=== PATIENT | male | born 1940 | race Caucasian/White ===

== ENCOUNTER 2020-06-20 11:15 | Inpatient (IN) | payer OTHER ==
--- OUTSIDE RECORDS SUMMARY | 2020-06-20 11:18 | XMS REPORT | Continuity of Care Document ---
:1940 Author Organization [facility] t Address [address] [place] [address] Care Team Providers Name Role Phone Unavailable Unavailable Unavailable Problems Condition Condition Condition Status Onset Resolution Last Treating Co mments Source Name Details Category Date Date Treatment Clinician Date Essential Essential Diagnosis Active [facility] hypertensi hypertensi [facility] kes - on on [facility] 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 [facility] - diabetes diabetes Memori a mellitus mellitus l with with [facility] hyperglyce hyperglyce en t [facility] Obesity Obesity Diagnosis [facility] ([facility] (BMI [facility] - 30-39.9) 30-39.9) [facility] Mixed Mixed Diagnosis Active [facility] hyperlipid hyperlipid [place] [facility] - emia emia Memoria [facility] Peripheral Peripheral Diagnosis Active [facility] edema edema [facility] - Memoria [facility] Diabetes Diabetes Problem Active [facility] History of History of Diagnosis Active [facility] asbestos asbestos [facility] Dietary Dietary Diagnosis [facility] surveillan surveillan [place] [facility] - ce and ce and Memoria counseling counseling [facility] Allergies, Adverse Reactions, Alerts This patient has no known allergies or adverse reactions. Medications Ordered Filled Start Stop Current Ordering Indication Dosage Frequency Signature Comments Components Source Medication Medication Date Date Medication? Clinician (SIG) Name Name Metformin Metformin 2019-0 Yes Gloria [address] [facility] HCl HCl 2-26 [facility] with a [facility] - 00:00: meal Memoria 00 l [facility] ent [facility] Blood Blood 2020-0 Yes Gloria as [facility] Glucose Glucose 2-26 Millender directed [facility] - Monitor Monitor 00:00: (DISPENSE Me moria 00 BLOOD l GLUCOSE Outpati MONITOR ent FORMULARY Clinics TO INSURANCE) Januvia Januvia 2020-0 Yes Gloria [address] 2-26 Millender [facility] - 00:[facility]: Memoria 00 l Outpati ent Clinics Lancets Lancets Yes Gloria as [facility] 2-26 [facility] directed [facility] - 00:00: (dispense Memoria 00 lancets l formulary Outpati to ent insurance) Clinics Glucose Glucose Yes Gloria as [facility] testing testing 2-26 [facility]ender directed [facility] - strips strips 00:00: (dispense Marquise reymundo 00 testing l strips Outpati formulary ent to Clinics insurance) Nilson Nilson Yes Gloria [address] [facility] Aspirin EC Aspirin EC Millender [facility] - Low Dose Low Dose Memoria l Outpati ent Clinics Sertraline Sertraline Yes Gloria [address] [facility] HCl HCl Millender [facility] Amlodipine Amlodipine Yes Gloria [address] [facility] Besylate Besylate Millender [place] - [facility] l Outpati ent Clinics Losartan Losartan Yes Gloria [address] Potassium-H Potassium-H Millender [facility] - CTZ CTZ [facility] l Outpati ent Clinics Vitamin Vitamin Yes Gloria [address] [facility] B-12 B-12 Millender [facility] Rosuvastati Rosuvastati Yes Gloria [address] [facility] n Calcium n Calcium Millender in evening [facility] Gemfibrozil Gemfibrozil Yes Gloria [address] [facility] Millender [facility] Vitamin D3 Vitamin D3 Yes Gloria [address] [facility] Millender [facility] Janumet XR Janumet XR Yes Gloria [address] [facility] Millender [facility] Glimepiride Glimepiride Yes Gloria [address] [facility] Millender [facility] Doxazosin Doxazosin Yes Gloria [address] [facility] Mesylate Mesylate Millender [place] [facility] - [facility] ent Clinics Omeprazole Omeprazole Yes Gloria [address] [facility] Millender [facility] Multi For Multi For Yes Gloria as [facility] Him 50+ Him 50+ Millender directed [facility] Hydrochloro Hydrochloro Yes Gloria [address] [facility] thiazide thiazide Millender in the [facility] - morning [facility] ent Clinics Vitamin C Vitamin C Yes Gloria [address] [facility] [place] [facility] [facility] Procedures This patient has no known procedures. Encounters Start End Encounter Admission Attending Care Care Encounter Source Date/Time Date/Time Type Type Clinicians Facility Department ID 2019-11-25 2019-11-25 [facility] [id number] [facility] 14:40:00 14:40:00 [facility] Out[facility] ent Clinics 2019-10-24 2019-10-24 [facility] [id number] [facility] 09:40:00 09:40:00 [facility] Out[facility] Clinics 2019-09-07 2019-09-07 [facility] [id number] [facility] 13:15:00 13:15:00 [facility] Clin[facility] 2019-09-07 2019-09-07 [facility] [id number] [facility] 09:19:00 09:19:00 [facility] Out[facility] Clin[facility] 2019-08-26 2019-08-26 [facility] [id number] [facility] 09:40:00 09:40:00 [facility] Out[facility] Clin[facility] 2019-07-04 2019-07-04 [facility] [id number] [facility] 11[facility]38:00 11:38:00 [facility] Out[facility] Clinics 2019-07-04 2019-07-04 [facility] [id number] [facility] 10:23:00 10:23:00 [facility] Clin[facility] 2019-05-24 2019-05-24 [facility] [id number] [facility] 10:30:00 10:30:00 [facility] Results This patient has no known results.
--- NOTE | 2020-06-20 13:14 | RAD REPORT ---
EXAM DESCRIPTION: US - Scrotum Testicles - 06/20/2020 12:44 pm CLINICAL HISTORY: SWELLING, scrotal pain COMPARISON: None FINDINGS: Testicular tissue is homogeneous with no mass lesions identified. Doppler evaluation shows normal intratesticular blood flow. No soft tissue enlargement or hyperemia of epididymal tissue. A 2 .4 centimeter thin-walled anechoic right epididymal cyst is present. There is a 1.2 centimeter anecho ic left epididymal cyst. Patient has prominent scrotal wall thickening and edema. No abscess or abnormal fluid collection in t he scrotal wall. IMPRESSION: Pronounced wall thickening and edema of the scrotal wall without abscess. No testicle blood flow or mass abnormality. Bilateral epididymal cysts.
[2020-06-20] MEDS ORDERED: VANCOMYCIN/NS 1 gm 1 GM/250 ML BAG IV ONE (15:00)
[2020-06-20] MEDS ORDERED: NA CHLORIDE 0.9% 100 ML ONE (15:26)
[2020-06-20] MEDS ORDERED: FUROSEMIDE 20 MG/ 2ML VIAL ONE (15:26)
[2020-06-20] MEDS ORDERED: CEFTRIAXONE/SWI 1gm 1 GM/10 ML SYR ONE (15:26)
[2020-06-20 15:57] LABS: Absolute Lymphocytes (CBC) 0.7 K/uL (0.7-4.9); Basophils % 1.1 % (0-1.3); Hematocrit 27.6 % (39.6-49.0); Lymphocytes % 12.2 % (15.3-44.8); MPV 8.7 fL (7.6-11.3); RBC Red Blood Cell Count 3.78 M/uL (4.33-5.43)
[2020-06-20 16:01] LABS: Protime INR 1.15
--- NOTE | 2020-06-20 16:08 | RAD REPORT ---
EXAM DESCRIPTION: RAD - Chest Single View - 06/20/2020 3:18 pm CLINICAL HISTORY: scrotal swelling, shortness of breath COMPARISON: August 2019 TECHNIQUE: AP portable chest image was obtained 06/20/2020 3:18 pm . FINDINGS: Lung volumes are low. Large body habitus accentuates chest findings. Interstitial markings are prominent without a focal mass or consolidation seen. Retrocardiac left base assessment is more limited. Heart size is upper normal. Central vasculature is mildly prominent. Left costophrenic angle blunting is present. Trachea is midline. No pneumothorax. IMPRESSION: Chest examination is limited. Findings are suspicious for mild failure or volume overloa d. Suspected small left pleural effusion.
[2020-06-20 16:19] LABS: Potassium 3.8 mmol/L (3.5-5.1)
[2020-06-20 16:43] LABS: Albumin 3.7 g/dL (3.4-5.0); Bilirubin Direct 0.5 mg/dL (0-0.2); Bilirubin Total 0.7 mg/dL (0.2-1.0); CKMB Creatine Kinase MB 3.4 ng/mL (0.3-3.6); Protein, Total 7.6 g/dL (6.4-8.2); Troponin (Emerg Dept Use Only) 0.03 ng/mL (0.0-0.045)
--- NOTE | 2020-06-20 17:50 | RAD REPORT ---
EXAM DESCRIPTION: CT - Abdomen Pelvis W Contrast - 06/20/2020 5:36 pm CLINICAL HISTORY: scrotal swelling COMPARISON: Scrotum Testicles dated 06/20/2020 TECHNIQUE: Biphasic, helical CT imaging of the abdomen and pelvis was performed following 100 ml non -ionic IV contrast. No oral contrast administered. All CT scans are performed using dose optimization technique as appropriate and may include automated exposure control or mA/KV adjustment according to patient size. FINDINGS: Moderate bilateral pleural effusions are present with partial atelectasis of each lower lo be. Mild cardiomegaly present without pericardial effusion. No focal liver parenchymal lesions present. The liver does have a nodular capsule contour. Portal vei n enhances normally. No acute splenic or pancreatic process. Pancreatic atrophy and fatty infiltratio n are noted. Gallbladder is contracted limiting assessment. Gallstones can be occult. No biliary tree dilatation. Symmetric renal function is seen with no hydronephrosis or suspicious renal mass. No pyelonephritis o r acute parenchymal process. No bladder abnormalities. No adrenal abnormalities. No dilated bowel loops or bowel wall thickening. No free air or pneumatosis. No hernia, mass or bul ky lymphadenopathy. Advanced disc and bone degenerative changes are present. Patient has spinal stenosis changes evident at L2-3 L4-5 and L5-S1. Patient has prominent fluid retention in the subcutaneous fatty tissues of the abdomen and pelvis. Th ere is trace amount of intraperitoneal ascites. Lower most images show diffuse scrotal wall edema. IMPRESSION: Moderately large bilateral pleural effusions with prominent fluid retention throughout t he subcutaneous fatty tissues of the abdomen and pelvis. Only trace amounts of intraperitoneal ascite s. Liver capsule nodularity likely reflecting cirrhosis or other diffuse hepatic parenchymal disease pro cess. No focal liver lesions seen. No acute GI or process. Advanced disc and bone degenerative change with multilevel spinal stenosis in the lumbar spine.
[2020-06-20] MEDS ORDERED: D5W 1,000 ML with NA BICARB 8.4% 50 MEQ IV SCH ×2 (18:00)
[2020-06-20 18:23] LABS: Urine Bacteria <20 /HPF (NONE SEEN); Urine RBC <5 /HPF (NONE SEEN)
--- NOTE | 2020-06-20 18:59 | EDPHYS ---
Physician Documentation [facility] Name: Chris Pinto Age: 79 yrs Sex: Male : 1940 Arrival Date: 06/20/2020 Time: 11:15 Bed 16 Private MD: ED Physician Jose D Davenport HPI: 06/20 14:46 This 79 yrs old Male presents to ER via Wheelchair with complaints of Scrotal kdr Swelling. 14:46 The patient presents with swelling, that is severe, of the head of penis, shaft of kdr penis and scrotum. Onset: The symptoms/episode began/occurred gradually, 2 week(s) ago. Modifying factors: The symptoms are alleviated by nothing, the symptoms are aggravated by nothing. Associated signs and symptoms: The patient has no apparent associated signs or symptoms. Severity of symptoms: At their worst the symptoms were moderate, in the emergency department the symptoms are unchanged. The patient has not experienced similar symptoms in the past. The patient has not recently seen a physician. Historical: - Allergies: 11:27 No Known Allergies; ca1 - PMHx: 11:27 Diabetes - NIDDM; High Cholesterol; Hypertension; ca1 - PSHx: 11:27 left knee replacement; bicep detached; left shoulder; ca1 - Immunization history:: Pneumococcal vaccine is not up to date, Flu vaccine is up to date. - Social history:: Smoking status: Patient denies any tobacco usage or history of. ROS: 14:46 Constitutional: Negative for fever, chills, and weight loss, Eyes: Negative for injury, kdr pain, redness, and discharge, ENT: Negative for injury, pain, and discharge, Neck: Negative for injury, pain, and swelling, Cardiovascular: Negative for chest pain, palpitations, and edema, Abdomen/GI: Negative for abdominal pain, nausea, vomiting, diarrhea, and constipation, Back: Negative for injury and pain, MS/Extremity: Negative for injury and deformity, Skin: Negative for injury, rash, and discoloration, Neuro: Negative for headache, weakness, numbness, tingling, and seizure activity. Psych: Negative for depression, anxiety, suicide ideation, homicidal ideation, and hallucinations, Allergy/Immunology: Negative for hives, rash, and allergies, Endocrine: Negative for neck swelling, polydipsia, polyuria, polyphagia, and marked weight changes, Hematologic/Lymphatic: Negative for swollen nodes, abnormal bleeding, and unusual bruising. 14:46 Respiratory: Positive for shortness of breath, at rest. has asbestosis. 14:46 : Positive for of the groin, swelling. Exam: 14:46 Constitutional: This is a well developed, well nourished patient who is awake, alert, kdr and in no acute distress. Head/Face: Normocephalic, atraumatic. Eyes: Pupils equal round and reactive to light, extra-ocular motions intact. Lids and lashes normal. Conjunctiva and sclera are non-icteric and not injected. Cornea within normal limits. Periorbital areas with no swelling, redness, or edema. Neck: Trachea midline, no thyromegaly or masses palpated, and no cervical lymphadenopathy. Supple, full range of motion without nuchal rigidity, or vertebral point tenderness. No Meningismus. Chest/axilla: Normal chest wall appearance and motion. Nontender with no deformity. No lesions are appreciated. Cardiovascular: Regular rate and rhythm with a normal S1 and S2. No gallops, murmurs, or rubs. Normal PMI, no JVD. No pulse deficits. Respiratory: Lungs have equal breath sounds bilaterally, clear to auscultation and percussion. No rales, rhonchi or wheezes noted. No increased work of breathing, no retractions or nasal flaring. Abdomen/GI: Soft, non-tender, with normal bowel sounds. No distension or tympany. No guarding or rebound. No evidence of tenderness throughout. Back: No spinal tenderness. No costovertebral tenderness. Full range of motion. Skin: Warm, dry with normal turgor. Normal color with no rashes, no lesions, and no evidence of cellulitis. MS/ Extremity: Pulses equal, no cyanosis. Neurovascular intact. Full, normal range of motion. Neuro: Awake and alert, GCS 15, oriented to person, place, time, and situation. Cranial nerves II-XII grossly intact. Motor strength 5/5 in all extremities. Sensory grossly intact. Cerebellar exam normal. Normal gait. Psych: Awake, alert, with orientation to person, place and time. Behavior, mood, and affect are within normal limits. 14:46 Cardiovascular: Edema: 2+ edema to level of left midcalf, left ankle, left foot, left toes, right midcalf, right ankle, right foot and right toes. Vital Signs: 11:22 BP 155 / 69; Pulse 67; Resp 18 S; Temp 97.8(TE); Pulse Ox 98% on R/A; Weight 113.4 kg ca1 (R); Height 6 ft. 3 in. (190.50 cm) (R); Pain 0/10; 15:30 BP 128 / 57; Pulse 53; Resp 16; Pulse Ox 98% ; bp 16:47 BP 151 / 60; Pulse 54; Resp 16; Pulse Ox 98% ; bp 18:00 BP 125 / 85; Pulse 53; Resp 17; Pulse Ox 99% ; bp 19:20 BP 144 / 85; Pulse 68; Resp 16; Temp 98; Pulse Ox 95% ; rr5 20:30 BP 156 / 89; Pulse 63; Resp 24; Pulse Ox 98% ; rr5 21:30 BP 141 / 80; Pulse 60; Resp 20; Pulse Ox 98% ; rr5 22:30 BP 153 / 95; Pulse 64; Resp 17; Pulse Ox 98% ; rr5 23:30 BP 162 / 78; Pulse 60; Resp 18; Pulse Ox 99% ; rr5 06/21 00:12 BP 152 / 71; Pulse 62; Resp 18; Temp 97.8; Pulse Ox 97% ; rr5 06/20 11:22 Body Mass Index 31.25 (113.40 kg, 190.50 cm) ca1 MDM: 06/20 18:21 [facility]. [facility] 18:59 Differential diagnosis: nonspecific abdominal pain, UTI. Data reviewed: vital signs, [facility] nurses notes, lab test result(s), EKG, radiologic studies, CT scan, plain films, ultrasound. Data interpreted: power lineman: rate is 53 beats/min, rhythm is regular, Pulse oximetry: on room air is 99 %. Test interpretation: by ED physician or midlevel provider: ECG, plain radiologic studies. Counseling: I had a detailed discussion with the patient and/or guardian regarding: the historical points, exam findings, and any diagnostic results supporting the discharge/admit diagnosis, lab results, radiology results, the need for further work-up and treatment in the hospital. 06/20 14: Order name: CBC with Diff; Complete Time: :55 kdr 06/20 14: Order name: Chem 7; Complete Time: 16:55 kdr 06/20 14:40 Order name: Amylase, Serum [facility] 06/20 14:40 Order name: Blood Culture Adult (2) [facility] 06/20 14:40 Order name: Ckmb [facility] 06/20 14:40 Order name: CPK; Complete Time: 16:55 [facility] 06/20 14:40 Order name: Lactate; Complete Time: 16:55 [facility] 06/20 14:40 Order name: LFT's; Complete Time: 16:55 [facility] 06/20 14:40 Order name: Lipase; Complete Time: 16:55 [facility] 06/20 14:40 Order name: Procalcitonin; Complete Time: 18:41 [facility] 06/20 14:40 Order name: Protime (+inr); Complete Time: 16:55 [facility] 06/20 14:40 Order name: Ptt, Activated; Complete Time: 16:55 [facility] 06/20 14:40 Order name: Troponin (emerg Dept Use Only); Complete Time: 16:55 [facility] 06/20 14:40 Order name: Urine Microscopic Only; Complete Time: 18:41 [facility] 06/20 11:31 Order name: US Scrotum Testicles; Complete Time: 14:26 06/20 14:40 Order name: Chest Single View XRAY; Complete Time: 16:55 [facility] 06/20 14:42 Order name: Amylase; Complete Time: 16:55 [facility] 06/20 14:42 Order name: Blood Culture [facility] 06/20 14:42 Order name: CKMB Creatine Kinase MB; Complete Time: 16:55 [facility] 06/20 15:29 Order name: COVID-19 : Document "Date of Symptom Onset" if Symptomatic. bp 06/20 17:02 Order name: CT Abd/Pelvis - IV Contrast Only; Complete Time: 18:41 [facility] 06/20 17:13 Order name: SARS-COV-2 RT PCR; Complete Time: 18:41 [facility] 06/20 18:36 Order name: Urine Dipstick--Ancillary (enter results) 06/20 18:36 Order name: Urine Dipstick-Ancillary [facility] 06/20 23:24 Order name: CONS Physician Consult [facility] 06/20 14:40 Order name: Accucheck; Complete Time: 15:29 [facility] 06/20 14:40 Order name: Cardiac monitoring; Complete Time: 15:29 [facility] 06/20 14:40 Order name: EKG - Nurse/Tech; Complete Time: 15:54 [facility] 06/20 14:40 Order name: IV Saline Lock - Large Bore; Complete Time: 15:29 [facility] 06/20 14:40 Order name: Labs collected and sent; Complete Time: 15:29 [facility] 06/20 14:40 Order name: O2 Per Protocol; Complete Time: 15:29 [facility] 06/20 14:40 Order name: O2 Sat Monitoring; Complete Time: 15: [facility] 06/20 14:40 Order name: Urine Dipstick-Ancillary (obtain specimen); Complete Time: 18:07 kdr Administered Medications: 15:20 Drug: Rocephin - (cefTRIAXone) 1 grams Route: IVPB; Infused Over: 30 mins; Site: left bp antecubital; 15:20 Drug: Lasix 20 mg Route: IVP; Site: left antecubital; bp 18:06 Follow up: Response: No adverse reaction bp 15:55 Drug: vancoMYCIN 1 grams Route: IVPB; Infused Over: 2 hrs; Site: left antecubital; bp 19:30 Follow up: Response: No adverse reaction; IV Status: Completed infusion; IV Intake: rr5 250ml 18:50 Drug: Lasix 40 mg Route: IVP; Site: left antecubital; bp 19:50 Follow up: Response: No adverse reaction rr5 Disposition: 06/20/20 18:58 Hospitalization ordered by Annmarie Christopher for Inpatient Admission. Preliminary diagnosis are Edema, unspecified - scrotal, dependent, Unspecified combined systolic (congestive) and diastolic (congestive) heart failure, Type 2 diabetes mellitus, Obesity, unspecified, Unspecified kidney failure - renal insufficency, Anemia, unspecified. - Bed requested for Telemetry/MedSurg (Inpatient). - Status is Inpatient Admission. rr5 - Condition is Fair. - Problem is new. - Symptoms are unchanged. Signatures: Dispatcher [employer] EDMS Jose D Davenport MD MD cha Rittger, Kevin, MD MD kdr Peltier, Brian, RN RN bp Fredi Acuna RN RN rr5 Tiffany Lobato RN RN ca1 Pili Blakely RN RN rd1 Corrections: (The following items were deleted from the chart) 16:26 15:29 CORONAVIRUS ordered. [facility] EDMS 19:06 18:58 Hospitalization Ordered by Annmarie Christopher MD for Inpatient Admission. Preliminary aurea diagnosis is Edema, unspecified - scrotal, dependent; Unspecified combined systolic (congestive) and diastolic (congestive) heart failure; Type 2 diabetes mellitus; Obesity, unspecified; Unspecified kidney failure - renal insufficency. Bed requested for Telemetry/MedSurg (Inpatient). Status is Inpatient Admission. Condition is Fair. Problem is new. Symptoms are unchanged. aurea 23:52 19:06 06/20/2020 18:58 Hospitalization Ordered by Annmarie Christopher MD for Inpatient rd1 Admission. Preliminary diagnosis is Edema, unspecified - scrotal, dependent; Unspecified combined systolic (congestive) and diastolic (congestive) heart failure; Type 2 diabetes mellitus; Obesity, unspecified; Unspecified kidney failure - renal insufficency; Anemia, unspecified. Bed requested for Telemetry/MedSurg (Inpatient). Status is Inpatient Admission. Condition is Fair. Problem is new. Symptoms are unchanged. aurea 06/21 00:29 06/20 23:52 06/20/2020 18:58 Hospitalization Ordered by Annmarie Christopher MD for Inpatient rr5 Admission. Preliminary diagnosis is Edema, unspecified - scrotal, dependent; Unspecified combined systolic (congestive) and diastolic (congestive) heart failure; Type 2 diabetes mellitus; Obesity, unspecified; Unspecified kidney failure - renal insufficency; Anemia, unspecified. Bed requested for Telemetry/MedSurg (Inpatient). Status is Inpatient Admission. Condition is Fair. Problem is new. Symptoms are unchanged. rd1
--- NOTE | 2020-06-20 18:59 | ER ---
Nurse's Notes [facility] Name: Chris Pinto Age: 79 yrs Sex: Male : 1940 Arrival Date: 06/20/2020 Time: 11:15 Bed 16 Private MD: Diagnosis: Edema, unspecified-scrotal, dependent;Unspecified combined systolic (congestive) and diastolic (congestive) heart failure;Type 2 diabetes mellitus;Obesity, unspecified;Unspecified kidney failure-renal insufficency;Anemia, unspecified Presentation: 06/20 11:22 Chief complaint: Patient states: scrotal swelling x 2 weeks. this is the first time ca1 this has happened. Denies pain. Denies urinary symptoms. Coronavirus screen: Client denies travel out of the [place] in the last 14 days. At this time, the client does not indicate any symptoms associated with coronavirus-19. Ebola Screen: Patient negative for fever greater than or equal to 101.5 degrees Fahrenheit, and additional compatible Ebola Virus Disease symptoms Patient denies exposure to infectious person. Patient denies travel to an Ebola-affected area in the 21 days before illness onset. No symptoms or risks identified at this time. Initial Sepsis Screen: Does the patient meet any 2 criteria? No. Patient's initial sepsis screen is negative. Does the patient have a suspected source of infection? No. Patient's initial sepsis screen is negative. Risk Assessment: Do you want to hurt yourself or someone else? Patient reports no desire to harm self or others. Onset of symptoms was June 20, 2020. 11:22 Method Of Arrival: Wheelchair ca1 11:22 Method Of Arrival: Wheelchair ca1 11:22 Acuity: LITA 3 ca1 Triage Assessment: 14:15 General: Appears in no apparent distress. uncomfortable, obese, Behavior is calm, bp cooperative, appropriate for age. Pain: Complains of pain in scrotum. EENT: No deficits noted. Neuro: No deficits noted. Cardiovascular: No deficits noted. Respiratory: No deficits noted. GI: No signs and/or symptoms were reported involving the gastrointestinal system. : SCROTAL EDEMA. Derm: No deficits noted. Musculoskeletal: Swelling present in right toes and right foot and right ankle and right midcalf and left toes and left foot and left ankle and left midcalf and scrotum. Historical: - Allergies: 11:27 No Known Allergies; ca1 - PMHx: 11: Diabetes - NIDDM; High Cholesterol; Hypertension; ca1 - PSHx: 11:27 left knee replacement; bicep detached; left shoulder; ca1 - Immunization history:: Pneumococcal vaccine is not up to date, Flu vaccine is up to date. - Social history:: Smoking status: Patient denies any tobacco usage or history of. Screenin:30 Abuse screen: Denies threats or abuse. Denies injuries from another. bp 14:30 Nutritional screening: No deficits noted. Tuberculosis screening: No symptoms or risk bp factors identified. Fall Risk None identified. Assessment: 14:15 General: SEE TRIAGE NOTE. PT MOVED FROM WAITING. bp 15:30 Reassessment: No changes from previously documented assessment. Patient and/or family bp updated on plan of care and expected duration. Pain level reassessed. Patient is alert, oriented x 3, equal unlabored respirations, skin warm/dry/pink. 17:30 Reassessment: No changes from previously documented assessment. Patient and/or family bp updated on plan of care and expected duration. Pain level reassessed. Patient is alert, oriented x 3, equal unlabored respirations, skin warm/dry/pink. PT RETURNED FROM CT. RESULTS PENDING FOR DISPO. 19:50 General: Appears in no apparent distress. comfortable, Behavior is calm, cooperative, rr5 appropriate for age. Pain: Complains of pain in pelvis, right leg and left leg. Neuro: Level of Consciousness is awake, alert, Oriented to person, place, time. Cardiovascular: Capillary refill < 3 seconds Patient's skin is warm and dry. Edema. Respiratory: Airway is patent Respiratory effort is even, unlabored, Respiratory pattern is regular, symmetrical. GI: Abdomen is round. : scrotal swelling. EENT: No signs and/or symptoms were reported regarding the EENT system. Derm: Skin is pink, warm \\T\\ dry. Skin temperature is warm. Musculoskeletal: Capillary refill < 3 seconds, Swelling present in right leg and left leg. 21:00 Reassessment: Patient appears in no apparent distress at this time. Patient and/or rr5 family updated on plan of care and expected duration. Pain level reassessed. Patient is alert, oriented x 3, equal unlabored respirations, skin warm/dry/pink. awaiting for room assignment. 22:00 Reassessment: Patient appears in no apparent distress at this time. Patient is alert, rr5 oriented x 3, equal unlabored respirations, skin warm/dry/pink. pass urine 700 ml. 23:20 Reassessment: Patient appears in no apparent distress at this time. Patient is alert, rr5 oriented x 3, equal unlabored respirations, skin warm/dry/pink. no complaints made. 06/21 00:25 Reassessment: Patient appears in no apparent distress at this time. Patient is alert, rr5 oriented x 3, equal unlabored respirations, skin warm/dry/pink. Vital Signs: 06/20 11:22 BP 155 / 69; Pulse 67; Resp 18 S; Temp 97.8(TE); Pulse Ox 98% on R/A; Weight 113.4 kg ca1 (R); Height 6 ft. 3 in. (190.50 cm) (R); Pain 0/10; 15:30 BP 128 / 57; Pulse 53; Resp 16; Pulse Ox 98% ; bp 16:47 BP 151 / 60; Pulse 54; Resp 16; Pulse Ox 98% ; bp 18:00 BP 125 / 85; Pulse 53; Resp 17; Pulse Ox 99% ; bp 19:20 BP 144 / 85; Pulse 68; Resp 16; Temp 98; Pulse Ox 95% ; rr5 20:30 BP 156 / 89; Pulse 63; Resp 24; Pulse Ox 98% ; rr5 21:30 BP 141 / 80; Pulse 60; Resp 20; Pulse Ox 98% ; rr5 22:30 BP 153 / 95; Pulse 64; Resp 17; Pulse Ox 98% ; rr5 23:30 BP 162 / 78; Pulse 60; Resp 18; Pulse Ox 99% ; rr5 06/21 00:12 BP 152 / 71; Pulse 62; Resp 18; Temp 97.8; Pulse Ox 97% ; rr5 06/20 11:22 Body Mass Index 31.25 (113.40 kg, 190.50 cm) ca1 ED Course: 06/20 11:15 Patient arrived in ED. as 11:25 Triage completed. ca1 11:27 Arm band placed on right wrist. ca1 12:00 Bill Brown MD is Attending Physician. kdr 12:19 US Scrotum Testicles In Process Unspecified. EDMS 14:19 Octavio, Joshua, RN is Primary Nurse. bp 14:30 Patient has correct armband on for positive identification. Placed in gown. Bed in low bp position. Call light in reach. Side rails up X2. 14:30 Inserted saline lock: 20 gauge in left antecubital area, using aseptic technique. Blood bp collected. 15:18 Chest Single View XRAY In Process Unspecified. EDMS 17:36 CT Abd/Pelvis - IV Contrast Only In Process Unspecified. EDMS 18:06 COVID-19 : Document "Date of Symptom Onset" if Symptomatic. Sent. bp 18:21 Attending Physician role handed off by Bill Brown MD aurea 18:21 Jose D Davenport MD is Attending Physician. aurea 18:52 Annmarie Christopher MD is Hospitalizing Provider. aurea 19:03 Urine Dipstick--Ancillary (enter results) Sent. bp 19:04 Amylase, Serum Sent. bp 19:04 Blood Culture Adult (2) Sent. bp 19:04 Ckmb Sent. bp 06/21 00:13 No provider procedures requiring assistance completed. Patient admitted, IV remains in rr5 place. intact, No redness/swelling at site. Administered Medications: 06/20 15:20 Drug: Rocephin - (cefTRIAXone) 1 grams Route: IVPB; Infused Over: 30 mins; Site: left bp antecubital; 15:20 Drug: Lasix 20 mg Route: IVP; Site: left antecubital; bp 18:06 Follow up: Response: No adverse reaction bp 15:55 Drug: vancoMYCIN 1 grams Route: IVPB; Infused Over: 2 hrs; Site: left antecubital; bp 19:30 Follow up: Response: No adverse reaction; IV Status: Completed infusion; IV Intake: rr5 250ml 18:50 Drug: Lasix 40 mg Route: IVP; Site: left antecubital; bp 19:50 Follow up: Response: No adverse reaction rr5 Intake: 19:30 IV: 250ml; Total: 250ml. rr5 Output: 20:35 Urine: 800ml (Voided); Total: 800ml. rr5 06/21 00:12 Urine: 700ml (Voided); Total: 1500ml. rr5 Outcome: 06/20 18:58 Decision to Hospitalize by Provider. aurea 06/21 00:13 Admitted to Med/surg accompanied by tech, via wheelchair, room 218, with chart, Report rr5 called to scot Condition: stable Instructed on the need for admit. 00:29 Patient left the ED. rr5 Signatures: Dispatcher [employer] EDJose D Desir MD MD cha Rittger, Kevin, MD MD kdr Martinez, Amelia as Peltier, Brian, RN RN Fredi Ackerman RN RN rr5 Tiffany Lobato RN RN ca1
[2020-06-20] MEDS ORDERED: FUROSEMIDE 40 MG/4 ML VIAL ONE (19:08)
[2020-06-20 20:15] LABS: Urine Blood NEGATIVE (NEG); Urine Glucose NEGATIVE (NEG); Urine Protein 1+ (NEG); Urine pH 5.5 (5.0-7.0)
[2020-06-21] MEDS ORDERED: ONDANSETRON 4 MG/2 ML VIAL IV PRN (00:43)
[2020-06-21] MEDS ORDERED: ACETAMINOPHEN 500 MG TAB PO PRN (00:43)
[2020-06-21 01:17] VITALS: BMI 35.9
--- NOTE | 2020-06-21 01:56 | P.HP ---
Certification for Inpatient Patient admitted to: Inpatient With expected LOS: >2 Midnights Patient will require the following post-hospital care: None Practitioner: I am a practitioner with admitting privileges, knowledge of patient current condition, hospital course, and medical plan of care. Services: Services provided to patient in accordance with Admission requirements found in Title 42 Section 412.3 of the Code of Federal Regulations <See Sharpe - Last Filed: 06/21/20 02:03> Patient History Date of Service: 06/21/20 Primary Care Provider: Unknown Reason for admission: volume overload History of Present Illness: Mr. Pinto is a 79 yo male with DM ,HTN, HLD, BPH here today with 2 weeks of scrotal edema and lower extremity edema that has progressively worsened. He reports SOB and CAIN. Denies fever, nausea, vomiting, chest pain, palpitations, dysuria, polyuria, orthopnea, PND. CXR shows findings suspicious for mild failure or volume overload, and suspected small left pleural effusion. CT shows moderately large bilateral pleural effusions with prominent fluid retention through subcutaneous fatty tissues of abdomen and pelvis. Only trace amounts of intraperitoneal ascites. Mild cardiomegaly. Liver capsule nodularity likely reflecting cirrhosis or other diffuse hepatic parenchymal disease process. No focal liver lesions. Pancreatic atrophy and fatty infiltration noted. Gallbladder is contracted, gallstones can be occult. No biliary tree dilation. Scrotal ultrasound shows pronounced wall thickening and edema of the scrotal wall without abscess, no testicular blood flow or mass abnormality, bilateral epididymal cysts. BNP pending. Hgb 8.5, Hct 27.6, MCV 73. BUN 30, Cr 1.46, GFR 47. Dbili 0.5, alk phos 140. - Past Medical/Surgical History Diabetic: Yes -: DM -: HTN -: HLD -: GERD -: Depression -: BPH -: knee replacement -: shoulder surgery - Social History Smoking Status: Never smoker Alcohol use: No CD- Drugs: No Caffeine use: Yes Place of Residence: Home <See Sharpe - Last Filed: 06/21/20 02:03> Date of Service: 06/21/20 <migue douglas - Last Filed: 06/21/20 13:42> Allergies No Known Allergies Allergy (Verified 06/21/20 01:56) Review of Systems General: Unremarkable Eyes: Unremarkable ENT: Unremarkable Respiratory: Shortness of Breath, SOB with Excertion, As per HPI Cardiovascular: Edema, As per HPI Gastrointestinal: Unremarkable Genitourinary: Unremarkable Musculoskeletal: Unremarkable Integumentary: Unremarkable Neurological: Unremarkable Lymphatics: Unremarkable <See Sharpe - Last Filed: 06/21/20 02:03> Physical Examination - Vital Signs Temperature: 96.8 F Blood Pressure: 152/73 Pulse: 64 Respirations: 17 Pulse Ox (%): 99 - Physical Exam General: Alert, In no apparent distress, Oriented x3, Cooperative HEENT: Atraumatic, Normocephalic, PERRLA, Mucous membr. moist/pink, EOMI, Sclerae nonicteric Neck: Supple, 2+ carotid pulse no bruit, JVD not distended, No Thyromegaly, No LAD Respiratory: Crackles/rales, Other (diminished at bases) Cardiovascular: Normal pulses, Regular rate/rhythm, Normal S1 S2, No gallops, No rubs, No murmurs, Other (3+ pitting edema), Edema Capillary refill: <2 Seconds Gastrointestinal: Normal bowel sounds, Soft and benign, Non-distended, No tenderness, No masses, No rebound, No guarding Musculoskeletal: No clubbing, No swelling, No contractures, No erythema, No tenderness, No warmth Integumentary: No rashes, No breakdown, No significant lesion, No tenderness/swelling, No erythema, No warmth, No cyanosis Neurological: Normal speech, Normal strength at 5/5 x4 extr, Normal tone, Sensation intact, Cranial nerves 3-12 intact, Normal affect Lymphatics: No axilla or inguinal lymphadenopathy - Studies Laboratory Data (last 24 hrs) 06/20/20 15:20: PT 13.3 H, INR 1.15, APTT 28.9 06/20/20 15:20: Total Bilirubin 0.7, AST 17, ALT 18, Alkaline Phosphatase 140 H, Amylase 39, Lipase 100 06/20/20 15:20: Sodium 144, Potassium 3.8, BUN 30 H, Creatinine 1.46 H, Glucose 115 H 06/20/20 15:20: WBC 6.10, Hgb 8.5 L, Hct 27.6 L, Plt Count 231 <See Sharpe - Last Filed: 06/21/20 02:03> - Studies Laboratory Data (last 24 hrs) 06/20/20 15:20: PT 13.3 H, INR 1.15, APTT 28.9 06/20/20 15:20: Total Bilirubin 0.7, AST 17, ALT 18, Alkaline Phosphatase 140 H, Amylase 39, Lipase 100 06/20/20 15:20: Sodium 144, Potassium 3.8, BUN 30 H, Creatinine 1.46 H, Glucose 115 H 06/20/20 15:20: WBC 6.10, Hgb 8.5 L, Hct 27.6 L, Plt Count 231 <migue douglas - Last Filed: 06/21/20 13:42> Assessment and Plan - Problems (Diagnosis) (1) Volume overload Current Visit: Yes Status: Acute Plan: patient with 3+ pitting edema, bilateral pleural effusions, fluid retention, scrotal swelling Lasix 60 IV given in the ER, will continue Lasix. cardiology consulted. pt has no previous diagnosis of CHF, not on diuretic at home. Qualifiers: Hypervolemia type: unspecified Qualified Code(s): E87.70 - Fluid overload, unspecified (2) Diabetes Current Visit: Yes Status: Chronic Plan: patient on accuchecks and mild sliding scale insulin. stable, continue to monitor. Qualifiers: Diabetes mellitus type: type 2 Diabetes mellitus termite treater helper insulin use: without mcfp use Diabetes mellitus complication status: without complication Qualified Code(s): E11.9 - Type 2 diabetes mellitus without complications (3) Hypertension Current Visit: Yes Status: Chronic Plan: stable, will reconcile and restart home medications Qualifiers: Hypertension type: essential hypertension Qualified Code(s): I10 - Essential (primary) hypertension (4) Hyperlipidemia Current Visit: Yes Status: Acute Plan: stable, continue with home medications Qualifiers: Hyperlipidemia type: unspecified Qualified Code(s): E78.5 - Hyperlipidemia, unspecified (5) BPH (benign prostatic hyperplasia) Current Visit: Yes Status: Acute Plan: continue with home medications Qualifiers: Lower urinary tract symptom presence: symptoms absent Qualified Code(s): N40.0 - Benign prostatic hyperplasia without lower urinary tract symptoms (6) Depression Current Visit: Yes Status: Acute Plan: stable, continue with home medications Qualifiers: Depression Type: unspecified Qualified Code(s): F32.9 - Major depressive disorder, single episode, unspecified (7) GERD (gastroesophageal reflux disease) Current Visit: Yes Status: Acute Plan: stable, continue with home medications Qualifiers: Esophagitis presence: esophagitis presence not specified Qualified Code(s): K21.9 - Gastro-esophageal reflux disease without esophagitis (8) Anemia Current Visit: Yes Status: Acute Plan: Hgb 8.5, Hct 27.6, MCV 73. Not present on last admission. Iron, ferritin, transferrin pending. SCDs for prophylaxis. Will continue to monitor. Qualifiers: Anemia type: unspecified type Qualified Code(s): D64.9 - Anemia, unspecified Discharge Plan: Home Plan to discharge in: 48 Hours - Advance Directives Does patient have a Living Will: No Does patient have a Durable POA for Healthcare: No - Code Status/Comfort Care Code Status Assessed: Yes (full code) Critical Care: No Time Spent Managing Pts Care (In Minutes): 70 <See Sharpe - Last Filed: 06/21/20 02:03> Physician Review: Patient Assessed, Agree with Above Assessment and Plan Physician Review Additional Text: [place] Scrotal edema. Plan: IV Lasix Monitor input and output. Fluid restriction. <migue douglas - Last Filed: 06/21/20 13:42>
[2020-06-21] MEDS ORDERED: D5W 1,000 ML with NA BICARB 8.4% 50 MEQ IV SCH ×2 (02:00)
[2020-06-21 02:22] LABS: Troponin I 0.03 ng/mL (0.0-0.045)
[2020-06-21 02:23] LABS: Thyroid Stimulating Hormone 3.76 uIU/mL (0.360-3.740)
[2020-06-21 03:11] LABS: Urine Color YELLOW
[2020-06-21 03:12] LABS: Urine Appearance CLEAR; Urine Bilirubin NEGATIVE (NEG); Urine Blood 1+ (NEG); Urine Glucose NEGATIVE (NEG); Urine Protein NEGATIVE (NEG); Urine Urobilinogen 0.2 mg/dL (0.2-1.0)
[2020-06-21 03:24] LABS: Urine Microscopic Reflex ORDER UMIC
[2020-06-21 04:24] LABS: Absolute Lymphocytes (CBC) 0.8 K/uL (0.7-4.9); Basophils % 0.7 % (0-1.3); Hematocrit 26.4 % (39.6-49.0); MPV 8.4 fL (7.6-11.3); RBC Red Blood Cell Count 3.68 M/uL (4.33-5.43)
[2020-06-21 05:25] LABS: Albumin 3.6 g/dL (3.4-5.0); Bilirubin Total 0.9 mg/dL (0.2-1.0); Ferritin 35.7 ng/mL (26-388); Magnesium 1.9 mg/dL (1.8-2.4); Phosphorus 3.1 mg/dL (2.5-4.9); Potassium 3.5 mmol/L (3.5-5.1); Protein, Total 7.2 g/dL (6.4-8.2)
[2020-06-21 05:40] LABS: Urine Bacteria <20 /HPF (NONE SEEN); Urine RBC <5 /HPF (NONE SEEN)
[2020-06-21] MEDS ORDERED: POTASSIUM CL SA 10 MEQ TAB PO ONE (06:45)
[2020-06-21] MEDS: INSULIN -REGULAR HUMAN 50 UNIT/0.5 ML ML SQ SCH ×4 (07:30→21:00)
[2020-06-21] MEDS: FUROSEMIDE 40 MG/4 ML VIAL IV SCH ×2 (09:11→17:06)
--- NOTE | 2020-06-21 13:48 | P.PN ---
Subjective Date of Service: 06/21/20 Primary Care Provider: Unknown Chief Complaint: volume overload Patient states his lower extremity edema is improving but the scrotal edema has not changed. Physical Examination - Vital Signs Temperature: 98.2 F Blood Pressure: 151/67 Pulse: 65 Respirations: 20 Pulse Ox (%): 96 - Physical Exam General: Alert, In no apparent distress, Oriented x3 HEENT: PERRLA, Mucous membr. moist/pink Neck: JVD not distended Respiratory: Clear to auscultation bilaterally, Normal air movement Cardiovascular: Regular rate/rhythm, Normal S1 S2, Edema (2+ bilateral lower extremity pitting edema) Gastrointestinal: Soft and benign, Non-distended, No ascites Musculoskeletal: No erythema, No tenderness Integumentary: No rashes Neurological: Normal strength at 5/5 x4 extr, Cranial nerves 3-12 intact External genitalia: Other (Scrotal edema.) - Studies Laboratory Data (last 24 hrs) 06/20/20 15:20: PT 13.3 H, INR 1.15, APTT 28.9 06/20/20 15:20: Total Bilirubin 0.7, AST 17, ALT 18, Alkaline Phosphatase 140 H, Amylase 39, Lipase 100 06/20/20 15:20: Sodium 144, Potassium 3.8, BUN 30 H, Creatinine 1.46 H, Glucose 115 H 06/20/20 15:20: WBC 6.10, Hgb 8.5 L, Hct 27.6 L, Plt Count 231 Assessment And Plan - Current Problems (Diagnosis) (1) Volume overload Current Visit: Yes Status: Acute Qualifiers: Hypervolemia type: unspecified Qualified Code(s): E87.70 - Fluid overload, unspecified (2) Diabetes Current Visit: Yes Status: Chronic Qualifiers: Diabetes mellitus type: type 2 Diabetes mellitus 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 Continue IV Lasix. Monitor intake and output Fluid restriction to 1200 mL per day. Echocardiogram. Optimize electrolytes. Monitor renal function.
[2020-06-22 06:20] LABS: Potassium 3.4 mmol/L (3.5-5.1)
--- NOTE | 2020-06-22 06:47 | EKG ---
Test Date: 2020-06-20 Test Time: 15:10:33 Living Supervisor: MAURA MEASUREMENT RESULTS: Intervals: Rate: 57 NH: QRSD: 82 QT: 462 QTc: 449 [place]: P: NH: QRS: -25 T: 90 INTERPRETIVE STATEMENTS: Sinus rhythm with 2nd degree AV block (Mobitz I) Low voltage QRS Cannot rule out Anteroseptal infarct, age undetermined Abnormal ECG Compared to ECG 03/13/2004 10:02:00 Low QRS voltage now present Sinus bradycardia no longer present Left-axis deviation no longer present Myocardial infarct finding still present Electronically Signed On 06-22-20 06:44:34 CDT by Josh Persaud
[2020-06-22] MEDS: INSULIN -REGULAR HUMAN 50 UNIT/0.5 ML ML SQ SCH ×4 (07:30→21:00)
[2020-06-22] MEDS: FUROSEMIDE 40 MG/4 ML VIAL IV SCH ×2 (09:27→16:50)
[2020-06-22] MEDS ORDERED: POTASSIUM CL SA 10 MEQ TAB PO ONE ×2 (12:00→21:00)
--- NOTE | 2020-06-22 12:24 | P.PN ---
Subjective Date of Service: 06/22/20 Primary Care Provider: Unknown Chief Complaint: volume overload Patient states he feels better. His lower extremity edema and scrotal edema are improving. Denies shortness of breath. He is diuresing well with the current IV Lasix dose. Physical Examination - Vital Signs Temperature: 97.9 F Blood Pressure: 182/80 Pulse: 56 Respirations: 18 Pulse Ox (%): 96 - Physical Exam General: Alert, In no apparent distress, Oriented x3 HEENT: Mucous membr. moist/pink Neck: Supple, JVD not distended Respiratory: Diminished (Bilateral) Cardiovascular: Regular rate/rhythm, Normal S1 S2, Edema (1+ bilateral lower extremity pitting edema) Gastrointestinal: Soft and benign, Non-distended, No ascites Musculoskeletal: No tenderness, Swelling (Bilateral lower extremities) Integumentary: No rashes Neurological: Normal strength at 5/5 x4 extr, Cranial nerves 3-12 intact External genitalia: Other (Scrotal edema) Assessment And Plan - Current Problems (Diagnosis) (1) Volume overload Current Visit: Yes Status: Acute Qualifiers: Hypervolemia type: unspecified Qualified Code(s): E87.70 - Fluid overload, unspecified (2) Diabetes Current Visit: Yes Status: Chronic Qualifiers: Diabetes mellitus type: type 2 Diabetes mellitus prison insulin use: without prison use Diabetes mellitus complication status: without co mplication Qualified Code(s): E11.9 - Type 2 diabetes mellitus without complications (3) Hypertension Current Visit: Yes Status: Chronic Qualifiers: Hypertension type: essential hypertension Qualified Code(s): I10 - Essential (primary) hypertension (4) Pleural effusion Current Visit: Yes Status: Acute (5) Liver disorder Current Visit: Yes Status: Acute - Plan Continue current dose IV Lasix. Monitor intake and output Fluid restriction to 1200 mL per day. Echocardiogram result is pending Obtain liver ultrasound Optimize electrolytes. Monitor renal function. Keep lower extremities and scrotum elevated. Monitor volume status. Physician Review: Patient Assessed, Agree with Above Assessment and Plan
--- NOTE | 2020-06-22 15:20 | RAD REPORT ---
EXAM DESCRIPTION: US - Liver Only - 06/22/2020 2:50 pm CLINICAL HISTORY: Abdominal pain/cirrhosis COMPARISON: None FINDINGS: Mildly nodular hepatic contour. The liver is normal size The liver has a normal echotextu re. Hepatopetal flow. A lesion is not visualized. The spleen measures 12.5 centimeters Small amount of ascites IMPRESSION: Mildly nodular hepatic contour can be seen with chronic disease. Borderline splenomegaly
[2020-06-22] MEDS ORDERED: METFORMIN HCL PO SCH (17:00)
[2020-06-22] MEDS ORDERED: SITAGLIPTIN PHOS PO SCH (17:00)
--- NOTE | 2020-06-22 20:07 | PN ---
Date of Progress Note: 06/22/2020 The patient was seen today on 06/22/2020 for followup on congestive heart failure. His last creatini ne was 1.61. O2 saturation 97% on room air. Potassium is 3.4. He has improved very well with Lasix IV. He is also on insulin. Has a history of diabetes, hypertension, dyslipidemia, and scrotal swel ling. Echocardiogram showed a normal ejection fraction with diastolic dysfunction. Mainstay of ther apy should be beta blockers, Lasix, fluid restriction, salt restriction, probably avoid an BRIJESH inhibi tor right now with his creatinine the way it is. He can go home whenever it is okay with Dr. Atkinson. We will see him in the office as an outpatient. CURT/MELY Voice ID: [id number] Report ID: [id number]
[2020-06-22] MEDS ORDERED: DOXAZOSIN 2 MG TAB PO SCH (21:00)
[2020-06-22] MEDS: ASPIRIN EC 81 MG TAB PO SCH (21:54)
[2020-06-22] MEDS: AMLODIPINE 5 MG TAB PO SCH (21:55)
[2020-06-23 05:46] LABS: Potassium 3.4 mmol/L (3.5-5.1)
[2020-06-23 05:58] LABS: Absolute Lymphocytes (CBC) 0.9 K/uL (0.7-4.9); Hematocrit 25.7 % (39.6-49.0); Lymphocytes % 16.2 % (15.3-44.8); MPV 8.4 fL (7.6-11.3)
[2020-06-23] MEDS: INSULIN -REGULAR HUMAN 50 UNIT/0.5 ML ML SQ SCH ×2 (07:30→11:30)
[2020-06-23] MEDS: FUROSEMIDE 40 MG/4 ML VIAL IV SCH (08:23)
[2020-06-23] MEDS: ASPIRIN EC 81 MG TAB PO SCH (08:24)
[2020-06-23] MEDS: AMLODIPINE 5 MG TAB PO SCH (08:25)
[2020-06-23] MEDS ORDERED: HOME MED 1 EA UNK (Losartan/Hydrochlorothiazide [Losartan-Hctz 100-25 Mg Tab] 1 EACH Table PO SCH (09:00)
[2020-06-23] MEDS ORDERED: VITAMIN D 1000 UNIT TAB PO SCH (09:00)
[2020-06-23] MEDS ORDERED: LOSARTAN/HCTZ 50-12.5 PO SCH (09:00)
[2020-06-23] MEDS ORDERED: CYANOCOBALAMIN 1,000 MCG TAB PO SCH (09:00)
[2020-06-23] MEDS ORDERED: ASCORBIC ACID 500 MG TABLET PO SCH (09:00)
[2020-06-23] MEDS ORDERED: PANTOPRAZOLE 40MG TABLET PO SCH (09:00)
[2020-06-23] MEDS ORDERED: POTASSIUM CL SA 10 MEQ TAB PO ONE (09:00)
[2020-06-23] MEDS ORDERED: SERTRALINE HCL 100 MG TAB PO SCH (09:00)
[2020-06-23] MEDS ORDERED: HOME MED 1 EA UNK (Omeprazole [Prilosec] 40 MG Capsule.Dr) PO SCH (09:00)
[2020-06-23] MEDS ORDERED: gemfibroziL 600 MG TAB PO SCH (09:00)
[2020-06-23] MEDS ORDERED: ROSUVASTATIN 10 MG TAB PO SCH (09:00)
[2020-06-23] MEDS ORDERED: MULTIVIT W/ MINERAL TAB PO SCH (09:00)
[2020-06-23 09:24] LABS: White Blood Cell Scan OK (OK)
[2020-06-23 09:25] LABS: Anisocytosis 2+; Blood Morphology Comment NOTED (NOT SEEN); Hypochromasia 2+; Platelet Estimate ADEQ; Target Cells 1+
[2020-06-23 10:37] VITALS: O2SAT 94
[2020-06-23] MEDS ORDERED: METOPROLOL TAR 50 MG TAB PO SCH (11:15)
[2020-06-23 12:00] VITALS: BP 160/67
--- NOTE | 2020-06-23 12:53 | PN ---
Date of Progress Note: 06/23/2020 Subjective: Mr. Pinto is a patient who was admitted with scrotal swelling, anasarca, congestive hear t failure. Echocardiogram showed diastolic dysfunction with normal ejection fraction. He has a hist ory of hypertension, diabetes, dyslipidemia. He has renal insufficiency. His last creatinine is 1.4 2, hemoglobin is 7.9, potassium is 3.4. He is feeling better. He still has some scrotal swelling an d pedal edema but is much improved. His last regimen include aspirin, Norvasc, doxazosin, Lasix, los mirella with hydrochlorothiazide, potassium, Crestor, and Lopid. I think he needs to have his potassiu m supplemented. I think he needs to have his losartan with HCT discontinued and change the losartan without the hydrochlorothiazide. I think he needs to go home on Lasix 40 mg b.i.d. His home medicat ion plus a beta-vincent dose, metoprolol ER succinate 50 mg daily. I will see him in the office in t he near future and have him do an outpatient Lexiscan and see me. CURT/MELY Voice ID: [id number] Report ID: [id number]
--- NOTE | 2020-06-23 14:03 | P.DS ---
Admission Date: 06/20/20 Discharge Date: 06/23/20 Primary Care Provider: Unknown Disposition: [place] HOME/HOME HEALTH CARE Discharge Condition: FAIR Reason for Admission: volume overload - Problems (1) Volume overload Current Visit: Yes Status: Acute Qualifiers: Hypervolemia type: unspecified Qualified Code(s): E87.70 - Fluid overload, unspecified (2) Diabetes Current Visit: Yes Status: Chronic Qualifiers: Diabetes mellitus type: type 2 Diabetes mellitus fpc insulin use: without buttermaker use Diabetes mellitus complication status: without complication Qualified Code(s): E11.9 - Type 2 diabetes mellitus without complications (3) Hypertension Current Visit: Yes Status: Chronic Qualifiers: Hypertension type: essential hypertension Qualified Code(s): I10 - Essential (primary) hypertension (4) Pleural effusion Current Visit: Yes Status: Acute (5) Liver disorder Current Visit: Yes Status: Acute (6) Scrotal edema Current Visit: Yes Status: Acute (7) Acute diastolic heart failure Current Visit: Yes Status: Acute (8) Chronic kidney disease, stage 3 Current Visit: Yes Status: Acute Brief History of Present Illness: 79-year-old gentleman with a history of hypertension and diabetes presented to the emergency department with a complaint of scrotal swelling, increasing lower extremity edema some progressive shortness of breath especially with exertion. Patient denied any orthopnea. Imaging done in the emergency department bilateral pleural effusion, diffuse subcutaneous edema and scrotal edema. Initial troponin negative. EKG showed sinus rhythm with Mobitz 1. Patient was hospitalized for further management. Hospital Course: Patient admitted to the medical floor and diuresed with IV Lasix. The anasarca significantly improved. Scrotal edema significantly improved with IV Lasix. Renal function was stable. Patient was able to ambulate now without shortness of breath. Patient was seen in consultation by cardiology-Dr. Persaud who recommended maintenance Lasix therapy with losartan and metoprolol and to discontinue hydrochlorothiazide. Echocardiogram done showed normal EF and impaired diastolic function. Noted he has iron deficiency anemia. Patient's denies any colonoscopy in the past. He denied any melena. Patient from the evaluation for colonoscopy as an outpatient. I called and updated his daughter- Laurie regarding the discharge plan including the need for colonoscopy. He is referred to see Dr. Dhaliwal. Overall patient has clinically improved and deemed stable for discharge. Vital Signs/Physical Exam: Temp Pulse Resp BP Pulse Ox 98.6 F 69 16 160/67 H 94 06/23/20 08:00 06/23/20 11:57 06/23/20 08:00 06/23/20 11:57 06/23/20 08:00 General: Alert, In no apparent distress HEENT: Mucous membr. moist/pink Neck: Supple, JVD not distended Respiratory: Clear to auscultation bilaterally, Normal air movement Cardiovascular: Regular rate/rhythm, Normal S1 S2, Edema (Bilateral lower extremity edema has significantly improved and almost resolved) Gastrointestinal: Soft and benign, Non-distended, No ascites Musculoskeletal: No swelling, No tenderness Integumentary: No rashes Neurological: Normal strength at 5/5 x4 extr External genitalia: Other (Scrotal edema significantly improved.) Laboratory Data at Discharge: WBC 5.40 K/uL (4.3-10.9) D 06/23/20 04:58 Hgb 7.9 g/dL (13.6-17.9) L* 06/23/20 04:58 Hct 25.7 % (39.6-49.0) L 06/23/20 04:58 Plt Count 230 K/uL (152-406) 06/23/20 04:58 PT 13.3 SECONDS (9.5-12.5) H 06/20/20 15:20 INR 1.15 06/20/20 15:20 APTT 28.9 SECONDS (24.3-36.9) 06/20/20 15:20 Sodium 143 mmol/L (136-145) 06/23/20 04:58 Potassium 3.4 mmol/L (3.5-5.1) L 06/23/20 04:58 BUN 28 mg/dL (7-18) H 06/23/20 04:58 Creatinine 1.42 mg/dL (0.55-1.3) H 06/23/20 04:58 Glucose 114 mg/dL (74-106) H 06/23/20 04:58 Phosphorus 3.1 mg/dL (2.5-4.9) 06/21/20 03:40 Magnesium 1.9 mg/dL (1.8-2.4) 06/21/20 03:40 Total Bilirubin 0.9 mg/dL (0.2-1.0) 06/21/20 03:40 AST 20 U/L (15-37) 06/21/20 03:40 ALT 17 U/L (12-78) 06/21/20 03:40 Alkaline Phosphatase 136 U/L (45-117) H 06/21/20 03:40 Troponin I Cancelled 06/21/20 16:43 Amylase 39 U/L (25-115) 06/20/20 15:20 Lipase 100 U/L (73-393) 06/20/20 15:20 Home Medications: Ascorbic Acid [Vitamin C*] 500 mg PO DAILY 06/21/20 Aspirin [Low Dose Aspirin EC] 1 tab PO BID 06/21/20 Cholecalciferol (Vitamin D3) [Vitamin D3] 1,000 unit PO DAILY 06/21/20 Cyanocobalamin [Vitamin B-12*] 1,000 mcg PO DAILY 06/21/20 Doxazosin [Cardura*] 1 mg PO BEDTIME 06/21/20 Glimepiride 4 mg PO BID 06/21/20 Multivitamin [Daily Multivitamin] 1 tab PO DAILY 06/21/20 Omeprazole [Prilosec] 40 mg PO DAILY 06/21/20 Rosuvastatin Calcium 10 mg PO DAILY 06/21/20 Sertraline HCl 100 mg PO DAILY 06/21/20 Sitagliptin Phos/Metformin HCl [Janumet Xr 100-1,000 mg Tablet] 1 tab PO DAILY AT SUPPER 06/21/20 gemfibroziL [Gemfibrozil] 600 mg PO DAILY 06/21/20 Amlodipine [Norvasc*] 10 mg PO DAILY #30 tab 06/23/20 Furosemide [Lasix] 40 mg PO BIDL #60 tab 06/23/20 Losartan Potassium [Cozaar*] 50 mg PO DAILY #30 tablet 06/23/20 Metoprolol Succinate [Toprol Xl] 50 mg PO DAILY #30 tab 06/23/20 Potassium Oral Tab [Klor-Con 10 mEq Tab*] 20 meq PO DAILY #60 tab 06/23/20 New Medications: Losartan Potassium [Cozaar*] 50 mg PO DAILY #30 tablet Potassium Oral Tab [Klor-Con 10 mEq Tab*] 20 meq PO DAILY #60 tab Furosemide [Lasix] 40 mg PO BIDL #60 tab Amlodipine [Norvasc*] 10 mg PO DAILY #30 tab Metoprolol Succinate [Toprol Xl] 50 mg PO DAILY #30 tab Physician Discharge Instructions: Keep lower extremities elevated above hip level in the sitting or lying position. Diet: AHA Activity: Ad rosa Followup: Josh Persaud MD [ACTIVE - CAN ADMIT] - (2 WEEKS) NONE,NONE [Primary Care Provider] - 1 Week Volodymyr Dhaliwal MD [ASSOCIATE-ACTIVE - CAN ADMIT] - 1-2 Weeks (Patient need evaluation for colonoscopy) Time spent managing pt's care (in minutes): 40
[2020-06-23 14:09] VITALS: TEMP 99
[2020-06-24] MEDS ORDERED: LOSARTAN POTASSIUM 50 MG TABLET PO SCH (09:00)
--- NOTE | 2020-06-25 08:34 | ECHO ---
HEIGHT: 6 ft 3 in WEIGHT: 287 lb 12.8 oz DATE OF STUDY: 06/22/[address]: migue douglas 2-DIMENSIONAL: YES M.MODE: YES DOPPLER: YES COLOR FLOW: YES TDS: NO PORTABLE: NO DEFINITY: NO BUBBLE STUDY: NO DIAGNOSIS: ANASARCA CARDIAC HISTORY: CATHERIZATION: NO SURGERY: NO PROSTHETIC VALVE: NO PACEMAKER: NO MEASUREMENTS (cm) DIASTOLIC (NORMALS) SYSTOLIC (NORMALS) IVSd 1.0 (0.6-1.2) LA Diam 3.2 (1.9-4.0) LVEF 51% LVIDd 4.6 (3.5-5.7) LVIDs 3.4 (2.0-3.5) %FS 26% LVPWd 1.1 (0.6-1.2) Ao Diam 2.9 (2.0-3.7) 2 DIMENSIONAL ASSESSMENT: RIGHT ATRIUM: NORMAL LEFT ATRIUM: NORMAL RIGHT VENTRICLE: NORMAL LEFT VENTRICLE: NORMAL TRICUSPID VALVE: NORMAL MITRAL VALVE: NORMAL PULMONIC VALVE: NORMAL AORTIC VALVE: SCLEROSIS PERICARDIAL EFFUSION: NONE AORTIC ROOT: NORMAL LEFT VENTRICULAR WALL MOTION: DECREASED LEFT VENTRICULAR COMPLIANCE. DOPPLER/COLOR FLOW: MODERATE TRICUSPID REGURGITATION. RIGHT VENTRICULAR SYSTOLIC PRESSURE 60 mmHg. COMMENTS: MODERATE TRICUSPID REGURGITATION. RIGHT VENTRICULAR SYSTOLIC PRESSURE 60 mmHg. NORMAL LEFT VENTRICULAR EJECTION FRACTION. DECREASED LEFT VENTRICULAR COMPLIANCE. AORTIC SCLEROSIS. TECHNOLOGIST: Iman CHOI
[2020-06-25 12:56] LABS: HBsAG Nonreactive (Nonreactive)
== END 2020-06-23 14:45 | disposition home or self-care (01) | DRG 291 ==
LOC: ER 11:15 → ERHOLD 23:31 → 2ND 06-21 00:13
PROVIDERS: ADMIT Internal Medicine; ATTEND Internal Medicine
DX: I13.0 Hypertensive heart and chronic kidney disease with heart failure and stage 1 through stage 4 chronic kidney disease, or unspecified chronic kidney disease (principal); I50.31 Acute diastolic (congestive) heart failure; N18.30 Chronic kidney disease, stage 3 unspecified; E11.22 Type 2 diabetes mellitus with diabetic chronic kidney disease; E78.5 Hyperlipidemia, unspecified; F32.9 Major depressive disorder, single episode, unspecified; K76.9 Liver disease, unspecified; N40.0 Benign prostatic hyperplasia without lower urinary tract symptoms; N50.89 Other specified disorders of the male genital organs; D50.9 Iron deficiency anemia, unspecified; K21.9 Gastro-esophageal reflux disease without esophagitis; Z96.652 Presence of left artificial knee joint; Z79.82 Long term (current) use of aspirin; Z79.899 Other long term (current) drug therapy; Z20.822 Contact with and (suspected) exposure to COVID-19
CPT/HCPCS: 36415; 71045; 74177; 76705; 76870; 80048; 80053; 80076; 81003; 81015; 82150; 82550; 82553; 82728; 82947; 83540; 83605; 83690; 83735; 83880; 84100; 84132; 84145; 84439; 84443; 84466; 84484; 85025; 85610; 85730; 86704; 86706; 86803; 87040; 87340; 93005; 93306; 94760; 96365; 96366; 96375; 99285; J0696; J1940; J3370; Q9967; U0003

== ENCOUNTER 2021-01-04 11:36 | Emergency (ER) | payer OTHER ==
--- NOTE | 2021-01-04 15:53 | ER ---
Nurse's Notes [facility] Name: Chris Pinto Age: 80 yrs Sex: Male : 1940 Arrival Date: 01/04/2021 Time: 11:41 Bed 5 Private MD: Diagnosis: Torticollis;Unspecified disorder of tympanic membrane, right ear Presentation: 01/04 12:00 Chief complaint: Patient states: Neck pain for 2-3 days. Awoke with blood coming out of ll1 R ear last week. Legs still swollen from his last visit here. Cardiac stent in October. Coronavirus screen: Vaccine status: Patient reports being unvaccinated. Client denies travel out of the [place] in the last 14 days. At this time, the client does not indicate any symptoms associated with coronavirus-19. Ebola Screen: Patient denies travel to an Ebola-affected area in the 21 days before illness onset. Acute neurological deficit: none identified. Initial Sepsis Screen: Does the patient meet any 2 criteria? No. Patient's initial sepsis screen is negative. Does the patient have a suspected source of infection? Yes: Bone or joint infection. Risk Assessment: Do you want to hurt yourself or someone else? Patient reports no desire to harm self or others. Onset of symptoms was December 28, 2020. 12:00 Method Of Arrival: Ambulatory ll1 12:00 Acuity: LITA 3 ll1 Historical: - Allergies: 12:03 No Known Allergies; ll1 - PMHx: 12:03 Diabetes - NIDDM; High Cholesterol; Hypertension; ll1 - PSHx: 12:03 Stented artery; ll1 - Immunization history:: Client reports receiving the 2nd dose of the Covid vaccine. - Social history:: Smoking status: Patient denies any tobacco usage or history of. - Family history:: not pertinent. - Hospitalizations: : No recent hospitalization is reported. Screenin:03 Abuse screen: Denies threats or abuse. Denies injuries from another. Nutritional sv screening: No deficits noted. Tuberculosis screening: No symptoms or risk factors identified. Fall Risk None identified. Assessment: 15:50 General: Appears in no apparent distress. comfortable, Behavior is calm, cooperative, sv appropriate for age. Pain: Complains of pain in back of neck and right ear. Neuro: Level of Consciousness is awake, alert, obeys commands, Oriented to person, place, time, situation, Gait is steady. Respiratory: Respiratory effort is even, unlabored, Respiratory pattern is regular, symmetrical. Vital Signs: 12:00 BP 135 / 72; Pulse 60; Resp 18; Temp 98.0; Pulse Ox 100% ; Weight 111.13 kg; Height 6 ll1 ft. 3 in. (190.50 cm); Pain 9/10; 12:00 Body Mass Index 30.62 (111.13 kg, 190.50 cm) ll1 ED Course: 11:41 Patient arrived in ED. ja2 12:03 Triage completed. ll1 12:04 Arm band placed on. ll1 14:48 Claire Tobias RN is Primary Nurse. nadeem 15:27 Baltazar Arrieta MD is Attending Physician. rn 16:03 Patient has correct armband on for positive identification. sv 16:03 No provider procedures requiring assistance completed. Patient did not have IV access sv during this emergency room visit. Administered Medications: No medications were administered Outcome: 15:53 Discharge ordered by MD. rn 16:03 Discharged to home ambulatory, with family, with his walker sv 16:03 Condition: stable 16:03 Discharge instructions given to patient, Instructed on discharge instructions, follow up and referral plans. medication usage, Demonstrated understanding of instructions, follow-up care, medications, Prescriptions given X 2. 16:05 Patient left the ED. sv Signatures: Breanne Benjamin, RN Baltazar Rene MD MD rn Leal, Jahala, BATSHEVA RN jl7 Jimy Wilson RN RN ll1 Stephy Pace
--- NOTE | 2021-01-04 15:53 | EDPHYS ---
Physician Documentation [facility] Name: Chris Pinto Age: 80 yrs Sex: Male : 1940 Arrival Date: 01/04/2021 Time: 11:41 Bed 5 Private MD: ED Physician Baltazar Arrieta HPI: 01/04 15:44 This 80 yrs old Male presents to ER via Ambulatory with complaints of Neck rn pain, trouble hearing out of right ear. 15:44 The patient or guardian complains of pain, that is acute. The symptoms are located on rn the Neck and pericervical region. Onset: The symptoms/episode began/occurred 2 day(s) ago. Context: The problem was sustained at home, The neck injury/problem resulted from from unknown cause. Associated signs and symptoms: Pertinent negatives: fever, headache, bladder incontinence, bowel incontinence, numbness, tingling, vomiting, weakness. The pain does not radiate. Modifying factors: The symptoms are alleviated by nothing. the symptoms are aggravated by movement. Severity of symptoms: At their worst the symptoms were mild, in the emergency department the symptoms are unchanged. The patient has not experienced similar symptoms in the past. The patient has not recently seen a physician. Patient reports 2 days of neck pain and trouble hearing out of the right ear. Denies any trauma to either. Woke up and had neck pain. Feels like he slept wrong with pain when he moves the neck. Has been using BenGay that is helping. No weakness of extremities. Reports noticed blood that came out of his right ear without any trauma, used a Q-tip to clean it up and it stopped. But now has trouble hearing out of the right ear.. Historical: - Allergies: 12:03 No Known Allergies; ll1 - PMHx: 12:03 Diabetes - NIDDM; High Cholesterol; Hypertension; ll1 - PSHx: 12:03 Stented artery; ll1 - Immunization history:: Client reports receiving the 2nd dose of the Covid vaccine. - Social history:: Smoking status: Patient denies any tobacco usage or history of. - Family history:: not pertinent. - Hospitalizations: : No recent hospitalization is reported. ROS: 15:44 Constitutional: Negative for fever, chills, and weight loss, Eyes: Negative for injury, rn pain, redness, and discharge, ENT: Positive difficulty hearing right ear Neck: Positive for pain, negative for injury or swelling Cardiovascular: Negative for chest pain, palpitations, and edema, Respiratory: Negative for shortness of breath, cough, wheezing, and pleuritic chest pain, Abdomen/GI: Negative for abdominal pain, nausea, vomiting, diarrhea, and constipation, Back: Negative for injury and pain, MS/Extremity: Negative for injury and deformity, Skin: Negative for injury, rash, and discoloration, Neuro: Negative for headache, weakness, numbness, tingling, and seizure. Exam: 15:44 Constitutional: This is a well developed, well nourished patient who is awake, alert, rn and in no acute distress. Head/Face: Normocephalic, atraumatic. Eyes: Pupils equal round and reactive to light, extra-ocular motions intact. Periorbital areas with no swelling, redness, or edema. ENT: Dried blood right auditory meatus with no active bleeding. Right tympanic membrane appears sclerotic but no obvious perforation or fluid. Neck: Trachea midline, no crepitus, no swelling, no midline cervical tenderness Vital Signs: 12:00 BP 135 / 72; Pulse 60; Resp 18; Temp 98.0; Pulse Ox 100% ; Weight 111.13 kg; Height 6 ll1 ft. 3 in. (190.50 cm); Pain 9/10; 12:00 Body Mass Index 30.62 (111.13 kg, 190.50 cm) ll1 MDM: 15:27 Patient medically screened. rn 15:44 Differential diagnosis: arthritis, Cervical Discogenic Pain Cervical Facet Syndrome rn Cervical Raiculopathy Cervical Spondylosis cervical strain, Osteoarthritis torticollis. Data reviewed: vital signs, nurses notes, and as a result, I will discharge patient. Counseling: I had a detailed discussion with the patient and/or guardian regarding: the historical points, exam findings, and any diagnostic results supporting the discharge/admit diagnosis, the need for outpatient follow up, to return to the emergency department if symptoms worsen or persist or if there are any questions or concerns that arise at home. Special discussion: I discussed with the patient/guardian in detail that at this point there is no indication for admission to the hospital. It is understood, however, that if the symptoms persist or worsen the patient needs to return immediately for re-evaluation. Administered Medications: No medications were administered Disposition Summary: 01/04/21 15:53 Discharge Ordered Location: Home rn Problem: new rn Symptoms: have improved rn Condition: Stable rn Diagnosis - Torticollis rn - Unspecified disorder of tympanic membrane, right ear rn Followup: rn - With: Private Physician - When: As needed - Reason: Recheck today's complaints, Re-evaluation by your physician Discharge Instructions: - Discharge Summary Sheet rn - Acute Torticollis, Adult rn - Neck Exercises rn Forms: - Medication Reconciliation Form rn - Thank You Letter rn - Antibiotic churn driller - Prescription Opioid Use rn Prescriptions: - Augmentin 875-125 mg Oral Tablet - take 1 tablet by ORAL route every 12 hours for 10 days; 20 tablet; Refills: 0, rn Product Selection Permitted - Cyclobenzaprine 10 mg Oral Tablet - take 1 tablet by ORAL route every 8-12 hours As needed; 20 tablet; Refills: 0, rn Product Selection Permitted Signatures: Baltazar Arrieta MD MD rn Lewis, Lynsay RN RN ll1
[2021-01-04 16:09] VITALS: BP 135/72; TEMP 98; O2SAT 100
== END 2021-01-04 16:05 | disposition home or self-care (01) ==
LOC: ER 11:36
DX: M43.6 Torticollis (principal); H73.91 Unspecified disorder of tympanic membrane, right ear
CPT/HCPCS: 99282

== ENCOUNTER 2021-01-30 13:52 | Emergency (ER) | payer OTHER ==
[2021-01-30 14:46] LABS: Absolute Lymphocytes (CBC) 0.8 K/uL (0.7-4.9); Hematocrit 22.8 % (39.6-49.0); Lymphocytes % 17.5 % (15.3-44.8); MPV 8.1 fL (7.6-11.3); RBC Red Blood Cell Count 3.15 M/uL (4.33-5.43)
[2021-01-30 14:58] LABS: Potassium 3.8 mmol/L (3.5-5.1)
[2021-01-30] MEDS ORDERED: NA CHLORIDE 0.9% 250 ML ONE (17:34)
--- NOTE | 2021-01-30 20:03 | ER ---
Nurse's Notes [facility] Name: Chris Pinto Age: 80 yrs Sex: Male : 1940 Arrival Date: 01/30/2021 Time: 13:57 Bed 20 Private MD: Diagnosis: Anemia, unspecified Presentation: 01/30 14:05 Chief complaint: Patient states: Had pre-op blood work done yesterday. Called today, ll1 and was told to come to ED for abnormal lab results. Possible low blood cell count. No complaints. No N/V/D. No cough or fever. Coronavirus screen: Vaccine status: Patient reports being unvaccinated. Client denies travel out of the [place] in the last 14 days. At this time, the client does not indicate any symptoms associated with coronavirus-19. Ebola Screen: Patient denies travel to an Ebola-affected area in the 21 days before illness onset. Initial Sepsis Screen: Does the patient meet any 2 criteria? No. Patient's initial sepsis screen is negative. Does the patient have a suspected source of infection? No. Patient's initial sepsis screen is negative. Risk Assessment: Do you want to hurt yourself or someone else? Patient reports no desire to harm self or others. Onset of symptoms is unknown. 14:05 Method Of Arrival: Ambulatory ll1 14:05 Acuity: LITA 3 ll1 Historical: - Allergies: 14:05 No Known Allergies; ll1 - PMHx: 14:05 Diabetes - NIDDM; High Cholesterol; Hypertension; A fib; ll1 - PSHx: 14:05 Stented artery; ll1 - Immunization history:: Client reports having NOT received the Covid vaccine. - Social history:: Smoking status: Patient denies any tobacco usage or history of. Screenin:00 Fall Risk No fall in past 12 months (0 pts). No secondary diagnosis (0 pts). IV access sl2 (20 points). Ambulatory Aid- Crutches/Cane/Walker (15 pts). Gait- Impaired (20 pts.). Mental Status- Oriented to own ability (0 pts). Total Justin Fall Scale indicates Low Risk Score (25-44 pts). Fall prevention measures have been instituted. Side Rails Up X 2 Frequent Obs/Assesments occuring Family Present and informed to notify staff if they need to leave bedside. 14:07 Abuse screen: Denies threats or abuse. Nutritional screening: No deficits noted. ll1 Tuberculosis screening: No symptoms or risk factors identified. Assessment: 14:30 Reassessment: Patient sent to ED by PCP for abnormal labs - low Hemoglobin and sl2 hematocrit. Patient denies any untoward symptoms, Denies rectal bleeding. 14:30 General: Appears in no apparent distress. well groomed, well developed, Behavior is sl2 calm, cooperative, agitated. Pain: Denies pain. Neuro: No deficits noted. Level of Consciousness is awake, alert, obeys commands, Oriented to person, place, time, Sales Support Engineer are equal bilaterally Moves all extremities. Gait is steady, Speech is normal, Facial symmetry appears normal. Cardiovascular: No deficits noted. Reports. Cardiovascular: Capillary refill < 3 seconds Rhythm is atrial fibrillation. Respiratory: No deficits noted. Reports. GI: No deficits noted. No signs and/or symptoms were reported involving the gastrointestinal system. : No deficits noted. EENT: No deficits noted. Derm: No deficits noted. No signs and/or symptoms reported regarding the dermatologic system. Musculoskeletal: No deficits noted. No signs and/or symptoms reported regarding the musculoskeletal system. 18:39 Reassessment: Blood transfusion in progress, patient tolerating well, denies any sl2 untoward symptoms at this time. No signs of allergic response noted. Will continue to monitor and re-assess. 19:35 Reassessment: No changes from previously documented assessment. Resting quietly on sl2 stretcher; VSS; IV PRBC's patent \\T\\ transfusing left AC \\T\\ 150 ml/hr/pump with no difficulty; granddaughter in \\T\\ out of room; voices no complaints. 20:00 Reassessment: PRBC completed, pt denies any pain , sob or discomfort. Reports " I feel dc2 good". WIll notify provider. VSS. Call light within reach at this time. Will wait for dispo, pt updated. 20:00 Reassessment: unit # [id number] PRBC's transfusion complete with no adverse sl2 reaction, monty. well; VSS; IV NS flush of blood line; voices no complaints. 20:15 Reassessment: Patient appears in no apparent distress at this time. IV NS complete left sl2 AC blood line with IV D/C'd with no s/sx's of infecton/infiltration noted of site; discharge instructions given with v/u; discharged to exit via ambulation with walker, monty. well; NADN. Vital Signs: 14:00 BP 142 / 78; Pulse 62; Resp 18; Temp 97.9(O); Pulse Ox 99% on R/A; sl2 14:05 BP 123 / 69; Pulse 82; Resp 18; Temp 97.6; Pulse Ox 100% on R/A; Weight 108.86 kg; ll1 Height 6 ft. 3 in. (190.50 cm); Pain 0/10; 16:00 BP 149 / 65; Pulse 52; Resp 18; Temp 97.6; Pulse Ox 99% on R/A; sl2 17:10 BP 135 / 55; Pulse 50; Resp 18; Temp 97.8; Pulse Ox 100% ; sl2 18:05 BP 138 / 83; Pulse 62; Resp 16; Temp 97.8; Pulse Ox 100% ; sl2 18:35 BP 165 / 74; Pulse 60; Resp 18; Temp 98.0; Pulse Ox 100% on R/A; sl2 19:35 BP 166 / 74; Pulse 57; Resp 18; Temp 98.0(O); Pulse Ox 100% on R/A; sl2 20:00 BP 148 / 75; Pulse 65; Resp 17; Temp 97.8(O); Pulse Ox 100% ; Pain 0/10; dc2 14:05 Body Mass Index 30.00 (108.86 kg, 190.50 cm) 1 ED Course: 13:57 Patient arrived in ED. am2 14:00 Patient has correct armband on for positive identification. Bed in low position. Call sl2 light in reach. Side rails up X2. Adult w/ patient. 14:00 No provider procedures requiring assistance completed. sl2 14:05 Arm band placed on Patient placed in an exam room, on a stretcher. 1 14:07 Triage completed. 1 14:10 Kiel Clifton PA is PHCP. [facility] 14:10 Baltazar Arrieta MD is Attending Physician. [facility] 14:32 Inserted saline lock: 20 gauge in left antecubital area, using aseptic technique. Blood dh4 collected. 15:27 Elda Moseley, RN is Primary Nurse. sl2 19:14 PHCP role handed off by Kiel Clifton PA kb 19:14 Christen Perez FNP-C is PHCP. kb 19:49 Bb Add On Sent. sl2 19:49 PRBC Sent. sl2 20:15 IV discontinued, intact, bleeding controlled, No redness/swelling at site. Pressure sl2 dressing applied. Administered Medications: No medications were administered Outcome: 20:02 Discharge ordered by MD. kb 20:15 Discharged to home ambulatory, with rolling walker. sl2 20:15 Condition: good 20:15 Discharge instructions given to patient, Instructed on discharge instructions, follow up and referral plans. Demonstrated understanding of instructions, follow-up care. Signatures: Christen Perez FNP-C INFORMATION TECH-Ckb Kiel Clifton PA PA jmm Moreno, Amanda 2 Storm Stockton dh4 Jimy Wilson RN RN 1 Leesa Early RN RN tx2 Elda Moseley, RN RN sl2 Corrections: (The following items were deleted from the chart) 21:20 20:41 Patient left the ED. sl2 sl2
--- NOTE | 2021-01-30 20:03 | EDPHYS ---
Physician Documentation [facility] Name: Chris Pinto Age: 80 yrs Sex: Male : 1940 Arrival Date: 01/30/2021 Time: 13:57 Bed 20 Private MD: ED Physician Baltazar Arrieta HPI: 01/30 14:11 This 80 yrs old Male presents to ER via Ambulatory with complaints of jmm Abnormal Lab Results. 14:11 This is a 80-year-old male with history of diabetes mellitus, hyperlipidemia, jmm hypertension, atrial fibrillation the presents to the emergency department with no complaints. Patient had a presurgery CBC drawn which revealed a low hemoglobin at 6.9. Patient denies any known history of anemia, denies shortness of breath, dyspnea on exertion, chest pain, vomiting blood, denies bloody stools or black tarry stools.. Historical: - Allergies: 14:05 No Known Allergies; ll1 - PMHx: 14:05 Diabetes - NIDDM; High Cholesterol; Hypertension; A fib; ll1 - PSHx: 14:05 Stented artery; ll1 - Immunization history:: Client reports having NOT received the Covid vaccine. - Social history:: Smoking status: Patient denies any tobacco usage or history of. ROS: 14:11 Constitutional: Negative for fever, chills, and weight loss, Cardiovascular: Negative jmm for chest pain, palpitations, and edema, Respiratory: Negative for shortness of breath, cough, wheezing, and pleuritic chest pain, Abdomen/GI: Negative for abdominal pain, nausea, vomiting, diarrhea, and constipation, MS/Extremity: Negative for injury and deformity, Skin: Negative for injury, rash, and discoloration, Neuro: Negative for headache, weakness, numbness, tingling, and seizure. 14:11 All other systems are negative. Exam: 14:11 Constitutional: This is a well developed, well nourished patient who is awake, alert, jmm and in no acute distress. Head/Face: atraumatic. Eyes: EOMI, no conjunctival erythema appreciated ENT: Moist Mucus Membranes Neck: Trachea midline, Supple Chest/axilla: Normal chest wall appearance and motion. Cardiovascular: Regular rate and rhythm. No edema appreciated Respiratory: Normal respirations, no respiratory distress appreciated Abdomen/GI: Non distended, soft 14:11 Skin: General appearance color normal MS/ Extremity: Moves all extremities, no obvious deformities appreciated, no edema noted to the lower extremities Neuro: Awake and alert, normal gait Psych: Behavior is normal, Mood is normal, Patient is cooperative and pleasant 14:11 Abdomen/GI: Inspection: abdomen appears normal, Rectal exam: is unremarkable, Stool: normal, guaiac negative. Vital Signs: 14:00 BP 142 / 78; Pulse 62; Resp 18; Temp 97.9(O); Pulse Ox 99% on R/A; sl2 14:05 BP 123 / 69; Pulse 82; Resp 18; Temp 97.6; Pulse Ox 100% on R/A; Weight 108.86 kg; ll1 Height 6 ft. 3 in. (190.50 cm); Pain 0/10; 16:00 BP 149 / 65; Pulse 52; Resp 18; Temp 97.6; Pulse Ox 99% on R/A; sl2 17:10 BP 135 / 55; Pulse 50; Resp 18; Temp 97.8; Pulse Ox 100% ; sl2 18:05 BP 138 / 83; Pulse 62; Resp 16; Temp 97.8; Pulse Ox 100% ; sl2 18:35 BP 165 / 74; Pulse 60; Resp 18; Temp 98.0; Pulse Ox 100% on R/A; sl2 19:35 BP 166 / 74; Pulse 57; Resp 18; Temp 98.0(O); Pulse Ox 100% on R/A; sl2 20:00 BP 148 / 75; Pulse 65; Resp 17; Temp 97.8(O); Pulse Ox 100% ; Pain 0/10; dc2 14:05 Body Mass Index 30.00 (108.86 kg, 190.50 cm) ll1 MDM: 14:50 Patient medically screened. tony 17:23 Transition of care: After a detail discussion of the patient's case, care is tony transferred to Christen FABIAN. 20:03 Data reviewed: vital signs, nurses notes. Data interpreted: Pulse oximetry: on room air kb is 100 %. Interpretation: normal. Counseling: I had a detailed discussion with the patient and/or guardian regarding: the historical points, exam findings, and any diagnostic results supporting the discharge/admit diagnosis, the need for outpatient follow up, a family practitioner, to return to the emergency department if symptoms worsen or persist or if there are any questions or concerns that arise at home. 01/30 14:11 Order name: CBC with Diff; Complete Time: 15:04 [facility] 01/30 14:11 Order name: Type And Screen [facility] 01/30 14:11 Order name: BMP; Complete Time: 15:04 [facility] 01/30 15:05 Order name: PRBC [facility] 01/30 14:11 Order name: Saline Lock; Complete Time: 14:32 [facility] 01/30 15:10 Order name: Bb Add On bd 01/30 15:11 Order name: Packed RBC Leukored EDLA Administered Medications: No medications were administered Disposition: 01/31 07:02 Co-signature as Attending Physician, Baltazar Arrieta MD. rn 07:03 I agree with the assessment and plan of care. Attestation: The patient's history, exam rn findings, diagnostics, and a summary of any interventions or procedures was reviewed in detail with Christen FABIAN. Disposition Summary: 01/30/21 20:02 Discharge Ordered Location: Home kb Condition: Stable kb Diagnosis - Anemia, unspecified kb Followup: kb - With: Emergency Department - When: As needed - Reason: Worsening of condition Followup: kb - With: Private Physician - When: 2 - 3 days - Reason: Recheck today's complaints, Continuance of care, Re-evaluation by your physician Discharge Instructions: - Discharge Summary Sheet kb - Anemia kb - Blood Transfusion, Adult, [id number] kb Forms: - Medication Reconciliation Form kb - Thank You Letter kb - Antibiotic Education kb - Prescription Opioid Use kb Signatures: Dispatcher [employer] Christen Landin FNP-C FNP-CkKiel Howard PA PA jmm Nieto, Roman, MD MD rn Lewis, Lynsay, RN RN ll1 Corrections: (The following items were deleted from the chart) 01/30 15:12 15:06 [facility] ABO/RH typing ordered. [facility] EDLA 15:12 15:06 Antibody Screen ordered. EDLA EDLA
[2021-01-30 21:03] VITALS: O2SAT 100
[2021-01-30 21:25] VITALS: BP 148/75; TEMP 97.8
--- OUTSIDE RECORDS SUMMARY | 2021-02-09 09:45 | XMS REPORT | Continuity of Care Document ---
:1940 Author Organization [facility] t Address [address] [place] [address] Care Team Providers Name Role Phone Greyson Attending Clinician Unavailable PACO Attending Clinician Unavailable Kimberly Ramos Attending Clinician [phone] Physician, Primary or Family Admitting Clinician Unavailabl e PACO Admitting Clinician Unavailable Greyson Admitting Clinician Unavailable Payers Payer Name Policy Type Policy Number Effective Date Expiration Date Mary garcia [facility] [place] - [id number] 2020 [employer] 00:00:00 (MEDICARE REPLACEMENT/ADVANT AGE - HMO) Problems Condition Condition Condition Status Onset Resolution Last Treating Co mments Source Name Details Category Date Date Treatment Clinician Date Obesity Ob[facility] Diagnosis [facility] ([facility] - 30-39.9) 30-39.9) [facility] Mixed Mixed Diagnosis Active [facility] hyperlipid hyperlipid [place] - emia emia [facility] Peripheral Peripheral Diagnosis Active [facility] edema edema [facility] Diabetes Diabetes Problem [facility] History of History of Diagnosis Active [facility] asbestos asbestos [facility] - exposure exposure [facility] Dietary Dietary Diagnosis Active [facility] surveillan surveillan [place] [facility] - ce and ce and Memoria counseling counseling l [facility] Essential Essential Diagnosis Active [facility] hypertensi hypertensi [place] [facility] - on on [facility] 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 Luke s - diabetes diabetes Memori a mellitus mellitus l with with [facility] hyperglyce hyperglyce en t [facility] Allergies, Adverse Reactions, Alerts Allergy Allergy Status Severity Reaction(s) Onset Inactive Treating Comm ents Source Name Type Date Date Clinician No Known DA Active [facility]ie 11-05 Clear s 00:00: Leger 00 [facility] No Known DA Active [facility] Allergie 11-05 Clear s 00:00: Leger 00 [facility] Medications Ordered Filled Start Stop Current Ordering Indication Dosage Frequency Signature Comments Components Source Medication Medication Date Date Medication? Clinician (SIG) Name Name Metformin Metformin Yes Gloria [address] [facility] HCl HCl 2-26 Millender with a [facility] - 00:00: meal [facility] Blood Blood 2019- Yes Gloria as [facility] Glucose Glucose 2-26 Millender directed [facility] - Monitor Monitor 00:00: (DISPENSE Me moria 00 BLOOD l GLUCOSE Outpati MONITOR ent FORMULARY Clinics TO INSURANCE) Januvia Januvia 2019-0 Yes Gloria [address] 2-26 Millender [facility] - 00:[facility]: [facility]oria 00 [facility] Lancets Lancets 2019-0 Yes Gloria as [facility] 2-26 Millender directed [facility] - 00:00: (dispense Memoria 00 lancets l formulary Outpati to ent insurance) Clinics Glucose Glucose Yes Gloria as [facility] testing testing 2-26 Millender directed [facility] - strips strips 00:00: (dispense Marquise reymundo 00 testing l strips [facility] Clinics insurance) Nilson Nilson Yes Gloria [address] [facility] Aspirin EC Aspirin EC Millender [facility] - Low Dose Low Dose [facility] Sertraline Sertraline Yes Gloria [address] [facility] [address] HCl HCl Millender [facility] - [facility] Amlodipine Amlodipine Yes Gloria [address] [facility] Besylate Besylate Millender [facility] - [facility] Losartan Losartan Yes Gloria 1 tablet [facility] [...] Yes Gloria [address] [facility] Millender [facility] - Memoria l Outpati ent Clinics Vitamin D3 Vitamin D3 Yes Gloria [address] [facility] Millender [facility]pat[facility] ent Clinics Janumet XR Janumet XR Yes Gloria [address] [facility] Millender [facility] Glimepiride Glimepiride Yes Gloria [address] [facility] Millender kes - Memoria l Outpati ent Clinics Doxazosin Doxazosin Yes Gloria [address] [facility] Mesylate Mesylate Millender [place] [facility] - [facility]oria l Outpati ent Clinics Omeprazole Omeprazole Yes Gloria [address] [facility] Millender [facility] - Memoria l Outpati ent Clinics Multi For Multi For Yes Gloria as [facility] Him 50+ Him 50+ Millender directed [facility] - [facility] ent Clinics Hydrochloro Hydrochloro Yes Gloria [address] [facility] thiazide thiazide Millender in the [facility] - morning Memoria l Outpati ent Clinics Vitamin C Vitamin C Yes Gloria [address] [facility] [address] Millender kes - [facility] Procedures Procedure Date / Time Performed Performing Clinician [facility] jere [id number] 2020-11-07 00:00:00 [facility] Encounters Start End Encounter Admission Attending Care Care Encounter Source Date/Time Date/Time Type Type Clinicians Facility Department ID 2021-02-19 Inpatient Greyson, [facility]AC[facility] OUTD [id number] [facility] 08:30:00 Elmo [address] [facility] 2021-02-18 Inpatient EL Greyson, [facility]AC[facility] OUTD [id number] [facility] 11:00:00 Elmo 43 [facility] 2021-02-18 Inpatient Greyson, [facility]AC[facility] OUTD [id number] [facility] 11:00:00 Elmo 42962 [facility] 2021-02-08 Outpatient [facility] 2020 [facility] 23:19:54 [facility]L [facility] 2021-02-08 Outpatient [facility] [id number] [facility] 23:07:36 _L [facility] 2020-11-05 Inpatient LAURA Rubi, [facility]ACL CARD [id number] [facility] 15:00:00 Elmo 40644 [facility] 2021-01-08 2021-01-08 Outpatient [facility] [id number] 00:00:00 00:00:00 , Deann [id number] Kimberly [id number] 2021-01-08 2021-01-08 Outpatient [facility] [id number] 00:00:00 00:00:00 , Deann [id number] Kimberly [id number] 2020-11-07 2020-11-07 Inpatient LAURA Rubi, [facility]AC[facility] CARD [id number] [facility] 05:28:00 19:13:00 Elmo 939[address] [facility] 2020-11-07 2020-11-07 Inpatient LAURA Rubi, [facility] CARD [id number] [facility] 05:28:00 19:13:00 Elmo 98 [facility] 2020-10-17 2020-10-17 Outpatient [facility] [id number] 00:00:00 00:00:00 , Deann [id number] Kimberly [id number] 2020-10-04 2020-10-04 Outpatient [facility] [id number] 00:00:00 00:00:00 , Deann [id number] Kimberly [id number] 2020-07-23 Outpatient [facility] [id number] 00:00:00 00:00:00 , Deann [id number] Kimberly [id number] 2020-06-13 2020-06-13 Outpatient [facility] [id number] 00:00:00 00:00:00 , Deann [id number] Kimberly [id number] 2019-11-25 2019-11-25 [facility] [id number] [facility] 14:40:00 14:40:00 [facility] Outpati ent Clinics 2019-10-24 2019-10-24 [facility] [id number] 09[facility]40:00 09:40:00 [facility] Outpati ent Clinics 2019-09-07 2019-09-07 [facility] [id number] [facility] 13:15:00 13:15:00 [facility] Outpati ent Clinics 2019-09-07 2019-09-07 [facility] [id number] [address] 09:19:00 09:19:00 [facility] Outpati ent Clinics 2019-08-26 2019-08-26 [facility] [id number] [facility] 09:40:00 09:40:00 [facility] Outpati ent Clinics 2019-07-04 2019-07-04 [facility] [id number] 11:38:00 11:38:00 [facility] Medicine Outpati ent Clinics 2019-07-04 2019-07-04 [facility] [id number] 10:23:00 10:23:00 [facility] Outpati ent Clinics 2019-05-24 2019-05-24 [facility] [id number] [facility] 10:30:00 10:30:00 [facility] Outpati ent Clinics Results Test Description Test Time Test Comments Results Result Comments Source GLUBED 2020-11-07 15:08:00 Test Item Value Reference Range Interpretation Comme nts GLUBED (test code = GLUBED) 107 MG/DL 70-110 N Performed by certified humid system operator at [facility] [id number] 14:30:00 Test Item Value Reference Range Interpretation Comments ACT-ISTAT (test code 213 SEC 74-137 H Perform ed by certified = ACTI) humid system operator at [facility] [id number] 11:52:00 Test Item Value Reference Range Interpretation Comments GLUBED (test code = 82 MG/DL 70-110 N Performe d by certified GLUBED) humid system operator at [facility] - XR CHEST 1 [id number] 00:00:00 [facility] : 1940 Sex: M FAX: Elmo Pereira MD [phone] [place]: St: ADM FAX: Jordan Baca [facility] [phone] Name: MALA NIXON [facility] : 1940 Age/S: 79/M [address] [place] [address] Unit #: [id number] Loc: MAXIMILIAN Dumont [address] Phys: Jordan Araujo Acct: [id number] Dis Date: Status: ADM IN PHONE #: [phone] Exam Date: 11/07/20201642 FAX #: [phone] Reason: WATCHMAN EXAMS: CPT CODE: [id number] XR CHEST 1 V 26788 PROCEDURE INFORMATION: Exam: XR Chest Exam date and time: 11/07/2020 3:48 PM Age: 79 years old Clinical indication: Other: Watchman TECHNIQUE: Imaging protocol: XR of the chest. Views: 1 view. Other technique: AP portable chest obtained withthe patient semi upright. COMPARISON: DX XR CHEST 2 V 11/05/2020 5:40 PM FINDINGS: Tubes, catheters and devices: Faintly radiopaque EKG leads overlie the chest. Atrial appendage occlusion device faintly visualized by this technique. Lungs: There are ill-defined pulmonary opacities bilateral lungs new from prior exam more extensive on the right. Retrocardiac opacification with obscuration of the hemidiaphragm. Pleural spaces: There is no pneumothorax. The costophrenic angles are indistinct. Heart/Mediastinum: Mild prominence of the cardiac silhouette likely magnified by projection. Bones/joints: Unremarkable. IMPRESSION: 1. Bilateral ill-defined pulmonary opacities compatible with edema. Inflammation in the differential. 2. Bilateral pleural effusions are suspected. at 1649 Reported and signed by: Jose R Galindo M.D. CC: Elmo Rubi MD; Jordan RamachandranSt. Louis Children'S Hospitaljackson Technologist: Trang Mitchell, RT(R)(M) Trnscrd Date/Time/By: 11/07/2020 (9098) : By: Natalia Orig Print D/T: S: 11/07/2020 (9410) PAGE 1 Signed ReportNovel Coronavirus 2019 [id number] 11:50:00 Test Item Value Reference Range Interpretation Comments Novel Coronavirus Negative Negative Positive r esults are 2019 Inhouse (test indicativ e of the presence code = COVNONPUI) ofSARS-CoV -2 RNA, clinical correlation wit h patient historyand othe r diagnostic info rmation is necessary to determinepatien t infection status. Positiv e results do not rule out bacterial infection or co -infection with other viru ses. Negative result s do not preclude SARS-C oV-2 infection andsh ould not be used as the marita e basis for patient managementdecis ions. Negative result s must be combined with otherclinical observations, p atient history, and epidemiological information . Detection of SARS-CoV-2 RNA may be affe cted bysample collec tion methods, storag e conditions, and /or stageof infection. Laurel l RNA mutations, vacc inations, antiviraltherap eutics, antibiotics, chemotherapeuti c orimmunosuppres fady drugs have not been e valuated for effectson d etection. Results are for the identification of SARS-CoV-2 RNA usingthe Hey, Neighbor! M2000 Sy stem under the FDA Emergen cy UseAuthorizatio n. The testing is perf ormed by johanna hicks in the procedures for the Notifo000 molecular diagnostic SARS-CoV-2 assa y in vitro. - XR CHEST 2 [id number] 00:00:00 [facility]HERNANDEZ : 1940 Sex: M FAX: Elmo Pereira MD [phone] [place]: St: PRE Name: MALA NIXON [facility] : 1940 Age/S: 79/M [address] [place] [address] Unit #: [id number] Loc: [place] [address] Phys: Elmo Rubi MD Acct: [id number] Dis Date: Status: PRE IN PHONE #: [phone] Exam Date: 11/05/2020 180 FAX #: [phone] Reason: WATCHMAN EXAMS: CPT CODE: [id number] XR CHEST 2 V 85258 PROCEDURE INFORMATION: Exam: XR ChestExam date and time: 11/05/2020 5:40 PM Age: 79 years old Clinical indication: Other: Watchman TECHNIQUE: Imaging protocol: XR of the chest. Views: 2 views. PA and Lateral COMPARISON: No relevant prior studies available. FINDINGS: Tubes, catheters and devices: None. Lungs: Bilateral mild interstitial pulmonary opacities identified within lower lungs. The pulmonary opacities are most prominent within the lower left lung. The bilateral upper lungs appear clear. Pleural spaces: Smallvolume bilateral pleural effusions. No pneumothorax identified. Heart/Mediastinum: Cardiac silhouette appears jmcu-wj-cbkjnpqhgg enlarged. Bones/joints: Diffusely decreased b one density. Generalized bony degenerative changes. IMPRESSION: 1. Small bilateral pleural effusions. 2. Eznx-hz-xslhzmbbdw enlarged cardiac silhouette. 3. Mild atelectasis versus interstitial infiltrates or edema in the lower chest bilaterally, Left greater than right. at 0801 Reported and signed by: Gurpreet Gill M.D. CC: Elmo Rubi MD Technologist: Trang Mitchell, RT(R)(M) Trnscrd Date/Time/By: 11/06/2020 (800) : By: [email or web address] [facility] Print D/T: S: 11/06/2020 (800) PAGE 1 Signed ReportBASIC METABOLIC [id number] 18:45:00 Test Item Value Reference Range Interpretation Comments SODIUM (test code = NA) 145 mEq/L 134-147 N POTASSIUM (test code = 3.5 mEq/L 3.4-5.0 N K) CHLORIDE (test code = 112 mEq/L 100-108 H CL) CARBON DIOXIDE (test 26 mEq/l 21-33 N code = CO2) ANION GAP (test code = 10 0-20 N GAP) GLUCOSE (test code = 94 mg/dL 70-110 N GLU) BLOOD UREA NITROGEN 23 mg/dL 7-18 H (test code = BUN) GLOMERULAR FILTRATION 39.3 70-80 L Units of measure = RATE (test code = GFR) ml/mi n/1.73 m2 CREATININE (test code = 1.7 mg/dL 0.6-1.3 H CREAT) CALCIUM (test code = 9.0 mg/dL 8.0-10.5 N CA) [id number] 18:45:00 Test Item Value Reference Range Interpretation Comments PREALBUMIN (test code = PREALB) 12.6 mg/dL 16.0-40.0 L BASIC METABOLIC [id number] 18:43:00 Test Item Value Reference Range Interpretation Comments SODIUM (test code = NA) 145 mEq/L 134-147 N POTASSIUM (test code = 3.5 mEq/L 3.4-5.0 N K) CHLORIDE (test code = 112 mEq/L 100-108 H CL) CARBON DIOXIDE (test 26 mEq/l 21-33 N code = CO2) ANION GAP (test code = 10 0-20 N GAP) GLUCOSE (test code = 94 mg/dL 70-110 N GLU) BLOOD UREA NITROGEN 23 mg/dL 7-18 H (test code = BUN) GLOMERULAR FILTRATION 39.3 70-80 L Units of measure = RATE (test code = GFR) ml/mi n/1.73 m2 CREATININE (test code = 1.7 mg/dL 0.6-1.3 H CREAT) CALCIUM (test code = 9.0 mg/dL 8.0-10.5 N CA) [id number] 18:43:00 Test Item Value Reference Range Interpretation Comments PREALBUMIN (test code = PREALB) mg/dL 16.0-40.0 PROTHROMBIN [id number] 18:34:00 Test Item Value Reference Range Interpretation Comments PROTHROMBIN TIME 14.2 SECONDS 9.3-12.9 H PATIENT (test code = PTP) INTERNATIONAL NORMAL 1.3 0.8-1.2 H TARGET RATIO (test code = INR BY IN DICATION INR) Indication INR1. Prophyl axis of venous thrombos is 2.0 - 3. 0 (orthopedic keisha zohreh), Prophylaxis of venous thrombos is (other than hig h-risk surgery), Radha tment of Deep Vein Thrombosis/Pulm onary Embolism, Preve ntion of systemic emb olism - Tissue heart va lves, Acute Myocardia l Infarction (to prevent systemic embo lism), Valvular heart disease, Atri al Fibrillation, Bileaflet mecha nical valve in aortic position.2. Mec hanical prosthetic valv es (high risk), 2.5 - 3.5 Presence of Lupus Anticoagu lant or Antiphospholi pid Antibodies, Pre vention of systemic e mbolism - Acute Myocard ial Infarction (t o prevent recurre nt infarct). CBC W/AUTO [id number] 18:20:00 Test Item Value Reference Range Interpretation Comments WHITE BLOOD CELL (test code = 4.2 x10 3/uL 4.5-11.0 L WBC) RED BLOOD CELL (test code = 3.38 x10 6/uL 4.00-5.60 L RBC) HEMOGLOBIN (test code = HGB) 7.7 g/dL 12.5-16.9 L HEMATOCRIT (test code = HCT) 26.9 % 37.5-50.7 L MEAN CELL VOLUME (test code = 79.6 fL 81.0-99.0 L MCV) MEAN CELL HGB (test code = MCH) 22.8 pg 27.0-33.0 L MEAN CELL HGB CONCETRATION 28.6 g/dL 33.0-37.0 L (test code = MCHC) RED CELL DISTRIBUTION WIDTH CV 18.9 % 11.5-14.5 H (test code = RDW) RED CELL DISTRIBUTION WIDTH SD 54.7 fL 37.0-54.0 H (test code = RDW-SD) PLATELET COUNT (test code = 219 x10 3/uL 150-400 N PLT) MEAN PLATELET VOLUME (test code 10.3 fL 7.0-9.0 H = MPV) NEUTROPHIL % (test code = NT%) 58.0 % 56.0-77.0 N IMMATURE GRANULOCYTE % (test 0.5 % 0.0-2.0 N code = IG%) LYMPHOCYTE % (test code = LY%) 17.7 % 14.0-32.0 N MONOCYTE % (test code = MO%) 16.3 % 4.8-9.0 H EOSINOPHIL % (test code = EO%) 6.5 % 0.3-3.7 H BASOPHIL % (test code = BA%) 1.0 % 0.0-2.0 N NUCLEATED RBC % (test code = 0.0 % 0-0 N NRBC%) NEUTROPHIL # (test code = NT#) 2.42 x10 3/uL 2.0-7.6 N IMMATURE GRANULOCYTE # (test 0.02 x10 3/uL 0.00-0.03 N code = IG#) LYMPHOCYTE # (test code = LY#) 0.74 x10 3/uL 1.0-3.8 L MONOCYTE # (test code = MO#) 0.68 x10 3/uL 0.1-0.8 N EOSINOPHIL # (test code = EO#) 0.27 x10 3/uL 0.0-0.2 H BASOPHIL # (test code = BA#) 0.04 x10 3/uL 0.0-0.2 N NUCLEATED RBC # (test code = 0.00 x10 3/uL 0.0-0.1 N NRBC#) MANUAL DIFF REQUIRED (test code NO = MDIFF) CBC W/AUTO [id number] 18:18:00 Test Item Value Reference Range Interpretation Comments WHITE BLOOD CELL (test code = x10 3/uL 4.5-11.0 WBC) RED BLOOD CELL (test code = RBC) x10 6/uL 4.00-5.60 HEMOGLOBIN (test code = HGB) g/dL 12.5-16.9 HEMATOCRIT (test code = HCT) % 37.5-50.7 MEAN CELL VOLUME (test code = fL 81.0-99.0 MCV) MEAN CELL HGB (test code = MCH) pg 27.0-33.0 MEAN CELL HGB CONCETRATION (test g/dL 33.0-37.0 code = MCHC) RED CELL DISTRIBUTION WIDTH CV % 11.5-14.5 (test code = RDW) PLATELET COUNT (test code = PLT) 219 x10 3/uL 150-400 N NEUTROPHIL % (test code = NT%) % 56.0-77.0 LYMPHOCYTE % (test code = LY%) % 14.0-32.0 NEUTROPHIL # (test code = NT#) x10 3/uL 2.0-7.6 LYMPHOCYTE # (test code = LY#) x10 3/uL 1.0-3.8 MANUAL DIFF REQUIRED (test code = MDIFF)
== END 2021-01-30 20:41 | disposition home or self-care (01) ==
LOC: ER 13:52
PROC: 30233N1 Transfusion of Nonautologous Red Blood Cells into Peripheral Vein, Percutaneous Approach (ICD-10-PCS; principal; 2021-01-30)
DX: D64.9 Anemia, unspecified (principal); E11.9 Type 2 diabetes mellitus without complications; I10 Essential (primary) hypertension; I48.91 Unspecified atrial fibrillation; Z95.1 Presence of aortocoronary bypass graft
CPT/HCPCS: 85025; 80048; 36415; 86900; 86850; 86901; 99284; 36430; P9016; J7050

== ENCOUNTER 2021-01-31 11:47 | Day surgery (SDC) | payer OTHER ==
--- NOTE | 2021-01-30 11:03 | RAD REPORT ---
EXAM DESCRIPTION: oDrinda Pa And Lat (2 Views)01/30/2021 10:42 am CLINICAL HISTORY: Preop for heart catheterization COMPARISON: August 2020 FINDINGS: Small bilateral pleural effusions. Mild bilateral pulmonary opacities. The heart is mildly enlarged IMPRESSION: These findings probably indicate mild CHF
[2021-01-30 11:10] LABS: Protime INR 1.14
[2021-01-30 11:11] LABS: Basophils % 1.9 % (0-1.3); Hematocrit 23.3 % (39.6-49.0); Lymphocytes % 20.3 % (15.3-44.8); MPV 8.1 fL (7.6-11.3)
[2021-01-30 11:18] LABS: Potassium 3.8 mmol/L (3.5-5.1)
[2021-01-30 12:33] LABS: Anisocytosis 1+; Blood Morphology Comment NOTED (NOT SEEN); Hypochromasia 1+; Platelet Estimate ADEQ; Target Cells 1+; White Blood Cell Scan OK (OK)
--- NOTE | 2021-01-30 13:11 | EKG ---
Test Date: 2021-01-30 Test Time: 09:15:12 Scada Technician: OFELIA MEASUREMENT RESULTS: Intervals: Rate: 59 ND: QRSD: 86 QT: 446 QTc: 441 [place]: P: ND: QRS: -71 T: 103 INTERPRETIVE STATEMENTS: Atrial fibrillation with slow ventricular response with premature ventricular or aberrantly conducted complexes Left axis deviation Low voltage QRS Cannot rule out Anteroseptal infarct, age undetermined Abnormal ECG Compared to ECG 06/20/2020 15:10:33 Ventricular premature complex(es) now present Left-axis deviation now present Sinus rhythm no longer present Myocardial infarct finding still present Electronically Signed On 01-30-21 13:10:14 CDT by Josh Persaud
[2021-01-31] MEDS ORDERED: LIDOCAINE 1% 20 ML MDV ONE (11:49)
[2021-01-31] MEDS ORDERED: HEPA 1000U/500MLS 2,000 UNIT/1,000 ML BAG IV ONE (11:49)
[2021-01-31] MEDS ORDERED: NA CHLORIDE 0.9% 500 ML ONE (12:05)
[2021-01-31 13:01] VITALS: TEMP 97.3
[2021-01-31] MEDS ORDERED: MIDAZOLAM HCL 2 MG/2 ML INJ ONE (14:12)
[2021-01-31] MEDS ORDERED: ATROPINE SULF 1 MG/10 ML SYR IV ONE (14:12)
[2021-01-31] MEDS ORDERED: VERAPAMIL HCL 10 MG/4 ML VIAL IV ONE (14:12)
[2021-01-31] MEDS ORDERED: HEPARIN 5000 UNIT/ML 1 ML VIAL ONE (14:12)
[2021-01-31] MEDS ORDERED: FENTANYL CITR 100 MCG/2 ML ONE (14:12)
[2021-01-31 17:14] VITALS: BP 128/88; O2SAT 98
--- NOTE | 2021-01-31 20:30 | OP ---
Date of Procedure: 01/31/2021 Surgeon: JOSE MANUEL ANAND Procedures Performed: 1.Selective coronary angiogram. 2.Left heart catheterization. Access: Right radial artery 6-Welsh, closed with TR band. Complications: None. Indications: Abnormal stress test. Description Of Procedure: After risks, benefits, and alternatives were explained, the patient agreed to proceed and sought informed consent. The patient was brought to the cardiac catheterization labo [facility], prepped and draped in usual sterile fashion. An access right radial artery using pediatric m icropuncture kit. We placed a 6-Welsh slender sheath and took a 5-Welsh [place] 4.0 catheter into th e aortic root, engaged left main, right coronary artery, and then took standard views. We then advan sid the catheter over the wire into the LV, took the LVEDP and pullback did not record any gradient. We removed the catheter and the sheath, and placed TR band with good hemostasis. Findings: 1.Left main, large and normal. 2.LAD, [id number] size with luminal irregularities in the mid and distal section. No signifi cant disease. 3.Left circumflex, large and dominant with distal 40% focal stenosis. OM1 branch has proximal 30% t o 40%. 4.RCA, codominant vessel. No severe disease. 5.LVEDP of 8 mmHg. Conclusions: 1.Mild nonobstructive coronary artery disease as outlined above. 2.Normal LVEDP. Plan: Medical management. /MELY Voice ID: [id number] Report ID: [id number]
== END 2021-01-31 17:24 | disposition home or self-care (01) ==
LOC: CCL 11:47
PROVIDERS: ATTEND Internal Medicine
PROC: 4A023N7 Measurement of Cardiac Sampling and Pressure, Left Heart, Percutaneous Approach (ICD-10-PCS; principal; 2021-01-31)
PROC: B201YZZ Plain Radiography of Multiple Coronary Arteries using Other Contrast (ICD-10-PCS; 2021-01-31)
DX: I25.10 Atherosclerotic heart disease of native coronary artery without angina pectoris (principal); I48.91 Unspecified atrial fibrillation; I10 Essential (primary) hypertension; E11.9 Type 2 diabetes mellitus without complications; E78.5 Hyperlipidemia, unspecified; Z20.822 Contact with and (suspected) exposure to COVID-19; Z82.49 Family history of ischemic heart disease and other diseases of the circulatory system
CPT/HCPCS: 93005; 85025; 80048; 36415 ×2; 85610; 82947; 85730; 85018; 85014; 71046; 93458; U0003; J1644 ×2; J2250; J3010; J7040

== ENCOUNTER 2023-04-15 00:25 | Inpatient (IN) | payer OTHER ==
--- OUTSIDE RECORDS SUMMARY | 2023-04-15 00:31 | XMS REPORT | Continuity of Care Document ---
Author Name Unknown Address [address] [facility] [place] [address] [facility] thconnect Address [address] [facility] [place] [address] Care Team Providers Care Sales Operations Consultant Name Role Phone Travis Musefrancisco Cheyanne Fara Primary Care Physician [phone] Erica Miller Attending Clinician Unavailable Gloria Lacy Attending Clinician Unavailable Elmo Rubi Attending Clinician Unavailable Leger, Cardiology - Clear Attending Clinician Rafaela tyler Bella RN, Dennise Attending Clinician Unavailable THELMA DONAHUE Attending Clinician Unavailable Hany Meredith DO Attending Clinician [phone] Thelma Donahue DO Attending Clinician [phone] Tan Castanon MD Attending Clinician [phone] Celestine MACKENZIE, Willam Attending Clinician [phone] Doctor Unassigned, [place] Attending Clinician U navailable Neftali_W Attending Clinician Unavailable Radiology Attending Clinician Unavailable RADIOLOGY Attending Clinician Unavailable ERROL_Fara Attending Clinician Unavailable Deann Ramos Attending Clinician [phone] Physician, No Primary or Family Admitting Clinic jevon Unavailable TAN CASTANON Admitting Clinician Unavailable Tan Castanon MD Admitting Clinician Yan_W Admitting Clinician Unavailable CHEYANNE BULL Admitting Clinician Unavail able PACO Admitting Clinician Unavailable Elmo Rubi Admitting Clinician Unavailable Payers Payer Name Policy Type Policy Number Effective Date Expirati on Date Source [employer] [place]IC[place]AC[place]/ADVAN TAGE - HMO) [id number] 2020 00:00:00 2021 00:00:00 [employer] [place]AC[place]/ADVAN TAGE - HMO) [id number] 2020 00:00:00 Problems Condition Name Condition Details Condition Category Status Onset Date Resolution Date Last Treatment Date Treating Clinician Comments Source 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 Disease Active 2022-03 00:00: 00 [facility] Pleural effusion Pleural effusion Disease Active 2022-03 00:00: 00 [facility] Anemia, unspecifie d type Anemia, unspecifie d type Disease Active 2022-03 00:00: 00 [facility] CKD (chronic kidney disease) stage 4, GFR 15-29 ml/min CKD (chronic kidney disease) stage 4, GFR 15-29 ml/min Disease Active 2022-03 00:00: 00 [facility] Troponin I above reference range Troponin I above reference range Disease Active 2022-03 00:00: 00 [facility] Chronic atrial fibrillati on Chronic atrial fibrillati on Disease Active 2022-03 00:00: 00 [facility] Presence of Watchman left atrial appendage closure device Presence of Watchman left atrial appendage closure device Disease Active 2022-03 00:00: 00 [facility] Chronic heart failure with preserved ejection fraction Chronic heart failure with preserved ejection fraction Disease Active 2022-03 00:00: 00 [facility] Primary hypertensi on Primary hypertensi on Disease Active 2022-03 00:00: 00 [facility] Chronic atrial fibrillati on Chronic Atrial Fibrillati on Problem Active 2020-03 00:00: 00 [facility] Bilateral stenosis of carotid arteries Bilateral Stenosis of Carotid Arteries Problem Active 2020-03 00:00: 00 [facility] Chronic kidney disease stage 3 Chronic Kidney Disease Stage 3 Problem Active 08-08 00:00: 00 [facility] Moderate tricuspid valve regurgitat ion Moderate Tricuspid Valve Regurgitat ion Problem Active 08-08 00:00: 00 [facility] Type 2 diabetes mellitus Type 2 Diabetes Mellitus Problem Active 06-13 00:00: 00 [facility] Mixed anxiety and depressive disorder Mixed Anxiety and Depressive Disorder Problem Active 06-13 00:00: 00 [facility] Hypertensi ve disorder Hypertensi ve Disorder Problem Active 06-13 00:00: 00 [facility] Gastroesop hageal reflux disease Gastroesop hageal Reflux Disease Problem Active 06-13 00:00: 00 [facility] Dyspnea on exertion Dyspnea on Exertion Problem Active 06-13 00:00: 00 [facility] History of asbestos exposure History of Asbestos Exposure Problem Active 06-13 00:00: 00 [facility] Mixed hyperlipid emia due to type 2 diabetes mellitus Mixed Hyperlipid emia Due to Type 2 Diabetes Mellitus Problem Active 06-13 00:00: 00 [facility] Essential hypertensi on Essential hypertensi on Diagnosis Active [facility] Uncontroll ed type 2 diabetes mellitus with hyperglyce reginald Uncontroll ed type 2 diabetes mellitus with hyperglyce reginald Diagnosis Active [facility] Obesity (BMI 30-39.9) Obesity (BMI 30-39.9) Diagnosis Active [facility] Mixed hyperlipid emia Mixed hyperlipid emia Diagnosis Active [facility] Peripheral edema Peripheral edema Diagnosis Active [facility] Diabetes Diabetes Problem Active [facility] History of asbestos exposure History of asbestos exposure Diagnosis Active [facility] Dietary surveillan ce and counseling Dietary surveillan ce and counseling Diagnosis Active [facility] Allergies, Adverse Reactions, Alerts Allergy Name Allergy Type Status Severity Reaction(s) Onset Date Inactive Date Treating Clinician Comments Source No Known Allergie s DA Active U 11-05 00:00: 00 [facility] No Known Allergie s DA Active U 11-05 00:00: 00 [facility] NO KNOWN ALLERGIE S Drug Class Active [facility] Social History Social Habit Start Date Stop Date Quantity Comments Source History of tobacco use Passive smoker [facility] Exposure to SARS-CoV-2 (event) Not sure [facility] History of Social function 2023-03-12 00:00:00 2023-03-12 00:00:00 [facility] Tobacco use and exposure 2023-03-11 00:00:00 2023-03-11 00:00:00 Smokeless tobacco non-user [facility] Education - What is the highest level of school you have completed or the highest degree you have received? 2023-03-11 00:00:00 2023-03-11 00:00:00 High school graduate [facility] Sex Assigned At 1940 00:00:00 1940 00:00:00 [facility] Smoking Status Start Date Stop Date Source Tobacco smoking consumption unknown [facility] Never smoked tobacco [facility] Medications Ordered Medication Name Filled Medication Name Start Date Stop Date Current Medication? Ordering Clinician Indication Dosage Frequency Signature (SIG) Comments Components Source spironolact one 25 mg tablet 2022-03 00:00: 00 Yes [id number] 25mg Take 1 tablet by mouth in the morning. [facility] spironolact one 25 mg tablet 2022-03 00:00: 00 Yes [id number] 25mg Take 1 tablet by mouth in the morning. [facility] spironolact one 25 mg tablet 2022-03 00:00: 00 Yes [id number] 25mg Take 1 tablet by mouth in the morning. [facility] spironolact one 25 mg tablet 2022-03 00:00: 00 Yes [id number] 25mg Take 1 tablet by mouth in the morning. [facility] spironolact one 25 mg tablet 2022-03 00:00: 00 03-17 00:00 :00 No [id number] 25mg Take 1 tablet by mouth in the morning for 30 days. [facility] 20[facility] 12:35: 28 Yes 5mg Take 5 mg by mouth in the morning. [facility] empaglifloz in (JARDIANCE) 25 mg Tab 2022-03 12:35: 28 Yes 25mg Take 1 tablet by mouth in the morning. [facility] DOXAZOSIN MESYLATE, BULK, [facility] 2022-03 12:35: 28 Yes 1mg Take 1 mg by mouth in the morning and 1 mg in the evening. [facility] Levothyroxi ne 50 mcg capsule 2022-03 12:35: 28 Yes 50ug Take 1 capsule by mouth in the morning. [facility] SERTraline 100 mg tablet 2022-03 12:35: 28 Yes 100mg Take 1 tablet by mouth in the morning. [facility] pantoprazol e 40 mg EC tablet 2022-03 12:35: 28 Yes 40mg Take 1 tablet by mouth in the morning. [facility] rosuvastati n 10 mg tablet 2022-03 12:35: 28 Yes 10mg Take 1 tablet by mouth at bedtime. [facility] multivitami n, tx-minerals (COMPLETE MULTIVITAMI N) tablet 2022-03 12:35: 28 Yes 1{tbl} Take 1 tablet by mouth in the morning. [facility] cholecalcif tereso, vitamin D3, (VITAMIN D3 ORAL) 2022-03 12:35: 28 Yes 1{tbl} Take 1 tablet by mouth in the morning. [facility] cyanocobala min, vitamin B-12, (VITAMIN B-12 ORAL) 2022-03 12:35: 28 Yes 1{tbl} Take 1 tablet by mouth in the morning. [facility] ascorbic acid (VITAMIN C ORAL) 2022-03 12:35: 28 Yes 1{tbl} Take 1 tablet by mouth in the morning. [facility] aspirin 81 mg chewable tablet 2022-03 12:35: 28 Yes 81mg Take 1 tablet by mouth in the morning. [facility] AMLODIPINE BESYLATE, BULK, [facility] 2022-03 12:35: 28 Yes 5mg Take 5 mg by mouth in the morning. [facility] empaglifloz in (JARDIANCE) 25 mg Tab 2022-03 12:35: 28 Yes 25mg Take 1 tablet by mouth in the morning. [facility] DOXAZOSIN MESYLATE, BULK, [facility] 2022-03 12:35: 28 Yes 1mg Take 1 mg by mouth in the morning and 1 mg in the evening. [facility] Levothyroxi ne 50 mcg capsule 2022-03 12:35: 28 Yes 50ug Take 1 capsule by mouth in the morning. [facility] SERTraline 100 mg tablet 2022-03 12:35: 28 Yes 100mg Take 1 tablet by mouth in the morning. [facility] pantoprazol e 40 mg EC tablet 2022-03 12:35: 28 Yes 40mg Take 1 tablet by mouth in the morning. [facility] rosuvastati n 10 mg tablet 2022-03 12:35: 28 Yes 10mg Take 1 tablet by mouth at bedtime. [facility] multivitami n, tx-minerals (COMPLETE MULTIVITAMI N) tablet 2022-03 12:35: 28 Yes 1{tbl} Take 1 tablet by mouth in the morning. [facility] cholecalcif tereso, vitamin D3, (VITAMIN D3 ORAL) 2022-03 12:35: 28 Yes 1{tbl} Take 1 tablet by mouth in the morning. [facility] cyanocobala min, vitamin B-12, (VITAMIN B-12 ORAL) 2022-03 12:35: 28 Yes 1{tbl} Take 1 tablet by mouth in the morning. [facility] ascorbic acid (VITAMIN C ORAL) 2022-03 12:35: 28 Yes 1{tbl} Take 1 tablet by mouth in the morning. [facility] aspirin 81 mg chewable tablet 2022-03 12:35: 28 Yes 81mg Take 1 tablet by mouth in the morning. [facility] AMLODIPINE BESYLATE, BULK, [facility] 2022-03 12:35: 28 Yes 5mg Take 5 mg by mouth in the morning. [facility] empaglifloz in (JARDIANCE) 25 mg Tab 2022-03 12:35: 28 Yes 25mg Take 1 tablet by mouth in the morning. [facility] DOXAZOSIN MESYLATE, BULK, [facility] 2022-03 12:35: 28 Yes 1mg Take 1 mg by mouth in the morning and 1 mg in the evening. [facility] Levothyroxi ne 50 mcg capsule 2022-03 12:35: 28 Yes 50ug Take 1 capsule by mouth in the morning. [facility] SERTraline 100 mg tablet 2022-03 12:35: 28 Yes 100mg Take 1 tablet by mouth in the morning. [facility] pantoprazol e 40 mg EC tablet 2022-03 12:35: 28 Yes 40mg Take 1 tablet by mouth in the morning. [facility] rosuvastati n 10 mg tablet 2022-03 12:35: 28 Yes 10mg Take 1 tablet by mouth at bedtime. [facility] multivitami n, tx-minerals (COMPLETE MULTIVITAMI N) tablet 2022-03 12:35: 28 Yes 1{tbl} Take 1 tablet by mouth in the morning. [facility] cholecalcif tereso, vitamin D3, (VITAMIN D3 ORAL) 2022-03 12:35: 28 Yes 1{tbl} Take 1 tablet by mouth in the morning. [facility] cyanocobala min, vitamin B-12, (VITAMIN B-12 ORAL) 2022-03 12:35: 28 Yes 1{tbl} Take 1 tablet by mouth in the morning. [facility] ascorbic acid (VITAMIN C ORAL) 2022-03 12:35: 28 Yes 1{tbl} Take 1 tablet by mouth in the morning. [facility] aspirin 81 mg chewable tablet 2022-03 12:35: 28 Yes 81mg Take 1 tablet by mouth in the morning. [facility] AMLODIPINE BESYLATE, BULK, [facility] 2022-03 12:35: 28 Yes 5mg Take 5 mg by mouth in the morning. [facility] empaglifloz in (JARDIANCE) 25 mg Tab 2022-03 12:35: 28 Yes 25mg Take 1 tablet by mouth in the morning. [facility] DOXAZOSIN MESYLATE, BULK, [facility] 2022-03 12:35: 28 Yes 1mg Take 1 mg by mouth in the morning and 1 mg in the evening. [facility] Levothyroxi ne 50 mcg capsule 2022-03 12:35: 28 Yes 50ug Take 1 capsule by mouth in the morning. [facility] SERTraline 100 mg tablet 2022-03 12:35: 28 Yes 100mg Take 1 tablet by mouth in the morning. [facility] pantoprazol e 40 mg EC tablet 2022-03 12:35: 28 Yes 40mg Take 1 tablet by mouth in the morning. [facility] rosuvastati n 10 mg tablet 2022-03 12:35: 28 Yes 10mg Take 1 tablet by mouth at bedtime. [facility] multivitami n, tx-minerals (COMPLETE MULTIVITAMI N) tablet 2022-03 12:35: 28 Yes 1{tbl} Take 1 tablet by mouth in the morning. [facility] cholecalcif tereso, vitamin D3, (VITAMIN D3 ORAL) 2022-03 12:35: 28 Yes 1{tbl} Take 1 tablet by mouth in the morning. [facility] cyanocobala min, vitamin B-12, (VITAMIN B-12 ORAL) 2022-03 12:35: 28 Yes 1{tbl} Take 1 tablet by mouth in the morning. [facility] ascorbic acid (VITAMIN C ORAL) 2022-03 12:35: 28 Yes 1{tbl} Take 1 tablet by mouth in the morning. [facility] aspirin 81 mg chewable tablet 2022-03 12:35: 28 Yes 81mg Take 1 tablet by mouth in the morning. [facility] bumetanide 1 mg tablet 2022-03 11:22: 31 03-17 00:00 :00 No 1mg Take 1 tablet by mouth in the morning. [facility] bumetanide 1 mg tablet 2022-03 00:00: 00 Yes [id number] 1mg Take 1 tablet by mouth in the morning. [facility] bumetanide 1 mg tablet 2022-03 00:00: 00 Yes [id number] 1mg Take 1 tablet by mouth in the morning. [facility] bumetanide 1 mg tablet 2022-03 00:00: 00 Yes [id number] 1mg Take 1 tablet by mouth in the morning. [facility] bumetanide 1 mg tablet 2022-03 00:00: 00 Yes [id number] 1mg Take 1 tablet by mouth in the morning. [facility] bumetanide 1 mg tablet 2022-03 00:00: 00 03-17 00:00 :00 No [id number] 1mg Take 1 tablet by mouth in the morning for 30 days. [facility] spironolact one (ALDACTONE) tablet 25 mg 2022-03 16:30: 00 Yes 25mg 25 mg, Oral, DAILY, First dose on Thu03/15/23 at 1030, Until Discontinu ed, Routine [facility] rosuvastati n (CRESTOR) tablet 10 mg 2022-03 03:00: 00 Yes 10mg 10 mg, Oral, QHS, First dose on Federica 03/12/23 at 2100, Until Discontinu ed, Routine [facility] SERTraline (ZOLOFT) tablet 100 mg 2022-03 15:00: 00 Yes 100mg 100 mg, Oral, DAILY, First dose on Federica 03/12/23 at 0900, Until Discontinu ed, [facility] Tab 25 mg 2022-03 15:00: 00 Yes 25mg 25 mg, Oral, DAILY, First dose on Federica 03/12/23 at 0900, Until Discontinu ed
Is this a home medication ? Yes
Has this patient brought their own medication ? No
Phar eva will dispense the medication from inpatient. Pharmacy will dispense the medication from inpatient.
Inpati ent ordering of this medication is not allowed unless the patient is maintained on this medication at home, and home supply is unavailabl e. Does this order meet the criteria for inpatient ordering? Yes [facility] cholecalcif tereso (vitamin D3) tablet 1,000 Units 2022-03 15:00: 00 Yes 1000U 1,000 Units, Oral, DAILY, First dose on Federica 03/12/23 at 0900, Until Discontinu ed [facility] 81 mg 2022-03 15:00: 00 Yes 81mg 81 mg, Oral, DAILY, First dose on Federica 03/12/23 at 0900, Until Discontinu ed, Routine [facility] ascorbic acid (vitamin C) (VITAMIN C) tablet 500 mg 2022-03 15:00: 00 Yes 500mg 500 mg, Oral, DAILY, First dose on Federica 03/12/23 at 0900, Until Discontinu ed [facility] amLOD[facility]ine (NORVASC) tablet 5 mg 2022-03 15:00: 00 Yes 5mg 5 mg, Oral, DAILY, First dose on Thu03/12/23 at 0900, Until Discontinu ed [facility] furosemide (LASIX) injection 40 mg 2022-03 14:00: 00 Yes 40mg 40 mg, Slow IV Push, Q12H, First dose on Thu03/12/23 at 0800, Until Discontinu ed, Routine [facility] doxazosin (CARDURA) tablet 1 mg 2022-03 14:00: 00 Yes 1mg 1 mg, Oral, BID, First dose on Thu03/12/23 at 0800, Until Discontinu ed, [facility] pantoprazol [facility] (PROTONIX) EC tablet 40 mg 2022-03 12:00: 00 Yes 40mg 40 mg, Oral, QAM-0600, First dose on Thu03/12/23 at 0600, Until Discontinu ed, Routine [facility] levothyroxi ne (SYNTHROID) tablet 50 mcg 2022-03 12:00: 00 Yes 50ug 50 mcg, Oral, QAM-0600, First dose on Thu03/12/23 at 0600, Until Discontinu ed [facility] KCL (KLOR-CON M20) tablet 20 mEq 2022-03 11:30: 00 03-12 14:25 :00 No 20meq 20 mEq, Oral, ONCE, 1 dose, On Thu03/12/23 at 0530, Routine [facility] magnesium sulfate in water 2 gram/50 mL (4 %) infusion 2 g 2022-03 11:15: 00 03-12 15:27 :00 No 2g 2 g, IV Piggyback, Administer over 60 Minutes, ONCE, 1 dose, On Thu03/12/23 at 0515, Routine [facility] Sliding Scale Insulin - Lispro (HumaLOG) 2022-03 23:00: 00 Yes Subcutaneo us, TID MEALS+HS, First dose on Thu03/11/23 at 1700, Until Discontinu ed, [facility] 21:23: 10 Yes 5mg Take 5 mg by mouth in the morning. [facility] empaglifloz in (JARDIANCE) 25 mg Tab 2022-03 21:23: 10 Yes 25mg Take 1 tablet by mouth in the morning. [facility] DOXAZOSIN [facility]ATE[facility]UL[facility] 20[facility] 21:23: 10 Yes 1mg Take 1 mg by mouth in the morning and 1 mg in the evening. [facility] Levothyroxi ne 50 mcg capsule 2022-03 21:23: 10 Yes 50ug Take 1 capsule by mouth in the morning. [facility] bumetanide 1 mg tablet 2022-03 21:23: 10 Yes 1mg Take 1 tablet by mouth in the morning. [facility] SERTraline 100 mg tablet 2022-03 21:23: 10 Yes 100mg Take 1 tablet by mouth in the morning. [facility] pantoprazol e 40 mg EC tablet 2022-03 21:23: 10 Yes 40mg Take 1 tablet by mouth in the morning. [facility] rosuvastati n 10 mg tablet 2022-03 21:23: 10 Yes 10mg Take 1 tablet by mouth at bedtime. [facility] multivitami n, tx-minerals (COMPLETE MULTIVITAMI N) tablet 2022-03 21:23: 10 Yes 1{tbl} Take 1 tablet by mouth in the morning. [facility] cholecalcif tereso, vitamin D3, (VITAMIN D3 ORAL) 2022-03 21:23: 10 Yes 1{tbl} Take 1 tablet by mouth in the morning. [facility] cyanocobala min, vitamin B-12, (VITAMIN B-12 ORAL) 2022-03 21:23: 10 Yes 1{tbl} Take 1 tablet by mouth in the morning. [facility] ascorbic acid (VITAMIN C ORAL) 2022-03 21:23: 10 Yes 1{tbl} Take 1 tablet by mouth in the morning. [facility] aspirin 81 mg chewable tablet 2022-03 21:23: 10 Yes 81mg Take 1 tablet by mouth in the morning. [facility] glucagon (GLUCAGEN DIAGNOSTIC KIT) injection 1 mg 2022-03 20:50: 38 Yes 1mg 1 mg, Intramuscu lar, PRN, Starting on Thu03/11/23 at 1450, Until Discontinu ed, BELIA, Blood Glucose < or = 70 mg/dL and patient is NPO, unable to swallow or has mental changes. [facility] dextrose 50 % in water (D50W) injection 25 mL 2022-03 20:50: 38 Yes 25mL 25 mL, Slow IV Push, PRN, Starting on Thu03/11/23 at 1450, Until Discontinu ed, BELIA, Blood Glucose < or = 70 mg/dL and patient is NPO, unable to swallow or has mental status changes. [facility] acetaminoph en (TYLENOL) tablet 650 mg 2022-03 20:50: 25 Yes 650mg 650 mg, Oral, Q6HPRN, Starting on Thu03/11/23 at 1450, Until Discontinu ed, Routine, Pain (scale 1-3) [facility] Metformin HCl Metformin HCl 05-25 00:00: 00 Yes Gloria Lacy 1 tablet with a meal [facility] Blood Glucose Monitor Blood Glucose Monitor 05-25 00:00: 00 Yes Gloria Lacy as directed (DISPENSE BLOOD GLUCOSE MONITOR FORMULARY TO INSURANCE) [facility] Januvia Januvia 05-25 00:00: 00 Yes Gloria Millender 1 tablet [facility] Lancets Lancets 05-25 00:00: 00 Yes Gloria Lacy as directed (dispense lancets formulary to insurance) [facility] Glucose testing strips Glucose testing strips 05-25 00:00: 00 Yes Gloria Lacy as directed (dispense testing strips formulary to insurance) [facility] Nilson Aspirin EC Low Dose Nilson Aspirin EC Low Dose Yes Gloria Millender 1 tablet [facility] Sertraline HCl Sertraline HCl Yes Gloria Millender 1 tablet [facility] Amlodipine Besylate Amlodipine Besylate Yes Gloria Millender 1 tablet [facility] Losartan Potassium-H CTZ Losartan Potassium-H CTZ Yes Gloria Millender 1 tablet [facility] Vitamin B-12 Vitamin B-12 Yes Gloria Millender 1 tablet [facility] Rosuvastati n Calcium Rosuvastati n Calcium Yes Gloria Millender 1 tablet in evening [facility] Gemfibrozil Gemfibrozil Yes Gloria Millender 1 tablet [facility] Vitamin D3 Vitamin D3 Yes Gloria Millender 1 tablet [facility] Janumet XR Janumet XR Yes Gloria Millender 1 Tablet [facility] Glimepiride Glimepiride Yes Gloria Millender 1 tablet [facility] Doxazosin Mesylate Doxazosin Mesylate Yes Gloria Millender 1 tablet [facility] Omeprazole Omeprazole Yes Gloria Millender 1 capsule [facility] Multi For Him 50+ Multi For Him 50+ Yes Gloria Millender as directed [facility] Hydrochloro thiazide Hydrochloro thiazide Yes Gloria Millender 1 tablet in the morning [facility] Vitamin C Vitamin C Yes Gloria Millender 1 tablet [facility] Accu-Chek Softclix Lancets TEST BLOOD SUGAR ONCE DAILY DIRECTED Accu-Chek Softclix Lancets TEST BLOOD SUGAR ONCE DAILY DIRECTED No Accu-Chek Softclix Lancets TEST BLOOD SUGAR ONCE DAILY DIRECTED [facility] amlodipine 10 mg tablet amlodipine 10 mg tablet No amlodipine 10 mg tablet [facility] amlodipine 5 mg tablet TAKE 1 TABLET BY MOUTH TWICE A DAY DIRECTED amlodipine 5 mg tablet TAKE 1 TABLET BY MOUTH TWICE A DAY DIRECTED No amlodipine 5 mg tablet TAKE 1 TABLET BY MOUTH TWICE A DAY DIRECTED [facility] doxazosin 1 mg tablet TAKE 1 TABLET BY MOUTH TWICE A DAY DIRECTED doxazosin 1 mg tablet TAKE 1 TABLET BY MOUTH TWICE A DAY DIRECTED No doxazosin 1 mg tablet TAKE 1 TABLET BY MOUTH TWICE A DAY DIRECTED [facility] furosemide 40 mg tablet furosemide 40 mg tablet No furosemide 40 mg tablet [facility] gemfibrozil 600 mg tablet TAKE 1 TABLET BY MOUTH TWICE A DAY BEFORE MEALS gemfibrozil 600 mg tablet TAKE 1 TABLET BY MOUTH TWICE A DAY BEFORE MEALS No gemfibrozi l 600 mg tablet TAKE 1 TABLET BY MOUTH TWICE A DAY BEFORE MEALS [facility] [facility] Klor-Con 10 mEq tablet,exte nded release Klor-Con 10 mEq tablet,exte nded release No Klor-Con 10 mEq tablet,ext ended release [facility] losartan 100 mg-hydrochl orothiazide 25 mg tablet TAKE 1 TABLET BY MOUTH EVERY DAY DIRECTED losartan 100 mg-hydrochl orothiazide 25 mg tablet TAKE 1 TABLET BY MOUTH EVERY DAY DIRECTED No losartan 100 mg-hydroch lorothiazi de 25 mg tablet TAKE 1 TABLET BY MOUTH EVERY DAY DIRECTED [facility] losartan 50 mg tablet losartan 50 mg tablet No losartan 50 mg tablet [facility] metformin 1,000 mg tablet TAKE 1 TABLET BY MOUTH TWICE A DAY BEFORE MEALS metformin 1,000 mg tablet TAKE 1 TABLET BY MOUTH TWICE A DAY BEFORE MEALS No metformin 1,000 mg tablet TAKE 1 TABLET BY MOUTH TWICE A DAY BEFORE MEALS [facility] metoprolol succinate ER 50 mg tablet,exte nded release 24 hr metoprolol succinate ER 50 mg tablet,exte nded release 24 hr No metoprolol succinate ER 50 mg tablet,ext ended release 24 hr [facility] omeprazole 40 mg capsule,del ayed release TAKE 1 CAPSULE BY MOUTH EVERY DAY omeprazole 40 mg capsule,del ayed release TAKE 1 CAPSULE BY MOUTH EVERY DAY No omeprazole 40 mg capsule,de layed release TAKE 1 CAPSULE BY MOUTH EVERY DAY [facility] pantoprazol e 40 mg tablet,clarisse yed release TAKE 1 TABLET BY MOUTH EVERY DAY IN THE MORNING pantoprazol e 40 mg tablet,clarisse yed release TAKE 1 TABLET BY MOUTH EVERY DAY IN THE MORNING No pantoprazo le 40 mg tablet,del ayed release TAKE 1 TABLET BY MOUTH EVERY DAY IN THE MORNING [facility] rosuvastati n 10 mg tablet TAKE 1 TABLET BY MOUTH EVERY DAY IN THE EVENING rosuvastati n 10 mg tablet TAKE 1 TABLET BY MOUTH EVERY DAY IN THE EVENING No rosuvastat in 10 mg tablet TAKE 1 TABLET BY MOUTH EVERY DAY IN THE EVENING [facility] sertraline 100 mg tablet TAKE 1 TABLET BY MOUTH EVERY DAY sertraline 100 mg tablet TAKE 1 TABLET BY MOUTH EVERY DAY No sertraline 100 mg tablet TAKE 1 TABLET BY MOUTH EVERY DAY [facility] sitagliptin 100 mg tablet Take 1 tablet every day by oral route in the morning for 30 days. sitagliptin 100 mg tablet Take 1 tablet every day by oral route in the morning for 30 days. No 1 Q1D sitaglipti n 100 mg tablet Take 1 tablet every day by oral route in the morning for 30 days. [facility] Accu-Chek Softclix Lancets TEST BLOOD SUGAR ONCE DAILY DIRECTED Accu-Chek Softclix Lancets TEST BLOOD SUGAR ONCE DAILY DIRECTED No Accu-Chek Softclix Lancets TEST BLOOD SUGAR ONCE DAILY DIRECTED [facility] amlodipine 5 mg tablet Take 1 tablet twice a day by oral route as directed for 90 days. amlodipine 5 mg tablet Take 1 tablet twice a day by oral route as directed for 90 days. No 1 BID amlodipine 5 mg tablet Take 1 tablet twice a day by oral route as directed for 90 days. [facility] aspirin 81 mg tablet - take one by mouth every morning and once every evening aspirin 81 mg tablet - take one by mouth every morning and once every evening No aspirin 81 mg tablet - take one by mouth every morning and once every evening [facility] doxazosin 1 mg tablet TAKE 1 TABLET BY MOUTH TWICE A DAY DIRECTED doxazosin 1 mg tablet TAKE 1 TABLET BY MOUTH TWICE A DAY DIRECTED No doxazosin 1 mg tablet TAKE 1 TABLET BY MOUTH TWICE A DAY DIRECTED [facility] gemfibrozil 600 mg tablet Take 1 tablet twice a day by oral route before meals for 90 days. gemfibrozil 600 mg tablet Take 1 tablet twice a day by oral route before meals for 90 days. No 1 BID gemfibrozi l 600 mg tablet Take 1 tablet twice a day by oral route before meals for 90 days. [facility] Januvia 100 mg tablet TAKE 1 TABLET BY MOUTH EVERY DAY IN THE MORNING Januvia 100 mg tablet TAKE 1 TABLET BY MOUTH EVERY DAY IN THE MORNING No Januvia 100 mg tablet TAKE 1 TABLET BY MOUTH EVERY DAY IN THE MORNING [facility] Klor-Con 10 mEq tablet,exte nded release Take 1 tablet every day by oral route in the morning for 90 days. Klor-Con 10 mEq tablet,exte nded release Take 1 tablet every day by oral route in the morning for 90 days. No 1 Q1D Klor-Con 10 mEq tablet,ext ended release Take 1 tablet every day by oral route in the morning for 90 days. [facility] losartan 100 mg-hydrochl orothiazide 25 mg tablet Take 1 tablet every day by oral route in the morning for 90 days. losartan 100 mg-hydrochl orothiazide 25 mg tablet Take 1 tablet every day by oral route in the morning for 90 days. No 1 Q1D losartan 100 mg-hydroch lorothiazi de 25 mg tablet Take 1 tablet every day by oral route in the morning for 90 days. [facility] metformin 1,000 mg tablet TAKE 1 TABLET BY MOUTH EVERY MORNING 30 MINUTES BEFORE BREAKFAST AND 1 TABLET EVERY EVENING 30 MINUTES BEFORE SUPPER. metformin 1,000 mg tablet TAKE 1 TABLET BY MOUTH EVERY MORNING 30 MINUTES BEFORE BREAKFAST AND 1 TABLET EVERY EVENING 30 MINUTES BEFORE SUPPER. No metformin 1,000 mg tablet TAKE 1 TABLET BY MOUTH EVERY MORNING 30 MINUTES BEFORE BREAKFAST AND 1 TABLET EVERY EVENING 30 MINUTES BEFORE SUPPER. [facility] amlodipine 5 mg tablet amlodipine 5 mg tablet No amlodipine 5 mg tablet [facility] pantoprazol e 40 mg tablet,clarisse yed release TAKE 1 TABLET BY MOUTH EVERY DAY IN THE MORNING pantoprazol e 40 mg tablet,clarisse yed release TAKE 1 TABLET BY MOUTH EVERY DAY IN THE MORNING No pantoprazo le 40 mg tablet,del ayed release TAKE 1 TABLET BY MOUTH EVERY DAY IN THE MORNING [facility] rosuvastati n 10 mg tablet TAKE 1 TABLET BY MOUTH EVERY DAY IN THE EVENING rosuvastati n 10 mg tablet TAKE 1 TABLET BY MOUTH EVERY DAY IN THE EVENING No rosuvastat in 10 mg tablet TAKE 1 TABLET BY MOUTH EVERY DAY IN THE EVENING [facility] sertraline 100 mg tablet Take 1 tablet every day by oral route as directed for 90 days. sertraline 100 mg tablet Take 1 tablet every day by oral route as directed for 90 days. No 1 Q1D sertraline 100 mg tablet Take 1 tablet every day by oral route as directed for 90 days. [facility] Accu-Chek Softclix Lancets TEST BLOOD SUGAR ONCE DAILY DIRECTED Accu-Chek Softclix Lancets TEST BLOOD SUGAR ONCE DAILY DIRECTED No Accu-Chek Softclix Lancets TEST BLOOD SUGAR ONCE DAILY DIRECTED [facility] amlodipine 5 mg tablet TAKE 1 TABLET BY MOUTH TWICE A DAY DIRECTED amlodipine 5 mg tablet TAKE 1 TABLET BY MOUTH TWICE A DAY DIRECTED No amlodipine 5 mg tablet TAKE 1 TABLET BY MOUTH TWICE A DAY DIRECTED [facility] aspirin 81 mg tablet - take one by mouth every morning and once every evening aspirin 81 mg tablet - take one by mouth every morning and once every evening No aspirin 81 mg tablet - take one by mouth every morning and once every evening [facility] doxazosin 1 mg tablet TAKE 1 TABLET BY MOUTH TWICE A DAY DIRECTED doxazosin 1 mg tablet TAKE 1 TABLET BY MOUTH TWICE A DAY DIRECTED No doxazosin 1 mg tablet TAKE 1 TABLET BY MOUTH TWICE A DAY DIRECTED [facility] ferrous sulfate 325 mg (65 mg iron) tablet Take 1 tablet every day by oral route as directed for 30 days. ferrous sulfate 325 mg (65 mg iron) tablet Take 1 tablet every day by oral route as directed for 30 days. No 1 Q1D ferrous sulfate 325 mg (65 mg iron) tablet Take 1 tablet every day by oral route as directed for 30 days. [facility] furosemide 20 mg tablet Take 1 tablet every day by oral route in the morning for 14 days. furosemide 20 mg tablet Take 1 tablet every day by oral route in the morning for 14 days. No 1 Q1D furosemide 20 mg tablet Take 1 tablet every day by oral route in the morning for 14 days. [facility] gemfibrozil 600 mg tablet TAKE 1 TABLET BY MOUTH TWICE A DAY gemfibrozil 600 mg tablet TAKE 1 TABLET BY MOUTH TWICE A DAY No gemfibrozi l 600 mg tablet TAKE 1 TABLET BY MOUTH TWICE A DAY [facility] ciprofloxac in 0.3 %-dexametha sone 0.1 % ear drops,suspe nsion INSTILL 4 DROPS INTO AFFECTED EAR(S) BY OTIC ROUTE 2 TIMES PER DAY FOR 7 DAYS ciprofloxac in 0.3 %-dexametha sone 0.1 % ear drops,suspe nsion INSTILL 4 DROPS INTO AFFECTED EAR(S) BY OTIC ROUTE 2 TIMES PER DAY FOR 7 DAYS No ciprofloxa nima 0.3 %-dexameth asone 0.1 % ear drops,susp ension INSTILL 4 DROPS INTO AFFECTED EAR(S) BY OTIC ROUTE 2 TIMES PER DAY FOR 7 DAYS [facility] Januvia 100 mg tablet TAKE 1 TABLET BY MOUTH EVERY DAY IN THE MORNING Januvia 100 mg tablet TAKE 1 TABLET BY MOUTH EVERY DAY IN THE MORNING No Januvia 100 mg tablet TAKE 1 TABLET BY MOUTH EVERY DAY IN THE MORNING [facility] Klor-Con 10 mEq tablet,exte nded release Take 1 tablet every day by oral route in the morning for 90 days. Klor-Con 10 mEq tablet,exte nded release Take 1 tablet every day by oral route in the morning for 90 days. No 1 Q1D Klor-Con 10 mEq tablet,ext ended release Take 1 tablet every day by oral route in the morning for 90 days. [facility] losartan 100 mg-hydrochl orothiazide 25 mg tablet TAKE 1 TABLET BY MOUTH EVERY DAY DIRECTED losartan 100 mg-hydrochl orothiazide 25 mg tablet TAKE 1 TABLET BY MOUTH EVERY DAY DIRECTED No losartan 100 mg-hydroch lorothiazi de 25 mg tablet TAKE 1 TABLET BY MOUTH EVERY DAY DIRECTED [facility] metformin 1,000 mg tablet TAKE 1 TABLET BY MOUTH 30 MIUNTES BEFORE BREAKFAST AND DINNER metformin 1,000 mg tablet TAKE 1 TABLET BY MOUTH 30 MIUNTES BEFORE BREAKFAST AND DINNER No metformin 1,000 mg tablet TAKE 1 TABLET BY MOUTH 30 MIUNTES BEFORE BREAKFAST AND DINNER [facility] pantoprazol e 40 mg tablet,clarisse yed release TAKE 1 TABLET BY MOUTH EVERY DAY IN THE MORNING pantoprazol e 40 mg tablet,clarisse yed release TAKE 1 TABLET BY MOUTH EVERY DAY IN THE MORNING No pantoprazo le 40 mg tablet,del ayed release TAKE 1 TABLET BY MOUTH EVERY DAY IN THE MORNING [facility] rosuvastati n 10 mg tablet TAKE 1 TABLET BY MOUTH EVERY DAY IN THE EVENING rosuvastati n 10 mg tablet TAKE 1 TABLET BY MOUTH EVERY DAY IN THE EVENING No rosuvastat in 10 mg tablet TAKE 1 TABLET BY MOUTH EVERY DAY IN THE EVENING [facility] sertraline 100 mg tablet TAKE 1 TABLET BY MOUTH EVERY DAY sertraline 100 mg tablet TAKE 1 TABLET BY MOUTH EVERY DAY No sertraline 100 mg tablet TAKE 1 TABLET BY MOUTH EVERY DAY [facility] amlodipine 5 mg tablet TAKE 1 TABLET BY MOUTH TWICE A DAY DIRECTED amlodipine 5 mg tablet TAKE 1 TABLET BY MOUTH TWICE A DAY DIRECTED No amlodipine 5 mg tablet TAKE 1 TABLET BY MOUTH TWICE A DAY DIRECTED [facility] amoxicillin 875 mg-potassiu m clavulanate 125 mg tablet amoxicillin 875 mg-potassiu m clavulanate 125 mg tablet No amoxicilli n 875 mg-potassi um clavulanat e 125 mg tablet [facility] aspirin 81 mg tablet - take one by mouth every morning and once every evening aspirin 81 mg tablet - take one by mouth every morning and once every evening No aspirin 81 mg tablet - take one by mouth every morning and once every evening [facility] cyclobenzap rine 10 mg tablet cyclobenzap rine 10 mg tablet No cyclobenza selvin 10 mg tablet [facility] B12 1000 MCG B12 1000 MCG No B12 1000 MCG [facility] cyclobenzap rine 10 mg tablet cyclobenzap rine 10 mg tablet No cyclobenza selvin 10 mg tablet [facility] doxazosin 1 mg tablet TAKE 1 TABLET BY MOUTH TWICE A DAY DIRECTED doxazosin 1 mg tablet TAKE 1 TABLET BY MOUTH TWICE A DAY DIRECTED No doxazosin 1 mg tablet TAKE 1 TABLET BY MOUTH TWICE A DAY DIRECTED [facility] furosemide 20 mg tablet Take 1 tablet every day by oral route in the morning for 30 days. furosemide 20 mg tablet Take 1 tablet every day by oral route in the morning for 30 days. No 1 Q1D furosemide 20 mg tablet Take 1 tablet every day by oral route in the morning for 30 days. [facility] furosemide 40 mg tablet furosemide 40 mg tablet No furosemide 40 mg tablet [facility] gemfibrozil 600 mg tablet TAKE 1 TABLET BY MOUTH TWICE A DAY gemfibrozil 600 mg tablet TAKE 1 TABLET BY MOUTH TWICE A DAY No gemfibrozi l 600 mg tablet TAKE 1 TABLET BY MOUTH TWICE A DAY [facility] Januvia 100 mg tablet TAKE 1 TABLET BY MOUTH EVERY DAY IN THE MORNING Januvia 100 mg tablet TAKE 1 TABLET BY MOUTH EVERY DAY IN THE MORNING No Januvia 100 mg tablet TAKE 1 TABLET BY MOUTH EVERY DAY IN THE MORNING [facility] losartan 100 mg-hydrochl orothiazide 25 mg tablet TAKE 1 TABLET BY MOUTH EVERY DAY DIRECTED losartan 100 mg-hydrochl orothiazide 25 mg tablet TAKE 1 TABLET BY MOUTH EVERY DAY DIRECTED No losartan 100 mg-hydroch lorothiazi de 25 mg tablet TAKE 1 TABLET BY MOUTH EVERY DAY DIRECTED [facility] doxazosin 1 mg tablet doxazosin 1 mg tablet No doxazosin [address] [facility] metformin 1,000 mg tablet TAKE 1 TABLET BY MOUTH 30 MIUNTES BEFORE BREAKFAST AND DINNER metformin 1,000 mg tablet TAKE 1 TABLET BY MOUTH 30 MIUNTES BEFORE BREAKFAST AND DINNER No metformin 1,000 mg tablet TAKE 1 TABLET BY MOUTH 30 MIUNTES BEFORE BREAKFAST AND DINNER [facility] pantoprazol e 40 mg tablet,clarisse yed release TAKE 1 TABLET BY MOUTH EVERY DAY IN THE MORNING pantoprazol e 40 mg tablet,clarisse yed release TAKE 1 TABLET BY MOUTH EVERY DAY IN THE MORNING No pantoprazo le 40 mg tablet,del ayed release TAKE 1 TABLET BY MOUTH EVERY DAY IN THE MORNING [facility] rosuvastati n 10 mg tablet TAKE 1 TABLET BY MOUTH EVERY DAY IN THE EVENING rosuvastati n 10 mg tablet TAKE 1 TABLET BY MOUTH EVERY DAY IN THE EVENING No rosuvastat in 10 mg tablet TAKE 1 TABLET BY MOUTH EVERY DAY IN THE EVENING [facility] sertraline 100 mg tablet TAKE 1 TABLET BY MOUTH EVERY DAY sertraline 100 mg tablet TAKE 1 TABLET BY MOUTH EVERY DAY No sertraline 100 mg tablet TAKE 1 TABLET BY MOUTH EVERY DAY [facility] Vitamin C 1,000 mg tablet Take by oral route. Vitamin C 1,000 mg tablet Take by oral route. No Vitamin C 1,000 mg tablet Take by oral route. [facility] Vitamin D3 2000 IU Vitamin D3 2000 IU No Vitamin D3 2000 IU [facility] amlodipine 5 mg tablet TAKE 1 TABLET BY MOUTH TWICE A DAY DIRECTED amlodipine 5 mg tablet TAKE 1 TABLET BY MOUTH TWICE A DAY DIRECTED No amlodipine 5 mg tablet TAKE 1 TABLET BY MOUTH TWICE A DAY DIRECTED [facility] ferrous sulfate 325 mg (65 mg iron) tablet ferrous sulfate 325 mg (65 mg iron) tablet No ferrous sulfate 325 mg (65 mg iron) tablet [facility] amoxicillin 875 mg-potassiu m clavulanate 125 mg tablet amoxicillin 875 mg-potassiu m clavulanate 125 mg tablet No amoxicilli n 875 mg-potassi um clavulanat e 125 mg tablet [facility] aspirin 81 mg tablet - take one by mouth every morning and once every evening aspirin 81 mg tablet - take one by mouth every morning and once every evening No aspirin 81 mg tablet - take one by mouth every morning and once every evening [facility] B12 1000 MCG B12 1000 MCG No B12 1000 MCG [facility] cyclobenzap rine 10 mg tablet cyclobenzap rine 10 mg tablet No cyclobenza selvin 10 mg tablet [facility] doxazosin 1 mg tablet TAKE 1 TABLET BY MOUTH TWICE A DAY DIRECTED doxazosin 1 mg tablet TAKE 1 TABLET BY MOUTH TWICE A DAY DIRECTED No doxazosin 1 mg tablet TAKE 1 TABLET BY MOUTH TWICE A DAY DIRECTED [facility] furosemide 20 mg tablet Take 1 tablet every day by oral route in the morning for 30 days. furosemide 20 mg tablet Take 1 tablet every day by oral route in the morning for 30 days. No 1 Q1D furosemide 20 mg tablet Take 1 tablet every day by oral route in the morning for 30 days. [facility] furosemide 20 mg tablet furosemide 20 mg tablet No furosemide 20 mg tablet [facility] furosemide 40 mg tablet furosemide 40 mg tablet No furosemide 40 mg tablet [facility] gemfibrozil 600 mg tablet TAKE 1 TABLET BY MOUTH TWICE A DAY gemfibrozil 600 mg tablet TAKE 1 TABLET BY MOUTH TWICE A DAY No gemfibrozi l 600 mg tablet TAKE 1 TABLET BY MOUTH TWICE A DAY [facility] Januvia 100 mg tablet TAKE 1 TABLET BY MOUTH EVERY DAY IN THE MORNING Januvia 100 mg tablet TAKE 1 TABLET BY MOUTH EVERY DAY IN THE MORNING No Januvia 100 mg tablet TAKE 1 TABLET BY MOUTH EVERY DAY IN THE MORNING [facility] losartan 100 mg-hydrochl orothiazide 25 mg tablet TAKE 1 TABLET BY MOUTH EVERY DAY DIRECTED losartan 100 mg-hydrochl orothiazide 25 mg tablet TAKE 1 TABLET BY MOUTH EVERY DAY DIRECTED No losartan 100 mg-hydroch lorothiazi de 25 mg tablet TAKE 1 TABLET BY MOUTH EVERY DAY DIRECTED [facility] metformin 1,000 mg tablet TAKE 1 TABLET BY MOUTH 30 MIUNTES BEFORE BREAKFAST AND DINNER metformin 1,000 mg tablet TAKE 1 TABLET BY MOUTH 30 MIUNTES BEFORE BREAKFAST AND DINNER No metformin 1,000 mg tablet TAKE 1 TABLET BY MOUTH 30 MIUNTES BEFORE BREAKFAST AND DINNER [facility] pantoprazol e 40 mg tablet,clarisse yed release TAKE 1 TABLET BY MOUTH EVERY DAY IN THE MORNING pantoprazol e 40 mg tablet,clarisse yed release TAKE 1 TABLET BY MOUTH EVERY DAY IN THE MORNING No pantoprazo le 40 mg tablet,del ayed release TAKE 1 TABLET BY MOUTH EVERY DAY IN THE MORNING [facility] rosuvastati n 10 mg tablet TAKE 1 TABLET BY MOUTH EVERY DAY IN THE EVENING rosuvastati n 10 mg tablet TAKE 1 TABLET BY MOUTH EVERY DAY IN THE EVENING No rosuvastat in 10 mg tablet TAKE 1 TABLET BY MOUTH EVERY DAY IN THE EVENING [facility] gemfibrozil 600 mg tablet gemfibrozil 600 mg tablet No gemfibrozi l 600 mg tablet [facility] sertraline 100 mg tablet TAKE 1 TABLET BY MOUTH EVERY DAY sertraline 100 mg tablet TAKE 1 TABLET BY MOUTH EVERY DAY No sertraline 100 mg tablet TAKE 1 TABLET BY MOUTH EVERY DAY [facility] Vitamin C 1,000 mg tablet Take by oral route. Vitamin C 1,000 mg tablet Take by oral route. No Vitamin C 1,000 mg tablet Take by oral route. [facility] Vitamin D3 2000 IU Vitamin D3 2000 IU No Vitamin D3 2000 IU [facility] amlodipine 5 mg tablet TAKE 1 TABLET BY MOUTH TWICE A DAY DIRECTED amlodipine 5 mg tablet TAKE 1 TABLET BY MOUTH TWICE A DAY DIRECTED No amlodipine 5 mg tablet TAKE 1 TABLET BY MOUTH TWICE A DAY DIRECTED [facility] aspirin 81 mg tablet - take one by mouth every morning and once every evening aspirin 81 mg tablet - take one by mouth every morning and once every evening No aspirin 81 mg tablet - take one by mouth every morning and once every evening [facility] Januvia 100 mg tablet Januvia 100 mg tablet No Januvia 100 mg tablet [facility] B12 1000 MCG B12 1000 MCG No B12 1000 MCG [facility] cyclobenzap rine 10 mg tablet cyclobenzap rine 10 mg tablet No cyclobenza selvin 10 mg tablet [facility] doxazosin 1 mg tablet TAKE 1 TABLET BY MOUTH TWICE A DAY DIRECTED doxazosin 1 mg tablet TAKE 1 TABLET BY MOUTH TWICE A DAY DIRECTED No doxazosin 1 mg tablet TAKE 1 TABLET BY MOUTH TWICE A DAY DIRECTED [facility] Klor-Con 10 mEq tablet,exte nded release Klor-Con 10 mEq tablet,exte nded release No Klor-Con 10 mEq tablet,ext ended release [facility] furosemide 20 mg tablet Take 1 tablet every day by oral route in the morning for 30 days. furosemide 20 mg tablet Take 1 tablet every day by oral route in the morning for 30 days. No furosemide 20 mg tablet Take 1 tablet every day by oral route in the morning for 30 days. [facility] gemfibrozil 600 mg tablet TAKE 1 TABLET BY MOUTH TWICE A DAY gemfibrozil 600 mg tablet TAKE 1 TABLET BY MOUTH TWICE A DAY No gemfibrozi l 600 mg tablet TAKE 1 TABLET BY MOUTH TWICE A DAY [facility] glimepiride 4 mg tablet Take 1 tablet every day by oral route. glimepiride 4 mg tablet Take 1 tablet every day by oral route. No 1 Q1D glimepirid e 4 mg tablet Take 1 tablet every day by oral route. [facility] Januvia 100 mg tablet TAKE 1 TABLET BY MOUTH EVERY DAY IN THE MORNING Januvia 100 mg tablet TAKE 1 TABLET BY MOUTH EVERY DAY IN THE MORNING No Januvia 100 mg tablet TAKE 1 TABLET BY MOUTH EVERY DAY IN THE MORNING [facility] losartan 100 mg-hydrochl orothiazide 25 mg tablet losartan 100 mg-hydrochl orothiazide 25 mg tablet No losartan 100 mg-hydroch lorothiazi de 25 mg tablet [facility] losartan 100 mg-hydrochl orothiazide 25 mg tablet TAKE 1 TABLET BY MOUTH EVERY DAY DIRECTED losartan 100 mg-hydrochl orothiazide 25 mg tablet TAKE 1 TABLET BY MOUTH EVERY DAY DIRECTED No losartan 100 mg-hydroch lorothiazi de 25 mg tablet TAKE 1 TABLET BY MOUTH EVERY DAY DIRECTED [facility] metformin 1,000 mg tablet TAKE 1 TABLET BY MOUTH 30 MIUNTES BEFORE BREAKFAST AND DINNER metformin 1,000 mg tablet TAKE 1 TABLET BY MOUTH 30 MIUNTES BEFORE BREAKFAST AND DINNER No metformin 1,000 mg tablet TAKE 1 TABLET BY MOUTH 30 MIUNTES BEFORE BREAKFAST AND DINNER [facility] OneTouch Delica Lancets 33 gauge OneTouch Delica Lancets 33 gauge No OneTouch Delica Lancets 33 gauge [facility] OneTouch Ultra Test strips OneTouch Ultra Test strips No OneTouch Ultra Test strips [facility] losartan 50 mg tablet losartan 50 mg tablet No losartan 50 mg tablet [facility] OneTouch Ultra2 Meter OneTouch Ultra2 Meter No OneTouch Ultra2 Meter [facility] pantoprazol e 40 mg tablet,clarisse yed release TAKE 1 TABLET BY MOUTH EVERY DAY IN THE MORNING pantoprazol e 40 mg tablet,clarisse yed release TAKE 1 TABLET BY MOUTH EVERY DAY IN THE MORNING No pantoprazo le 40 mg tablet,del ayed release TAKE 1 TABLET BY MOUTH EVERY DAY IN THE MORNING [facility] rosuvastati n 10 mg tablet TAKE 1 TABLET BY MOUTH EVERY DAY IN THE EVENING rosuvastati n 10 mg tablet TAKE 1 TABLET BY MOUTH EVERY DAY IN THE EVENING No rosuvastat in 10 mg tablet TAKE 1 TABLET BY MOUTH EVERY DAY IN THE EVENING [facility] sertraline 100 mg tablet TAKE 1 TABLET BY MOUTH EVERY DAY sertraline 100 mg tablet TAKE 1 TABLET BY MOUTH EVERY DAY No sertraline 100 mg tablet TAKE 1 TABLET BY MOUTH EVERY DAY [facility] metformin 1,000 mg tablet metformin 1,000 mg tablet No metformin 1,000 mg tablet [facility] triamcinolo ne acetonide 0.1 % topical cream APPLY A THIN LAYER TO THE AFFECTED AREA(S) BY TOPICAL ROUTE 2 TIMES PER DAY triamcinolo ne acetonide 0.1 % topical cream APPLY A THIN LAYER TO THE AFFECTED AREA(S) BY TOPICAL ROUTE 2 TIMES PER DAY No triamcinol one acetonide 0.1 % topical cream APPLY A THIN LAYER TO THE AFFECTED AREA(S) BY TOPICAL ROUTE 2 TIMES PER DAY [facility] Vitamin C 1,000 mg tablet Take by oral route. Vitamin C 1,000 mg tablet Take by oral route. No Vitamin C 1,000 mg tablet Take by oral route. [facility] Vitamin D3 2000 IU Vitamin D3 2000 IU No Vitamin D3 2000 IU [facility] Accu-Chek Softclix Lancets TEST BLOOD SUGAR ONCE DAILY DIRECTED Accu-Chek Softclix Lancets TEST BLOOD SUGAR ONCE DAILY DIRECTED No Accu-Chek Softclix Lancets TEST BLOOD SUGAR ONCE DAILY DIRECTED [facility] metoprolol succinate ER 50 mg tablet,exte nded release 24 hr metoprolol succinate ER 50 mg tablet,exte nded release 24 hr No metoprolol succinate ER 50 mg tablet,ext ended release 24 hr [facility] amlodipine 10 mg tablet amlodipine 10 mg tablet No amlodipine 10 mg tablet [facility] amlodipine 5 mg tablet TAKE 1 TABLET BY MOUTH TWICE A DAY DIRECTED amlodipine 5 mg tablet TAKE 1 TABLET BY MOUTH TWICE A DAY DIRECTED No amlodipine 5 mg tablet TAKE 1 TABLET BY MOUTH TWICE A DAY DIRECTED [facility] doxazosin 1 mg tablet TAKE 1 TABLET BY MOUTH TWICE A DAY DIRECTED doxazosin 1 mg tablet TAKE 1 TABLET BY MOUTH TWICE A DAY DIRECTED No doxazosin 1 mg tablet TAKE 1 TABLET BY MOUTH TWICE A DAY DIRECTED [facility] furosemide 40 mg tablet furosemide 40 mg tablet No furosemide 40 mg tablet [facility] omeprazole 40 mg capsule,del ayed release omeprazole 40 mg capsule,del ayed release No omeprazole 40 mg capsule,de layed release [facility] gemfibrozil 600 mg tablet TAKE 1 TABLET BY MOUTH TWICE A DAY BEFORE MEALS gemfibrozil 600 mg tablet TAKE 1 TABLET BY MOUTH TWICE A DAY BEFORE MEALS No gemfibrozi l 600 mg tablet TAKE 1 TABLET BY MOUTH TWICE A DAY BEFORE MEALS [facility] Klor-Con 10 mEq tablet,exte nded release Klor-Con 10 mEq tablet,exte nded release No Klor-Con 10 mEq tablet,ext ended release [facility] losartan 100 mg-hydrochl orothiazide 25 mg tablet TAKE 1 TABLET BY MOUTH EVERY DAY DIRECTED losartan 100 mg-hydrochl orothiazide 25 mg tablet TAKE 1 TABLET BY MOUTH EVERY DAY DIRECTED No losartan 100 mg-hydroch lorothiazi de 25 mg tablet TAKE 1 TABLET BY MOUTH EVERY DAY DIRECTED [facility] losartan 50 mg tablet losartan 50 mg tablet No losartan 50 mg tablet [facility] metformin 1,000 mg tablet TAKE 1 TABLET BY MOUTH TWICE A DAY BEFORE MEALS metformin 1,000 mg tablet TAKE 1 TABLET BY MOUTH TWICE A DAY BEFORE MEALS No metformin 1,000 mg tablet TAKE 1 TABLET BY MOUTH TWICE A DAY BEFORE MEALS [facility] metoprolol succinate ER 50 mg tablet,exte nded release 24 hr metoprolol succinate ER 50 mg tablet,exte nded release 24 hr No metoprolol succinate ER 50 mg tablet,ext ended release 24 hr [facility] omeprazole 40 mg capsule,del ayed release TAKE 1 CAPSULE BY MOUTH EVERY DAY omeprazole 40 mg capsule,del ayed release TAKE 1 CAPSULE BY MOUTH EVERY DAY No omeprazole 40 mg capsule,de layed release TAKE 1 CAPSULE BY MOUTH EVERY DAY [facility] OneTouch Delica Lancets 33 gauge OneTouch Delica Lancets 33 gauge No OneTouch Delica Lancets 33 gauge [facility] pantoprazol e 40 mg tablet,clarisse yed release TAKE 1 TABLET BY MOUTH EVERY DAY IN THE MORNING pantoprazol e 40 mg tablet,clarisse yed release TAKE 1 TABLET BY MOUTH EVERY DAY IN THE MORNING No pantoprazo le 40 mg tablet,del ayed release TAKE 1 TABLET BY MOUTH EVERY DAY IN THE MORNING [facility] rosuvastati n 10 mg tablet TAKE 1 TABLET BY MOUTH EVERY DAY IN THE EVENING rosuvastati n 10 mg tablet TAKE 1 TABLET BY MOUTH EVERY DAY IN THE EVENING No rosuvastat in 10 mg tablet TAKE 1 TABLET BY MOUTH EVERY DAY IN THE EVENING [facility] sertraline 100 mg tablet TAKE 1 TABLET BY MOUTH EVERY DAY sertraline 100 mg tablet TAKE 1 TABLET BY MOUTH EVERY DAY No sertraline 100 mg tablet TAKE 1 TABLET BY MOUTH EVERY DAY [facility] sitagliptin 100 mg tablet Take 1 tablet every day by oral route in the morning for 30 days. sitagliptin 100 mg tablet Take 1 tablet every day by oral route in the morning for 30 days. No 1 Q1D sitaglipti n 100 mg tablet Take 1 tablet every day by oral route in the morning for 30 days. [facility] OneTouch Ultra Test strips OneTouch Ultra Test strips No OneTouch Ultra Test strips [facility] OneTouch Ultra2 Meter OneTouch Ultra2 Meter No OneTouch Ultra2 Meter [facility] pantoprazol e 40 mg tablet,clarisse yed release pantoprazol e 40 mg tablet,clarisse yed release No pantoprazo le 40 mg tablet,del ayed release [facility] rosuvastati n 10 mg tablet rosuvastati n 10 mg tablet No rosuvastat in 10 mg tablet [facility] sertraline 100 mg tablet sertraline 100 mg tablet No sertraline 100 mg tablet [facility] triamcinolo ne acetonide 0.1 % topical cream triamcinolo ne acetonide 0.1 % topical cream No triamcinol one acetonide 0.1 % topical cream [facility] Vital Signs Vital Name Observation Time Observation Value Comments S ource Systolic blood pressure 2023-03-17 17:23:00 117 mm[Hg] [facility] Diastolic blood pressure 2023-03-17 17:23:00 64 mm[Hg] [facility] Heart rate 2023-03-17 17:23:00 60 /min [facility] Body temperature 2023-03-17 17:23:00 36.28 Michelle [facility] Respiratory rate 2023-03-17 17:23:00 17 /min [facility] Oxygen saturation in Arterial blood by Pulse oximetry 2023-03-17 17:23:00 100 /min [facility] Body weight 2023-03-17 09:40:00 97.478 kg [facility] BMI 2023-03-17 09:40:00 26.86 kg/m2 [facility] Body height 2023-03-11 23:41:00 190.5 cm [facility] BP Diastolic 2021-02-27 00:00:00 73 mm[Hg] [facility] Height 2021-02-27 00:00:00 75 [facility]in_i[facility] BMI (Body Mass Index) 2021-02-27 00:00:00 28.9 kg/m2 [facility] BP Systolic 2021-02-27 00:00:00 151 mm[Hg] [facility] Body Weight 2021-02-27 00:00:00 231 [lb_av] [facility] BP Diastolic 2021-02-18 00:00:00 68 mm[Hg] [facility] Height 2021-02-18 00:00:00 75 [in_i] [facility] BMI (Body Mass Index) 2021-02-18 00:00:00 28.9 kg/m2 [facility] BP Systolic 2021-02-18 00:00:00 128 mm[Hg] [facility] Body Weight 2021-02-18 00:00:00 3697.6 [oz_av] [facility] BP Diastolic 2021-02-13 00:00:00 67 mm[Hg] [facility] Height 2021-02-13 00:00:00 75 [in_i] [facility] BMI (Body Mass Index) 2021-02-13 00:00:00 28.8 kg/m2 [facility] BP Systolic 2021-02-13 00:00:00 130 mm[Hg] [facility] Body Weight 2021-02-13 00:00:00 230.2 [lb_av] [facility] BP Diastolic 2020-10-17 00:00:00 58 mm[Hg] [facility] Height 2020-10-17 00:00:00 75 [in_i] [facility] BP Systolic 2020-10-17 00:00:00 146 mm[Hg] [facility] BP Diastolic 2020-10-04 00:00:00 67 mm[Hg] [facility] Height 2020-10-04 00:00:00 75 [in_i] [facility] BMI (Body Mass Index) 2020-10-04 00:00:00 33.7 kg/m2 [facility] BP Systolic 2020-10-04 00:00:00 150 mm[Hg] [facility] Body Weight 2020-10-04 00:00:00 4310.4 [oz_av] [facility] BP Diastolic 2020-07-23 00:00:00 75 mm[Hg] [facility] Height 2020-07-23 00:00:00 75 [in_i] [facility] BMI (Body Mass Index) 2020-07-23 00:00:00 32.2 kg/m2 [facility] BP Systolic 2020-07-23 00:00:00 163 mm[Hg] [facility] Body Weight 2020-07-23 00:00:00 4121.6 [oz_av] [facility] BP Diastolic 2020-06-13 00:00:00 74 mm[Hg] [facility] Height 2020-06-13 00:00:00 75 [in_i] [facility] BMI (Body Mass Index) 2020-06-13 00:00:00 36.8 kg/m2 [facility] BP Systolic 2020-06-13 00:00:00 188 mm[Hg] [facility] Body Weight 2020-06-13 00:00:00 4708.8 [oz_av] [facility] Procedures Procedure Date / Time Performed Performing Clinician Source POCT GLUCOSE (AUTOMATED) 2023-03-17 14:01:00 Matt Donahue [facility] PROTEIN TOTAL 2023-03-17 10:25:00 Thelma Donahue [facility] LACTATE DEHYDROGENASE 2023-03-17 10:25:00 Maximiliano Donahue [facility] BASIC METABOLIC PANEL (NA, K, CL, CO2, GLUCOSE, BUN, CREATININE, CA) 2023-03-17 10:25:00 Malini Muse [facility] CBC WITH DIFF 2023-03-17 10:25:00 Malini Muse [facility] POCT GLUCOSE (AUTOMATED) 2023-03-17 04:10:00 Matt Donahue [facility] BODY FLUID DIRECT COUNT 2023-03-17 01:31:00 Marcus Donahue [facility] BODY FLUID CULTURE(AEROBIC/ANAEROBIC ) 2023-03-17 01:31:00 Thelma Donahue [facility] GLUCOSE BODY FLUID 2023-03-17 01:30:00 [facility] 2023-03-17 01:30:00 Thelma Donahue [facility] PH, BODY FLUID 2023-03-17 01:29:[address] [facility] LDH TOTAL BODY FLUID 2023-03-17 01:29:00 Thelma Donahue [facility] POCT GLUCOSE (AUTOMATED) 2023-03-16 22:58:00 Matt Donahue [facility] XR CHEST 1 VW 2023-03-16 21:06:05 Thelma Donahue [facility] POCT GLUCOSE (AUTOMATED) 2023-03-16 18:31[facility] 2023-03-16 15:50:00 Thelma Donahue [facility] POCT GLUCOSE (AUTOMATED) 2023-03-16 13:41:00 Matt Donahue [facility] MAGNESIUM 2023-03-16 09:57:00 Thelma Donahue [facility] BASIC METABOLIC PANEL (NA, K, CL, CO2, GLUCOSE, BUN, CREATININE, CA) 2023-03-16 09:57:00 Thelma Donahue [facility] CBC WITH DIFF 2023-03-16 09:57:00 Thelma Donahue [facility] N-TERMINAL PRO-BNP 2023-03-16 09:57:00 Malini Muse [facility] OCCULT (GUAIAC) BLOOD 2023-03-16 05:15:00 Isaias Newell [facility] POCT GLUCOSE (AUTOMATED) 2023-03-16 02:12:00 Matt Donahue [facility] POCT GLUCOSE (AUTOMATED) 2023-03-15 22:42:00 Matt Donahue [facility] POCT GLUCOSE (AUTOMATED) 2023-03-15 19:28:00 Matt Donahue [facility] POCT GLUCOSE (AUTOMATED) 2023-03-15 17:45:00 Matt Donahue [facility] POCT GLUCOSE (AUTOMATED) 2023-03-15 13:27:00 John, D avid [facility] POCT GLUCOSE (AUTOMATED) 2023-03-15 02:34:00 [facility] CBC WITHOUT DIFF 2023-03-15 00:30:00 Breanne Newell [facility] POCT GLUCOSE (AUTOMATED) 2023-03-14 22:44:00 [facility] POCT GLUCOSE (AUTOMATED) 2023-03-14 18:37:00 Matt Donahue [facility] XR CHEST 1 VW 2023-03-14 16:28:00 [facility] 2023-03-14 13:29:00 Matt Donahue [facility] MAGNESIUM 2023-03-14 10:46:00 Breanne Newell [facility] TROPONIN I 2023-03-14 10:46:00 Breanne Newell [facility] BASIC METABOLIC PANEL (NA, K, CL, CO2, GLUCOSE, BUN, CREATININE, CA) 2023-03-14 10:46:00 Breanne Newell [facility] CBC WITHOUT DIFF 2023-03-14 10:46:00 Breanne Newell [facility] N-TERMINAL PRO-BNP 2023-03-14 10:46:00 Willam Sprague [facility] POCT GLUCOSE (AUTOMATED) 2023-03-14 03:06:00 Matt Donahue [facility] POCT GLUCOSE (AUTOMATED) 2023-03-13 22:52:00 [facility] POCT GLUCOSE (AUTOMATED) 2023-03-13 17:58:00 [facility] POCT GLUCOSE (AUTOMATED) 2023-03-13 13:32:00 [facility] BASIC METABOLIC PANEL (NA, K, CL, CO2, GLUCOSE, BUN, CREATININE, CA) 2023-03-13 11:00:00 Barbara Hummel [facility] IRON PANEL 2023-03-13 11:00:00 Barbara Hummel Un [facility] CBC WITH DIFF 2023-03-13 11:00:00 Barbara Hummel [facility] N-TERMINAL PRO-BNP 2023-03-13 11:00:00 Willam Sprague [facility] POCT GLUCOSE (AUTOMATED) 2023-03-13 02:21:00 Matt Donahue [facility] POCT GLUCOSE (AUTOMATED) 2023-03-12 22:49:00 Matt Donahue [facility] POCT GLUCOSE (AUTOMATED) 2023-03-12 17:52:00 Matt Donahue [facility] TROPONIN I 2023-03-12 16:32:00 [facility] 2023-03-12 16:31:[address] [facility] POCT GLUCOSE (AUTOMATED) 2023-03-12 13:53:00 Matt Donahue [facility] TRANSFUSE PACKED RBC 2023-03-12 11:19:00 Becky [facility] PREPARE PACKED RBC 2023-03-12 11:10:33 Becky [facility] PROCALCITONIN 2023-03-12 11:00:00 [facility]-12 07:46[facility] [facility]23-03-12 07:46:[address] [facility] BASIC METABOLIC PANEL (NA, K, CL, CO2, GLUCOSE, BUN, CREATININE, CA) 2023-03-12 07:46:00 Becky [facility] CBC WITH DIFF 2023-03-12 06:20:00 [facility] 2023-03-12 02:55:00 Thelma Donahue [facility] POCT GLUCOSE (AUTOMATED) 2023-03-12 02:49:00 [facility] VW 2023-03-12 02:35:53 Celestine, Qiangjun [facility] PREPARE PACKED RBC 2023-03-12 00:09:12 Hany Meredith [facility] POCT GLUCOSE (AUTOMATED) 2023-03-11 23:25:00 Matt Donhaue [facility] TRANSTHORACIC ECHO (TTE) COMPLETE 2023-03-11 21:09:00 Thelma Donahue [facility] ABORH CONFIRMATION (LAB ONLY) 2023-03-11 20:34:00 [facility] RHYTHM STRIP 2023-03-11 19:14:09 Singer [facility] TROPONIN I 2023-03-11 18:38:[address] [facility] COMP. METABOLIC PANEL ([id number]) 2023-03-11 18:38:00 Singer [facility] CBC WITH DIFF 2023-03-11 18:38:00 Singer [facility] GLYCOSYLATED HEMOGLOBIN (A1C) 2023-03-11 18:38:00 Thelma Donahue [facility] HB ABO GROUPING 2023-03-11 18:38:00 [facility]/REFUSAL FOR DIAGNOSIS AND TREATMENT 2023-03-11 18:16:38 Doctor Unassigned, [place] [facility] EXTERNAL PROVIDER RECORDS 2021-09-18 05:01:00 Do ctor Unassigned, [place] [facility] EXTERNAL PROVIDER RECORDS 2021-08-21 05:01:00 Do ctor Unassigned, [place] [facility] REFERRAL- REQUEST/RESPONSE 2021-07-24 05:01:00 Doctor Unassigned, [place] [facility] INSURANCE CORRESPONDENCE 2021-07-05 05:01:00 Doc tor Unassigned, [place] [facility] US SCROTUM AND CONTENTS 2021-05-29 21:41:00 Ann millan, Trisha [facility] ASSIGNMENT OF BENEFITS 2021-05-29 20:55:08 Docto r Unassigned, [place] [facility] [id number] 2020-11-07 00:00:00 RASSA [facility] XR, elbow 2020-10-17 00:00:00 [facility] XR, chest, 2 view 2020-10-17 00:00:00 [facility] XR, knee, 4 or more view 2020-10-17 00:00:00 [facility] XR, ribs, unilateral, 2 view 2020-10-17 00:00:00 [facility] electrocardiogram, routine ECG, 12 leads min 2020-10-04 00:00:00 [facility] XR, chest, 2 view 2020-07-23 00:00:00 [facility] electrocardiogram, routine ECG, 12 leads min 2020-07-23 00:00:00 [facility] XR, chest, 2 view 2020-06-13 00:00:00 [facility] electrocardiogram, routine ECG, 12 leads min 2020-06-13 00:00:00 [facility] Knee Surgery [facility] Plan of Care Planned Activity Planned Date Details Comments Source Diagnostic Test Pending 2020-10-04 00:00:00 CMP, serum or plasma [code = CMP, serum or plasma] [facility] Diagnostic Test Pending 2020-10-04 00:00:00 vitamin B12 + folate, serum or blood [code = vitamin B12 + folate, serum or blood] [facility] Diagnostic Test Pending 2020-10-04 00:00:00 vitamin D, 25-hydroxy, total, serum [code = vitamin D, 25-hydroxy, total, serum] [facility] Diagnostic Test Pending 2020-10-04 00:00:00 magnesium, serum or plasma [code = magnesium, serum or plasma] [facility] Diagnostic Test Pending 2020-10-04 00:00:00 phosphorus, serum or plasma [code = phosphorus, serum or plasma] [facility] Diagnostic Test Pending 2020-10-04 00:00:00 HbA1c (hemoglobin A1c), blood [code = HbA1c (hemoglobin A1c), blood] [facility] Diagnostic Test Pending 2020-10-04 00:00:00 lipid panel w/ direct LDL, serum [code = lipid panel w/ direct LDL, serum] [facility] Diagnostic Test Pending 2020-10-04 00:00:00 TSH + free T4, serum [code = TSH + free T4, serum] [facility] Diagnostic Test Pending 2020-10-04 00:00:00 CBC w/ manual diff [code = CBC w/ manual diff] [facility] Diagnostic Test Pending 2020-10-04 00:00:00 PSA, total, serum or plasma [code = PSA, total, serum or plasma] [facility] Instructions [facility] Encounters Start Date/Time End Date/Time Encounter Type Admission Type Attending Clinicians Care Facility Care Department Encounter ID Source 2021-04-24 12:38:25 Outpatient Erica Miller [facility] [id number] [facility] 2021-04-24 12:22:16 Outpatient Erica Miller [facility] [id number] [facility] 2021-04-24 12:17:53 Outpatient [facility] [id number] [facility] 2021-04-24 12:11:08 Outpatient [facility] [id number] [facility] 2021-04-24 12:07:04 Outpatient [facility] [id number] [facility] 2021-04-24 11:41:35 Outpatient Gloria Lacy [facility] [id number] [facility] 2021-04-24 11:41:09 Outpatient Gloria Lacy [facility] [id number] [facility] 2021-04-24 11:23:54 Outpatient Gloria Lacy [facility] [id number] [facility] 2021-04-24 11:09:58 Outpatient Gloria Lacy [facility] [id number] [facility] 2021-02-18 11:00:00 Inpatient Elmo Bailey [facility] OUTD [id number] [facility] 2023-03-27 00:00:00 2023-03-27 00:00:00 Letter (Out) [facility] [id number] [id number] [facility] 2023-03-20 00:00:00 2023-03-20 00:00:00 Letter (Out) [facility] MED[facility] OFF[facility] 1..114 [id number] [id number] [id number] [facility] 2023-03-18 00:00:00 2023-03-18 00:00:00 Transition of Care Dennise Bella 1..114 [id number] [id number] [facility] 2023-03-11 12:28:00 2023-03-17 12:29:00 Inpatient THELMA GR [facility] [id number] [facility] 2023-03-11 12:28:00 2023-03-17 12:29:00 Hospital Encounter Hany Meredith David Edionwe, [facility] 1..114 [id number] [id number] [facility] 2023-03-13 00:00:00 2023-03-13 00:00:00 Telephone Willam Sprague [facility] 1..114 [id number] [id number] [facility] 2021-09-18 00:00:00 2021-09-18 00:00:00 Orders Only Doctor Unassigned, [place] [facility] [id number] [id number] [id number] [facility] 2021-08-21 00:00:00 2021-08-21 00:00:00 Orders Only Doctor Unassigned, [place] [facility] [id number] [id number] [id number] [id number] [facility] 2021-07-24 00:00:00 2021-07-24 00:00:00 Orders Only Doctor Unassigned, [place] [facility] [id number] [id number] 4.2.7.2.686 [id number] [facility] 2021-07-06 01:46:00 2021-07-06 01:46:00 Outpatient Yan_W [facility] [id number] [facility] 2021-07-05 00:00:00 2021-07-05 00:00:00 Orders Only Doctor Unassigned, [place] [facility] [id number] [id number] 4.2.7.2.686 [id number] [facility] 2021-06-16 05:52:00 2021-06-16 05:52:00 Outpatient Yan_W [facility] [id number] [facility] 2021-06-01 02:29:00 2021-06-01 02:29:00 Outpatient Yan_W [facility] [id number] [facility] 2021-05-29 14:57:48 2021-05-29 23:59:00 Hospital Encounter Radiology [facility] [id number] [id number] [id number] [facility] 2021-05-29 14:57:48 2021-05-29 23:59:00 Outpatient R RADIOLOGY [facility] [id number] [facility] 2021-05-29 00:00:00 2021-05-29 00:00:00 Orders Only Doctor Unassigned, [place] [facility] [id number] [facility] 2021-04-27 04:49:00 2021-04-27 04:49:00 Outpatient Yan_W G [facility] [id number] [facility] 2021-04-06 04:34:00 2021-04-06 04:34:00 Outpatient SCHAUBROECK _L [facility] [id number] 2021-03-23 03:03:00 2021-03-23 03:03:00 [facility] [id number] [facility] 2021-03-02 05:22:00 2021-03-02 05:22:00 Outpatient [facility] _[facility] [id number] [facility] 2021-02-27 00:00:00 2021-02-27 00:00:00 José Lindsay MD: [address] [place] [address], [address], [place] [address] , Ph. Yan_W MMG [place] [facility] - Otolaryngol [facility] [id number] 1201 [facility] 2021-02-18 10:25:00 2021-02-18 10:25:00 Outpatient [facility] _L [facility] [id number] [facility] 2021-02-18 00:00:00 2021-02-18 00:00:00 SUBHASH HickeyP-C: [address] [place] [address], [address], [place] [address] , Ph. SCHC [place] [facility] [id number] [facility] 2021-02-18 00:00:00 2021-02-18 00:00:00 Outpatient Deann Ramos [facility] [id number] 2021-02-15 03:24:00 2021-02-15 03:24:00 Outpatient Yan_W MMG [facility] [id number] [facility] 2021-02-13 00:00:00 2021-02-13 00:00:00 José Lindsay MD: [address] [place] [address], [address], [place] [address] , Ph. [facility]W [facility] [id number] 1117 [facility] 2021-01-26 03:33:00 2021-01-26 03:33:00 Outpatient [facility]K _L [facility]8 [facility] 2021-01-26 03:33:00 2021-01-26 03:33:00 Outpatient [facility]K _L [facility] 1030 [facility] 2021-01-11 04:27:00 2021-01-11 04:27:00 Outpatient Yan_W MMG [facility] [id number] [facility] 2021-01-09 04:22:00 2021-01-09 04:22:00 Outpatient Yan_W MMG [facility] [id number] 101 [facility] 2021-01-08 03:47:00 2021-01-08 03:47:00 Outpatient [facility]K _L [facility] 1012 [facility] 2021-01-08 00:00:00 2021-01-08 00:00:00 Outpatient Deann Ramos [facility] [id number]-11ec-a [id number] 2021-01-08 00:00:00 2021-01-08 00:00:00 Outpatient Deann Ramos [facility] [id number] 2021-01-08 00:00:00 2021-01-08 00:00:00 CHRIS Hickey-C: [address] [place] [address], [address] [address] , Ph. [facility] [id number] [facility] 2020-11-07 05:28:00 2020-11-07 19:13:00 Inpatient Elmo Bailey HCACL CARD [id number] [facility] 2020-10-17 03:58:00 2020-10-17 03:58:00 Outpatient [facility]K _L [facility] 0721 [facility] 2020-10-17 03:58:00 2020-10-17 03:58:00 Outpatient [facility]O[place]K _L [facility] 1008 [facility] 2020-10-17 03:58:00 2020-10-17 03:58:00 Outpatient [facility]O[place]K _L [facility] 1011 [facility] 2020-10-17 00:00:00 2020-10-17 00:00:00 CHRIS Hickey-C: [address] [place] [address], [address] [place] [address] , Ph. [facility] [id number] [facility] 2020-10-17 00:00:00 2020-10-17 00:00:00 Outpatient Deann Ramos [facility] [id number] 2020-10-04 12:56:00 2020-10-04 12:56:00 Outpatient [facility]O[place]K _L [facility] 0708 [facility] 2020-10-04 00:00:00 2020-10-04 00:00:00 CHRIS Hickey-C: [address] [place] [address], [address] [place] [address] , Ph. [facility] [id number] [facility] 2020-10-04 00:00:00 2020-10-04 00:00:00 Outpatient AdityaDeann cramer [facility] [id number] 04:08:00 2020-07-23 04:08:00 Outpatient [facility]K _L [facility] 0426 [facility] 2020-07-23 04:08:00 2020-07-23 04:08:00 Outpatient [facility]O[place]K _L [facility] 0616 [facility] 2020-07-23 00:00:00 2020-07-23 00:00:00 Outpatient AdityaDeann cramer [facility] [id number] 2020-07-23 00:00:00 2020-07-23 00:00:00 GEOFFREY HickeyC: 1 [facility], [address] [address] , Ph. [facility] [id number] [facility] 2020-06-13 12:20:00 2020-06-13 12:20:00 Outpatient SCHAU[facility]OECK _L [facility] 0317 [facility] 2020-06-13 00:00:00 2020-06-13 00:00:00 Outpatient TravmylesDeann jones [facility] [id number] 2020-06-13 00:00:00 2020-06-13 00:00:00 Deann Harris Edmar k, AGNP-: [address] [place] [address], [address] [address] , Ph. [facility] [id number] [facility] 2020-06-12 05:08:00 2020-06-12 05:08:00 Outpatient SCHAUBROECK _L [facility] 6 [facility] 2019-11-25 14:40:00 2019-11-25 14:40:00 [facility] [id number] [facility] 2019-10-24 09:40:00 2019-10-24 09:40:00 [facility] [id number] [facility] 2019-09-07 13:15:00 2019-09-07 13:15:[address] [facility] [id number] [facility] 2019-09-07 09:19:00 2019-09-07 09:19:[address] [facility] [id number] [facility] 2019-08-26 09:40:00 2019-08-26 09:40:00 [facility] [id number] [facility] 2019-07-04 11:38:00 2019-07-04 11:38:00 [facility]patient [facility] [id number] [facility] 2019-07-04 10:23:00 2019-07-04 10:23:00 Outpatient [facility] [id number] [facility] 2019-05-24 10:30:00 2019-05-24 10:30:00 Outpatient [facility] [id number] [facility] Results Test Description Test Time Test Comments Results Result Co mments Source [facility], Body [id number] 07:09:33* Test Item Value Reference Range Interpretation Comme nts PH BF (test code = 3200035775) 7.7 QUES UNSPUN BODY FLUID COLOR (test code = 8771987012) Yellow UNSPUN BODY FLUID CLARITY (test code = 5275189265) Slightly Cloudy SPUN BODY FLUID COLOR (test code = 5042039415) Yellow SPUN BODY FLUID CLARITY (test code = 2948885763) Clear Sediment (test code = 0331961140) The sediment volume is <0.1 mLs of the total fluid volume of 1.5 mLs and its color is WHITE. [facility] GLUCOSE (AUTOMATED)2023-03-17 04:11:06* Test Item Value Reference Range Interpretation Comme nts POCT GLU (test code = 5138414786) 141 mg/dL 70-110 H Lab Interpretation (test cod e = 21601-6) Abnormal [facility] GLUCOSE (AUTOMATED)2023-03-16 22:59:34* Test Item Value Reference Range Interpretation Comme nts POCT GLU (test code = 5903852041) 139 mg/dL 70-110 H Lab Interpretation (test cod e = 81923-8) Abnormal [facility] GLUCOSE (AUTOMATED)2023-03-16 18:32:18* Test Item Value Reference Range Interpretation Comme nts POCT GLU (test code = 4195883323) 155 mg/dL 70-110 H Lab Interpretation (test cod e = 56751-3) Abnormal [facility] GLUCOSE (AUTOMATED)2023-03-16 13:42:20* Test Item Value Reference Range Interpretation Comme nts POCT GLU (test code = 1760024891) 104 mg/dL 70-110 Lab Interpretation (test cod e = 49714-9) Normal [facility] GLUCOSE (AUTOMATED)2023-03-16 02:23:12* Test Item Value Reference Range Interpretation Comme nts POCT GLU (test code = 3271241394) 116 mg/dL 70-110 H Lab Interpretation (test cod e = 57831-2) [facility]normal [facility]2023-03-15 22:43:15* Test Item Value Reference Range Interpretation Comme nts POCT GLU (test code = 8377111992) 88 mg/dL 70-110 Lab Interpretation (test cod e = 88853-8) Normal [facility] GLUCOSE (AUTOMATED)2023-03-15 19:29:11* Test Item Value Reference Range Interpretation Comme nts POCT GLU (test code = 7394175661) 184 mg/dL 70-110 H Lab Interpretation (test cod e = 01563-0) Abnormal [facility] GLUCOSE (AUTOMATED)2023-03-15 17:47:52* Test Item Value Reference Range Interpretation Comme nts POCT GLU (test code = 5886478596) 177 mg/dL 70-110 H Lab Interpretation (test cod e = 62751-9) Abnormal [facility]2023-03-15 13:28:47* Test Item Value Reference Range Interpretation Comme nts POCT GLU (test code = 7800411315) 106 mg/dL 70-110 Lab Interpretation (test cod e = 53123-6) Normal [facility] GLUCOSE (AUTOMATED)2023-03-15 02:35:47* Test Item Value Reference Range Interpretation Comme nts POCT GLU (test code = 6759281532) 139 mg/dL 70-110 H Lab Interpretation (test cod e = 80034-2) Abnormal [facility] GLUCOSE (AUTOMATED)2023-03-14 22:45:16* Test Item Value Reference Range Interpretation Comme nts POCT GLU (test code = 4198981566) 212 mg/dL 70-110 H Lab Interpretation (test cod e = 30403-3) Abnormal [facility] GLUCOSE (AUTOMATED)2023-03-14 18:38:13* Test Item Value Reference Range Interpretation Comme nts POCT GLU (test code = 9418402694) 147 mg/dL 70-110 H Lab Interpretation (test cod e = 73761-7) Abnormal [facility] GLUCOSE (AUTOMATED)2023-03-14 13:31:15* Test Item Value Reference Range Interpretation Comme nts POCT GLU (test code = 8397829200) 119 mg/dL 70-110 H Lab Interpretation (test cod e = 45644-1) Abnormal [facility] GLUCOSE (AUTOMATED)2023-03-14 03:07:18* Test Item Value Reference Range Interpretation Comme nts POCT GLU (test code = 8082476868) 147 mg/dL 70-110 H Lab Interpretation (test cod e = 30673-3) Abnormal [facility] GLUCOSE (AUTOMATED)2023-03-13 22:54:05* Test Item Value Reference Range Interpretation Comme nts POCT GLU (test code = 4557873489) 152 mg/dL 70-110 H Lab Interpretation (test cod e = 35367-5) Abnormal [facility] GLUCOSE (AUTOMATED)2023-03-13 18:00:12* Test Item Value Reference Range Interpretation Comme nts POCT GLU (test code = 0527800598) 164 mg/dL 70-110 H Lab Interpretation (test cod e = 38436-7) Abnormal [facility] GLUCOSE (AUTOMATED)2023-03-13 13:34:10* Test Item Value Reference Range Interpretation Comme nts POCT GLU (test code = 0928630795) 111 mg/dL 70-110 H Lab Interpretation (test cod e = 45203-7) Abnormal [facility] GLUCOSE (AUTOMATED)2023-03-13 02:25:44* Test Item Value Reference Range Interpretation Comme nts POCT GLU (test code = 2511047216) 132 mg/dL 70-110 H Lab Interpretation (test cod e = 45767-6) Abnormal [facility] GLUCOSE (AUTOMATED)2023-03-12 22:50:19* Test Item Value Reference Range Interpretation Comme nts POCT GLU (test code = 6591914055) 167 mg/dL 70-110 H Lab Interpretation (test cod e = 75866-6) Abnormal [facility]2023-12-14 19:35:22* Test Item Value Reference Range Interpretation Comme shannon Procalcitonin (test code = 8656141134) 0.05 ng/mL <=0.07 DL (test code = DL) INTERPRETATION OF PROCALCITONIN RESULTS IN ADULTS >= 18 YEARS OF AGE Initiation and discontinuation of antibiotics on patients with suspected or confirmed Lower Respiratory Tract Infection in Adults >= 18 years of age. + +-------- --------+ + -----+|Procalcitonin |Interpretation ?|Antibiotic ? ? |Considerations ? |ng/mL ? | ?|recommendation | ? + +-------- --------+ + -----+| <0.1 ? | Bacterial ? ? ?| Strongly ? ? ?| ? | ?| infection very | discouraged ? | Overruling: ? | ?| unlikely ? ? ? | ? | ? Clinically unstable ? ? ? + +-------- --------+ + ? High risk for adverse ? ? | <0.25 ?| Bacterial ? ? ?| Discouraged ? | ? outcome ? | ?| infection ? ? ?| ? | ? SEE IMPORTANT NOTE ?| ?| unlikely ? ? ? | ? | ? + +-------- --------+ + -----+| >=0.25 ? ? ? | Bacterial ? ? ?| Encouraged ? ?| ? | ?| infection ? ? ?| ? | ? | ?| likely ? | ? | Consider treatment failure ?+ +------- ---------+ -+ if levels does not decrease | >0.5 ? | Bacterial ? ? ?| Strongly ? ? ?| appropriately ? | ?| infection very | encouraged ? ?| ? | ?| likely ? | ? | ? + +-------- --------+ + -----+ Discontinuation of antibiotics in high-acuity patients with suspected or confirmed sepsis in Adults >= 18 years of age. + +-------- --------+ + -----+|Procalcitonin |Interpretation ?|Antibiotic ? ? |Considerations ? |ng/mL ? | ?|recommendation | ? + +-------- --------+ + -----+| <0.25 ?| Bacterial ? ? ?| Strongly ? ? ?| ? | ?| infection very | discouraged ? | Overruling: ? | ?| unlikely ? ? ? | ? | ? Clinically unstable ? ? ? + +-------- --------+ + ? High risk for adverse ? ? | <0.5 or drop | Bacterial ? ? ?| Discouraged ? | ? outcome ? | >80% from ? ?| infection ? ? ?| ? | ? SEE IMPORTANT NOTE ?| highest PCT ?| unlikely ? ? ? | ? | ? | level ?| ?| ? | ? + +-------- --------+ + -----+| >=0.5 ?| Bacterial ? ? ?| Encouraged ? ?| ? | ?| infection ? ? ?| ? | ? | ?| likely ? | ? | Consider treatment failure ?+ +------- ---------+ -+ if levels does not decrease | >1.0 ? | Bacterial ? ? ?| Strongly ? ? ?| appropriately ? | ?| infection very | encouraged ? ?| ? | ?| likely ? | ? | ? + +-------- --------+ + -----+ Percentage of drop of Procalcitonin calculation for Discontinuation of antibiotics in high-acuity patients with suspected or confirmed sepsis in Adults >= 18 years of age. ? Procalcitonin highest{}-Procalcitonin current{}Delta Procalcitonin = x100% ? Procalcitonin current {} IMPORTANT NOTE: Procalcitonin may be elevated without bacterial infection by physiologic stress related to trauma, mccoy, chronic dialysis, metastatic cancer, surgery in the past seven days, malaria, some fungal infections, and some forms of vasculitis. The interpretation algorithm may not apply to patients with immunosuppression (equivalent of >10 mg of prednisone daily), HIV with CD4 cell count < 350 cells/mm3, active malignancy on systemic chemotherapy, solid organ transplant or hematopoietic stem cell transplantation, or hospital acquired pneumonia. Additionally, some clinical trials of procalcitonin have excluded patients with shock requiring vasopressor use, acute respiratory failure requiring mechanical ventilation, or those with known lung abscess/empyema. For further information please refer to:[email or web address] Lab Interpretation (test code = 70400-3) Normal [facility])2023-03-12 17:52:55* Test Item Value Reference Range Interpretation Comme nts POCT GLU (test code = 5779894774) 192 mg/dL 70-110 H Lab Interpretation (test cod e = 47582-5) Abnormal [facility] Campus[facility]roponin [id number] 17:26:18* Test Item Value Reference Range Interpretation Comme nts TROPONIN I (test code = 3658651956) 0.074 ng/mL <=0.034 H DL (test code = DL) Reference (Normal) Range (defined by the 99th percentile reference limit): <= 0.034 ng/mL Note: Cardiac troponin begins to rise 3-4 hours after the onset of ischemia. Repeat in 4-6 hours if the sample was drawn within 3-4 hours of the onset of the symptom and found normal. Diagnosis of myocardial injury is made with acute changes in cTn concentrations with at least one serial sample above the 99th percentile upper reference limit (URL), taken together with the patient's clinical presentation. Biotin has been reported to cause a negative bias, interpret results relative to patient's use of biotin. Lab Interpretation (test code = 90966-2) Abnormal [facility] CampusCb without [id number] 16:58:52* Test Item Value Reference Range Interpretation Comme nts WBC (test code = 6690-2) 7.84 See_Comment [Automated message] The system which generated this result transmitted reference range: 4.20 - 10.70 10*3/?L. The reference range was not used to interpret this result as normal/abnormal. RBC (test code = 789-8) 4.30 See_Comment [Automated message] The system which generated this result transmitted reference range: 4.26 - 5.52 10*6/?L. The reference range was not used to interpret this result as normal/abnormal. HGB (test code = 718-7) 9.0 g/dL 12.2-16.4 L HCT (test code = 4544-3) 31.0 % 38.4-49.3 L MCH (test code = 785-6) 20.9 pg 26.1-32.7 L MCV (test code = 787-2) 72.1 fL 81.7-95.6 L MCHC (test code = 786-4) 29.0 g/dL 31.2-35.0 L PLT (test code = 777-3) 371 See_Comment H [Automated message] The system which generated this result transmitted reference range: 150 - 328 10*3/?L. The reference range was not used to interpret this result as normal/abnormal. MPV (test code = 89180-3) 9.9 fL 9.8-13.0 RDW-CV (test code = 788-0) 20.0 % 12.1-15.4 H RDW-SD (test code = 56372-1) 50.8 fL 38.5-51.6 NRBC x10^3 (test code = 8950767780) See_Comment [Automated messa ge] The system which generated this result transmitted reference range: 10*3/?L. The reference range was not used to interpret this result as normal/abnormal. NRBC/100 WBC (test code = 9554438443) 0.0 See_Comment [Automated messa ge] The system which generated this result transmitted reference range: 0.0 - 10.0 /100 WBCs. The reference range was not used to interpret this result as normal/abnormal. IPF % (test code = 4820762371) Lab Interpretation (test code = 52999-5) Abnormal [facility] GLUCOSE (AUTOMATED)2023-03-12 13:53:58* Test Item Value Reference Range Interpretation Comme nts POCT GLU (test code = 2435230923) 102 mg/dL 70-110 Lab Interpretation (test cod e = 48505-1) Normal [facility] CampusPrepare Packed RBC (in units)2023-03-12 11:10:33* Test Item Value Reference Range Interpretation Comme nts Cross Match Result (test code = 4409) Compatible ISBT Blood Type Code (test code = 261393) 6200 Unit Blood Type (test code = 4410) A Pos Unit Number (test code = 4411) [id number] Blood Expiration Date & Time (test code = 425885) [id number] Status Information (test code = 4412) Issued Product Identification (test code = 4413) Red Blood Cells Product Code (test code = 4414) [id number] Performed at [facility] Laboratory Services - [facility] Blood [address] [place], [place] [address]Toll Free: [phone] No. [id number] [facility] [id number] 08:34:04* Test Item Value Reference Range Interpretation Comme nts TROPONIN I (test code = 5660248461) 0.064 ng/mL <=0.034 H DL (test code = DL) Reference (Normal) Range (defined by the 99th percentile reference limit): <= 0.034 ng/mL Note: Cardiac troponin begins to rise 3-4 hours after the onset of ischemia. Repeat in 4-6 hours if the sample was drawn within 3-4 hours of the onset of the symptom and found normal. Diagnosis of myocardial injury is made with acute changes in cTn concentrations with at least one serial sample above the 99th percentile upper reference limit (URL), taken together with the patient's clinical presentation. Biotin has been reported to cause a negative bias, interpret results relative to patient's use of biotin. Lab Interpretation (test code = 12115-6) Abnormal [facility] Metabolic Panel (NA, K, CL, CO2, GLUCOSE, BUN, CREATININE, CA)2023-03-12 08:23:03* Test Item Value Reference Range Interpretation Comme nts NA (test code = 7330451546) 140 mmol/L 135-145 K (test code = 7058626274) 3.4 mmol/L 3.5-5.0 L CL (test code = 6637166382) 107 mmol/L 98-108 CO2 TOTAL (test code = 6937997742) 25 mmol/L 23-31 AGAP (test code = 9746170980) 8 2-16 BUN (test code = 3226148338) 38 mg/dL 7-23 H GLUCOSE (test code = 8835661863) 108 mg/dL 70-110 CREATININE (test code = 0145924663) 2.26 mg/dL 0.60-1.25 H CALCIUM (test code = 2973710319) 8.7 mg/dL 8.6-10.6 eGFR (test code = 13486-4) 28.6 mL/min/1.73m2 CKD-EPI eGFR (2020). Assuming creatinine has been stable day-to-day for at least three months, the eGFR indicates Category G4 (15 - 29 mL/min/1.73 m2) Lab Interpretation (test code = 49709-3) Abnormal [facility] CampusMagnesium2023-12-14 08:23:03* Test Item Value Reference Range Interpretation Comme nts MAGNESIUM (test code = 6529657474) 1.7 mg/dL 1.7-2.4 Lab Interpretation (test cod e = 24024-8) Normal [facility] with [id number] 07:33:03* Test Item Value Reference Range Interpretation Comme nts WBC (test code = 6690-2) 5.52 See_Comment [Automated messa ge] The system which generated this result transmitted reference range: 4.20 - 10.70 10*3/?L. The reference range was not used to interpret this result as normal/abnormal. RBC (test code = 789-8) 3.58 See_Comment L [Automated messa ge] The system which generated this result transmitted reference range: 4.26 - 5.52 10*6/?L. The reference range was not used to interpret this result as normal/abnormal. HGB (test code = 718-7) 7.2 g/dL 12.2-16.4 L HCT (test code = 4544-3) 25.1 % 38.4-49.3 L MCV (test code = 787-2) 70.1 fL 81.7-95.6 L MCH (test code = 785-6) 20.1 pg 26.1-32.7 L MCHC (test code = 786-4) 28.7 g/dL 31.2-35.0 L RDW-SD (test code = 40392-1) 46.5 fL 38.5-51.6 RDW-CV (test code = 788-0) 18.6 % 12.1-15.4 H PLT (test code = 777-3) 303 See_Comment [Automated messa ge] The system which generated this result transmitted reference range: 150 - 328 10*3/?L. The reference range was not used to interpret this result as normal/abnormal. MPV (test code = 26433-4) 9.8 fL 9.8-13.0 NRBC/100 WBC (test code = 3953467852) 0.0 See_Comment [Automated [employer] ssage] The system which generated this result transmitted reference range: 0.0 - 10.0 /100 WBCs. The reference range was not used to interpret this result as normal/abnormal. NRBC x10^3 (test code = 5239329024) See_Comment [Automated messa ge] The system which generated this result transmitted reference range: 10*3/?L. The reference range was not used to interpret this result as normal/abnormal. GRAN MAT (NEUT) % (test code = 770-8) 63.2 % IMM GRAN % (test code = 3242919230) 0.40 % LYMPH % (test code = 736-9) 11.8 % MONO % (test code = 5905-5) 18.1 % EOS % (test code = 713-8) 5.1 % BASO % (test code = 706-2) 1.4 % GRAN MAT x10^3(ANC) (test code = 3449845678) 3.49 10*3/uL 1.99-6.95 IMM GRAN x10^3 (test code = 5641820813) 0.00-0.06 LYMPH x10^3 (test code = 731-0) 0.65 10*3/uL 1.09-3.23 L MONO x10^3 (test code = 742-7) 1.00 10*3/uL 0.36-1.02 EOS x10^3 (test code = 711-2) 0.28 10*3/uL 0.06-0.53 BASO x10^3 (test code = 704-7) 0.08 10*3/uL 0.01-0.09 Lab Interpretation (test code = 73473-9) Abnormal [facility] CampusTroponin [id number] 04:30:22* Test Item Value Reference Range Interpretation Comme nts TROPONIN I (test code = 4004868455) 0.076 ng/mL <=0.034 H DL (test code = DL) Reference (Normal) Range (defined by the 99th percentile reference limit): <= 0.034 ng/mL Note: Cardiac troponin begins to rise 3-4 hours after the onset of ischemia. Repeat in 4-6 hours if the sample was drawn within 3-4 hours of the onset of the symptom and found normal. Diagnosis of myocardial injury is made with acute changes in cTn concentrations with at least one serial sample above the 99th percentile upper reference limit (URL), taken together with the patient's clinical presentation. Biotin has been reported to cause a negative bias, interpret results relative to patient's use of biotin. Lab Interpretation (test code = 94723-5) Abnormal [facility] (AUTOMATED)2023-03-12 02:55:33* Test Item Value Reference Range Interpretation Comme [facility] POCT GLU (test code = 3974599461) 179 mg/dL 70-110 H Lab Interpretation (test cod e = 99989-3) Abnormal [facility]Transthoracic echo (TTE)2023-03-12 02:41:41* Test Item Value Reference Range Interpretation Comme nts Height (test code = 7346445824) 75 in Weight (test code = 9067236603) 226 lbs Systolic BP (test code = 3732341559) 147 mmHg Diastolic BP (test code = 1776431129) 65 mmHg Heart Rate (test code = 1016047306) 67 bpm BSA (test code = 0772334652) 2.31 m2 Ao root diam (test code = 7758400838) 3.30 cm Aortic root (test code = 9391469870) 3.3 cm Ao root annulus (test code = 4544800821) 3.3 cm LVOT diameter (test code = 3651664942) 1.92 cm LVOT area (test code = 3606666950) 2.90 cm2 LVIDD (test code = 4597004059) 5.20 cm Left Ventricular End Diastolic Volume by Teichholz Method (test code = 8484729) 130.7 mL IVS (test code = 1288521878) 1.22 cm Interventricular Septum Diastolic Thickness by 2D (test code = 7620717) 1.22 cm LVPWD (test code = 6866270122) 1.21 cm PW (test code = 1757279451) 1.21 cm 0.6-1.1 EF(Teich) (test code = 5320866246) 37.00 % LVIDS (test code = 3056534182) 4.30 cm Left Ventricular End Systolic Volume by Teichholz Method (test code = 1862333) 82.4 mL FS (test code = 5063868186) 18 % EF - 2D (test code = 31510869) 37.00 % LA size (test code = 7154366712) 4.5 cm TR Peak Dena (test code = 1715313592) 411.5 cm/s Triscuspid Valve Regurgitation Peak Gradient (test code = 3101511379) 67.8 mmHg Pulmonic Regurgitant End Max Velocity (test code = 3400102110) 107.5 cm/s E wave decelartion time (test code = 5986368355) 0.21 s MV Peak E Dena (test code = 0640144702) 112.7 cm/s MV stenosis pressure 1/2 time (test code = 6175940674) 63.2 ms MV Prop V (test code = 6954430249) 56.00 cm/s MV E/e' septal (test code = 9701204500) 12.8 cm/s Tapse (test code = 3821205475) 1.97 cm LVOT stroke volume (test code = 1825382864) 59.00 cm3 LVOT peak dena (test code = 3449198410) 93.3 cm/s LVOT mn grad (test code = 1590491309) 1.7 mmHg AV LVOT peak gradient (test code = 3414371970) 3.5 mmHg LVOT peak VTI (test code = 5913994856) 20.5 cm LV V1 mean (test code = 3363484612) 60.60 cm/s Aortic valve mean velocity (test code = 2096749168) 124.4 cm/s Ao peak dena (test code = 0677237629) 177.7 cm/s Ao VTI (test code = 5694963387) 36.8 cm AV area by cont VTI (test code = 9163755350) 1.6 cm2 AV area peak dena (test code = 1971370556) 1.5 cm2 Ao max PG (test code = 4918859547) 12.60 mm[Hg] AV peak gradient (test code = 5311691063) 12.6 mmHg AV valve area (test code = 4236835914) 1.60 cm2 AV mean gradient (test code = 9538850245) 6.8 mmHg LAV(MOD-sp4) (test code = 9476858579) 100.80 mL MR max PG (test code = 4380974798) 121.30 mm[Hg] MR max dena (test code = 7372608847) 550.50 cm/s Mr max dena (test code = 5235485070) 550.5 m/s AV regurgitation pressure 1/2 time (test code = 0837239370) 712.3 ms AI dec slope (test code = 2132720723) 137.20 cm/s2 AI max dena (test code = 2623266649) 333.70 cm/s AI max PG (test code = 7617378631) 44.50 mm[Hg] Radiology Study observation (narrative) (test code = 62379-2) DL (test code = DL) ?Left?Ventricle: Left ventricle size is normal. Mildly increased wall thickness. Normal wall motion. Moderately reduced systolic function with a visually estimated EF of 35 - 40%. Unable to assess diastolic function due to arrhythmia. ?Right?Atrium: Right atrium is severely dilated. ?Left?Atrium: Left atrium is moderately dilated. ?Mitral?Valve: Moderate transvalvular regurgitation. ?Right?Ventricle: Right ventricle is moderately dilated. Moderately reduced systolic function. 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 ?Tricuspid?Valve: Moderate to severe transvalvular regurgitation. Right ventricular systolic pressure is greater than 60 mmHg. ?RA pressure is 5-10 mmHg. Left VentricleLeft ventricle size is normal. Mildly increased wall thickness. Normal wall motion. Moderately reduced systolic function with a visually estimated EF of 35 - 40%. Unable to assess diastolic function due to arrhythmia.Right VentricleRight ventricle is moderately dilated. Moderately reduced systolic function. There is a pacemaker lead in the right ventricle.Left AtriumLeft atrium is moderately dilated.Right AtriumRight atrium is severely dilated.Mitral ValveMildly calcified leaflets. Mild mitral annular calcification. Moderate transvalvular regurgitation.Tricusp id ValveTricuspid valve structure is grossly normal. Moderate to severe transvalvular regurgitation. Right ventricular systolic pressure is greater than 60 mmHg. RA pressure is 5-10 mmHg.Aortic ValveMildly calcified cusps. Trace transvalvular regurgitation.Pulmoni c ValveNot well visualized.Ascending AortaNormal sized aortic root.PericardiumNo pericardial effusion.Study DetailsStudy quality was adequate. A complete echocardiogram was performed using 2D, color flow Doppler and spectral Doppler. [facility] CampusPrepare Packed RBC (in units), 1 Units 2023-03-12 00:09:12* Test Item Value Reference Range Interpretation Comme [facility] Cross Match Result (test code = 4409) Compatible ISBT Blood Type Code (test code = 714978) 6200 Unit Blood Type (test code = 4410) A Pos Unit Number (test code = 4411) [id number] Blood Expiration Date & Time (test code = 424840) [id number] Status Information (test code = 4412) Issued Product Identification (test code = 4413) Red Blood Cells Product Code (test code = 4414) [id number] Performed at [facility] Laboratory Services - [facility] Blood [address] [place] [id number] Free: [phone] No. [id number] [facility]POCT GLUCOSE (AUTOMATED)2023-03-11 23:36:05* Test Item Value Reference Range Interpretation Comme [facility] POCT GLU (test code = 2444621236) 134 mg/dL 70-110 H Lab Interpretation (test cod e = 28837-4) Abnormal [facility] CampusGlycosylated Hemoglobin (A1C)2023-03-11 22:11:09* Test Item Value Reference Range Interpretation Comme [facility] HGB A1C (test code = 4548-4) 6.8 % 4.0-5.7 H DL (test code = DL) Reference RangesNormal: <5.7%Prediabetes: 5.7 - 6.4%Diabetes: > 6.5% Lab Interpretation (test code = 23367-8) Abnormal [facility] CampusABORH Confirmation (Lab Only)2023-03-11 20:52:00* Test Item Value Reference Range Interpretation Comme nts ABO & RH (test code = 20) A Positive [facility] CampusComp. Metabolic Panel (10586)2023-03-11 20:03:45* Test Item Value Reference Range Interpretation Comme nts NA (test code = 3194305137) 141 mmol/L 135-145 K (test code = 2258032362) 3.8 mmol/L 3.5-5.0 CL (test code = 4772124919) 105 mmol/L 98-108 CO2 TOTAL (test code = 2661991817) 21 mmol/L 23-31 L AGAP (test code = 2791736894) 15 2-16 BUN (test code = 1186907555) 39 mg/dL 7-23 H GLUCOSE (test code = 0218984063) 143 mg/dL 70-110 H CREATININE (test code = 0393903205) 2.40 mg/dL 0.60-1.25 H TOTAL BILI (test code = 1769508989) 1.9 mg/dL 0.1-1.1 H CALCIUM (test code = 9102540223) 9.1 mg/dL 8.6-10.6 T PROTEIN (test code = 6643848503) 8.0 g/dL 6.3-8.2 ALBUMIN (test code = 2656480101) 4.1 g/dL 3.5-5.0 ALK PHOS (test code = 9530085334) 157 U/L 34-122 H ALTv (test code = 1742-6) 20 U/L 5-50 AST(SGOT) (test code = 7164566976) 32 U/L 13-40 eGFR (test code = 46901-5) 26.6 mL/min/1.73m2 CKD-EPI eGFR (2020). Assuming creatinine has been stable day-to-day for at least three months, the eGFR indicates Category G4 (15 - 29 mL/min/1.73 m2) Lab Interpretation (test code = 72437-5) Abnormal [facility] with [id number] 19:51:26* Test Item Value Reference Range Interpretation Comme nts WBC (test code = 6690-2) 6.17 See_Comment [Automated messa ge] The system which generated this result transmitted reference range: 4.20 - 10.70 10*3/?L. The reference range was not used to interpret this result as normal/abnormal. RBC (test code = 789-8) 3.61 See_Comment L [Automated messa ge] The system which generated this result transmitted reference range: 4.26 - 5.52 10*6/?L. The reference range was not used to interpret this result as normal/abnormal. HGB (test code = 718-7) 6.9 g/dL 12.2-16.4 L HCT (test code = 4544-3) 24.9 % 38.4-49.3 L MCV (test code = 787-2) 69.0 fL 81.7-95.6 L MCH (test code = 785-6) 19.1 pg 26.1-32.7 L MCHC (test code = 786-4) 27.7 g/dL 31.2-35.0 L RDW-SD (test code = 70385-1) 43.1 fL 38.5-51.6 RDW-CV (test code = 788-0) 17.8 % 12.1-15.4 H PLT (test code = 777-3) 338 See_Comment H [Automated messa ge] The system which generated this result transmitted reference range: 150 - 328 10*3/?L. The reference range was not used to interpret this result as normal/abnormal. MPV (test code = 11627-8) 10.1 fL 9.8-13.0 NRBC/100 WBC (test code = 0127758098) 0.0 See_Comment [Automated me ssage] The system which generated this result transmitted reference range: 0.0 - 10.0 /100 WBCs. The reference range was not used to interpret this result as normal/abnormal. NRBC x10^3 (test code = 8830651651) See_Comment [Automated messa ge] The system which generated this result transmitted reference range: 10*3/?L. The reference range was not used to interpret this result as normal/abnormal. GRAN MAT (NEUT) % (test code = 770-8) 67.9 % IMM GRAN % (test code = 3949429011) 0.30 % LYMPH % (test code = 736-9) 12.5 % MONO % (test code = 5905-5) 15.4 % EOS % (test code = 713-8) 2.4 % BASO % (test code = 706-2) 1.5 % GRAN MAT x10^3(ANC) (test code = 2410070456) 4.19 10*3/uL 1.99-6.95 IMM GRAN x10^3 (test code = 4166399117) 0.00-0.06 LYMPH x10^3 (test code = 731-0) 0.77 10*3/uL 1.09-3.23 L MONO x10^3 (test code = 742-7) 0.95 10*3/uL 0.36-1.02 EOS x10^3 (test code = 711-2) 0.15 10*3/uL 0.06-0.53 BASO x10^3 (test code = 704-7) 0.09 10*3/uL 0.01-0.09 ELLIPTO/OVAL (test code = 08669-5) 2+ See_Comment A [Automated messa ge] The system which generated this result transmitted reference range: (none). The reference range was not used to interpret this result as normal/abnormal. SCHISTOCYTES (test code = 800-3) 1+ A TEARDROP CELLS (test code = 7791-7) 2+ See_Comment A [Automated messa ge] The system which generated this result transmitted reference range: (none). The reference range was not used to interpret this result as normal/abnormal. GIANT PLATELETS (test code = 5908-9) Present See_Comment A [Automated messa ge] The system which generated this result transmitted reference range: (none). The reference range was not used to interpret this result as normal/abnormal. Lab Interpretation (test code = 50058-1) [facility] [id number] 19:36:26* Test Item Value Reference Range Interpretation Comme nts TROPONIN I (test code = 0027320713) 0.084 ng/mL <=0.034 H DL (test code = DL) Reference (Normal) Range (defined by the 99th percentile reference limit): <= 0.034 ng/mL Note: Cardiac troponin begins to rise 3-4 hours after the onset of ischemia. Repeat in 4-6 hours if the sample was drawn within 3-4 hours of the onset of the symptom and found normal. Diagnosis of myocardial injury is made with acute changes in cTn concentrations with at least one serial sample above the 99th percentile upper reference limit (URL), taken together with the patient's clinical presentation. Biotin has been reported to cause a negative bias, interpret results relative to patient's use of biotin. Lab Interpretation (test code = 48633-2) Abnormal [facility] CampusType and Screen - ONCE [id number] 19:09:00 * Test Item Value Reference Range Interpretation Comme nts ABO & RH (test code = 20) A Positive IAT (test code = 1185) Negative [facility] CampusGLUBED2021-08-11 15:08:00* Test Item Value Reference Range Interpretation Comme nts GLUBED (test code = GLUBED) 107 MG/DL 70-110 N Performed by cer tified bread oven operator at [facility] BDD-[id number] 14:30:00* Test Item Value Reference Range Interpretation Comme nts ACT-ISTAT (test code = ACTI) 213 SEC 74-137 H Performed by [facility] tified bread oven operator at [facility] [id number] 11:52:00* Test Item Value Reference Range Interpretation Comme nts GLUBED (test code = GLUBED) 82 MG/DL 70-110 N Performed by [facility] tified bread oven operator at [facility] - XR CHEST 1 [id number] 00:00:00 [facility] 1940 Sex: MFAX: Elmo Pereira MD [phone] [place]: St: ADM FAX: Jordan Araujo [facility] [phone] ------- Name: MALA NIXON [facility] : 1940 Age/S: 79/M [address] [place] [address] Unit #: [id number] Loc: [place] [address] Phys: Jordan Araujo [facility] Acct: [id number] Dis Date: Status: ADM IN PHONE #: [phone] Exam Date: 11/07/2020 1643 FAX #: [phone] Reason: WATCHMAN EXAMS: CPT CODE: [id number] XR CHEST 1 V 11483 PROCEDURE INFORMATION: Exam: XR Chest Exam date and time: 11/07/2020 3:48 PM Age: 79 years old Clinical indication: Other: Watchman TECHNIQUE: Imaging protocol: XR of the chest. Views: 1 view. Other technique: AP portable chest obtained with the patient semi upright. COMPARISON: DX XRCHEST 2 V 11/05/2020 5:40 PM FINDINGS: Tubes, catheters and devices: Faintly radiopaque EKG leads overlie the chest. Atrial appendage occlusion device faintly visualized by this technique. Lungs: Thereare ill-defined pulmonary opacities bilateral lungs new from [...] differential. 2. Bilateral pleural effusions are suspected. Electronically Signed by Pablo Galindo on 1at 1648 Reported and signed by: Jose R Galindo M.D. CC: Elmo Rubi MD; Jordan DEL CID [facility] HospitaltenTechnologist: Trang Mitchell RT(R)(M) Trnscrd Date/Time/By: 11/07/2020 (1648) : By: [email or web address] Orig Print D/T: S: 11/07/2020 (1649) PAGE 1 Signed ReportNovel Coronavirus 2019 Inhouse 2020-11-06 11:50:00* Test Item Value Reference Range Interpretation Comme nts Novel Coronavirus 2019 Inhouse (test code = COVNONPUI) Negative Negative Positive resul ts are indicative of the presence raEZUB-UfD-9 RNA, clinical correlation with patient historyand other diagnostic information is necessary to determinepatient infection status. Positive results do not rule outbacterial infection or co-infection with other viruses. Negative results do not preclude SARS-CoV-2 infection andshould not be used as the sole basis for patient managementdecisions. Negative results must be combined with otherclinical observations, patient history, and epidemiologicalinformation . Detection of SARS-CoV-2 RNA may be affected bysample collection methods, storage conditions, and/or stageof infection. Viral RNA mutations, vaccinations, antiviraltherapeutics, antibiotics, chemotherapeutic orimmunosuppressant drugs have not been evaluated for effectson detection. Results are for the identification of SARS-CoV-2 RNA usingthe [employer] M2000 System under the FDA Emergency UseAuthorization. The testing is performed by personneltrained in the procedures for the Richardson M2000 moleculardiagnostic SARS-CoV-2 assay in vitro. - XR CHEST 2 [id number] 00:00:00 [facility] : 1940 Sex: MFAX: Emlo Pereira MD [phone] [place]: St: PRE Name: MALA NIXON [facility] Carlos Leger : 1940 Age/S: 79/M [address] [place] [address] Unit #: [id number] Loc: [place] [address] Phys: Elmo Rubi MD Acct: [id number] Dis Date: Status: PRE IN PHONE #: [phone] Exam Date: 11/05/2020 180 FAX #: [phone] Reason: WATCHMAN EXAMS: CPT CODE: [id number] XR CHEST 2 V 01972 PROCEDURE INFORMATION: Exam: XR Chest Exam date and time: 11/05/2020 5:40 PM Age: 79 years old Clinical indication: Other: Watchman TECHNIQUE: Imaging protocol: XR of the chest. Views: 2 views. PA and Lateral COMPARISON: No relevant prior studies available. FINDINGS: Tubes, catheters and devices: None. Lungs: Bilateral mild i nterstitial pulmonary opacities identified within lower lungs. The pulmonary opacities are most prominent within the lower left lung. The bilateral upper lungs appear clear. Pleural spaces: Small volume bilateral pleural effusions. No pneumothorax identified. Heart/Mediastinum: Cardiac silhouette appears vgln-ik-yblmyfqepo enlarged. Bones/joints: Diffusely decreased bone density. Generalized bonydegenerative changes. IMPRESSION: 1. Small bilateral pleural effusions. 2. Whmd-ye-iecabifglh enlarged cardiac silhouette. 3. Mild atelectasis versus interstitial infiltrates or edema in the lower chest bilaterally, Left greater than right. at 0801 Reported and signed by: Gurpreet Gill M.D. CC: Elmo Rubi MDTechnologist: Trang Mitchell RT(R)(M) Trnscrd Date/Time/By: 11/06/2020 (800) : By: [email or web address] Orig Print D/T: S: 11/06/2020 (800) PAGE 1 Signed ReportBASIC METABOLIC [id number] 18:45:00* Test Item Value Reference Range Interpretation Comme nts SODIUM (test code = NA) 145 mEq/L 134-147 N POTASSIUM (test code = K) 3.5 mEq/L 3.4-5.0 N CHLORIDE (test code = CL) 112 mEq/L 100-108 H CARBON DIOXIDE (test code = CO2) 26 mEq/l 21-33 N ANION GAP (test code = GAP) 10 0-20 N GLUCOSE (test code = GLU) 94 mg/dL 70-110 N BLOOD UREA NITROGEN (test code = BUN) 23 mg/dL 7-18 H GLOMERULAR FILTRATION RATE (test code = GFR) 39.3 70-80 L Units of measure = ml/min/1.73 m2 CREATININE (test code = CREAT) 1.7 mg/dL 0.6-1.3 H CALCIUM (test code = CA) 9.0 mg/dL 8.0-10.5 N [id number] 18:45:00* Test Item Value Reference Range Interpretation Comme nts PREALBUMIN (test code = PREALB) 12.6 mg/dL 16.0-40.0 L BASIC METABOLIC [id number] 18:43:00* Test Item Value Reference Range Interpretation Comme nts SODIUM (test code = NA) 145 mEq/L 134-147 N POTASSIUM (test code = K) 3.5 mEq/L 3.4-5.0 N CHLORIDE (test code = CL) 112 mEq/L 100-108 H CARBON DIOXIDE (test code = CO2) 26 mEq/l 21-33 N ANION GAP (test code = GAP) 10 0-20 N GLUCOSE (test code = GLU) 94 mg/dL 70-110 N BLOOD UREA NITROGEN (test code = BUN) 23 mg/dL 7-18 H GLOMERULAR FILTRATION RATE (test code = GFR) 39.3 70-80 L Units of measure = ml/min/1.73 m2 CREATININE (test code = CREAT) 1.7 mg/dL 0.6-1.3 H CALCIUM (test code = CA) 9.0 mg/dL 8.0-10.5 N [id number] 18:43:00* Test Item Value Reference Range Interpretation Comme nts PREALBUMIN (test code = PREALB) mg/dL 16.0-40.0 PROTHROMBIN [id number] 18:34:00* Test Item Value Reference Range Interpretation Comme nts PROTHROMBIN TIME PATIENT (test code = PTP) 14.2 SECONDS 9.3-12.9 H INTERNATIONAL NORMAL RATIO (test code = INR) 1.3 0.8-1.2 H TARGET INR BY INDICATION Indication INR1. Prophylaxis of venous thrombosis 2.0 - 3.0 (orthopedic surgery), Prophylaxis of venous thrombosis (other than high-risk surgery), Treatment of Deep Vein Thrombosis/Pulmonary Embolism, Prevention of systemic embolism - Tissue heart valves, Acute Myocardial Infarction (to prevent systemic embolism), Valvular heart disease, Atrial Fibrillation, Bileaflet mechanical valve in aortic position.2. Mechanical prosthetic valves (high risk), 2.5 - 3.5 Presence of Lupus Anticoagulant or Antiphospholipid Antibodies, Prevention of systemic embolism - Acute Myocardial Infarction (to prevent recurrent infarct). CBC W/AUTO [id number] 18:20:00* Test Item Value Reference Range Interpretation Comme nts WHITE BLOOD CELL (test code = WBC) 4.2 x10 3/uL 4.5-11.0 L RED BLOOD CELL (test code = RBC) 3.38 x10 6/uL 4.00-5.60 L HEMOGLOBIN (test code = HGB) 7.7 g/dL 12.5-16.9 L HEMATOCRIT (test code = HCT) 26.9 % 37.5-50.7 L MEAN CELL VOLUME (test code = MCV) 79.6 fL 81.0-99.0 L MEAN CELL HGB (test code = MCH) 22.8 pg 27.0-33.0 L MEAN CELL HGB CONCETRATION (test code = MCHC) 28.6 g/dL 33.0-37.0 L RED CELL DISTRIBUTION WIDTH CV (test code = RDW) 18.9 % 11.5-14.5 H RED CELL DISTRIBUTION WIDTH SD (test code = RDW-SD) 54.7 fL 37.0-54.0 H PLATELET COUNT (test code = PLT) 219 x10 3/uL 150-400 N MEAN PLATELET VOLUME (test c ode = MPV) 10.3 fL 7.0-9.0 H NEUTROPHIL % (test code = NT%) 58.0 % 56.0-77.0 N IMMATURE GRANULOCYTE % (test code = IG%) 0.5 % 0.0-2.0 N LYMPHOCYTE % (test code = LY%) 17.7 % 14.0-32.0 N MONOCYTE % (test code = MO%) 16.3 % 4.8-9.0 H EOSINOPHIL % (test code = EO%) 6.5 % 0.3-3.7 H BASOPHIL % (test code = BA%) 1.0 % 0.0-2.0 N NUCLEATED RBC % (test code = NRBC%) 0.0 % 0-0 N NEUTROPHIL # (test code = NT#) 2.42 x10 3/uL 2.0-7.6 N IMMATURE GRANULOCYTE # (test code = IG#) 0.02 x10 3/uL 0.00-0.03 N LYMPHOCYTE # (test code = LY#) 0.74 x10 3/uL 1.0-3.8 L MONOCYTE # (test code = MO#) 0.68 x10 3/uL 0.1-0.8 N EOSINOPHIL # (test code = EO#) 0.27 x10 3/uL 0.0-0.2 H BASOPHIL # (test code = BA#) 0.04 x10 3/uL 0.0-0.2 N NUCLEATED RBC # (test code = NRBC#) 0.00 x10 3/uL 0.0-0.1 N MANUAL DIFF REQUIRED (test c ode = MDIFF) NO CBC W/AUTO [id number] 18:18:00* Test Item Value Reference Range Interpretation Comme nts WHITE BLOOD CELL (test code = WBC) x10 3/uL 4.5-11.0 RED BLOOD CELL (test code = RBC) x10 6/uL 4.00-5.60 HEMOGLOBIN (test code = HGB) g/dL 12.5-16.9 HEMATOCRIT (test code = HCT) % 37.5-50.7 MEAN CELL VOLUME (test code = MCV) fL 81.0-99.0 MEAN CELL HGB (test code = MCH) pg 27.0-33.0 MEAN CELL HGB CONCETRATION ( test code = MCHC) g/dL 33.0-37.0 RED CELL DISTRIBUTION WIDTH CV (test code = RDW) % 11.5-14.5 PLATELET COUNT (test code = PLT) 219 x10 3/uL 150-400 N NEUTROPHIL % (test code = NT%) % 56.0-77.0 LYMPHOCYTE % (test code = LY%) % 14.0-32.0 NEUTROPHIL # (test code = NT#) x10 3/uL 2.0-7.6 LYMPHOCYTE # (test code = LY#) x10 3/uL 1.0-3.8 MANUAL DIFF REQUIRED (test c ode = MDIFF) Iron binding capacity [Mass/volume] in Serum or [id number] 00:00:00* Test Item Value Reference Range Interpretation Comme nts Iron binding capacity [Mass/ volume] in Serum or Plasma (test code = 2500-7) 403 ug/dL 250-450 Iron binding capacity.unsatu rated [Mass/volume] in Serum or Plasma (test code = 2501-5) 384 ug/dL 111-343 H Iron [Mass/volume] in Serum or Plasma (test code = 2498-4) 19 ug/dL 38-169 L Iron saturation [Mass Fracti on] in Serum or Plasma (test code = 2502-3) 5 % 15-55 L [facility] [Mass/volume] in Serum or Plasma 2020-10-12 00:00:00* Test Item Value Reference Range Interpretation Comme nts Ferritin [Mass/volume] in Se rum or Plasma (test code = 2276-4) 29 NG/mL 30-400 L [facility] Clinicswritten cjgmhpdqqagqr2167-04-01 00:00:00* Test Item Value Reference Range Interpretation Comme nts written authorization (test code = written authorization) comment [facility] Rjqozoo56-Ncqsyzujfohbsv D3+25-Hydroxyvitamin D2 [Mass/volume] in Serum or Gfdclu1735-51-67 00:00:00* Test Item Value Reference Range Interpretation Comme nts 25-hydroxyvitamin D3 [Mass/v olume] in Serum or Plasma (test code = 1989-3) 46 NG/mL [facility] LDL - Serum or Plasma 2020-10-06 00:00:00* Test Item Value Reference Range Interpretation Comme nts Cholesterol [Mass/volume] in Serum or Plasma (test code = 2093-3) 95 mg/dL 100-199 L Triglyceride [Mass/volume] i n Serum or Plasma (test code = 2571-8) 47 mg/dL 0-149 Cholesterol in HDL [Mass/vol ume] in Serum or Plasma (test code = 2085-9) 38 mg/dL >39 L Cholesterol in VLDL [Mass/vo lume] in Serum or Plasma by calculation (test code = 64464-3) 12 mg/dL 5-40 Cholesterol in LDL [Mass/vol ume] in Serum or Plasma by calculation (test code = 21730-4) 45 mg/dL 0-99 Laboratory comment [Text] in Report Narrative (test code = 30961-1) marketing research intern Cholesterol in LDL [Mass/vol ume] in Serum or Plasma by Direct assay (test code = 62421-2) 48 mg/dL 0-99 Cholesterol in LDL/Cholester ol in HDL [Mass Ratio] in Serum or Plasma (test code = 04668-5) 1.3 ratio 0.0-3.6 [facility] T4 and TSH panel - Serum or Plasma 2020-10-06 00:00:00* Test Item Value Reference Range Interpretation Comme nts Thyrotropin [Units/volume] i n Serum or Plasma by Detection limit <= 0.005 mIU/L (test code = 04905-6) 4.550 uIU/mL 0.450-4.500 H Thyroxine (T4) free [Mass/volume] in Serum or Plasma (test code = 3024-7) 1.08 NG/dL 0.82-1.77 [facility] W Auto Differential panel - Satqx6510-03-12 00:00:00* Test Item Value Reference Range Interpretation Comme nts Leukocytes [#/volume] in Blo od by Automated count (test code = 6690-2) 6.4 x10e3/uL 3.4-10.8 Erythrocytes [#/volume] in Blood by Automated count (test code = 789-8) 3.70 x10e6/uL 4.14-5.80 L Hemoglobin [Mass/volume] in Blood (test code = 718-7) 8.3 g/dL 13.0-17.7 L Hematocrit [Volume Fraction] of Blood by Automated count (test code = 4544-3) 28.0 % 37.5-51.0 L Erythrocyte mean corpuscular volume [Entitic volume] by Automated count (test code = 787-2) 76 fL 79-97 L Erythrocyte mean corpuscular hemoglobin [Entitic mass] by Automated count (test code = 785-6) 22.4 pg 26.6-33.0 L Erythrocyte mean corpuscular hemoglobin concentration [Mass/volume] by Automated count (test code = 786-4) 29.6 g/dL 31.5-35.7 L Erythrocyte distribution wid th [Ratio] by Automated count (test code = 788-0) 18.4 % 11.6-15.4 H Platelets [#/volume] in Bloo d by Automated count (test code = 777-3) 253 x10e3/uL 150-450 Neutrophils/100 leukocytes i n Blood by Automated count (test code = 770-8) 61 % not estab. Lymphocytes/100 leukocytes i n Blood by Automated count (test code = 736-9) 16 % not estab. Monocytes/100 leukocytes in Blood by Automated count (test code = 5905-5) 15 % not estab. Eosinophils/100 leukocytes i n Blood by Automated count (test code = 713-8) 7 % not estab. Basophils/100 leukocytes in Blood by Automated count (test code = 706-2) 1 % not estab. immature cells (test code = immature cells) marketing research intern Neutrophils [#/volume] in Bl ood by Automated count (test code = 751-8) 3.9 x10e3/uL 1.4-7.0 Lymphocytes [#/volume] in Bl ood by Automated count (test code = 731-0) 1.0 x10e3/uL 0.7-3.1 Monocytes [#/volume] in Bloo d by Automated count (test code = 742-7) 1.0 x10e3/uL 0.1-0.9 H Eosinophils [#/volume] in Bl ood by Automated count (test code = 711-2) 0.4 x10e3/uL 0.0-0.4 Basophils [#/volume] in Bloo d by Automated count (test code = 704-7) 0.1 x10e3/uL 0.0-0.2 Immature granulocytes/100 leukocytes in Blood by Automated count (test code = 13989-5) 0 % not estab. Immature granulocytes [#/volume] in Blood by Automated count (test code = 78727-5) 0.0 x10e3/uL 0.0-0.1 Nucleated erythrocytes/100 leukocytes [Ratio] in Blood by Automated count (test code = 61859-5) marketing research intern Morphology [Interpretation] in Blood Narrative (test code = 08928-7) marketing research intern [facility]Com[facility] 2000 [facility] - Serum or Fwynxr7174-31-44 00:00:00* Test Item Value Reference Range Interpretation Comme nts Glucose [Mass/volume] in Ser um or Plasma (test code = 2345-7) 121 mg/dL 65-99 H Urea nitrogen [Mass/volume] in Serum or Plasma (test code = 3094-0) 38 mg/dL 8-27 H Creatinine [Mass/volume] in Serum or Plasma (test code = 2160-0) 1.33 mg/dL 0.76-1.27 H Glomerular filtration rate/1.73 sq M.predicted among non-blacks [Volume Rate/Area] in Serum, Plasma or Blood by Creatinine-based formula (CKD-EPI) (test code = 43507-3) 51 mL/min/1.73 >59 L Glomerular filtration rate/1.73 sq M.predicted among blacks [Volume Rate/Area] in Serum, Plasma or Blood by Creatinine-based formula (CKD-EPI) (test code = 32593-2) 59 mL/min/1.73 >59 L Urea nitrogen/Creatinine [Ma ss Ratio] in Serum or Plasma (test code = 3097-3) 29 10-24 H Sodium [Moles/volume] in Ser um or Plasma (test code = 2951-2) 145 mmol/L 134-144 H Potassium [Moles/volume] in Serum or Plasma (test code = 2823-3) 4.4 mmol/L 3.5-5.2 Chloride [Moles/volume] in Serum or Plasma (test code = 5-0) 112 mmol/L 96-106 H Carbon dioxide, total [Moles/volume] in Serum or Plasma (test code = 2027-9) 18 mmol/L 20-29 L Calcium [Mass/volume] in Ser um or Plasma (test code = 52152-1) 9.2 mg/dL 8.6-10.2 Protein [Mass/volume] in Ser um or Plasma (test code = 2885-2) 7.3 g/dL 6.0-8.5 Albumin [Mass/volume] in Ser um or Plasma (test code = 1751-7) 4.3 g/dL 3.7-4.7 Globulin [Mass/volume] in Serum by calculation (test code = 99008-6) 3.0 g/dL 1.5-4.5 Albumin/Globulin [Mass Ratio ] in Serum or Plasma (test code = 1759-0) 1.4 1.2-2.2 Bilirubin.total [Mass/volume ] in Serum or Plasma (test code = 1974-2) 0.6 mg/dL 0.0-1.2 Alkaline phosphatase [Enzymatic activity/volume] in Serum or Plasma (test code = 6768-6) 139 IU/L 48-121 H Aspartate aminotransferase [Enzymatic activity/volume] in Serum or Plasma (test code = 1920-8) 13 IU/L 0-40 Alanine aminotransferase [Enzymatic activity/volume] in Serum or Plasma (test code = 1742-6) 9 IU/L 0-44 [facility] HospitalFolate+Cyanocobalamin [Interpretation] in Serum or Nuvuv1923-29-21 00:00:00* Test Item Value Reference Range Interpretation Comme nts Cobalamin (Vitamin B12) [Mass/volume] in Serum or Plasma (test code = 2132-9) 706 pg/mL 232-1245 Folate [Mass/volume] in Seru m or Plasma (test code = 2284-8) 15.1 NG/mL >3.0 [facility] HospitalHemoglobin A1c/Hemoglobin.total in Blood 2020-10-06 00:00:00* Test Item Value Reference Range Interpretation Comme nts Hemoglobin A1c/Hemoglobin.to mariza in Blood (test code = 4548-4) 6.4 % 4.8-5.6 H Glucose mean value [Mass/vol ume] in Blood Estimated from glycated hemoglobin (test code = 70611-7) 137 mg/dL [facility] HospitalProstate specific Ag [Mass/volume] in Serum or Alpfpb1679-66-17 00:00:00* Test Item Value Reference Range Interpretation Comme nts Prostate specific Ag [Mass/v olume] in Serum or Plasma (test code = 2857-1) 2.3 NG/mL 0.0-4.0 [facility] HospitalPhosphate [Mass/volume] in Serum or Plasma 2020-10-06 00:00:00* Test Item Value Reference Range Interpretation Comme nts Phosphate [Mass/volume] in S elisha or Plasma (test code = 2777-1) 3.2 mg/dL 2.8-4.1 [facility] HospitalMagnesium [Mass/volume] in Serum or Plasma 2020-10-06 00:00:00* Test Item Value Reference Range Interpretation Comme nts Magnesium [Mass/volume] in S elisha or Plasma (test code = 18721-9) 1.7 mg/dL 1.6-2.3 [facility] Notes Date/Time Note Provider Source 2020-11-08 09:04:00 [id number] eOCozh8YpgtX9IZJJxv85uCWAxXLC ClAai6yraJF3vDk6yvYPCnkYKy+eI8eszS1049-37-87G76:0 4:00 [facility] ([facility])Discharge SummaryREPORT#:[id number] REPORT STATUS: SignedDATE:11/08/20 TIME: 903 PATIENT: MALA NIXON UNIT #: [id number]#: [id number] ROOM[facility]BED: [facility]-1DOB: [birth year] AGE: 79 SEX: M ATTEND: Elmo Rubi AUTHOR: Jordan Araujo * ALL edits or amendments must be made on the electronic/computer document * PCP PCPDischarge to: home General InformationDischarge date: 11/07/20Hospital course:Patient with Atrial fibrillation, chads vasc score of 4 and intolerance to long-term anticoagulation due to history of stroke. Patient is s/p successful implantation of a 27mm watchman device in the left atrial appendage Patient tolerated the procedure without any postop complications No thrombus was identified in the pre-and Intra-Op GONZÁLEZ Postoperatively, chest x-ray is negative for any acute process. Postop echo didnot show a pericardial effusion Patient ambulated without any difficulty and heart rate and blood pressure stable Right groin suture removed by this NEWCOMER HOSTESS. no infection, bleeding, or hematoma. Dermabond applied and intact Patient was provided with post watchman discharge instructions. Patient is to follow-up with PCP and spray painting machine operator in 1 to 2 weeks post discharge Also follow-up with spray painting machine operator for the 45-day GONZÁLEZ and for anticoagulation recommendation Patient to continue anticogulant until the 45-day GONZÁLEZ If the 45 day GONZÁLEZ shows a well-seated watchman device with no thrombus/leaks then anticogulant will be discontinued and patient will be initiated on aspirin and Plavix at that time Duration of aspirin is lifelong Duration of Plavix is 6 months post 45 day GONZÁLEZ Post Watchman discharge instructions /handout given to the patient who verbalized understanding of the instructions given and patient is notified to report any complaints of chest pain, shortness of breath lightheadedness or dizziness to his spray painting machine operator. Med Rec PCPPCP:PCP: No Primary or Family Physician Med RecDischarge meds:Continue taking these medications:amLODIPine (NORVASC) 5 MG TAB 5 MILLIGRAM ORAL DAILY. ASPIRIN (ASPIRIN) 81 MG TAB.CHEW 81 MILLIGRAM ORAL DAILY. ROSUVASTATIN (CRESTOR) 10 MG TAB 10 MILLIGRAM ORAL DAILY. DOXAZOSIN (CARDURA) 1 MG TAB 1 MILLIGRAM ORAL DAILY. GEMFIBROZIL (LOPID) 600 MG TAB 600 MILLIGRAM ORAL TWICE DAILY. GLIMEPIRIDE (AMARYL) 4 MG TAB 4 MILLIGRAM ORAL TWICE DAILY. FUROSEMIDE (LASIX) 40 MG TAB 40 MILLIGRAM ORAL DAILY. LOSARTAN/HCTZ (HYZAAR 100/25 MG) 100 MG-25 MG TAB 1 TABLET ORAL DAILY. metFORMIN (GLUCOPHAGE) 500 MG TAB 500 MILLIGRAM ORAL TWICE DAILY. Instructions: TAKE WITH MEALS OMEPRAZOLE ER (PriLOSEC) 40 MG CAP.DR 40 MILLIGRAM ORAL DAILY. SERTRALINE (ZOLOFT) 100 MG TAB 100 MILLIGRAM ORAL DAILY. ObjectiveVS/I OLast Documented: Result Date Time O2 Delivery Simple mask 11/07 1632 O2 Flow Rate 8 11/07 1632 Pulse Ox 97 11/07 1132 B/P 138/65 11/07 1132 Temp 36.3 11/07 1132 Pulse 58 11/07 1132 Resp 18 11/07 1132 24 hour I O ending at 0700: 11/08 0700 11/07 1900 Intake Total 240 Output Total Balance 240 Intake, Oral 240 PATIENT WEIGHT: Weight (lb): 249Weight (oz): 1.96Weight (kg): 113.000 General appearance: alert, awake, oriented, no acute distressCardiovascular: irregular rhythmRespiratory: clear to auscultation, no distressGI: soft, non-tenderExtremities: moves allNeuro/CRUDE TESTER: alert, oriented X 3Skin: dryWound/incision: Location:R groin soft; no hematoma; suture removed ResultsFindings/Data:Laboratory Tests: 11/07 11/07 11/07 1457 1420 1140 Chemistry POC Glucose (70 - 110 MG/DL) 107 82 Coagulation Activated Coag Time (74 - 137 SEC) 213 H Radiology data:Recent Impressions:RADIOLOGY - XR CHEST 1 V 11/07 1642 Report Impression - Status: SIGNED Entered: 11/07/20200 IMPRESSION: 1. Bilateral ill-defined pulmonary opacities compatible with edema. Inflammation in the differential. 2. Bilateral pleural effusions are suspected. Impression By: Natalia Galindo M.D. Treatments ProceduresTreatments Procedures:Left atrial appendage closure using a 27-mm Watchman FLX closure device.Imaging:Recent Impressions:RADIOLOGY - XR CHEST 1 V 11/07 1642 Report Impression - Status: SIGNED Entered: 11/07/20200 IMPRESSION: 1. Bilateral ill-defined pulmonary opacities compatible with edema. Inflammation in the differential. 2. Bilateral pleural effusions are suspected. Impression By: Natalia Galindo M.D. Discharge Instructions PCPPCP:PCP: No Primary or Family Physician )( Discharge to: Home/Self Care Discharge InstructionsAdditional Discharge Routines: Attending Follow-Up)( Diet: Cardiac)( Activity: As Tolerated Follow-up AppointmentsPCP follow up: PCP: Elmo Rubi MD PCP follow up timeframe: In 2-3 weeks Special instructions:CALL OFFICE TO SCHEDULE APPOINTMENTAttending Physician: Attending Physician: Elmo Rubi MD Attending physician follow up timeframe: In 2-3 weeks at 0909 RPT #:[id number] OF REPORTDSDischarge imagapy1271-91-33O17:04:00G.OHJI40299541-8766XBUz ailable for patient adfsILKJSQUEZLBZLR8271-87-23M17:09:50 [facility] 2020-11-08 09:04:00 [id number] uRME8Xgn03Sw/8zOF4uLEHaQmlOxB QHYYondhVpNLlV+Vs/U6Km9wuSW7034-08-99U89:04:00 [facility] HospitalDischarge SummaryREPORT#:[id number] REPORT STATUS: SignedDATE:11/08/20 TIME: 0904 PATIENT: MALA NIXON UNIT #: [id number]#: [id number] [address] AGE: 80 SEX: M ATTEND: Elmo Rubi AUTHOR: Jordan Rodriguez * ALL edits or amendments must be made on the electronic/computer document * See AddendumPCP PCPDischarge to: home General InformationDischarge date: 11/07/20Hospital course:Patient with Atrial fibrillation, chads vasc score of 4 and intolerance to long-term anticoagulation due to history of stroke. Patient is s/p successful implantation of a 27mm watchman device in the left atrial appendage Patient tolerated the procedure without any postop complications No thrombus was identified in the pre-and Intra-Op GONZÁLEZ Postoperatively, chest x-ray is negative for any acute process. Postop echo didnot show a pericardial effusion Patient ambulated without any difficulty and heart rate and blood pressure stable Right groin suture removed by this NEWCOMER HOSTESS. no infection, bleeding, or hematoma. Dermabond applied and intact Patient was provided with post watchman discharge instructions. Patient is to follow-up with PCP and spray painting machine operator in 1 to 2 weeks post discharge Also follow-up with spray painting machine operator for the 45-day GONZÁLEZ and for anticoagulation recommendation Patient to continue anticogulant until the 45-day GONZÁLEZ If the 45 day GONZÁLEZ shows a well-seated watchman device with no thrombus/leaks then anticogulant will be discontinued and patient will be initiated on aspirin and Plavix at that time Duration of aspirin is lifelong Duration of Plavix is 6 months post 45 day GONZÁLEZ Post Watchman discharge instructions /handout given to the patient who verbalized understanding of the instructions given and patient is notified to report any complaints of chest pain, shortness of breath lightheadedness or dizziness to his spray painting machine operator. Med Rec PCPPCP:PCP: No Primary or Family Physician Med RecDischarge meds:Continue taking these medications:amLODIPine (NORVASC) 5 MG TAB 5 MILLIGRAM ORAL DAILY. ASPIRIN (ASPIRIN) 81 MG TAB.CHEW 81 MILLIGRAM ORAL DAILY. ROSUVASTATIN (CRESTOR) 10 MG TAB 10 MILLIGRAM ORAL DAILY. DOXAZOSIN (CARDURA) 1 MG TAB 1 MILLIGRAM ORAL DAILY. GEMFIBROZIL (LOPID) 600 MG TAB 600 MILLIGRAM ORAL TWICE DAILY. GLIMEPIRIDE (AMARYL) 4 MG TAB 4 MILLIGRAM ORAL TWICE DAILY. FUROSEMIDE (LASIX) 40 MG TAB 40 MILLIGRAM ORAL DAILY. LOSARTAN/HCTZ (HYZAAR 100/25 MG) 100 MG-25 MG TAB 1 TABLET ORAL DAILY. metFORMIN (GLUCOPHAGE) 500 MG TAB 500 MILLIGRAM ORAL TWICE DAILY. Instructions: TAKE WITH MEALS OMEPRAZOLE ER (PriLOSEC) 40 MG CAP.DR 40 MILLIGRAM ORAL DAILY. SERTRALINE (ZOLOFT) 100 MG TAB 100 MILLIGRAM ORAL DAILY. ObjectiveVS/I OLast Documented: Result Date Time O2 Delivery Simple mask 08/11 1632 O2 Flow Rate 8 11/07 1632 Pulse Ox 97 11/07 1132 B/P 138/65 11/07 1132 Temp 36.3 11/07 1132 Pulse 58 11/07 1132 Resp 18 11/07 1132 24 hour I O ending at 0700: 11/08 0700 11/07 1900 Intake Total 240 Output Total Balance 240 Intake, Oral 240 PATIENT WEIGHT: Weight (lb): 249Weight (oz): 1.96Weight (kg): 113.000 General appearance: alert, awake, oriented, no acute distressCardiovascular: irregular rhythmRespiratory: clear to auscultation, no distressGI: soft, non-tenderExtremities: moves allNeuro/CRUDE TESTER: alert, oriented X 3Skin: dryWound/incision: Location:R groin soft; no hematoma; suture removed ResultsFindings/Data:Laboratory Tests: 11/07 11/07 11/07 1457 1420 1140 Chemistry POC Glucose (70 - 110 MG/DL) 107 82 Coagulation Activated Coag Time (74 - 137 SEC) 213 H Radiology data:Recent Impressions:RADIOLOGY - XR CHEST 1 V 11/07 1642 Report Impression - Status: SIGNED Entered: 11/07/20200 IMPRESSION: 1. Bilateral ill-defined pulmonary opacities compatible with edema. Inflammation in the differential. 2. Bilateral pleural effusions are suspected. Impression By: Natalia Galindo M.D. Treatments ProceduresTreatments Procedures:Left atrial appendage closure using a 27-mm Watchman FLX closure device.Imaging:Recent Impressions:RADIOLOGY - XR CHEST 1 V 11/07 1642 Report Impression - Status: SIGNED Entered: 11/07/20201649 IMPRESSION: 1. Bilateral ill-defined pulmonary opacities compatible with edema. Inflammation in the differential. 2. Bilateral pleural effusions are suspected. Impression By: Natalia Galindo M.D. Discharge Instructions PCPPCP:PCP: No Primary or Family Physician )( Discharge to: Home/Self Care Discharge InstructionsAdditional Discharge Routines: Attending Follow-Up)( Diet: Cardiac)( Activity: As Tolerated Follow-up AppointmentsPCP follow up: PCP: Elmo Rubi MD PCP follow up timeframe: In 2-3 weeks Special instructions:CALL OFFICE TO SCHEDULE APPOINTMENTAttending Physician: Attending Physician: Elmo Rubi MD Attending physician follow up timeframe: In 2-3 weeks at 0909 at 1607 Addendum 1: 12/13/20 1257 by Jordan Rodriguez -long-standing persistant Afib at 1300 at 1607 RPT #:[id number] OF REPORTDSDischarge phhegfg2771-88-48P97:04:00G.YGIF81389902-1854ESTs ailable for patient utziIRNPMSNPPQXEOK4837-24-87W45:00:22 [facility] 2020-11-07 15:57:00 KAybwtefjpv68899179A B7Foj48atLzFR1tDSTN8FuPg4ymUX zTm2479L1jPNH13ZC6r+oECo3UoynkYqO31105-98-62M16:5 [id number] [place] [address] PATIENT NAME: MALA NIXON ADMIT DATE: 11/07/20ACCOUNT NO: [id number] ROOM NO: [facility] AGE: 79 REPORT TYPE: eELECTROCARDIOGRAM REPORT SEX: M ADMITTING PHYSICIAN:Elmo Rubi MD ATTENDING PHYSICIAN:Elmo Rubi MD Order:[id number] Reason : WATCHMANN Test Date/Time Stamp:ThuNov 07 2020 15:57:49Blood Pressure : / mmHGVent. Rate : 055 BPM Atrial Rate : 059 BPM P-R Int : 000 ms QRS Dur : 092 ms QT Int : 436 ms P-R-T Axes : 000 045 -43 degrees QTc Int : 417 ms Atrial fibrillation with slow ventricular response with premature ventricular oraberrantly conducted complexesLow voltage QRSPossible Anterolateral infarct (cited on or before 05-NOV-2020)Abnormal ECGWhen compared with ECG of 05-NOV-2020 16:44,Significant changes have occurredConfirmed by MD PERES GERARD ([id number]) on 11/09/2020 6:08:25 PM Referred By: Elmo Rubi Confirmed by:AYUSH PERES MD at 1808 PATIENT NAME: MALA NIXON .[id number] AVAvailable for patient nxhdEJJDQLOMNHTYUL4759-30-35S93:08:46 [facility] 2020-11-07 14:59:00 LDouinwthhn18679399P i/jL92zzCD6vMZcfK+VKshfiMceE8 5Aj6lvWWtR6+dNetismZ5kAzEOUoZz/WQx6328-74-66J23:5 [id number] [place] [address] PATIENT NAME: MALA NIXON ADMIT DATE: 11/07/20ACCOUNT NO: [id number] ROOM NO: [facility] AGE: 79 REPORT TYPE: CARDIAC CATHETERIZATION REPORT SEX: M ADMITTING PHYSICIAN:Elmo Rubi MD ATTENDING PHYSICIAN:Elmo Rubi MD PROCEDURE DATE: 11/07/2020 OPERATION PERFORMED: Left atrial appendage closure using a 27-mm Watchman FLXclosure device. INDICATIONS: Atrial fibrillation with history of stroke and intolerant ofanticoagulants. ACCESS: Right femoral vein, 16-Kazakh closed with qkutks-hc-ysplf suture. COMPLICATIONS: None. BLEEDING: Less than 10 mL. DESCRIPTION OF PROCEDURE: After risks, benefits, and alternatives wereexplained, the patient agreed to proceed and signed informed consent, thepatient was brought into cardiac catheterization laboratory, prepped and drapedin usual sterile fashion. Then, we accessed the right femoral vein usingultrasound guidance, a micropuncture kit and placed an 8-Kazakh sheath, thenupgraded to a 16-Kazakh Cook sheath. Partial dose of heparin was given. Then,I took SL1 sheath into the SVC over the wire and then with the Hull needleinside, we descended into the interatrial septum in the low mid position. Transseptal puncture was done and LA pressure was measured at 24 mmHg. Then, Isent a ProTrack wire into the left atrium, exchanged the SL1 sheath for theWatchman double curve sheath and then I took a pigtail into the left atriumthrough the Watchman sheath into the left atrial appendage and navigated theWatchman sheath over it into the appendage. Appendage angiogram was done anddetermined 27 mm Watchman closure device will be suitable for closure. Screening GONZÁLEZ prior to the procedure did not show any thrombus in the leftatrial appendage. Then, we took a 27-mm device, was prepped in usual sterilefashion and then removed the pigtail after a good bleed back and positive flushthrough the Watchman delivery system. Watchman delivery system was advancedinto the Watchman double curve sheath and then the device was deployed in theleft atrial appendage successfully without complications. All PASS criteriawere evaluated and were met, and device was released, sheath was removed andCook sheath was removed. Eegava-zi-tsqdb suture was used to close the entrysite with good hemostasis. CONCLUSION: Successful left atrial appendage closure using 27 mm Watchman FLXclosure device. Dictated By: Elmo Rubi MD PATIENT NAME: MALA NIXON WT: CATH:EARL/CHATO/SHANNONDD: 11/07/2020 14:59:34DT: 11/07/2020 15:21:56Conf#: [id number]/DID#: [id number] Authenticated by Elmo Rubi MD On 11/08/2020 09:10:32 AM at 0910 PATIENT NAME: MALA NIXON Bgyu6289-11-55G23:21:00G.[id number] ble for patient abfnYKEUSVYOWBBMYB9951-33-13D02:11:00 [facility] 2020-11-05 16:44:00 UXmiwljwqwh46880763C AbjjSkRxT8M+VIRl4OQB5BnwyYtZL YP4jHkImygD63oYVujpPRqXPXUfUsVGEyU3399-36-91X72:4 [id number] [place] [address] PATIENT NAME: MALA NIXON ADMIT DATE: ACCOUNT NO: [id number] ROOM NO: AGE: 79 REPORT TYPE: eELECTROCARDIOGRAM REPORT SEX: M ADMITTING PHYSICIAN:Elmo Rubi MD ATTENDING PHYSICIAN:Elmo Rubi MD Order:[id number] Reason : PREOP Test Date/Time Stamp:ThuNov 05 2020 16:44:57Blood Pressure : / mmHGVent. Rate : 065 BPM Atrial Rate : 083 BPM P-R Int : 000 ms QRS Dur : 094 ms QT Int : 430 ms P-R-T Axes : 000 -59 088 degrees QTc Int : 447 ms Atrial fibrillationLeft axis deviationLow voltage QRSInferior infarct , age undeterminedCannot rule out Anterior infarct , age undeterminedAbnormal ECGPRE_OPConfirmed by MARY IBRAHIM MD ([id number]) on 11/05/2020 6:07:02 PM Referred By: Elmo Rubi Confirmed by:MARY IBRAHIM MD at 1807 PATIENT NAME: MALA NIXON .[id number] AVAvailable for patient gtasBKSNOBYCDPVYWU2048-87-42S24:07:21 [facility]"
[2023-04-15] MEDS ORDERED: NA CHLORIDE 0.9% 2,000 ML ONE (00:55)
[2023-04-15 01:20] LABS: Specific Gravity 1.013 (1.005-1.030); Urine Bacteria None Seen /HPF (<20); Urine Bilirubin NEGATIVE (Negative); Urine Blood Trace (Negative); Urine Clarity Turbid (Clear); Urine Color Yellow (Yellow); Urine Glucose TRACE (Negative); Urine Mucus Slight /HPF (None Seen); Urine Protein TRACE (Negative); Urine Urobilinogen Normal (Normal)
[2023-04-15] MEDS ORDERED: NA CHLORIDE 0.9% 500 ML ONE (01:20)
[2023-04-15] MEDS ORDERED: CEFTRIAXONE 1000 MG/VIAL ONE (01:20)
[2023-04-15] MEDS ORDERED: NA CHLORIDE 0.9% 100 ML ONE (01:20)
[2023-04-15 01:32] LABS: Albumin 2.8 g/dL (3.4-5.0); Bilirubin Total 0.9 mg/dL (0.2-1.0); Potassium 4.2 mEq/L (3.5-5.1)
[2023-04-15] MEDS ORDERED: NA CHLORIDE 0.9% 250 ML ONE (01:49)
[2023-04-15] MEDS ORDERED: AZITHROMYCIN 500 MG INJ IVPB ONE (01:49)
[2023-04-15 01:52] LABS: SARS-CoV-2 Antigen Rapid Res Negative (Negative)
[2023-04-15 01:53] LABS: Absolute Lymphocytes (CBC) 0.2 K/uL (0.7-4.9); Hematocrit 24.6 % (39.6-49.0); Lymphocytes % 1.9 % (15.3-44.8); MPV 7.9 fL (7.6-11.3); Platelets 235 thou/uL (152-406); RBC Red Blood Cell Count 3.51 M/uL (4.33-5.43)
--- NOTE | 2023-04-15 02:09 | ER ---
Nurse's Notes [facility] Name: Chris Pinto Age: 82 yrs Sex: Male : 1940 Arrival Date: 04/15/2023 Time: 00:25 Bed [id number] Private MD: Diagnosis: Severe sepsis with septic shock;Unspecified bacterial pneumonia Presentation: 04/15 00:28 Chief complaint: EMS states: tone out for falls, weakness, and confusion starting km8 yesterday; pt A\T\O to person and place. Coronavirus screen: Client denies travel out of the [place] in the last 14 days. Ebola Screen: No symptoms or risks identified at this time. 00:28 Method Of Arrival: EMS km8 00:28 Initial Sepsis Screen: Does the patient meet any 2 criteria? Systolic BP < 90 mmHg. km8 Altered Mental Status. Yes Does the patient have a suspected source of infection? No. Patient's initial sepsis screen is negative. Risk Assessment: Do you want to hurt yourself or someone else? Patient reports no desire to harm self or others. Onset of symptoms was April 14, 2023. 00:28 Acuity: LITA 2 km8 00:28 Care prior to arrival: Medication(s) given: Tylenol, 720mg Glucose check: 158. km8 Triage Assessment: 00:28 General: Appears in no apparent distress. Behavior is calm, cooperative, quiet. Pain: km8 Unable to use pain scale. Patient appears quiet, FLACC scale score is 0 out of 10. EENT: No signs and/or symptoms were reported regarding the EENT system. Neuro: Level of Consciousness is awake, obeys commands, confused, Oriented to person, place. Cardiovascular: Capillary refill < 3 seconds Patient's skin is warm and dry. Rhythm is atrial fibrillation. Respiratory: Airway is patent Respiratory effort is even, unlabored, Respiratory pattern is regular, symmetrical. GI: No signs and/or symptoms were reported involving the gastrointestinal system. : No signs and/or symptoms were reported regarding the genitourinary system. Derm: Skin is intact, is fragile, Skin is dry, Skin is normal, Skin temperature is warm redness to sacrum, non-blanchable. Musculoskeletal: Range of motion: intact in all extremities. Historical: - Allergies: : No Known Allergies; km8 - PMHx: 01:38 a fib; Diabetes - NIDDM; High Cholesterol; Hypertension; - PSHx: 01:38 Stented artery; 8 - Immunization history:: Adult Immunizations unknown. - Social history:: Smoking status: unknown. Screenin:28 [facility] ED Fall Risk Assessment (Adult) History of falling in the last 3 months, 8 including since admission Yes- single mechanical fall (1 pt) Confusion or Disorientation Yes (5 pts) Intoxicated or Sedated No (0 pts) Impaired Gait Yes (1 pt) Mobility Assist Device Used No (0 pt) Altered Elimination Yes (1 pt) Score/Fall Risk Level 3 or more points = High Risk Oriented to surroundings, Maintained a safe environment, Educated pt \T\ family on fall prevention, incl call for assistance when getting out of bed, Assessed \T\ reinforced patient's understanding of fall precautions, Provided non-skid footwear, Implemented a Fall Risk Plan of Care, Remained w/in arm's length of patient and in sight while toileting, Remained with patient while ambulating. Abuse screen: Denies threats or abuse. Denies injuries from another. Nutritional screening: No deficits noted. Tuberculosis screening: No symptoms or risk factors identified. Assessment: 00:28 General: see triage notes/assessment. Vital Signs: 00:30 BP 87 / 43; Pulse 65; Resp 17; Pulse Ox 92% ; 00:45 BP 62 / 42; Pulse 60; Resp 19; Pulse Ox 92% ; 01:00 BP 72 / 47; Pulse 54; Resp 16; Pulse Ox 93% ; 01:15 BP 82 / 44; Pulse 59; Resp 18; Pulse Ox 96% on NC; 01:18 Weight 89 kg; km8 01:30 BP 80 / 43; Pulse 59; Resp 17; Pulse Ox 100% on NC; 02:00 BP 64 / 39; Pulse 49; Resp 17; Pulse Ox 100% on NC; 02:30 BP 160 / 69; Pulse 74; Resp 18; Pulse Ox 98% on NC; 02:54 BP 91 / 42; ec2 03:00 BP 169 / 63; Pulse 66; Resp 19; Pulse Ox 99% ; 03:30 BP 167 / 70; Pulse 81; Resp 17; Pulse Ox 99% on NC; jj7 04:00 BP 69 / 31; Pulse 85; Resp 23; Pulse Ox 99% ; jj7 04:30 BP 89 / 48; Pulse 67; Resp 17; Pulse Ox 98% ; jj7 05:15 BP 121 / 52; Pulse 67; Resp 17; Pulse Ox 100% on NC; jj7 ED Course: 00:27 Patient arrived in ED. jr12 00:28 Alec Wolfe MD is Attending Physician. ec2 00:28 Arm band placed on right wrist. km8 00:28 Patient has correct armband on for positive identification. Placed in gown. Bed in low km8 position. Call light in reach. Side rails up X2. Client placed on continuous cardiac and pulse oximetry monitoring. NIBP monitoring applied. Door closed. Visitors limited. Lights dimmed. Warm blanket given. Cleaned of incontinence. Linen changed. 00:28 Patient maintains SpO2 saturation greater than 95% on room air. km8 00:42 Yen Horta, BATSHEVA is Primary Nurse. km8 00:53 CXR XRAY In Process Unspecified. EDMS 00:53 Pelvis XRAY In Process Unspecified. EDMS 01:00 Inserted saline lock: 20 gauge in right forearm, using aseptic technique. Blood km8 collected. 01:15 Inserted saline lock: 20 gauge in left antecubital area, using aseptic technique. Blood km8 collected. 01:38 Triage completed. km8 02:08 Diony Wong MD is Hospitalizing Provider. ec2 03:54 Assisted provider with central line placement. Set up central line tray. Triple lumen jj7 line placed in right femoral. Line placed by Alec Wolfe MD Placement verified by blood return, Dressed with Tegaderm, PICC DRESSING Patient tolerated well. 05:37 Patient admitted, IV remains in place. jj7 Administered Medications: 01:22 Drug: NS 0.9% IV 2000 ml IV at 1 bolus Per protocol; 1000 mL bolus Route: IV; Rate: 1 km8 bolus; Site: left antecubital; 01:47 Follow up: IV Status: Completed infusion; IV Intake: 2000ml km8 02:00 Follow up: IV Status: Completed infusion jj7 01:30 Drug: Rocephin IV 1 grams IV at calculated rate once; Given slow IV push per pharmacy km8 instructions Route: IV; Rate: calculated rate; Site: left antecubital; 01:47 Follow up: IV Status: Completed infusion 8 01:47 Drug: NS 0.9% IV (30 ml/kg) 30 ml/kg IV at bolus once; Sepsis Protocol, minus the 2L km8 already ordered Route: IV; Rate: bolus; Site: right forearm; 01:56 Follow up: IV Status: Completed infusion; IV Intake: 670ml 8 02:00 Follow up: IV Status: Completed infusion jj7 01:56 Drug: AZITHromycin IVPB 500 mg IVPB once over 1 hrs; (mix in 250 mL NS) Route: IVPB; km8 Infused Over: 1 hrs; Site: right forearm; 03:00 Follow up: IV Status: Completed infusion j7 02:19 Drug: Norepinephrine IV 0.1 mcg/kg/min IV at calculated rate Per protocol; (Standard jj7 concentration 4 mg / 250 mL D5W); Recommended max rate 3 mcg/kg/min; Titrate 0.05 mcg/kg/min as often as every 5 minutes to achieve goal (see titration policy); Goal parameter MAP greater than 65 mmHg. Route: IV; Rate: calculated rate; Site: left antecubital; 04:35 Follow up: Rate change 0.1 calculated rate j7 05:11 Follow up: Rate change 0.15 calculated rate j7 05:39 Follow up: IV Status: Infusion continued upon admission j7 Medication: 00:28 VIS not applicable for this client. Intake: 01:47 IV: 2000ml; Total: 2000ml. 01:56 IV: 670ml; Total: 2670ml. km8 Outcome: 02:08 Decision to Hospitalize by Provider. ec2 05:19 Admitted to ICU accompanied by nurse, via stretcher, room 5, Report called to LUIS rizvi RN 05:19 Condition: improved 05:38 Patient left the ED. jj7 Signatures: Dispatcher MarkelHoMiriam Ackerman RN RN jj7 Alec Wolfe MD MD ec2 Margo Ambrose [facility] Yen Horta RN RN km8 Corrections: (The following items were deleted from the chart) 03:57 00:28 No provider procedures requiring assistance completed. km8 jj7
--- NOTE | 2023-04-15 02:09 | EDPHYS ---
Physician Documentation [facility] Name: Chris Pinto Age: 82 yrs Sex: Male : 1940 Arrival Date: 04/15/2023 Time: 00:25 Bed IW10 Private MD: ED Physician Alec Wolfe HPI: 04/15 00:31 This 82 yrs old Male presents to ER via Unassigned with complaints of ec2 weakness, fever. 00:31 Patient arrives today for evaluation of general weakness. Patient has been having ec2 increased fatigue, decreased p.o. intake as well as confusion. EMS reports that they had picked him up and noted to be febrile, subsequently given Tylenol with improvement of temperature on arrival.Family expressed concern regarding possible dehydration given lack of p.o. intake. . Historical: - Allergies: 01:38 No Known Allergies; - PMHx: 01:38 a fib; Diabetes - NIDDM; High Cholesterol; Hypertension; - PSHx: 01:38 Stented artery; - Immunization history:: Adult Immunizations unknown. - Social history:: Smoking status: unknown. ROS: 00:31 Constitutional: as per hpi ec2 Exam: 00:31 Constitutional: GEN: NAD Head: atraumatic Eyes: EOMI Ears: External ears are ec2 normal. CV: regular rate LUNGS: no respiratory distress ABD: non-distended, soft, nontender, not guarding, not rigid SKIN: no evidence of rashes MSK: no evidence of trauma NEURO: moves all extremities equally Vital Signs: 00:30 BP 87 / 43; Pulse 65; Resp 17; Pulse Ox 92% ; j7 00:45 BP 62 / 42; Pulse 60; Resp 19; Pulse Ox 92% ; 7 01:00 BP 72 / 47; Pulse 54; Resp 16; Pulse Ox 93% ; 01:15 BP 82 / 44; Pulse 59; Resp 18; Pulse Ox 96% on NC; 01:18 Weight 89 kg; km8 01:30 BP 80 / 43; Pulse 59; Resp 17; Pulse Ox 100% on NC; 02:00 BP 64 / 39; Pulse 49; Resp 17; Pulse Ox 100% on NC; 02:30 BP 160 / 69; Pulse 74; Resp 18; Pulse Ox 98% on NC; j7 02:54 BP 91 / 42; ec2 03:00 BP 169 / 63; Pulse 66; Resp 19; Pulse Ox 99% ; j7 03:30 BP 167 / 70; Pulse 81; Resp 17; Pulse Ox 99% on NC; j7 04:00 BP 69 / 31; Pulse 85; Resp 23; Pulse Ox 99% ; j7 04:30 BP 89 / 48; Pulse 67; Resp 17; Pulse Ox 98% ; j7 05:15 BP 121 / 52; Pulse 67; Resp 17; Pulse Ox 100% on NC; j7 Procedures: 02:53 Peripheral line: by aseptic technique a peripheral line was placed in the right bracial.ec2 03:53 Central Line: the site was prepped with in sterile fashion, a triple lumen catheter was ec2 inserted, in the right femoral vein, in 1 attempts. placement was verified, by blood return, the site was dressed with Tegaderm, the patient tolerated the procedure, well. MDM: 00:28 Patient medically screened. ec2 00:31 Data reviewed: vital signs. ED course: Patient arrives today for evaluation of general ec2 weakness as well as fever. Examination remarkable for nontoxic individual who is well-appearing with reassuring vital signs. Will obtain lab work, urine studies, chest x-ray as well as viral swabs. Currently considering COVID versus viral infection, pneumonia, UTI. Will give the patient crystalloid as well due to the reported dehydration.. 01:25 ED course: EKG independently reviewed and interpreted by me, shows atrial fibrillation ec2 with a rate of 57, no acute ST segment elevations, nonconcerning intervals.. 01:37 ED course: Metabolic profile shows marked renal dysfunction with a creatinine of 3.58 ec2 and a GFR of 16. UA is pertinent for hyaline casts consistent with dehydration. When compared to external records, patient with similar creatinine and GFR on last visit/admission. . 01:38 ED course: Chest x-ray shows right lung opacity. Will add on azithromycin for pneumonia ec2 coverage.. 02:07 ED course: CBC shows anemia with a hemoglobin of 7.6, lactic acid of 4.3, influenza is ec2 negative. Patient was persistently hypotensive blood pressures despite fluid administration with minimal improvement, will start him on norepinephrine. Patient with septic shock secondary to pneumonia. . 02:54 ED course: I personally placed a right brachial midline to infuse the norepinephrine.. ec2 07:19 ED course: Sepsis reassessment complete . ec2 04/15 00:31 Order name: CBC with Diff; Complete Time: 02:07 ec2 04/15 00:31 Order name: CMP; Complete Time: 01:36 ec2 04/15 00:31 Order name: SARS RAPID; Complete Time: 02:07 ec2 04/15 00:31 Order name: Influenza Screen (a \T\ B); Complete Time: 02:07 ec2 04/15 00:31 Order name: UAM; Complete Time: 01:36 ec2 04/15 01:01 Order name: Blood Culture Adult (2) ec2 04/15 01:01 Order name: Lactate w/ 2H reflex if indic.; Complete Time: 02:07 ec2 04/15 01:34 Order name: Glucose, Ancillary Testing; Complete Time: 01:36 EDMS 04/15 02:35 Order name: Lactate w/ 2H reflex if indic. EDMS 04/15 02:35 Order name: Basic Metabolic Panel EDMS 04/15 02:35 Order name: Basic Metabolic Panel EDMS 04/15 02:35 Order name: CBC with Automated Diff EDMS 04/15 02:35 Order name: CBC with Automated Diff EDMS 04/15 00:31 Order name: CXR XRAY ec2 04/15 00:42 Order name: Pelvis XRAY ec2 04/15 01:37 Order name: CT Head Brain wo Cont ec2 04/15 01:01 Order name: EKG; Complete Time: 01:01 ec2 04/15 00:31 Order name: Cath; Complete Time: 00:42 ec2 04/15 01:01 Order name: Accucheck; Complete Time: 01:35 ec2 04/15 01:01 Order name: Cardiac monitoring; Complete Time: 01:35 ec2 04/15 01:01 Order name: EKG - Nurse/Tech; Complete Time: 01:35 ec2 04/15 01:01 Order name: IV Saline Lock - Large Bore; Complete Time: 01:35 ec2 04/15 01:01 Order name: Labs collected and sent; Complete Time: 01:35 2 04/15 01:01 Order name: O2 Per Protocol; Complete Time: 01:35 ec2 04/15 01:01 Order name: O2 Sat Monitoring; Complete Time: ec2 04/15 01:01 Order name: Vital Signs; Complete Time: ec2 Administered Medications: 01:22 Drug: NS 0.9% IV 2000 ml IV at 1 bolus Per protocol; 1000 mL bolus Route: IV; Rate: 1 km8 bolus; Site: left antecubital; 01:47 Follow up: IV Status: Completed infusion; IV Intake: 2000ml km8 02:00 Follow up: IV Status: Completed infusion jj7 01:30 Drug: Rocephin IV 1 grams IV at calculated rate once; Given slow IV push per pharmacy km8 instructions Route: IV; Rate: calculated rate; Site: left antecubital; :47 Follow up: IV Status: Completed infusion 8 01:47 Drug: NS 0.9% IV (30 ml/kg) 30 ml/kg IV at bolus once; Sepsis Protocol, minus the 2L km8 already ordered Route: IV; Rate: bolus; Site: right forearm; 01:56 Follow up: IV Status: Completed infusion; IV Intake: 670ml km8 02:00 Follow up: IV Status: Completed infusion j7 01:56 Drug: AZITHromycin IVPB 500 mg IVPB once over 1 hrs; (mix in 250 mL NS) Route: IVPB; km8 Infused Over: 1 hrs; Site: right forearm; 03:00 Follow up: IV Status: Completed infusion jj7 02:19 Drug: Norepinephrine IV 0.1 mcg/kg/min IV at calculated rate Per protocol; (Standard jj7 concentration 4 mg / 250 mL D5W); Recommended max rate 3 mcg/kg/min; Titrate 0.05 mcg/kg/min as often as every 5 minutes to achieve goal (see titration policy); Goal parameter MAP greater than 65 mmHg. Route: IV; Rate: calculated rate; Site: left antecubital; 04:35 Follow up: Rate change 0.1 calculated rate jj7 05:11 Follow up: Rate change 0.15 calculated rate jj7 05:39 Follow up: IV Status: Infusion continued upon admission jj7 Disposition Summary: 04/15/23 02:08 Hospitalization Ordered Notes: Hospitalization Status: Inpatient Admission ec2 Provider: Diony Wong ec2 Location: Intensive Care Unit ec2 Condition: Stable ec2 Problem: new ec2 Symptoms: are unchanged ec2 Bed/Room Type: Standard ec2 Room Assignment: 5-(04/15/23 02:48) jr12 Diagnosis - Severe sepsis with septic shock ec2 - Unspecified bacterial pneumonia ec2 Forms: - Medication Reconciliation Form ec2 - SBAR form ec2 - Leadership Thank You Letter ec2 Critical care time excluding procedures: 02:09 Critical care time: Bedside Care: 30 minutes, Consultation: 5 minutes. Total time: 35 ec2 minutes Signatures: Dispatcher [employer] Miriam Ponce, RN RN jj7 Alec Wolfe MD MD 2 Margo Ambrose 12 Yen Horta RN RN km8 Corrections: (The following items were deleted from the chart) 00:32 00:31 Patient arrives today for evaluation of general weakness. Patient has been having ec2 increased fatigue, decreased p.o. intake as well as confusion. EMS reports that they had picked him up and noted to be febrile, subsequently given Tylenol with improvement of temperature on arrival.. ec2 02:48 02:08 ec2 jr12 02:54 02:53 Central Line: the site was prepped with Betadine, a single lumen catheter was ec2 inserted, in the left ec2
[2023-04-15] MEDS ORDERED: NOREPINEPHRINE BITARTRATE/D5W 4 MG/250 ML BAG IV ONE ×3 (02:10→11:34)
[2023-04-15] MEDS ORDERED: ACETAMINOPHEN 325 MG TABLET PO PRN (02:30)
[2023-04-15] MEDS ORDERED: ONDANSETRON 4 MG/2 ML VIAL IV PRN (02:30)
--- NOTE | 2023-04-15 02:30 | P.HP ---
Certification for Inpatient Patient admitted to: Inpatient With expected LOS: >2 Midnights Practitioner: I am a practitioner with admitting privileges, knowledge of patient current condition, hospital course, and medical plan of care. Services: Services provided to patient in accordance with Admission requirements found in Title 42 Section 412.3 of the Code of Federal Regulations Patient History Date of Service: 04/15/23 Reason for admission: Sepsis, UTI, deconditioning. History of Present Illness: 82-year-old male patient with medical history significant for hypertension, h yperlipidemia, hypothyroidism and depression was evaluated for episode of weakness, low blood pressure and suspicion for underlying septic condition. UA was concerning for urinary tract infection and he had significantly low blood pressure warranting multiple boluses of isotonic fluid and vasopressor support. He was admitted for inpatient care and put in ICU. He denied overt episode of fever, chills, rigor, nausea, vomiting, diarrhea. He did appear clinically very dry and he was on diuretic therapy for blood pressure control prior to admission. Allergies No Known Allergies Allergy (Verified 06/25/22 20:56) Home Medications: Ascorbic Acid [Vitamin C*] 500 mg PO DAILY 06/21/20 Cholecalciferol (Vitamin D3) [Vitamin D3] 1,000 unit PO DAILY 06/21/20 Multivitamin [Daily Multivitamin] 1 tab PO DAILY 06/21/20 Rosuvastatin Calcium 10 mg PO DAILY 06/21/20 Sertraline HCl 100 mg PO DAILY 06/21/20 Amlodipine [Norvasc*] 5 mg PO DAILY 06/25/22 Ferrous Gluconate 1 tab PO DAILY 06/25/22 Fiber [Fiber Diet] 1 tab PO DAILY 06/25/22 Levothyroxine Sodium 1 tab PO DAILY 06/25/22 Losartan/Hydrochlorothiazide [Losartan-Hctz 100-25 mg Tab] 1 tab PO DAILY 06/25/22 Mecobalamin [B12 Active] 1 tab PO DAILY 06/25/22 Pantoprazole [Protonix Tab*] 1 tab PO DAILY 06/25/22 Nepro Shake [Nepro*] 237 ml PO TID #90 can 06/30/22 - Past Medical/Surgical History Diabetic: Yes -: [id number] diabetes -: HTN -: HLD -: GERD -: Depression -: BPH -: Chronic diastolic congestive heart failure -: Atrial fibrillation status post Watchman procedure -: knee replacement -: shoulder surgery Psychosocial/ Personal History: Patient lives at home with his family - Social History Alcohol use: No CD- Drugs: No Caffeine use: Yes Review of Systems General: Weakness, Malaise Eyes: Unremarkable ENT: Unremarkable Respiratory: Unremarkable Cardiovascular: Unremarkable Gastrointestinal: Unremarkable Genitourinary: Unremarkable Musculoskeletal: Unremarkable Integumentary: Unremarkable Neurological: Unremarkable Lymphatics: Unremarkable Physical Examination - Physical Exam General: Alert, Oriented x3 HEENT: Atraumatic Neck: Supple Respiratory: Normal air movement Cardiovascular: Regular rate/rhythm, Normal S1 S2 Gastrointestinal: Soft and benign Musculoskeletal: No swelling, Other (Dry skin with skin wrinkles noted.) Neurological: Normal speech - Studies Laboratory Data (last 24 hrs) 04/15/23 04/15/23 01:03 01:03 WBC 11.30 H Hgb 7.6 L Hct 24.6 L Plt Count 235 Sodium 137 Potassium 4.2 BUN 51 H Creatinine 3.58 H Glucose 115 H Total Bilirubin 0.9 AST 38 H ALT 18 Alkaline Phosphatase 97 Microbiology Data (last 24 hrs): 04/15/23 01:03 Nasopharnyx Influenza Type A Antigen Screen - Final 04/15/23 01:03 Nasopharnyx Influenza Type B Antigen Screen - Final Assessment and Plan - Plan Sepsis: Present on admission. Evidenced by elevated lactic acid and low blood pressure. Patient presently requiring vasopressor support despite multiple boluses of isotonic fluid. Will continue to monitor lactic acid reflexively. Continue isotonic fluid administration. Follow cultures for adjustment of antibiotic therapy. Empiric antibiotic therapy with Rocephin to be continued for suspected UTI Urinary tract infection: Clinically concerning and UA significantly concerning. Continue Rocephin therapy pending urine culture finalization. Shock: Patient is requiring vasopressor support. Will continue to maintain the mean arterial pressure of 65 mmHg or more for vitals organ perfusion. Prophylaxis: Lovenox for DVT prophylaxis CODE STATUS: Full code Disposition: We will treat his urinary tract infection and he will be discharged once he is deemed clinically stable. - Advance Directives Does patient have a Living Will: No Does patient have a Durable POA for Healthcare: No
[2023-04-15] MEDS ORDERED: LIDOCAINE 1% 20 ML MDV ONE (03:12)
[2023-04-15] MEDS ORDERED: NOREPINEPHRINE 4 MG in D5W 250 ML IV SCH (06:08)
[2023-04-15] MEDS ORDERED: NA CHLORIDE 0.9% 1,000 ML ONE (06:19)
[2023-04-15] MEDS: NA CHLORIDE 0.9% 1,000 ML IV SCH ×2 (06:20→18:49)
[2023-04-15] MEDS: HEPARIN 5000 UNIT/ML 1 ML VIAL SQ SCH ×2 (08:14→18:49)
--- NOTE | 2023-04-15 08:19 | P.CNS ---
Date of Consult: 04/15/23 Reason for Consult: JILL/ CKD Requesting Physician: Fredi Arrieta Chief Complaint: Sepsis, UTI, deconditioning. History of Present Illness: 82-year-old male patient with medical history significant for hypertension, hyperlipidemia, hypothyroidism and depression was evaluated for episode of weakness, low blood pressure and suspicion for underlying septic condition. UA was concerning for urinary tract infection and he had significantly low blood pressure warranting multiple boluses of isotonic fluid and vasopressor support. He was admitted for inpatient care and put in ICU. He denied overt episode of fever, chills, rigor, nausea, vomiting, diarrhea. He did appear clinically very dry and he was on diuretic therapy for blood pressure control prior to admission. 00:31 This 82 yrs old Male presents to ER via Unassigned with complaints of ec2 weakness, fever. 00:31 Patient arrives today for evaluation of general weakness. Patient has been having ec2 increased fatigue, decreased p.o. intake as well as confusion. EMS reports that they had picked him up and noted to be febrile, subsequently given Tylenol with improvement of temperature on arrival.Family expressed concern regarding possible dehydration given lack of p.o. intake. No NSAIDs. No difficulties with urination. Poor historian. Allergies No Known Allergies Allergy (Verified 06/25/22 20:56) Home medications list reviewed: Yes Home Medications: Ascorbic Acid [Vitamin C*] 500 mg PO DAILY 06/21/20 Cholecalciferol (Vitamin D3) [Vitamin D3] 1,000 unit PO DAILY 06/21/20 Multivitamin [Daily Multivitamin] 1 tab PO DAILY 06/21/20 Rosuvastatin Calcium 10 mg PO DAILY 06/21/20 Sertraline HCl 100 mg PO DAILY 06/21/20 Amlodipine [Norvasc*] 5 mg PO DAILY 06/25/22 Levothyroxine Sodium 1 tab PO DAILY 06/25/22 Mecobalamin [B12 Active] 1 tab PO DAILY 06/25/22 Pantoprazole [Protonix Tab*] 1 tab PO DAILY 06/25/22 Nepro Shake [Nepro*] 237 ml PO TID #90 can 06/30/22 - Past Medical/Surgical History Diabetic: Yes -: DM II -: HTN -: CKD III with Proteinuria (Dr. Watts/ Dr. Wise) -: Chronic diastolic congestive heart failure -: Atrial fibrillation status post Watchman procedure -: HLD -: BPH -: GERD -: Depression -: knee replacement -: shoulder surgery Psychosocial/ Personal History: Patient lives at home with his family - Social History Smoking Status: Unknown if ever smoked Alcohol use: No CD- Drugs: No Caffeine use: Yes Review of Systems 10-point ROS is otherwise unremarkable General: Weakness, Malaise Physical Examination Temp Pulse Resp BP Pulse Ox 98.2 F 63 18 113/61 100 04/15/23 07:15 04/15/23 07:15 04/15/23 07:15 04/15/23 07:15 04/15/23 06:41 General: In no apparent distress, Cooperative HEENT: Atraumatic Neck: Supple Respiratory: Clear to auscultation bilaterally (except right anterior base) Cardiovascular: No edema, Regular rate/rhythm Gastrointestinal: Soft and benign, Non-distended Musculoskeletal: No clubbing, No contractures Integumentary: No rashes, Skin lesion Neurological: Normal speech Laboratory Data (last 24 hrs) 04/15/23 04/15/23 01:03 01:03 WBC 11.30 H Hgb 7.6 L Hct 24.6 L Plt Count 235 Sodium 137 Potassium 4.2 BUN 51 H Creatinine 3.58 H Glucose 115 H Total Bilirubin 0.9 AST 38 H ALT 18 Alkaline Phosphatase 97 Imagings Data: darrenrice EXAM DESCRIPTION: CT - Chest Abd Pelvis Wo Con - 04/15/2023 10:06 am CLINICAL HISTORY: jill R/O obstruction COMPARISON: No comparisons TECHNIQUE: Thin axial CT images of the chest, abdomen, and pelvis, performed without IV contrast. Multiplanar reformats were generated and reviewed. All CT scans are performed using dose optimization technique as appropriate and may include automated exposure control or mA/KV adjustment according to patient size. FINDINGS: Moderate to large right and trace left layering pleural effusions. Underlying up to segmental airspace opacification, most pronounced in the dependent right lower lobe. Moderate to marked cardiomegaly.No pneumothorax or pericardial effusion.No intrathoracic adenopathy. The liver shows mildly nodular contour which may relate to fibrosis or early cirrhosis. Spleen, pancreas, adrenal glands and kidneys are within normal limits. No bowel obstruction, free air, or abscess. Small volume free ascites. Mild prostatomegaly. No pathologic lymphadenopathy in the abdomen or pelvis. No worrisome osseous finding. IMPRESSION: Bilateral pleural effusions, moderate to large on the right and small on the left. Underlying airspace dependent opacities, may relate to atelectasis, however superimposed infection/ pneumonia would be difficult to exclude. Small volume free ascites. Moderate to marked cardiomegaly. Mildly nodular contour of the liver which may relate to fibrosis or early cirrhosis. darrenrice EXAM DESCRIPTION: RAD - Chest Lateral Decubitus - 04/15/2023 3:00 pm CLINICAL HISTORY: R sided effusion COMPARISON: Chest Single View dated 04/15/2023; Chest Abd Pelvis Wo Con dated 04/15/2023 FINDINGS: Left-sided up decubitus view is quite limited due to patient positioning. Right-sided pleural effusion appears to measure 4-5 cm in maximum thickness. The fluid appears largely free-flowing. Conclusions/Impression: Stage II JILL in the setting of Sepsis with hypotension. ATN? CKD III with Proteinuria -No NSAIDs -Continue IVF -Vasopressor therapy to maintain perfusion HTN with CKD/ CHF complicated by hypotension -Continue Levophed -IVF bolus prn Diastolic CHF, chronic Right Pleural Effusion -Daily weight -Echocardiogram pending -May need thoracentesis DM II with CKD -Recommend RISS Hypoalbuminemia -Consider protein supplementation Anemia in chronic illness Iron Deficiency 13.5% -Monitor H&H -Consider IV iron BPH with LUTS -Monitor for retention Suspected Sepsis with shock -Continue abx -Follow up cultures Hospitalist and ER notes reviewed Thank you kindly for the consultation Greater than 30min patient care
[2023-04-15] MEDS ORDERED: CEFTRIAXONE 1,000 MG in NA CHLORIDE 0.9% 50 ML IVPB SCH (09:00)
[2023-04-15 09:08] LABS: Protime INR 1.53
[2023-04-15 09:11] LABS: Absolute Lymphocytes (CBC) 0.5 K/uL (0.7-4.9); Hematocrit 27.6 % (39.6-49.0); Lymphocytes % 2.5 % (15.3-44.8); MCV 70.7 fL (80-100); MPV 8.4 fL (7.6-11.3); Platelets 280 thou/uL (152-406)
[2023-04-15 09:27] LABS: Albumin 2.6 g/dL (3.4-5.0); Bilirubin Total 0.8 mg/dL (0.2-1.0); Magnesium 2.3 mg/dL (1.6-2.4); Phosphorus 3.6 mg/dL (2.5-4.9); Potassium 4.4 mEq/L (3.5-5.1); Protein, Total 6.9 g/dL (6.4-8.2); Thyroid Stimulating Hormone 1.82 uIU/mL (0.358-3.740)
--- NOTE | 2023-04-15 09:45 | P.PN ---
Date of Service: 04/15/23 Subjective: Oriented x 2, confused No distress, no acute events overnight ROS: 10 point ROS as noted above, otherwise negative Physical exam GEN: Alert, oriented x2 , NAD HEENT: Normal conjunctiva, sclera anicteric CV: Regular rate and rhythm, no edema Pulm: Nonlabored respirations on room air ABD: Soft, nontender, nondistended MSK: No joint tenderness Integumentary: No rashes Neuro: Normal speech, normal affect Vitals reviewed Problem List Septic shock secondary to suspected urinary tract infection Stage II JILL with underlying CKD 3 Chronic diastolic distal heart failure Diabetes mellitus type 2 Anemia of chronic disease BPH Hypertension Hyperlipidemia Hypothyroidism Plan Septic shock secondary to suspected urinary tract infection Continue vasopressor therapy Continue broad-spectrum antibiotics with vancomycin, cefepime Await urine and blood culture results Wean off vasopressors as tolerated Stage II JILL with underlying CKD 3 Nephrology following Continue vasopressor to maintain BP Monitor renal function daily Chronic diastolic distal heart failure Does not appear to be overloaded at this time, continue vasopressors Monitor volume status closely Diabetes mellitus type 2 ACHS Accu-Chek, sliding scale insulin Anemia of chronic disease Monitor H&H Transfuse as needed BPH CT abdomen to rule out obstruction Continue home medication Hypertension Hold oral antihypertensives given hypotension, septic shock Resume when appropriate and when blood pressure is persistently elevated Hyperlipidemia Continue statin Hypothyroidism Obtain thyroid panel, restart home medication VTE: Heparin subcu Code: Full Dispo: 3 to 4 days Time Spent Managing Pts Care (In Minutes): 35
[2023-04-15] MEDS ORDERED: VANCOMYCIN 1 GM in NA CHLORIDE 0.9% 250 ML IVPB SCH (09:46)
[2023-04-15 10:16] LABS: Anisocytosis 2+; Blood Morphology Comment NOTED (NOT SEEN); Dohle Bodies PRESENT; Hypochromasia 1+; Platelet Estimate ADEQ
[2023-04-15] MEDS: VANCOMYCIN 1.5 GM in NA CHLORIDE 0.9% 500 ML IVPB SCH (11:42)
--- NOTE | 2023-04-15 11:53 | RAD REPORT ---
EXAM DESCRIPTION: CT - Chest Abd Pelvis Wo Con - 04/15/2023 10:06 am CLINICAL HISTORY: fernanda R/O obstruction COMPARISON: No comparisons TECHNIQUE: Thin axial CT images of the chest, abdomen, and pelvis, performed without IV contrast. Mu ltiplanar reformats were generated and reviewed. All CT scans are performed using dose optimization technique as appropriate and may include automated exposure control or mA/KV adjustment according to patient size. FINDINGS: Moderate to large right and trace left layering pleural effusions. Underlying up to segmen mariza airspace opacification, most pronounced in the dependent right lower lobe. Moderate to marked car diomegaly.No pneumothorax or pericardial effusion.No intrathoracic adenopathy. The liver shows mildly nodular contour which may relate to fibrosis or early cirrhosis. Spleen, pancr eas, adrenal glands and kidneys are within normal limits. No bowel obstruction, free air, or abscess. Small volume free ascites. Mild prostatomegaly. No patho logic lymphadenopathy in the abdomen or pelvis. No worrisome osseous finding. IMPRESSION: Bilateral pleural effusions, moderate to large on the right and small on the left. Underlying airspace dependent opacities, may relate to atelectasis, however superimposed infection/ p neumonia would be difficult to exclude. Small volume free ascites. Moderate to marked cardiomegaly. Mildly nodular contour of the liver which may relate to fibrosis or early cirrhosis.
[2023-04-15] MEDS: NOREPINEPHRINE BITARTRATE/D5W 4 MG/250 ML BAG IV SCH ×2 (12:00→13:00)
--- NOTE | 2023-04-15 15:28 | RAD REPORT ---
EXAM DESCRIPTION: RAD - Chest Lateral Decubitus - 04/15/2023 3:00 pm CLINICAL HISTORY: R sided effusion COMPARISON: Chest Single View dated 04/15/2023; Chest Abd Pelvis Wo Con dated 04/15/2023 FINDINGS: Left-sided up decubitus view is quite limited due to patient positioning. Right-sided pleu ral effusion appears to measure 4-5 cm in maximum thickness. The fluid appears largely free-flowing.
--- NOTE | 2023-04-15 15:52 | P.CNS ---
Date of Consult: 04/15/23 Reason for Consult: Shock right-sided pleural effusion Chief Complaint: Sepsis, UTI, deconditioning. History of Present Illness: Patient is 82 years of age with a history of hypertension hyperlipidemia apparently recently got sick became unresponsive lost control of his bowel lives with his granddaughter ended up here in the hospital with hypotension currently he is on IV fluids on vasopressors to have significant right-sided pleural effusion patient is currently alert very comfortable oriented chronic renal failure Allergies No Known Allergies Allergy (Verified 06/25/22 20:56) Home Medications: Ascorbic Acid [Vitamin C*] 500 mg PO DAILY 06/21/20 Cholecalciferol (Vitamin D3) [Vitamin D3] 1,000 unit PO DAILY 06/21/20 Multivitamin [Daily Multivitamin] 1 tab PO DAILY 06/21/20 Rosuvastatin Calcium 10 mg PO DAILY 06/21/20 Sertraline HCl 100 mg PO DAILY 06/21/20 Amlodipine [Norvasc*] 5 mg PO DAILY 06/25/22 Levothyroxine Sodium 1 tab PO DAILY 06/25/22 Losartan/Hydrochlorothiazide [Losartan-Hctz 100-25 mg Tab] 1 tab PO DAILY 06/25/22 Mecobalamin [B12 Active] 1 tab PO DAILY 06/25/22 Pantoprazole [Protonix Tab*] 1 tab PO DAILY 06/25/22 Nepro Shake [Nepro*] 237 ml PO TID #90 can 06/30/22 - Past Medical/Surgical History Diabetic: Yes -: DM II -: HTN -: HLD -: GERD -: Depression -: BPH -: Chronic diastolic congestive heart failure -: Atrial fibrillation status post Watchman procedure -: knee replacement -: shoulder surgery Psychosocial/ Personal History: Patient lives at home with his family - Social History Smoking Status: Unknown if ever smoked Alcohol use: No CD- Drugs: No Caffeine use: Yes Place of Residence: Home Review of Systems 10-point ROS is otherwise unremarkable General: Weakness Physical Examination Temp Pulse Resp BP Pulse Ox 97.5 F 94 H 16 96/49 L 98 04/15/23 11:30 04/15/23 14:45 04/15/23 14:45 04/15/23 14:45 04/15/23 14:45 General: Alert, In no apparent distress, Oriented x3 Neck: Supple Respiratory: Clear to auscultation bilaterally Cardiovascular: No edema, Normal S1 S2 Gastrointestinal: Normal bowel sounds, Soft and benign Laboratory Data (last 24 hrs) 04/15/23 04/15/23 01:03 01:03 WBC 11.30 H Hgb 7.6 L Hct 24.6 L Plt Count 235 Sodium 137 Potassium 4.2 BUN 51 H Creatinine 3.58 H Glucose 115 H Total Bilirubin 0.9 AST 38 H ALT 18 Alkaline Phosphatase 97 - Problems (1) Shock Current Visit: Yes Status: Acute Plan: Patient is 82 years of age admitted with sudden onset of altered mental status apparently he was hypotensive currently on vasopressors he has a significant right-sided pleural effusion cardiomegaly history of A-fib not on anticoagulants patient's white count is elevated anemia of chronic disease he has chronic renal failure urinalysis is negative he will need a thoracentesis on the right side I informed the daughter and the patient continue with IV fluids for now
[2023-04-15] MEDS: METHYLPREDNISOLONE 40 MG INJ IV SCH (21:39)
[2023-04-16] MEDS: HEPARIN 5000 UNIT/ML 1 ML VIAL SQ SCH ×3 (00:11→18:04)
[2023-04-16] MEDS ORDERED: NA CHLORIDE 0.9% 1,000 ML ONE (04:34)
[2023-04-16] MEDS: NA CHLORIDE 0.9% 1,000 ML IV SCH ×2 (05:01→09:00)
[2023-04-16 05:54] LABS: Hematocrit 23.6 % (39.6-49.0); MCV 70.5 fL (80-100); MPV 8.7 fL (7.6-11.3); Platelets 223 thou/uL (152-406); RBC Red Blood Cell Count 3.35 M/uL (4.33-5.43)
[2023-04-16 06:09] LABS: Albumin 2.3 g/dL (3.4-5.0); Bilirubin Total 0.7 mg/dL (0.2-1.0); Magnesium 2.4 mg/dL (1.6-2.4); Phosphorus 3.9 mg/dL (2.5-4.9); Potassium 4.2 mEq/L (3.5-5.1); Protein, Total 6.2 g/dL (6.4-8.2); Uric Acid 9.7 mg/dL (3.5-7.2)
[2023-04-16 06:25] VITALS: BMI 25.0
[2023-04-16] MEDS ORDERED: NA CHLORIDE 0.9% 250 ML IV SCH (08:00)
--- NOTE | 2023-04-16 08:03 | RAD REPORT ---
EXAM DESCRIPTION: RADChest Single View04/16/2023 6:10 am CLINICAL HISTORY: f/u effusion COMPARISON: Chest Single View dated 04/15/2023; Chest Single View dated 06/24/2022; Chest Pa And Lat ( 2 Views) dated 01/30/2021; Chest Single View dated 06/20/2020 TECHNIQUE: Portable AP view of the chest. FINDINGS: Progressive right moderate pleural effusion and patchy airspace opacities throughout the r ight lung. Left lung remains clear apart from central mild interstitial opacities. No pneumothorax o r left effusion. Stable cardiomegaly. Mediastinal contours are unremarkable. IMPRESSION: Progressive right-sided effusion and patchy right airspace opacities, concerning for pne umonia.
[2023-04-16 08:04] LABS: Ferritin 155.7 ng/mL (26-388)
[2023-04-16] MEDS ORDERED: CEFEPIME 1 GM in NA CHLORIDE 0.9% 100 ML IV SCH (09:00)
--- NOTE | 2023-04-16 10:03 | RAD REPORT ---
EXAM DESCRIPTION: RAD - Pelvis - 04/15/2023 12:51 am CLINICAL HISTORY: Bruising. COMPARISON: None. TECHNIQUE: Single view AP pelvic radiograph. FINDINGS: No acute osseous abnormality identified. Bilateral hip joint alignment is maintained. No s acroiliac or pubic symphyseal joint space widening. No concerning osseous lesion or avascular necrosi s. Prominent calcific atherosclerosis. Lower lumbar spine degenerative changes. IMPRESSION: No acute osseous abnormality identified. Electronically signed by: Cecilia Dougherty MD 04/15/2023 12:58 AM CHAMFERING MACHINE OPERATOR Due to temporary technical issues with the PACS/Fluency reporting system, reports are being signed by the in house radiologist without review as a courtesy to ensure prompt reporting. The interpreting r adiologist is fully responsible for the content of the report.
[2023-04-16 10:10] LABS: Specific Gravity 1.016 (1.005-1.030); Urine Bacteria <20 /HPF (<20); Urine Bilirubin NEGATIVE (Negative); Urine Blood Trace (Negative); Urine Clarity Turbid (Clear); Urine Color Yellow (Yellow); Urine Glucose NEGATIVE (Negative); Urine Mucus Slight /HPF (None Seen); Urine Protein NEGATIVE (Negative); Urine Urobilinogen Normal (Normal)
[2023-04-16 10:31] LABS: UR CL RANDOM < 12 mmol/L (25-40); UR SODIUM 19 mmol/L (27-287)
--- NOTE | 2023-04-16 10:45 | P.PN ---
Date of Service: 04/16/23 Vital Signs Temp Pulse Resp BP Pulse Ox 97.2 F 60 16 113/62 97 04/16/23 04:00 04/16/23 06:00 04/16/23 06:00 04/16/23 06:00 04/16/23 06:00 Medications Acetaminophen (Acetaminophen 325 Mg Tablet) 650 mg PO Q4HP PRN PRN Reason: Pain scale 2-4 (Mild) Heparin Sodium (Porcine) (Heparin 5000 Unit/Ml 1 Ml Vial) 5,000 unit SQ Q8HR [facility] Last Admin: 04/16/23 04:00 Dose: Not Given Sodium Chloride (Ns 1000 Ml Ivbag) 1,000 mls @ 100 mls/hr IV .Q10H [facility] Last Admin: 04/16/23 05:01 Dose: 1,000 mls Cefepime HCl 1 gm/ Sodium (Chloride) 100 mls @ 200 mls/hr IV DAILY [facility]; Protocol Vancomycin HCl 1.5 gm/ Sodium (Chloride) 500 mls @ 250 mls/hr IVPB Q36H [facility] Last Admin: 04/15/23 11:42 Dose: 500 mls Norepinephrine/Dextrose (Levophed 4 Mg/250 Ml-D5w) 4 mg in 250 mls @ 33.084 mls/hr IV [facility]; Protocol Last Titration: 04/15/23 19:45 Dose: 0 mcg/kg/min, 0 mls/hr Sodium Chloride (Sodium Chloride) 250 mls @ 0 mls/hr IV .Q0M [facility] Methylprednisolone Sodium Succinate (Methylprednisolone 40 Mg Inj) 40 mg IV Q12H [facility] Last Admin: 04/15/23 21:39 Dose: 40 mg Ondansetron HCl (Ondansetron 4 Mg/2 Ml Vial) 4 mg IV Q6HP PRN PRN Reason: NAUSEA / VOMITING Microbiology Results 04/15/23 01:13 Blood - Blood Aerobic Blood Culture - Preliminary No growth in 24 hours. 04/15/23 01:13 Blood - Blood Anaerobic Blood Culture - Preliminary 04/15/23 01:13 Blood - Blood Gram Stain - Final 04/15/23 01:03 Blood - Blood Aerobic Blood Culture - Preliminary No growth in 24 hours. 04/15/23 01:03 Blood - Blood Anaerobic Blood Culture - Preliminary No growth in 24 hours. 04/15/23 01:03 Nasopharnyx Influenza Type A Antigen Screen - Final 04/15/23 01:03 Nasopharnyx Influenza Type B Antigen Screen - Final Assessment/ Plan: Nephrology Feeling better No dyspnea No chest pain No acute events overnight Seen and examined in ultrasound during thoracentesis General: In no apparent distress, Cooperative HEENT: Atraumatic Neck: Supple Respiratory: Clear to auscultation bilaterally (except right anterior base) Cardiovascular: No edema, Regular rate/rhythm Gastrointestinal: Soft and benign, Non-distended Musculoskeletal: No clubbing, No contractures Integumentary: No rashes, Skin lesion Neurological: Normal speech Laboratory Data (last 24 hrs) 04/15/23 04/15/23 01:03 01:03 WBC 11.30 H Hgb 7.6 L Hct 24.6 L Plt Count 235 Sodium 137 Potassium 4.2 BUN 51 H Creatinine 3.58 H Glucose 115 H Total Bilirubin 0.9 AST 38 H ALT 18 Alkaline Phosphatase 97 Imagings Data: darrenrice EXAM DESCRIPTION: CT - Chest Abd Pelvis Wo Con - 04/15/2023 10:06 am CLINICAL HISTORY: jill R/O obstruction COMPARISON: No comparisons TECHNIQUE: Thin axial CT images of the chest, abdomen, and pelvis, performed without IV contrast. Multiplanar reformats were generated and reviewed. All CT scans are performed using dose optimization technique as appropriate and may include automated exposure control or mA/KV adjustment according to patient size. FINDINGS: Moderate to large right and trace left layering pleural effusions. Underlying up to segmental airspace opacification, most pronounced in the dependent right lower lobe. Moderate to marked cardiomegaly.No pneumothorax or pericardial effusion.No intrathoracic adenopathy. The liver shows mildly nodular contour which may relate to fibrosis or early cirrhosis. Spleen, pancreas, adrenal glands and kidneys are within normal limits. No bowel obstruction, free air, or abscess. Small volume free ascites. Mild prostatomegaly. No pathologic lymphadenopathy in the abdomen or pelvis. No worrisome osseous finding. IMPRESSION: Bilateral pleural effusions, moderate to large on the right and small on the left. Underlying airspace dependent opacities, may relate to atelectasis, however superimposed infection/ pneumonia would be difficult to exclude. Small volume free ascites. Moderate to marked cardiomegaly. Mildly nodular contour of the liver which may relate to fibrosis or early cirrhosis. darrenrice EXAM DESCRIPTION: RAD - Chest Lateral Decubitus - 04/15/2023 3:00 pm CLINICAL HISTORY: R sided effusion COMPARISON: Chest Single View dated 04/15/2023; Chest Abd Pelvis Wo Con dated 04/15/2023 FINDINGS: Left-sided up decubitus view is quite limited due to patient posit ioning. Right-sided pleural effusion appears to measure 4-5 cm in maximum thickness. The fluid appears largely free-flowing. Conclusions/Impression: Stage II JILL in the setting of Sepsis with hypotension complicated by hypovolemia. ATN? CKD III with Proteinuria -No NSAIDs -Change IVF to LR HTN with CKD/ CHF complicated by hypotension -Continue Levophed prn -IVF bolus prn Diastolic CHF, chronic Right Pleural Effusion -Daily weight -Echocardiogram pending -Follow up thoracentesis DM II with CKD -RISS prn Hypoalbuminemia -Start Nepro Anemia in chronic illness Iron Deficiency 4.6%% -Monitor H&H -PRBC prn -Start IV iron daily BPH with LUTS -Monitor for retention Suspected Sepsis with shock Unclear source -Continue abx -Follow up cultures Hospitalist note reviewed Case discussed with Dr. Arrieta
--- NOTE | 2023-04-16 10:48 | RAD REPORT ---
EXAM DESCRIPTION: RAD - Chest Single View - 04/15/2023 12:51 am CLINICAL HISTORY: Eval for pna. COMPARISON: None. TECHNIQUE: Single view AP chest radiograph(s). FINDINGS: Right lung base opacification with an adjacent small or medium sized pleural effusion. No pneumothorax. Moderate cardiomegaly. No significant osseous abnormality. IMPRESSION: 1. Right lung base opacification with adjacent pleural effusion. Differential includes pneumonia. 2. Moderate cardiomegaly. Electronically signed by: Cecilia Dougherty MD 04/15/2023 12:58 AM RETAIL SHIFT MANAGER Due to temporary technical issues with the PACS/Fluency reporting system, reports are being signed by the in house radiologist without review as a courtesy to ensure prompt reporting. The interpreting r adiologist is fully responsible for the content of the report.
[2023-04-16 10:49] LABS: UR MICROALBUMIN 0.7 mg/dL (< 1.9); UR PROTEIN 18.9 mg/dL (<11.9); Urine Protein/Creatinine Ratio 0.18 ratio (<0.15)
[2023-04-16] MEDS ORDERED: Ringers Lactate 1,000 ML IV SCH (11:00)
--- NOTE | 2023-04-16 11:29 | P.PN ---
Date of Service: 04/16/23 Subjective: Oriented x 2, confused No distress, no acute events overnight ROS: 10 point ROS as noted above, otherwise negative Physical exam GEN: Alert, oriented x2 , NAD HEENT: Normal conjunctiva, sclera anicteric CV: Regular rate and rhythm, no edema Pulm: Nonlabored respirations on room air ABD: Soft, nontender, nondistended MSK: No joint tenderness Integumentary: No rashes Neuro: Normal speech, normal affect Vitals reviewed Problem List Septic shock secondary to suspected urinary tract infection/pneumonia Large right pleural effusion Stage II JILL with underlying CKD 3 Anemia of chronic disease Chronic diastolic distal heart failure Diabetes mellitus type 2 BPH Hypertension Hyperlipidemia Hypothyroidism Plan Septic shock secondary to suspected urinary tract infection/pneumonia Continue broad-spectrum antibiotics with vancomycin, cefepime Await urine and blood culture results Off of vasopressors as of 04/15 inlayer silver Urinalysis concerning for possible UTI, CT chest with large pleural effusion, possible superimposed pneumonia Large right pleural effusion CT chest showed bilateral pleural effusions, moderate to large on the right and small on the left. Underlying airspace dependent opacities may relate to atelectasis however superimposed infection/pneumonia would be difficult to exclude. Family reports recent admission at the end of February to [facility] for similar-reportedly had thoracentesis at that time Evaluated by pulmonology, will proceed with thoracentesis continue broad-spectrum antibiotics Stage II JILL with underlying CKD 3 Nephrology following Weaned off of vasopressor therapy Monitor renal function daily Renal function slowly improving Continue gentle IV fluids Anemia of chronic disease Hemoglobin 7.3 today, given borderline blood pressures, JILL and thoracentesis will transfuse 1 unit PRBC Monitor H&H daily Additional studies ordered Chronic diastolic distal heart failure Does not appear to be overloaded at this time Monitor volume status closely Diabetes mellitus type 2 ACHS Accu-Chek, sliding scale insulin BPH CT abdomen to rule out obstruction Continue home medication Hypertension Hold oral antihypertensives given hypotension, septic shock Resume when appropriate and when blood pressure is persistently elevated Hyperlipidemia Continue statin Hypothyroidism Obtain thyroid panel, restart home medication VTE: Heparin subcu Code: Full Dispo: 3 to 4 days Time Spent Managing Pts Care (In Minutes): 35 <Eduardo Allen - Last Filed: 04/16/23 11:25> Patient seen and examined on rounds this morning with DIRECTOR STUDENT UNION Alejandro feels better today, no new complaints, awaiting thoracentesis off pressors since 8pm 04/15 suspect anemia / hypoalbuminemia / iron def contributing to effusion - decreasing oncotic pressure transfuse 1uprbc check iron studies <Fredi Arrieta - Last Filed: 04/16/23 22:43>
--- NOTE | 2023-04-16 11:43 | ECHO ---
HEIGHT: 6 ft 3 in WEIGHT: 200 lb 4.8 oz DATE OF STUDY: 04/16/[address]: Fredi Arrieta MD 2-DIMENSIONAL: YES M.MODE: YES DOPPLER: YES COLOR FLOW: YES TDS: PORTABLE: YES DEFINITY: BUBBLE STUDY: DIAGNOSIS: HYPOTENSION, SHOCK CARDIAC HISTORY: CATHERIZATION: SURGERY: PROSTHETIC VALVE: PACEMAKER: MEASUREMENTS (cm) DIASTOLIC (NORMALS) SYSTOLIC (NORMALS) IVSd 1.0 (0.6-1.2) LA Diam 4.4 (1.9-4.0) LVEF 50-55% LVIDd 4.9 (3.5-5.7) LVIDs 3.7 (2.0-3.5) %FS 23% LVPWd 1.1 (0.6-1.2) Ao Diam 2.9 (2.0-3.7) 2 DIMENSIONAL ASSESSMENT: RIGHT ATRIUM: NORMAL LEFT ATRIUM: ENLARGED RIGHT VENTRICLE: NORMAL LEFT VENTRICLE: NORMAL TRICUSPID VALVE: MODERATE TO SEVERE TRICUSPID REGURGITATION MITRAL VALVE: MILD MITRAL REGURGITATION PULMONIC VALVE: MODERATE PULMONIC INSUFFICIENCY AORTIC VALVE: NORMAL PERICARDIAL EFFUSION: NONE AORTIC ROOT: NORMAL LEFT VENTRICULAR WALL MOTION: NORMAL DOPPLER/COLOR FLOW: SEE BELOW COMMENTS: 1. NORMAL LEFT VENTRICULAR EJECTION FRACTION 50-55% WITH NORMAL WALL MOTION 2. SEVERE DIASTOLIC DYSFUNCTION 3. MODERATE TO SEVERE TRICUSPID REGURGITATION 4. MODERATE PULMONARY INSUFFICIENCY 5. MILD MITRAL REGURGITATION 6. LEFT ATRIAL ENLARGEMENT 7. SEVERE PULMONARY HYPERTENSION WITH RIGHT VENTRICULAR SYSTOLIC PRESSURE GREATER THAN 60 mmHg TECHNOLOGIST: LUIZA RUST
[2023-04-16] MEDS ORDERED: NA CHLORIDE 0.9% 100 ML ONE (12:14)
[2023-04-16] MEDS ORDERED: METHYLPREDNISOLONE 40 MG INJ ONE (12:14)
[2023-04-16] MEDS ORDERED: Ringers Lactate 1,000 ML IV ONE (12:15)
[2023-04-16] MEDS ORDERED: CEFEPIME 1 GM/VIAL ONE (12:15)
[2023-04-16] MEDS: SOD FERRIC GLUC COMPLX/SUCROSE 125 MG in NA CHLORIDE 0.9% 100 ML IV SCH (12:21)
[2023-04-16] MEDS: METHYLPREDNISOLONE 40 MG INJ IV SCH (12:21)
[2023-04-16] MEDS: Ringers Lactate 1,000 ML IV SCH ×2 (12:21→21:00)
[2023-04-16 12:26] LABS: Appearance SLT. TURBID (CLEAR); Body Fluid Source PLEURAL; Body Fluid WBC 9540 /mm^3; Color of fluid Yellow (COLORLESS)
--- NOTE | 2023-04-16 12:27 | RAD REPORT ---
EXAM DESCRIPTION: CT - Head Brain Wo Cont - 04/15/2023 6:15 am CLINICAL HISTORY: The patient is 82 years old and is Male; fall Bed Name: 6 TECHNIQUE: Axial computed tomography images of the head/brain without intravenous contrast. Sagitt al and coronal reformatted images were created and reviewed. This CT exam was performed using one o r more of the following dose reduction techniques: automated exposure control, adjustment of the mA and/or kV according to patient size, and/or use of iterative reconstruction technique. COMPARISON: No relevant prior studies available. FINDINGS: BRAIN: Bilateral basal ganglia calcifications, nonspecific but most commonly suggestive of poorly controlled hypertension. Mild global cerebral atrophy, not greater than expected for patient age. No extra-axial fluid collection. No intracranial hemorrhage. No transtentorial herniation. No focal roe-white matter differentiation abnormality. MIDLINE SHIFT: No midline shift. VENTRICLES: Unremarkable No ventriculomegaly. BONES/JOINTS: Degenerative changes of the bilateral TMJ. No fracture of the calvarium or visualized facial bones. SOFT TISSUES: Unremarkable SINUSES: No masses, bony erosion or evidence of acute sinusitis. MASTOID AIR CELLS: Unremarkable as visualized. No mastoid effusion. ORBITS: Bilateral lens replacements. Right-sided scleral banding. IMPRESSION: No acute intracranial abnormality. Electronically signed by: Cristhian Griffin MD 04/15/2023 05:[address] ROLLER ENGINEER Due to temporary technical issues with the PACS/Fluency reporting system, reports are being signed by the in house radiologist without review as a courtesy to ensure prompt reporting. The interpreting r adiologist is fully responsible for the content of the report.
--- NOTE | 2023-04-16 12:32 | P.PN ---
Subjective Date of Service: 04/16/23 Chief Complaint: Sepsis, UTI, deconditioning. Subjective: Improving (S/p thoracentesis 1300 cc removed no new complaint) Review of Systems General: Weakness Respiratory: Shortness of Breath Physical Examination - Vital Signs Temperature: 98.5 F Blood Pressure: 109/46 Pulse: 59 Respirations: 16 Pulse Ox (%): 95 - Physical Exam General: Alert, In no apparent distress, Oriented x3 Respiratory: Diminished (On the right) Cardiovascular: No edema, Regular rate/rhythm, Normal S1 S2 - Studies Microbiology Data (last 24 hrs): 04/15/23 01:13 Blood - Blood Gram Stain - Final Assessment And Plan - Current Problems (Diagnosis) (1) Shock Current Visit: Yes Status: Acute Plan: Patient is doing better s/p thoracentesis off vasopressors patient is scheduled to have 1 unit of packed red blood cells stable to be transferred to the floor she has underlying diastolic heart failure with severe pulmonary hypertension fluid shows predominantly neutrophils
--- NOTE | 2023-04-16 13:54 | RAD REPORT ---
EXAM DESCRIPTION: US - Thoracentesis w/ US Guide - 04/16/2023 9:37 am CLINICAL HISTORY: R sided effusion COMPARISON: Liver Only dated 06/22/2020 FINDINGS: Preoperative diagnosis: Right pleural effusion. Post operative diagnosis: Same Conscious Sedation: None. Estimated blood loss: Minimal Specimens:A small volume of fluid was sent for requested lab studies. Informed consent was obtained following discussion of the risks and benefits of the procedure. Time-o ut procedure was performed. The patient was placed in the upright recumbent position and the right lo wer back was prepped and draped in the usual sterile fashion. 1% Lidocaine was infiltrated into the soft tissues for local anesthesia. Initial scanning revealed probable loculation with thin septa with in the right pleural space. Under sonographic guidance, a thoracentesis needle and 6 [place] catheter was advanced into the right pleural space. Approximately a total of 1300 mL serosanguineous pleural f luid was aspirated. Samples were sent to pathology for requested analysis. The patient tolerated the procedure without immediate complication and transferred to the floor in stable condition. IMPRESSION: Successful ultrasound-guided thoracentesis as detailed. Findings suggesting loculated ef fusion.
[2023-04-16] MEDS: NEPRO SHAKE 237 ML CAN PO SCH ×2 (14:00→21:00)
--- NOTE | 2023-04-16 17:26 | RAD REPORT ---
EXAM DESCRIPTION: RAD - Chest Single View - 04/16/2023 5:09 pm CLINICAL HISTORY: Thoracentesis IMPRESSION: A right pneumothorax is not seen status post thoracentesis
[2023-04-16] MEDS ORDERED: HEPARIN 5000 UNIT/ML 1 ML VIAL ONE (17:45)
[2023-04-16 19:01] LABS: Hematocrit 27.2 % (39.6-49.0)
[2023-04-17] MEDS: VANCOMYCIN 1.5 GM in NA CHLORIDE 0.9% 500 ML IVPB SCH (01:20)
[2023-04-17] MEDS: HEPARIN 5000 UNIT/ML 1 ML VIAL SQ SCH ×3 (01:24→16:48)
[2023-04-17] MEDS ORDERED: Ringers Lactate 1,000 ML IV ONE (05:05)
[2023-04-17] MEDS: Ringers Lactate 1,000 ML IV SCH (05:07)
[2023-04-17 06:32] LABS: Hematocrit 24.9 % (39.6-49.0); MCV 72.8 fL (80-100); MPV 8.5 fL (7.6-11.3); Platelets 216 thou/uL (152-406); RBC Red Blood Cell Count 3.43 M/uL (4.33-5.43)
[2023-04-17 06:52] LABS: Albumin 2.1 g/dL (3.4-5.0); Bilirubin Total 0.6 mg/dL (0.2-1.0); Magnesium 2.5 mg/dL (1.6-2.4); Phosphorus 4.1 mg/dL (2.5-4.9); Potassium 4.1 mEq/L (3.5-5.1); Protein, Total 5.8 g/dL (6.4-8.2)
[2023-04-17] MEDS: CEFEPIME 1 GM in NA CHLORIDE 0.9% 100 ML IV SCH ×2 (09:00→20:37)
[2023-04-17] MEDS: NEPRO SHAKE 237 ML CAN PO SCH ×3 (09:00→20:37)
[2023-04-17] MEDS: SOD FERRIC GLUC COMPLX/SUCROSE 125 MG in NA CHLORIDE 0.9% 100 ML IV SCH (09:00)
--- NOTE | 2023-04-17 09:46 | P.PN ---
Subjective Date of Service: 04/17/23 Chief Complaint: Sepsis, UTI, deconditioning. Subjective: Improving (Patient is improving no new complaint s/p blood transfusion) Review of Systems Unremarkable Physical Examination - Vital Signs Temperature: 97.6 F Blood Pressure: 129/71 Pulse: 57 Respirations: 16 Pulse Ox (%): 95 - Physical Exam General: Alert, In no apparent distress, Oriented x3 Respiratory: Clear to auscultation bilaterally, Diminished Cardiovascular: No edema (Managed on the right side), Regular rate/rhythm, Normal S1 S2 - Studies Microbiology Data (last 24 hrs): 04/15/23 01:13 Blood - Blood Gram Stain - Final Assessment And Plan - Current Problems (Diagnosis) (1) Shock Current Visit: Yes Status: Acute Plan: Patient admitted with hypotension is doing much better [place] to be transferred to the floor so far cultures are negative can DC vancomycin blood signs oxygenation all stable patient's renal function is improving with IV fluid apparently he is on multiple blood transfusion (2) Microcytic anemia Current Visit: Yes Status: Acute Plan: Patient is severely iron deficient had blood transfusion patient is also getting iron transfusion (3) Loculated pleural effusion Current Visit: Yes Status: Acute Plan: There is no evidence of any infection in the pleural fluid cytology is pending
--- NOTE | 2023-04-17 11:57 | P.PN ---
Nephrology note (S) Does not voice complaints, not on o2, BP no longer low, making urine, Cr level downward trending. Has been on IVF which I stopped this AM (O) Vitals reviewed in the EMR General: In no apparent distress, HEENT: Atraumatic, not on o2, Neck: JVD noted Respiratory: b/l air entry without rhonchi anteriorly Cardiovascular: Non tachy, no loud murmurs Gastrointestinal: Soft and benign, Non-distended Musculoskeletal: Shins non tender Neurological: Awake, responsive, Normal speech Imagings Data: darrenrice EXAM DESCRIPTION: CT - Chest Abd Pelvis Wo Con - 04/15/2023 10:06 am CLINICAL HISTORY: jill R/O obstruction COMPARISON: No comparisons TECHNIQUE: Thin axial CT images of the chest, abdomen, and pelvis, performed without IV contrast. Multiplanar reformats were generated and reviewed. All CT scans are performed using dose optimization technique as appropriate and may include automated exposure control or mA/KV adjustment according to patient size. FINDINGS: Moderate to large right and trace left layering pleural effusions. Underlying up to segmental airspace opacification, most pronounced in the dependent right lower lobe. Moderate to marked cardiomegaly.No pneumothorax or pericardial effusion.No intrathoracic adenopathy. The liver shows mildly nodular contour which may relate to fibrosis or early c irrhosis. Spleen, pancreas, adrenal glands and kidneys are within normal limits. No bowel obstruction, free air, or abscess. Small volume free ascites. Mild prostatomegaly. No pathologic lymphadenopathy in the abdomen or pelvis. No worrisome osseous finding. IMPRESSION: Bilateral pleural effusions, moderate to large on the right and small on the left. Underlying airspace dependent opacities, may relate to atelectasis, however superimposed infection/ pneumonia would be difficult to exclude. Small volume free ascites. Moderate to marked cardiomegaly. Mildly nodular contour of the liver which may relate to fibrosis or early cirrhosis. darrenrice EXAM DESCRIPTION: RAD - Chest Lateral Decubitus - 04/15/2023 3:00 pm CLINICAL HISTORY: R sided effusion COMPARISON: Chest Single View dated 04/15/2023; Chest Abd Pelvis Wo Con dated 04/15/2023 FINDINGS: Left-sided up decubitus view is quite limited due to patient positioning. Right-sided pleural effusion appears to measure 4-5 cm in maximum thickness. The fluid appears largely free-flowing. Conclusions/Impression: Stage II JILL multifactorial but in the setting of hypotension, severe anemia, other CKD III unspecified, underlying -Urine studies, low FeNa in the setting of above mentioned initially but given TTE findings and resolution of hypotension, will d/c IVF early on HTN with CKD/ CHF complicated by hypotension -BP improved, cont to monitor with anti hypertensives remaining on hold Diastolic CHF, chronic Pulm HTN unspecified -Monitor clinically, assess for when to (re)start maintenance diuretics Suspected Sepsis with initial presentation, unspecified organism. Rt pleural effusion, s/p thoracentesis, possibly transudative, abnormal cell count, studies pending. -F/u pleural fluid studies. Pulm following
--- NOTE | 2023-04-17 12:16 | RAD REPORT ---
EXAM DESCRIPTION: Dorinda Single View04/17/2023 7:47 am CLINICAL HISTORY: Pleural effusion COMPARISON: April 16, 2023 FINDINGS: A right pleural effusion may be mildly increased from the prior chest x-ray. There is no pneumothorax. Right basilar opacities may represent atelectasis or pneumonia. Left lung appears clear. Heart remains enlarged
--- NOTE | 2023-04-17 12:24 | RAD REPORT ---
EXAM DESCRIPTION: RAD - Chest Lateral Decubitus - 04/17/2023 11:37 am CLINICAL HISTORY: Pleural effusion FINDINGS: Partial layering in the right pleural effusion
--- NOTE | 2023-04-17 12:50 | P.PN ---
Date of Service: 04/17/23 Subjective: Oriented x 2 No distress, no acute events overnight Downgrade today from ICU ROS: 10 point ROS as noted above, otherwise negative Physical exam GEN: Alert, oriented x2 , NAD HEENT: Normal conjunctiva, sclera anicteric CV: Regular rate and rhythm, no edema Pulm: Nonlabored respirations on room air ABD: Soft, nontender, nondistended MSK: No joint tenderness Integumentary: No rashes Neuro: Normal speech, normal affect Vitals reviewed Problem List Septic shock secondary to suspected urinary tract infection/pneumonia Large right pleural effusion Stage II JILL with underlying CKD 3 Anemia of chronic disease Chronic diastolic distal heart failure Diabetes mellitus type 2 BPH Hypertension Hyperlipidemia Hypothyroidism Plan Septic shock secondary to suspected urinary tract infection/pneumonia Continue broad-spectrum antibiotics with vancomycin, cefepime urine culture-no growth 04/02 Blood culture G+ cocci pairs and chains Off of 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 Underlying airspace dependent opacities may relate to atelectasis however superimposed infection/pneumonia would be difficult to exclude. Family reports recent admission at the end of February to [facility] for similar-reportedly had thoracentesis at that time Evaluated by pulmonology Thoracentesis 04/16 with 1300ml removed- follow pleural fluid studies continue broad-spectrum antibiotics on room air PT consult now in place Lives with kala who helps care for him at home Stage II JILL with underlying CKD 3 Nephrology following Weaned off of vasopressor therapy Monitor renal function daily Renal function slowly improving Anemia of chronic disease transfused 1 unit so far repeat H/H this afternoon MARIKA present, receiving IV iron Chronic diastolic distal heart failure Does not appear to be overloaded at this time Monitor volume status closely Diabetes mellitus type 2 ACHS Accu-Chek, sliding scale insulin BPH Denies being on meds at home ybarra catheter in place given urinary retention consider dc with voiding trial 04/18 Hypertension Hold oral antihypertensives given hypotension, septic shock Resume when appropriate and when blood pressure is persistently elevated Hyperlipidemia Continue statin Hypothyroidism restart home medication VTE: Heparin subcu Code: Full Dispo: 3 to 4 days Time Spent Managing Pts Care (In Minutes): 35
[2023-04-17 13:50] LABS: Hematocrit 26.3 % (39.6-49.0)
[2023-04-17] MEDS ORDERED: HEPARIN 5000 UNIT/ML 1 ML VIAL ONE (16:46)
[2023-04-18] MEDS: HEPARIN 5000 UNIT/ML 1 ML VIAL SQ SCH ×3 (00:37→16:52)
[2023-04-18 04:46] LABS: Hematocrit 25.6 % (39.6-49.0); MCV 72.3 fL (80-100); MPV 8.5 fL (7.6-11.3); Platelets 221 thou/uL (152-406); RBC Red Blood Cell Count 3.53 M/uL (4.33-5.43)
[2023-04-18 04:57] LABS: Albumin 2.3 g/dL (3.4-5.0); Bilirubin Total 0.5 mg/dL (0.2-1.0); Magnesium 2.6 mg/dL (1.6-2.4); Phosphorus 2.7 mg/dL (2.5-4.9); Potassium 3.8 mEq/L (3.5-5.1); Protein, Total 6.3 g/dL (6.4-8.2)
[2023-04-18] MEDS: CEFEPIME 1 GM in NA CHLORIDE 0.9% 100 ML IV SCH ×2 (08:40→20:28)
[2023-04-18] MEDS: SOD FERRIC GLUC COMPLX/SUCROSE 125 MG in NA CHLORIDE 0.9% 100 ML IV SCH (08:40)
[2023-04-18] MEDS: NEPRO SHAKE 237 ML CAN PO SCH ×3 (08:41→20:28)
--- NOTE | 2023-04-18 11:53 | P.PN ---
Date of Service: 04/18/23 Subjective: Oriented x 2 No distress, no acute events overnight ROS: 10 point ROS as noted above, otherwise negative Physical exam GEN: Alert, oriented x2 , NAD HEENT: Normal conjunctiva, sclera anicteric CV: irregular rhythm, rate 40s to 50s Pulm: Nonlabored respirations on room air ABD: Soft, nontender, nondistended MSK: No joint tenderness Integumentary: No rashes Neuro: Normal speech, normal affect Vitals reviewed Problem List Septic shock secondary to suspected urinary tract infection/pneumonia Atrial fibrillation status post Watchman procedure Large right pleural effusion Stage II JILL with underlying CKD 3 Anemia of chronic disease Chronic diastolic distal heart failure Diabetes mellitus type 2 BPH Hypertension Hyperlipidemia Hypothyroidism Plan Septic shock secondary to suspected urinary tract infection/pneumonia Continue cefepime urine culture-no growth / cultures from 04/15 positive Streptococcus agalactiae group B Repeat cultures sent 04/17 pending Off of 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 Underlying airspace dependent opacities may relate to atelectasis however superimposed infection/pneumonia would be difficult to exclude. Family reports recent admission at the end of February to [facility] for similar-reportedly had thoracentesis at that time Evaluated by pulmonology Thoracentesis 04/16 with 1300ml removed- follow pleural fluid studies on room air PT consult now in place-doing well with PT Lives with kala who helps care for him at home Will need home health, PT at discharge Stage II JILL with underlying CKD 3 Nephrology following Weaned off of vasopressor therapy Monitor renal function daily Renal function plateauing Anemia of chronic disease transfused 1 unit so far Monitor H&H daily MARIKA present, receiving IV iron Chronic diastolic distal heart failure Does not appear to be overloaded at this time Monitor volume status closely Diabetes mellitus type 2 ACHS Accu-Chek, sliding scale insulin BPH Denies being on meds at home ybarra catheter in place given urinary retention consider dc with voiding trial today Hypertension Hold oral antihypertensives given hypotension, septic shock Resume when appropriate and when blood pressure is persistently elevated Hyperlipidemia Continue statin Hypothyroidism restart home medication VTE: Heparin subcu Code: Full Dispo: 2 to 3 days Time Spent Managing Pts Care (In Minutes): 35
[2023-04-18] MEDS ORDERED: EPOETIN ALFA-EPBX 4,000 UNIT/ML VIAL SQ ONE (12:53)
[2023-04-18] MEDS ORDERED: VANCOMYCIN 1 GM in NA CHLORIDE 0.9% 250 ML IVPB ONE (13:00)
--- NOTE | 2023-04-18 13:10 | RAD REPORT ---
EXAM DESCRIPTION: RADChest Single View04/18/2023 11:11 am CLINICAL HISTORY: Eval pleural effusion COMPARISON: Chest Single View dated 04/17/2023; Chest Single View dated 04/16/2023; Chest Single View dated 04/16/2023; Chest Single View dated 04/15/2023 TECHNIQUE: Portable AP view of the chest. FINDINGS: Stable at least moderate right layering effusion with underlying patchy airspace opacities . No pneumothorax. The cardiomediastinal contours are unchanged with stable cardiomegaly. IMPRESSION: Stable findings as above, may indicate underlying pneumonia.
--- NOTE | 2023-04-18 14:18 | PN ---
Subjective: The patient is seen and evaluated in room 206 at [facility]. Th e patient is alert, awake, able to give some answers. Denies any pain. Looks comfortable. Has crea tinine compared to yesterday is relatively stable at about 2.55. Objective: Vital Signs: Stable. Blood pressure last was 124/61, pulse is about 60 and regular, res pirations are around 14 and comfortable. He is afebrile. Cardiac: Heart rate is irregularly irregular. Abdomen: Soft. Extremities: Reveal no significant edema. Laboratory Data: Reviewed. His lab show hemoglobin 8.1, hematocrit 25.6, WBC count 9.8, platelet co unt of 221. Sodium 143, potassium 3.8, chloride 113, bicarb is 26, BUN is 66, creatinine is 2.55. P latelet count 170. Calcium 8.2, magnesium 2.6, albumin 2.3. Assessment And Plan: The patient with acute on chronic kidney disease. At this point, currently loo ks stable with pulmonary hypertension, diastolic congestive heart failure. Blood pressure is now loo vipul okay. Creatinine stable on medications with antibiotics. Currently looking stable. Continue t o monitor renal function. Avoid nephrotoxins. Avoid dye unless absolutely needed. Avoid NSAIDs. /MELY Voice ID: [id number] Report ID: [id number]
[2023-04-18] MEDS ORDERED: NEPRO SHAKE 237 ML CAN PO SCH (21:00)
[2023-04-19] MEDS: HEPARIN 5000 UNIT/ML 1 ML VIAL SQ SCH ×3 (00:05→16:14)
[2023-04-19 04:14] LABS: Hematocrit 26.2 % (39.6-49.0); MCV 73.2 fL (80-100); MPV 8.5 fL (7.6-11.3); Platelets 205 thou/uL (152-406); RBC Red Blood Cell Count 3.58 M/uL (4.33-5.43)
[2023-04-19 04:31] LABS: Albumin 2.3 g/dL (3.4-5.0); Bilirubin Total 0.7 mg/dL (0.2-1.0); Magnesium 2.7 mg/dL (1.6-2.4); Phosphorus 2.5 mg/dL (2.5-4.9); Potassium 3.8 mEq/L (3.5-5.1); Protein, Total 6.2 g/dL (6.4-8.2)
[2023-04-19] MEDS: LEVOTHYROXINE SOD 0.05 MG TABLET FT SCH (06:18)
[2023-04-19] MEDS: PANTOPRAZOLE 40MG TABLET PO SCH (06:18)
[2023-04-19] MEDS ORDERED: PANTOPRAZOLE 40MG TABLET PO SCH (09:00)
[2023-04-19] MEDS ORDERED: HOME MED 1 EA UNK (Levothyroxine Sodium [Levothyroxine Sodium] 50 MCG Capsule) PO SCH (09:00)
[2023-04-19] MEDS: ROSUVASTATIN 10 MG TAB PO SCH (09:03)
[2023-04-19] MEDS: AMLODIPINE 10 MG TAB PO SCH (09:03)
[2023-04-19] MEDS: ASCORBIC ACID 500 MG TABLET PO SCH (09:04)
[2023-04-19] MEDS: SERTRALINE HCL 100 MG TAB PO SCH (09:04)
[2023-04-19] MEDS: CEFEPIME 1 GM in NA CHLORIDE 0.9% 100 ML IV SCH ×2 (09:05→20:32)
[2023-04-19] MEDS: SOD FERRIC GLUC COMPLX/SUCROSE 125 MG in NA CHLORIDE 0.9% 100 ML IV SCH (09:07)
[2023-04-19] MEDS: NEPRO SHAKE 237 ML CAN PO SCH ×3 (09:14→20:32)
--- NOTE | 2023-04-19 11:06 | P.PN ---
Date of Service: 04/19/23 Subjective: Oriented x 2 No distress, no acute events overnight ROS: 10 point ROS as noted above, otherwise negative Physical exam GEN: Alert, oriented x2 , NAD HEENT: Normal conjunctiva, sclera anicteric CV: irregular rhythm, rate 40s to 50s Pulm: Nonlabored respirations on room air ABD: Soft, nontender, nondistended MSK: No joint tenderness Integumentary: No rashes Neuro: Normal speech, normal affect Vitals reviewed Problem List Septic shock secondary to suspected urinary tract infection/pneumonia Atrial fibrillation status post Watchman procedure Large right pleural effusion Stage II JILL with underlying CKD 3 Anemia of chronic disease/iron deficiency anemia Chronic diastolic congestive heart failure Diabetes mellitus type 2 BPH Hypertension Hyperlipidemia Hypothyroidism Plan Septic shock secondary to suspected urinary tract infection/pneumonia Continue cefepime urine culture-no growth 05/03 blood cultures from 04/15 positive Streptococcus agalactiae group B Repeat blood cultures sent 04/17 no growth in 24 hours Off of vasopressors as of 04/[address] chest with large pleural effusion, possible superimposed pneumonia Atrial fibrillation status post Watchman procedure With slow ventricular response today Not on any beta-blockers Consult cardiology Heart rate between 50-60 Large right pleural effusion CT chest showed bilateral pleural effusions, moderate to large on the right and small on the left. Underlying airspace dependent opacities may relate to atelectasis however superimposed infection/pneumonia would be difficult to exclude. Family reports recent admission at the end of February to [facility] for similar-reportedly had thoracentesis at that time Evaluated by pulmonology Thoracentesis 04/16 with 1300ml removed- follow pleural fluid studies on room air PT consult now in place-doing well with PT Lives with kala who helps care for him at home Will need home health, PT at discharge-SS consult in place Stage II JILL with underlying CKD 3 Nephrology following Weaned off of vasopressor therapy Monitor renal function daily Renal function improved Anemia of chronic disease/Iron deficiency anemia transfused 1 unit so far Monitor H&H daily MARIKA present, receiving IV iron Chronic diastolic congestive heart failure Does not appear to be overloaded at this time Monitor volume status closely Diabetes mellitus type 2 ACHS Accu-Chek, sliding scale insulin BPH Denies being on meds at home ybarra catheter in place given urinary retention DC Ybarar catheter morning of 04/20, voiding trial at that time Hypertension Hold oral antihypertensives given hypotension, septic shock Resume when appropriate and when blood pressure is persistently elevated Hyperlipidemia Continue statin Hypothyroidism restart home medication VTE: Heparin subcu Code: Full Dispo: 2 to 3 days Time Spent Managing Pts Care (In Minutes): 35
--- NOTE | 2023-04-19 11:24 | PN ---
Subjective: The patient is seen in room 206. He is alert, awake, able to answer some questions, but overall does not look uncomfortable. His creatinine compared to yesterday is relatively stable and in fact improved. Has gone from 2.5 range now, down to 2.0. His BUN is 59, potassium is good at 3.8 , sodium 144. He is looking comfortable. Objective: Vital Signs: Stable. Blood pressure 145/68, pulse is 55, respirations around 18. Patie nt is afebrile. Lungs: Clear to auscultation. Abdomen: Soft. Extremities: Revealed no significant edema. Laboratory Data: Reviewed. Creatinine is down to 2. Assessment And Plan: Patient with acute on chronic kidney disease, currently looking stable and impr dick. Has been on antibiotics. Vancomycin was added. Cultures for the blood cultures are pending. Avoid nephrotoxins. Avoid dye unless absolutely necessary. Avoid NSAIDs. Continue to monitor and adjust antibiotics based on culture results as needed. /MELY Voice ID: [id number] Report ID: [id number]
[2023-04-20] MEDS: HEPARIN 5000 UNIT/ML 1 ML VIAL SQ SCH ×3 (00:16→17:00)
[2023-04-20] MEDS: LEVOTHYROXINE SOD 0.05 MG TABLET FT SCH (05:44)
[2023-04-20] MEDS: PANTOPRAZOLE 40MG TABLET PO SCH (05:44)
[2023-04-20 05:50] LABS: Hematocrit 28.2 % (39.6-49.0); MCV 73.9 fL (80-100); Platelets 255 thou/uL (152-406); RBC Red Blood Cell Count 3.82 M/uL (4.33-5.43)
[2023-04-20 06:05] LABS: Albumin 2.4 g/dL (3.4-5.0); Bilirubin Total 0.9 mg/dL (0.2-1.0); Magnesium 2.7 mg/dL (1.6-2.4); Phosphorus 2.3 mg/dL (2.5-4.9); Potassium 3.8 mEq/L (3.5-5.1); Protein, Total 6.7 g/dL (6.4-8.2)
[2023-04-20 08:10] LABS: TOTAL PROTEIN, PLEURAL FLUID 3.8 g/dL
[2023-04-20] MEDS: NEPRO SHAKE 237 ML CAN PO SCH ×3 (09:00→21:00)
[2023-04-20] MEDS: SERTRALINE HCL 100 MG TAB PO SCH (09:19)
[2023-04-20] MEDS: ASCORBIC ACID 500 MG TABLET PO SCH (09:19)
[2023-04-20] MEDS: AMLODIPINE 10 MG TAB PO SCH (09:19)
[2023-04-20] MEDS: ROSUVASTATIN 10 MG TAB PO SCH (09:20)
[2023-04-20] MEDS: CEFEPIME 1 GM in NA CHLORIDE 0.9% 100 ML IV SCH (09:20)
--- NOTE | 2023-04-20 09:25 | RAD REPORT ---
EXAM DESCRIPTION: RAD - Chest Single View - 04/20/2023 9:06 am CLINICAL HISTORY: eval pleural effusion Chest pain. COMPARISON: Chest Single View dated 04/18/2023; Chest Single View dated 04/17/2023; Chest Single View dated 04/16/2023; Chest Single View dated 04/16/2023 FINDINGS: Portable technique limits examination quality. Moderate size right pleural effusion is noted. Left lung is grossly clear. The heart is mildly enlarg ed in size. No displaced fractures. IMPRESSION: Moderate right pleural effusion.
--- NOTE | 2023-04-20 09:55 | P.CNS ---
Date of Consult: 04/20/23 Reason for Consult: bacteremia Chief Complaint: Sepsis, UTI, deconditioning. History of Present Illness: Patient is an 82 yo male with a medical history of hyerptension, hypothyroidism, diastolic CHF, BPH who presented to the ED due to hypotension, weakness and concern for infection. patient admitted for septic shock secondary to suspected UTI / pneumonia. Cultures obtained. Infectious disease consulted. Allergies No Known Allergies Allergy (Verified 06/25/22 20:56) Home medications list reviewed: Yes Home Medications: Ascorbic Acid [Vitamin C*] 500 mg PO DAILY 06/21/20 Cholecalciferol (Vitamin D3) [Vitamin D3] 1,000 unit PO DAILY 06/21/20 Multivitamin [Daily Multivitamin] 1 tab PO DAILY 06/21/20 Rosuvastatin Calcium 10 mg PO DAILY 06/21/20 Sertraline HCl 100 mg PO DAILY 06/21/20 Amlodipine [Norvasc*] 5 mg PO DAILY 06/25/22 Levothyroxine Sodium 1 tab PO DAILY 06/25/22 Mecobalamin [B12 Active] 1 tab PO DAILY 06/25/22 Pantoprazole [Protonix Tab*] 1 tab PO DAILY 06/25/22 Nepro Shake [Nepro*] 237 ml PO TID #90 can 06/30/22 - Past Medical/Surgical History Diabetic: Yes -: DM II -: HTN -: CKD III with Proteinuria (Dr. Watts/ Dr. Wise) -: Chronic diastolic congestive heart failure -: Atrial fibrillation status post Watchman procedure -: HLD -: BPH -: GERD -: Depression -: GERD -: knee replacement -: shoulder surgery Psychosocial/ Personal History: Patient lives at home with his family - Social History Smoking Status: Unknown if ever smoked Alcohol use: No CD- Drugs: No Caffeine use: Yes Place of Residence: Home Review of Systems 10-point ROS is otherwise unremarkable General: Weakness Physical Examination Temp Pulse Resp BP Pulse Ox 97.8 F 53 16 116/59 L 92 04/20/23 08:00 04/20/23 08:00 04/20/23 08:00 04/20/23 08:00 04/20/23 08:00 General: In no apparent distress, Oriented x2, Confused HEENT: Atraumatic Respiratory: Normal air movement (on room air), Crackles/rales Cardiovascular: Irregular heart rate/rhythm Gastrointestinal: Normal bowel sounds, No tenderness, Other (round) Integumentary: No rashes Laboratory Data - Reviewed Microbiology Data - Reviewed Imagings Data: - CT Chest Abdomen Pelvis 04/15: "Bilateral pleural effusions, moderate to large on the right and small on the left. Underlying airspace dependent opacities, may relate to atelectasis, however superimposed infection/ pneumonia would be difficult to exclude. Small volume free ascites. Moderate to marked cardiomegaly. Mildly nodular contour of the liver which may relate to fibrosis or early cirrhosis." Conclusions/Impression: Problem List Septic shock secondary to suspected urinary tract infection Atrial fibrillation s/p watchman procedure Pleural effusion JILL on CKD Iron deficiency anemia Chronic diastolic congestive heart failure diabetes mellitus type II BPH Hypertension Hyperlipidemia Hypothyroidism Septic Shock Strep agalactiae bacteremia - Blood cultures 04/15: Streptococcus agalactiae group B in 2 of 4 bottles - Repeat blood cultures 04/17: no growth to date - urine culture 04/15: no growth to date Pleural effusion - s/p thoracentesis 04/16 - pleural fluid culture 04/16: no growth to date -fungal culture pending. AFB pending. - pleural fluid protein 3.8, LDH 1420 pleural fluid protein to serum protein >0.5 - XR Chest 04/20: "Right pleural effusion measures maximally 7 cm in thickness along inferolateral right chest wall. It appears largely loculated. No significant left-sided effusion." Previously on Vancomycin 04/15-04/18 Currently on Cefepime (started 04/15-) Recommendations - strep bacteremia: switch to Rocephin IV. - Pending IR drainage of loculated pleural effusion. follow up. - Monitor WBC and fever trends - JILL: renally dose medications. nephrrology following. - Pulm also following Case discussed with Alex Roach
[2023-04-20 10:34] LABS: Anisocytosis 2+; Blood Morphology Comment NOTED (NOT SEEN); Platelet Estimate ADEQ; Polychromasia 1+; White Blood Cell Scan OK (OK)
--- NOTE | 2023-04-20 11:54 | RAD REPORT ---
EXAM DESCRIPTION: RAD - Chest Lateral Decubitus - 04/20/2023 11:44 am CLINICAL HISTORY: Pleural effusion COMPARISON: Chest Single View dated 04/20/2023 FINDINGS: Right pleural effusion measures maximally 7 cm in thickness along inferolateral right ches t wall. It appears largely loculated. No significant left-sided effusion.
[2023-04-20] MEDS: SOD FERRIC GLUC COMPLX/SUCROSE 125 MG in NA CHLORIDE 0.9% 100 ML IV SCH (12:07)
--- NOTE | 2023-04-20 12:45 | P.PN ---
Date of Service: 04/20/23 Subjective: Oriented x 2 No distress, no acute events overnight having episodes of bradycardia ROS: 10 point ROS as noted above, otherwise negative Physical exam GEN: Alert, oriented x2 , NAD HEENT: Normal conjunctiva, sclera anicteric CV: irregular rhythm, rate 50s to 60s Pulm: Nonlabored respirations on room air ABD: Soft, nontender, nondistended MSK: No joint tenderness Integumentary: No rashes Neuro: Normal speech, normal affect Vitals reviewed Problem List Septic shock secondary to suspected urinary tract infection/pneumonia Atrial fibrillation status post Watchman procedure Large right pleural effusion Stage II JILL with underlying CKD 3 Anemia of chronic disease/iron deficiency anemia Chronic diastolic congestive heart failure Diabetes mellitus type 2 BPH-urinary retention Hypertension Hyperlipidemia Hypothyroidism Plan Septic shock secondary to suspected urinary tract infection/pneumonia Continue cefepime ID following, await recs urine culture-no growth 05/03 blood cultures from 04/15 positive Streptococcus agalactiae group B Repeat blood cultures sent 04/17 no growth in 24 hours Off of vasopressors as of 04/[address] chest with large pleural effusion, possible superimposed pneumonia Atrial fibrillation status post Watchman procedure with periodic bradycardia With slow ventricular response today Not on any beta-blockers Consult cardiology Heart rate between 50-60 dips in to the 30s/40s Echo complete, await cardiology recs Large right pleural effusion CT chest showed bilateral pleural effusions, moderate to large on the right and small on the left. Underlying airspace dependent opacities may relate to atelectasis however superimposed infection/pneumonia would be difficult to exclude. Family reports recent admission at the end of February to [facility], [place] for similar-reportedly had thoracentesis at that time Thoracentesis 04/16 with 1300ml removed- follow pleural fluid studies on room air Decubitus cxr 04/20-7 cm right pleural effusion along right chest wall, largely loculated-will discuss further with pulmonology PT consult now in place-doing well with PT Lives with kala who helps care for him at home Will need home health, PT at discharge-SS consult in place Stage II JILL with underlying CKD 3 Nephrology following Weaned off of vasopressor therapy Monitor renal function daily Renal function improved resumed diuresis 04/20 with bumex 1mg po bid-home med Anemia of chronic disease/Iron deficiency anemia transfused 1 unit so far Monitor H&H daily MARIKA present, receiving IV iron Chronic diastolic congestive heart failure Does not appear to be overloaded at this time Monitor volume status closely Diabetes mellitus type 2 ACHS Accu-Chek, sliding scale insulin BPH-urinary retention On doxazosin at home-resumed Glaser DC'd this morning, voiding trial was retaining on admission 300cc Hypertension Resume home meds Hyperlipidemia Continue statin Hypothyroidism restart home medication VTE: Heparin subcu Code: Full Dispo: 2 to 3 days Time Spent Managing Pts Care (In Minutes): 35
--- NOTE | 2023-04-20 16:48 | P.PN ---
Subjective Date of Service: 04/20/23 Chief Complaint: Loculated pleural effusion Subjective: Improving (Patient is improving doing well no pulmonary complaints denies any shortness of breath or chest pain no fever or chill) Review of Systems 10-point ROS is otherwise unremarkable Physical Examination - Vital Signs Temperature: 97.0 F Blood Pressure: 139/60 Pulse: 55 Respirations: 16 Pulse Ox (%): 97 - Physical Exam General: Alert, Oriented x3 Respiratory: Clear to auscultation bilaterally, Diminished (On the right side) Cardiovascular: No edema, Regular rate/rhythm, Normal S1 S2 - Studies Microbiology Data (last 24 hrs): 04/15/23 01:03 Blood - Blood Aerobic Blood Culture - Final No growth in 5 days. 04/15/23 01:03 Blood - Blood Anaerobic Blood Culture - Final No growth in 5 days. Assessment And Plan - Current Problems (Diagnosis) (1) Microcytic anemia Current Visit: Yes Status: Acute Plan: Patient is severely iron deficient had blood transfusion patient is also getting iron transfusion (2) Loculated pleural effusion Current Visit: Yes Status: Acute Plan: Patient has a loculated right-sided pleural effusion will check with radiology to repeat an ultrasound given consider repeat drainage renal function is improving is an exudative pleural effusion with an elevated LDH no malignant cells noted on cytology no evidence of sepsis will DC antibiotic
--- NOTE | 2023-04-20 16:58 | EKG ---
Test Date: 2023-04-18 Test Time: 10:31:51 Occ Therapy Asst: EDUARDO Eastman MEASUREMENT RESULTS: Intervals: Rate: 47 WI: QRSD: 102 QT: 458 QTc: 405 [place]: P: WI: QRS: -64 T: 71 INTERPRETIVE STATEMENTS: Atrial fibrillation with slow ventricular response Left axis deviation Inferior infarct, age undetermined Anteroseptal infarct, age undetermined Abnormal ECG Compared to ECG 04/15/2023 01:15:56 Incomplete right bundle-branch block no longer present Myocardial infarct finding still present Electronically Signed On 04-20-23 16:53:08 CENTER MACHINE SET UP OPERATOR by Elmo Rubi
--- NOTE | 2023-04-20 17:15 | EKG ---
Test Date: 2023-04-15 Test Time: 01:15:56 Customer Loyalty Representative: VINICIUS MEASUREMENT RESULTS: Intervals: Rate: 57 IN: QRSD: 102 QT: 496 QTc: 482 [place]: P: IN: QRS: -74 T: 242 INTERPRETIVE STATEMENTS: Atrial fibrillation with slow ventricular response Left axis deviation Low voltage QRS Incomplete right bundle branch block Inferior infarct, age undetermined Cannot rule out Anterior infarct, age undetermined Abnormal ECG Compared to ECG 06/26/2022 12:03:11 Low QRS voltage now present Incomplete right bundle-branch block now present Myocardial infarct finding still present Electronically Signed On 04-20-23 16:58:27 ACQUISITION ANALYST by Elmo Rubi
--- NOTE | 2023-04-20 18:33 | CON ---
Date of Consultation: 04/20/2023 Reason For Consultation: Atrial fibrillation with slow ventricular rate. History Of Present Illness: This is an 82-year-old male, who was admitted with septic shock due to u rinary tract infection, on antibiotics. He was placed on telemetry and his heart rate is running in the 40s with atrial fibrillation with slow ventricular rate. I saw him by bedside. He has no compla ints of dizziness or syncope. No shortness of breath or chest pain. Past Medical History: Significant for hypertension, dyslipidemia, acid reflux, depression, atrial fi brillation, and diastolic heart failure. Medications: Refer to reconciliation sheet for detailed list. Allergies: NO KNOWN DRUG ALLERGIES. Family History: No premature coronary artery disease or cancer. Social History: He does not smoke or drink. Does not use any drugs. Review of Systems: All systems reviewed and they were negative except what mentioned in HPI. Physical Examination: Vital Signs: Reviewed. Head and Neck: Pupils are equal, reactive to light. Intact eye movements. No JVD. No cervical lym phadenopathy. Neck is supple. Thyroid is not enlarged. Lungs: Clear to auscultation bilaterally. No rhonchi, wheezing, or crackles. No accessory muscle u se. Heart: Irregular. No extra sounds. Abdomen: Soft, nontender. Bowel sounds positive. No organomegaly. No masses or hernia. No rigidi ty or rebound. Extremities: No edema, clubbing, or cyanosis. Intact pulses. Skin: No rash. Neurologic: Alert, awake. No acute focal deficits appreciated. Investigations: BUN is 48, creatinine 1.74, and hemoglobin is 8.8. Assessment And Recommendations: 1.Atrial fibrillation with slow ventricular rate. He is asymptomatic. No further intervention is n eeded at this point unless he becomes symptomatic or if he develops long pauses longer than 5 seconds . Keep monitoring on telemetry while in the hospital. Recommend stroke prevention on him with a low -dose Eliquis 2.5 mg twice a day as his CHADS-VASc score is elevated. 2.Sepsis with urinary tract infection, on antibiotics. 3.Diastolic heart failure, appears to be euvolemic. Cardiology will sign off and will be available for any further questions or if his situation changes. SR/MODL Voice ID: [id number] Report ID: [id number]
[2023-04-20] MEDS: DOXAZOSIN 2 MG TAB PO SCH (21:07)
[2023-04-20] MEDS: BUMETANIDE 1 MG TABLET PO SCH (21:07)
--- NOTE | 2023-04-20 22:06 | P.PN ---
Date of Service: 04/20/23 Vital Signs Temp Pulse Resp BP Pulse Ox 97.6 F 66 14 133/71 98 04/20/23 20:00 04/20/23 21:07 04/20/23 20:00 04/20/23 21:07 04/20/23 20:00 Medications Acetaminophen (Acetaminophen 325 Mg Tablet) 650 mg PO Q4HP PRN PRN Reason: Pain scale 2-4 (Mild) Amlodipine Besylate (Amlodipine 10 Mg Tab) 5 mg PO DAILY [facility] Last Admin: 04/20/23 09:19 Dose: 5 mg Ascorbic Acid (Ascorbic Acid 500 Mg Tablet) 500 mg PO DAILY [facility] Last Admin: 04/20/23 09:19 Dose: 500 mg Bumetanide (Bumetanide 1 Mg Tablet) 1 mg PO BID [facility] Last Admin: 04/20/23 21:07 Dose: 1 mg Doxazosin Mesylate (Doxazosin 2 Mg Tab) 1 mg PO BID [facility] Last Admin: 04/20/23 21:07 Dose: 1 mg Enteral Nutritional Formula (Nepro Shake 237 Ml Can) 240 ml PO TID [facility] Last Admin: 04/20/23 21:00 Dose: 240 ml Ergocalciferol (Drisdol (Vitamin D=Ergocalciferol) 25905 Unit Cap) 50,000 unit PO Q7D@0900 [facility] Heparin Sodium (Porcine) (Heparin 5000 Unit/Ml 1 Ml Vial) 5,000 unit SQ Q8HR [facility] Last Admin: 04/20/23 17:00 Dose: Not Given Sodium Chloride (Sodium Chloride) 250 mls @ 0 mls/hr IV .Q0M [facility] Last Admin: 04/16/23 13:15 Dose: 250 mls Ferric Sodium Gluconate Complex 125 mg/ Sodium Chloride 110 mls @ 100 mls/hr IV DAILY [facility] Stop: 04/23/23 10:05 Last Admin: 04/20/23 12:07 Dose: 110 mls Levothyroxine Sodium (Levothyroxine Sod 0.05 Mg Tablet) 0.05 mg FT [id number] [facility] Last Admin: 04/20/23 05:44 Dose: 0.05 mg Ondansetron HCl (Ondansetron 4 Mg/2 Ml Vial) 4 mg IV Q6HP PRN PRN Reason: NAUSEA / VOMITING Pantoprazole Sodium (Pantoprazole 40mg Tablet) [facility] Protocol Last Admin: 04/20/23 05:44 Dose: 40 mg Rosuvastatin Calcium (Rosuvastatin 10 Mg Tab) 10 mg PO DAILY [facility] Last Admin: 04/20/23 09:20 Dose: 10 mg Sertraline HCl (Sertraline Hcl 100 Mg Tab) 100 mg PO DAILY [facility] Last Admin: 04/20/23 09:19 Dose: 100 mg Microbiology Results 04/15/23 01:03 Blood - Blood Aerobic Blood Culture - Final No growth in 5 days. 04/15/23 01:03 Blood - Blood Anaerobic Blood Culture - Final No growth in 5 days. 04/15/23 01:13 Blood - Blood Aerobic Blood Culture - Preliminary Streptococcus Agalactiae Grp B 04/15/23 01:13 Blood - Blood Anaerobic Blood Culture - Preliminary 04/15/23 01:13 Blood - Blood Gram Stain - Final 04/15/23 01:03 Nasopharnyx Influenza Type A Antigen Screen - Final 04/15/23 01:03 Nasopharnyx Influenza Type B Antigen Screen - Final Assessment/ Plan: Nephrology Feeling better No dyspnea No chest pain No acute events overnight General: In no apparent distress, Cooperative HEENT: Atraumatic Neck: Supple Respiratory: Clear to auscultation bilaterally (except right anterior base) Cardiovascular: No edema, Regular rate/rhythm Gastrointestinal: Soft and benign, Non-distended Musculoskeletal: No clubbing, No contractures Integumentary: No rashes, Skin lesion Neurological: Normal speech Laboratory Data (last 24 hrs) 04/15/23 04/15/23 01:03 01:03 WBC 11.30 H Hgb 7.6 L Hct 24.6 L Plt Count 235 Sodium 137 Potassium 4.2 BUN 51 H Creatinine 3.58 H Glucose 115 H Total Bilirubin 0.9 AST 38 H ALT 18 Alkaline Phosphatase 97 Imagings Data: darrenrice EXAM DESCRIPTION: CT - Chest Abd Pelvis Wo Con - 04/15/2023 10:06 am CLINICAL HISTORY: jill R/O obstruction COMPARISON: No comparisons TECHNIQUE: Thin axial CT images of the chest, abdomen, and pelvis, performed without IV contrast. Multiplanar reformats were generated and reviewed. All CT scans are performed using dose optimization technique as appropriate and may include automated exposure control or mA/KV adjustment according to patient size. FINDINGS: Moderate to large right and trace left layering pleural effusions. Underlying up to segmental airspace opacification, most pronounced in the dependent right lower lobe. Moderate to marked cardiomegaly.No pneumothorax or pericardial effusion.No intrathoracic adenopathy. The liver shows mildly nodular contour which may relate to fibrosis or early cirrhosis. Spleen, pancreas, adrenal glands and kidneys are within normal limits. No bowel obstruction, free air, or abscess. Small volume free ascites. Mild prostatomegaly. No pathologic lymphadenopathy in the abdomen or pelvis. No worrisome osseous finding. IMPRESSION: Bilateral pleural effusions, moderate to large on the right and small on the left. Underlying airspace dependent opacities, may relate to atelectasis, however superimposed infection/ pneumonia would be difficult to exclude. Small volume free ascites. Moderate to marked cardiomegaly. Mildly nodular contour of the liver which may relate to fibrosis or early cirrhosis. darrenrice EXAM DESCRIPTION: RAD - Chest Lateral Decubitus - 04/15/2023 3:00 pm CLINICAL HISTORY: R sided effusion COMPARISON: Chest Single View dated 04/15/2023; Chest Abd Pelvis Wo Con dated 04/15/2023 FINDINGS: Left-sided up decubitus view is quite limited due to patient p ositioning. Right-sided pleural effusion appears to measure 4-5 cm in maximum thickness. The fluid appears largely free-flowing. darrenrice LEFT VENTRICULAR WALL MOTION: NORMAL DOPPLER/COLOR FLOW: SEE BELOW COMMENTS: 1. NORMAL LEFT VENTRICULAR EJECTION FRACTION 50-55% WITH NORMAL WALL MOTION 2. SEVERE DIASTOLIC DYSFUNCTION 3. MODERATE TO SEVERE TRICUSPID REGURGITATION 4. MODERATE PULMONARY INSUFFICIENCY 5. MILD MITRAL REGURGITATION 6. LEFT ATRIAL ENLARGEMENT 7. SEVERE PULMONARY HYPERTENSION WITH RIGHT VENTRICULAR SYSTOLIC PRESSURE GREATER THAN 60 mmHg Conclusions/Impression: Stage II JILL in the setting of Sepsis with hypotension complicated by hypovolemia. ATN? CKD III with Proteinuria -No NSAIDs HTN with CKD/ CHF -Continue Doxazosin Diastolic CHF, chronic Pulmonary HTN Right Pleural Effusion -Daily weight -Echocardiogram reviewed -Continue Bumex DM II with CKD -RISS prn Hypoalbuminemia -Continue Nepro Anemia in chronic illness Iron Deficiency 4.6%% -Monitor H&H -PRBC prn -Continue IV iron daily BPH with LUTS -Monitor for retention -Continue Doxazosin Suspected Sepsis with shock Unclear source -Continue abx -Follow up cultures Hospitalist note reviewed Case discussed with Dr. Atkinson
[2023-04-21] MEDS: HEPARIN 5000 UNIT/ML 1 ML VIAL SQ SCH ×2 (00:10→09:00)
[2023-04-21 04:32] LABS: Hematocrit 27.4 % (39.6-49.0); MCV 74.3 fL (80-100); MPV 8.5 fL (7.6-11.3); Platelets 232 thou/uL (152-406); RBC Red Blood Cell Count 3.68 M/uL (4.33-5.43)
[2023-04-21 04:38] LABS: Potassium 3.8 mEq/L (3.5-5.1)
[2023-04-21] MEDS: LEVOTHYROXINE SOD 0.05 MG TABLET FT SCH (05:43)
[2023-04-21] MEDS: PANTOPRAZOLE 40MG TABLET PO SCH (05:43)
[2023-04-21] MEDS: NEPRO SHAKE 237 ML CAN PO SCH (09:00)
--- NOTE | 2023-04-21 09:27 | P.PN ---
Date of Service: 04/21/23 Chief Complaint: Sepsis, UTI, deconditioning. Subjective Physical Examination Temp Pulse Resp BP Pulse Ox 97.4 F 53 18 120/74 98 04/21/23 04:00 04/21/23 04:00 04/21/23 04:00 04/21/23 04:00 04/21/23 04:00 General: In no apparent distress, Oriented x2, Confused HEENT: Atraumatic Respiratory: Normal air movement (on room air), Crackles/rales Cardiovascular: Irregular heart rate/rhythm Gastrointestinal: Normal bowel sounds, No tenderness, Other (round) Integumentary: No rashes Laboratory Data - Reviewed Microbiology Data - Reviewed Imagings Data: - CT Chest Abdomen Pelvis 04/15: "Bilateral pleural effusions, moderate to large on the right and small on the left. Underlying airspace dependent opacities, may relate to atelectasis, however superimposed infection/ pneumonia would be difficult to exclude. Small volume free ascites. Moderate to marked cardiomegaly. Mildly nodular contour of the liver which may relate to fibrosis or early cirrhosis." Conclusions/Impression: Problem List Septic shock secondary to suspected urinary tract infection Atrial fibrillation s/p watchman procedure Pleural effusion JILL on CKD Iron deficiency anemia Chronic diastolic congestive heart failure diabetes mellitus type II BPH Hypertension Hyperlipidemia Hypothyroidism Septic Shock Strep agalactiae bacteremia - Blood cultures 04/15: Streptococcus agalactiae group B in 2 of 4 bottles - Repeat blood cultures 04/17: no growth to date - urine culture 04/15: no growth to date Pleural effusion - s/p thoracentesis 04/16 - pleural fluid culture 04/16: no growth to date -fungal culture pending. AFB pending. - pleural fluid protein 3.8, LDH 1420 pleural fluid protein to serum protein >0.5 - XR Chest 04/20: "Right pleural effusion measures maximally 7 cm in thickness along inferolateral right chest wall. It appears largely loculated. No significant left-sided effusion." Previously on Vancomycin 04/15-04/18 Currently on Cefepime (started 04/15-) Recommendations - strep bacteremia: switch to Rocephin IV. - Pending IR drainage of loculated pleural effusion. follow up. - Monitor WBC and fever trends - JILL: renally dose medications. nephrrology following. - Pulm also following Case discussed with Dr. Navarrete N.
--- NOTE | 2023-04-21 09:31 | RAD REPORT ---
EXAM DESCRIPTION: US - Thoracentesis w/ US Guide - 04/21/2023 8:52 am CLINICAL HISTORY: Loculated pleural effusion COMPARISON: Thoracentesis w/ US Guide dated 04/16/2023 FINDINGS: Preoperative diagnosis: Right pleural effusion Post operative diagnosis: Same Conscious Sedation: None. Estimated blood loss: Minimal Specimens:A small volume of fluid was sent for requested lab studies. 1 liter was aspirated. The right pleural effusion was complex with multiple septations. IMPRESSION: Successful ultrasound-guided thoracentesis as detailed. The right effusion was complex w ith multiple septations.
[2023-04-21] MEDS: AMLODIPINE 10 MG TAB PO SCH (09:49)
[2023-04-21] MEDS: BUMETANIDE 1 MG TABLET PO SCH ×2 (09:50→20:28)
[2023-04-21] MEDS: DOXAZOSIN 2 MG TAB PO SCH ×2 (09:51→20:27)
[2023-04-21] MEDS: SERTRALINE HCL 100 MG TAB PO SCH (09:52)
[2023-04-21] MEDS: ROSUVASTATIN 10 MG TAB PO SCH (09:53)
[2023-04-21] MEDS: ASCORBIC ACID 500 MG TABLET PO SCH (09:53)
[2023-04-21] MEDS: SOD FERRIC GLUC COMPLX/SUCROSE 125 MG in NA CHLORIDE 0.9% 100 ML IV SCH (09:53)
--- NOTE | 2023-04-21 12:22 | P.PN ---
Subjective Date of Service: 04/21/23 Chief Complaint: Loculated pleural effusion Subjective: Improving (Doing well s/p thoracentesis no complaints) Review of Systems Unremarkable Physical Examination - Vital Signs Temperature: 97.4 F Blood Pressure: 124/55 Pulse: 66 Respirations: 16 Pulse Ox (%): 98 - Physical Exam General: Alert, Oriented x3 Respiratory: Clear to auscultation bilaterally, Diminished (Managed on the right side) Cardiovascular: No edema, Regular rate/rhythm, Normal S1 S2 - Studies Microbiology Data (last 24 hrs): 04/15/23 01:13 Blood - Blood Aerobic Blood Culture - Final Streptococcus Agalactiae Grp B 04/15/23 01:13 Blood - Blood Anaerobic Blood Culture - Final Streptococcus Agalactiae Grp B 04/15/23 01:13 Blood - Blood Gram Stain - Final Assessment And Plan - Current Problems (Diagnosis) (1) Microcytic anemia Current Visit: Yes Status: Acute Plan: Patient is severely iron deficient had blood transfusion patient is also getting iron transfusion (2) Loculated pleural effusion Current Visit: Yes Status: Acute Plan: S/p right-sided thoracentesis 1 L of fluid was drained by radiology no evidence of sepsis vital signs are all stable
--- NOTE | 2023-04-21 15:05 | P.PN ---
Subjective Date of Service: 04/21/23 Chief Complaint: Loculated pleural effusion Granddaughter states patient is a bit confused. Status post thoracentesis, 1 L of yellow-colored fluid drained. He is stable on room air. He is also tolerating diet. Physical Examination - Vital Signs Temperature: 97.4 F Blood Pressure: 124/55 Pulse: 66 Respirations: 16 Pulse Ox (%): 98 - Studies Microbiology Data (last 24 hrs): 04/15/23 01:13 Blood - Blood Aerobic Blood Culture - Final Streptococcus Agalactiae Grp B 04/15/23 01:13 Blood - Blood Anaerobic Blood Culture - Final Streptococcus Agalactiae Grp B 04/15/23 01:13 Blood - Blood Gram Stain - Final Assessment And Plan - Plan Physical exam GEN: Alert, oriented x2 , NAD HEENT: Sclera anicteric CV: irregular rhythm, bradycardia Pulm: Nonlabored respirations on room air, clear to auscultation bilaterally. ABD: Soft, nontender, nondistended Integumentary: No rashes Neuro: Normal speech, no focal motor deficit. Vitals reviewed Problem List Septic shock secondary to suspected urinary tract infection/pneumonia Atrial fibrillation status post Watchman procedure Large right pleural effusion Stage II JILL with underlying CKD 3 Anemia of chronic disease/iron deficiency anemia Chronic diastolic congestive heart failure Diabetes mellitus type 2 BPH-urinary retention Hypertension Hyperlipidemia Hypothyroidism Plan Septic shock secondary to suspected urinary tract infection/pneumonia Continue cefepime urine culture-no growth 2/ blood cultures from 04/15 positive Streptococcus agalactiae group B Repeat blood cultures sent 04/17 no growth in 24 hours Off of vasopressors as of 04/[address] chest with large pleural effusion, possible superimposed pneumonia Status post thoracentesis x 2. Infectious disease input appreciated. IV cefepime changed to IV Rocephin. Patient to complete at least 2 weeks of antibiotics. Atrial fibrillation status post Watchman procedure with periodic bradycardia With slow ventricular response today Not on any beta-blockers Cardiology consulted Heart rate between 50-60 dips in to the 30s/40s Echo:NORMAL LEFT VENTRICULAR EJECTION FRACTION 50-55% WITH NORMAL WALL MOTION, SEVERE DIASTOLIC DYSFUNCTION, MODERATE TO SEVERE TRICUSPID REGURGITATION, MODERATE PULMONARY INSUFFICIENCY, SEVERE PULMONARY HYPERTENSION WITH RIGHT VENTRICULAR SYSTOLIC PRESSURE GREATER THAN 60 mmHg. Resume Eliquis status post thoracentesis. Large right pleural effusion CT chest showed bilateral pleural effusions, moderate to large on the right and small on the left. Family reports recent admission at the end of February to [facility] for similar-reportedly had thoracentesis at that time Thoracentesis x 2 this hospitalization. Stable on room air Right pleural effusion is loculated. Repeat chest x-ray postthoracentesis. Pulmonary Dr. Martinez input appreciated and he recommended follow-up with him in the office as outpatient to assess for need for CT surgery evaluation Stage II JILL with underlying CKD 3 Nephrology following Weaned off vasopressor therapy Renal function improved resumed diuresis 04/20 with bumex 1mg po bid-home med Continue to monitor renal function. Anemia of chronic disease/Iron deficiency anemia transfused 1 unit. Monitor H&H daily MARIKA present, receiving IV iron Chronic diastolic congestive heart failure/severe pulmonary hypertension/severe transglottic radiation Currently compensated for CHF. Monitor volume status closely On home dose Bumex. Diabetes mellitus type 2 ACHS Accu-Chek, sliding scale insulin BPH-urinary retention Continue home dose doxazosin Hypertension Hold amlodipine and continue doxazosin due to soft blood pressure. Hyperlipidemia Continue statin Hypothyroidism Continue home dose Synthroid VTE: Eliquis Code: Full
--- NOTE | 2023-04-21 16:38 | RAD REPORT ---
EXAM DESCRIPTION: RAD - Chest Single View - 04/21/2023 4:31 pm CLINICAL HISTORY: Status post thoracentesis Chest pain. COMPARISON: Chest Single View dated 04/20/2023; Chest Single View dated 04/18/2023; Chest Single View dated 04/17/2023; Chest Single View dated 04/16/2023; Thoracentesis w/ US Guide dated 04/21/2023 FINDINGS: Portable technique limits examination quality. Right-sided pleural effusion has decreased in size. There is moderate patchy opacification seen of th e right lower lobe through the left lung is grossly clear. The heart is moderately enlarged.No postpr ocedure pneumothorax seen. IMPRESSION: No postprocedure pneumothorax.
[2023-04-21] MEDS: CEFTRIAXONE 2,000 MG in NA CHLORIDE 0.9% 100 ML IV SCH (16:54)
--- NOTE | 2023-04-21 19:34 | P.PN ---
Date of Service: 04/21/23 Vital Signs Temp Pulse Resp BP Pulse Ox 97.1 F 56 16 135/68 99 04/21/23 16:00 04/21/23 16:00 04/21/23 16:00 04/21/23 16:00 04/21/23 16:00 Medications Acetaminophen (Acetaminophen 325 Mg Tablet) 650 mg PO Q4HP PRN PRN Reason: Pain scale 2-4 (Mild) Apixaban (Apixaban 2.5 Mg Tablet) 2.5 mg PO BID [facility] Ascorbic Acid (Ascorbic Acid 500 Mg Tablet) 500 mg PO DAILY [facility] Last Admin: 04/21/23 09:53 Dose: 500 mg Bumetanide (Bumetanide 1 Mg Tablet) 1 mg PO BID [facility] Last Admin: 04/21/23 09:50 Dose: 1 mg Doxazosin Mesylate (Doxazosin 2 Mg Tab) 1 mg PO BID [facility] Last Admin: 04/21/23 09:51 Dose: 1 mg Ergocalciferol (Drisdol (Vitamin D=Ergocalciferol) 90383 Unit Cap) 50,000 unit PO Q7D@0900 [facility] Ferric Sodium Gluconate Complex 125 mg/ Sodium Chloride 110 mls @ 100 mls/hr IV DAILY [facility] Stop: 04/23/23 10:05 Last Admin: 04/21/23 09:53 Dose: 110 mls Ceftriaxone Sodium 2,000 mg/ (Sodium Chloride) 100 mls @ 200 mls/hr IV DAILY [facility]; Protocol Last Admin: 04/21/23 16:54 Dose: 100 mls Levothyroxine Sodium (Levothyroxine Sod 0.05 Mg Tablet) 0.05 mg FT [id number] [facility] Last Admin: 04/21/23 05:43 Dose: Not Given Nutritional Formula (Ensure High Protein 237 Ml Can) 237 ml PO BID [facility] Ondansetron HCl (Ondansetron 4 Mg/2 Ml Vial) 4 mg IV Q6HP PRN PRN Reason: NAUSEA / VOMITING Pantoprazole Sodium (Pantoprazole 40mg Tablet) [facility]; Protocol Last Admin: 04/21/23 05:43 Dose: Not Given Rosuvastatin Calcium (Rosuvastatin 10 Mg Tab) 10 mg PO DAILY [facility] Last Admin: 04/21/23 09:53 Dose: 10 mg Sertraline HCl (Sertraline Hcl 100 Mg Tab) 100 mg PO DAILY [facility] Last Admin: 04/21/23 09:52 Dose: 100 mg Microbiology Results 04/15/23 01:13 Blood - Blood Aerobic Blood Culture - Final Streptococcus Agalactiae Grp B 04/15/23 01:13 Blood - Blood Anaerobic Blood Culture - Final Streptococcus Agalactiae Grp B 04/15/23 01:13 Blood - Blood Gram Stain - Final 04/15/23 01:03 Blood - Blood Aerobic Blood Culture - Final No growth in 5 days. 04/15/23 01:03 Blood - Blood Anaerobic Blood Culture - Final No growth in 5 days. 04/15/23 01:03 Nasopharnyx Influenza Type A Antigen Screen - Final 04/15/23 01:03 Nasopharnyx Influenza Type B Antigen Screen - Final Assessment/ Plan: Nephrology Feeling better No dyspnea No chest pain No acute events overnight General: In no apparent distress, Cooperative HEENT: Atraumatic Neck: Supple Respiratory: Clear to auscultation bilaterally (except right anterior base) Cardiovascular: No edema, Regular rate/rhythm Gastrointestinal: Soft and benign, Non-distended Musculoskeletal: No clubbing, No contractures Integumentary: No rashes, Skin lesion Neurological: Normal speech Laboratory Data (last 24 hrs) 04/15/23 04/15/23 01:03 01:03 WBC 11.30 H Hgb 7.6 L Hct 24.6 L Plt Count 235 Sodium 137 Potassium 4.2 BUN 51 H Creatinine 3.58 H Glucose 115 H Total Bilirubin 0.9 AST 38 H ALT 18 Alkaline Phosphatase 97 Imagings Data: darrenrice EXAM DESCRIPTION: CT - Chest Abd Pelvis Wo Con - 04/15/2023 10:06 am CLINICAL HISTORY: jill R/O obstruction COMPARISON: No comparisons TECHNIQUE: Thin axial CT images of the chest, abdomen, and pelvis, performed without IV contrast. Multiplanar reformats were generated and reviewed. All CT scans are performed using dose optimization technique as appropriate and may include automated exposure control or mA/KV adjustment according to patient size. FINDINGS: Moderate to large right and trace left layering pleural effusions. Underlying up to segmental airspace opacification, most pronounced in the depen dent right lower lobe. Moderate to marked cardiomegaly.No pneumothorax or pericardial effusion.No intrathoracic adenopathy. The liver shows mildly nodular contour which may relate to fibrosis or early cirrhosis. Spleen, pancreas, adrenal glands and kidneys are within normal limits. No bowel obstruction, free air, or abscess. Small volume free ascites. Mild prostatomegaly. No pathologic lymphadenopathy in the abdomen or pelvis. No worrisome osseous finding. IMPRESSION: Bilateral pleural effusions, moderate to large on the right and small on the left. Underlying airspace dependent opacities, may relate to atelectasis, however superimposed infection/ pneumonia would be difficult to exclude. Small volume free ascites. Moderate to marked cardiomegaly. Mildly nodular contour of the liver which may relate to fibrosis or early cirrhosis. darrenrice EXAM DESCRIPTION: RAD - Chest Lateral Decubitus - 04/15/2023 3:00 pm CLINICAL HISTORY: R sided effusion COMPARISON: Chest Single View dated 04/15/2023; Chest Abd Pelvis Wo Con dated 04/15/2023 FINDINGS: Left-sided up decubitus view is quite limited due to patient positioning. Right-sided pleural effusion appears to measure 4-5 cm in maximum thickness. The fluid appears largely free-flowing. darrenrice LEFT VENTRICULAR WALL MOTION: NORMAL DOPPLER/COLOR FLOW: SEE BELOW COMMENTS: 1. NORMAL LEFT VENTRICULAR EJECTION FRACTION 50-55% WITH NORMAL WALL MOTION 2. SEVERE DIASTOLIC DYSFUNCTION 3. MODERATE TO SEVERE TRICUSPID REGURGITATION 4. MODERATE PULMONARY INSUFFICIENCY 5. MILD MITRAL REGURGITATION 6. LEFT ATRIAL ENLARGEMENT 7. SEVERE PULMONARY HYPERTENSION WITH RIGHT VENTRICULAR SYSTOLIC PRESSURE GREATER THAN 60 mmHg Conclusions/Impression: Stage II JILL in the setting of Sepsis with hypotension complicated by hypovolemia. ATN? CKD III with Proteinuria -No NSAIDs HTN with CKD/ CHF -Continue Doxazosin Diastolic CHF, chronic Pulmonary HTN Moderate TR & PI Right Pleural Effusion -Daily weight -Continue Bumex -Plan for thoracentesis again today DM II with CKD -RISS prn Hypoalbuminemia -Continue Nepro Anemia in chronic illness Iron Deficiency 4.6%% -Monitor H&H -PRBC prn -Continue IV iron daily BPH with LUTS -Monitor for retention -Continue Doxazosin Suspected Sepsis with shock Unclear source -Continue abx -Follow up cultures Hospitalist note reviewed Case discussed with Dr. Atkinson
[2023-04-21] MEDS: APIXABAN 2.5 MG TABLET PO SCH (20:28)
[2023-04-21] MEDS: ENSURE HIGH PROTEIN 237 ML CAN PO SCH (20:29)
[2023-04-22] MEDS: LEVOTHYROXINE SOD 0.05 MG TABLET FT SCH (05:35)
[2023-04-22] MEDS: PANTOPRAZOLE 40MG TABLET PO SCH (05:35)
[2023-04-22 05:59] LABS: Hematocrit 26.4 % (39.6-49.0); MCV 75.5 fL (80-100); MPV 8.3 fL (7.6-11.3); Platelets 226 thou/uL (152-406)
[2023-04-22 06:17] LABS: Potassium 3.6 mEq/L (3.5-5.1)
--- NOTE | 2023-04-22 07:45 | RAD REPORT ---
EXAM DESCRIPTION: Dorinda Single View04/22/2023 4:34 am CLINICAL HISTORY: Thoracentesis COMPARISON: April 21, 2023 FINDINGS: A right pneumothorax is not present. Opacity mid to lower right lung base a combination of pleural effusion and atelectasis. Small left pleural effusion Left lung appears clear acute infiltrate. Cardiomegaly IMPRESSION: No pneumothorax
[2023-04-22] MEDS: DOXAZOSIN 2 MG TAB PO SCH ×2 (09:45→20:47)
[2023-04-22] MEDS: APIXABAN 2.5 MG TABLET PO SCH ×2 (09:45→20:47)
[2023-04-22] MEDS: SERTRALINE HCL 100 MG TAB PO SCH (09:46)
[2023-04-22] MEDS: BUMETANIDE 1 MG TABLET PO SCH ×2 (09:46→20:47)
[2023-04-22] MEDS: ROSUVASTATIN 10 MG TAB PO SCH (09:47)
[2023-04-22] MEDS: CEFTRIAXONE 2,000 MG in NA CHLORIDE 0.9% 100 ML IV SCH (09:47)
[2023-04-22] MEDS: ASCORBIC ACID 500 MG TABLET PO SCH (09:47)
--- NOTE | 2023-04-22 09:47 | P.PN ---
Date of Service: 04/22/23 Vital Signs Temp Pulse Resp BP Pulse Ox 97.1 F 81 19 125/64 99 04/22/23 08:00 04/22/23 08:00 04/22/23 08:00 04/22/23 08:00 04/22/23 08:00 Medications Acetaminophen (Acetaminophen 325 Mg Tablet) 650 mg PO Q4HP PRN PRN Reason: Pain scale 2-4 (Mild) Apixaban (Apixaban 2.5 Mg Tablet) 2.5 mg PO BID [facility] Last Admin: 04/21/23 20:28 Dose: 2.5 mg Ascorbic Acid (Ascorbic Acid 500 Mg Tablet) 500 mg PO DAILY [facility] Last Admin: 04/21/23 09:53 Dose: 500 mg Bumetanide (Bumetanide 1 Mg Tablet) 1 mg PO BID [facility] Last Admin: 04/21/23 20:28 Dose: 1 mg Doxazosin Mesylate (Doxazosin 2 Mg Tab) 1 mg PO BID [facility] Last Admin: 04/21/23 20:27 Dose: 1 mg Ergocalciferol (Drisdol (Vitamin D=Ergocalciferol) 05950 Unit Cap) 50,000 unit PO Q7D@0900 [facility] Ferric Sodium Gluconate Complex 125 mg/ Sodium Chloride 110 mls @ 100 mls/hr IV DAILY [facility] Stop: 04/23/23 10:05 Last Admin: 04/21/23 09:53 Dose: 110 mls Ceftriaxone Sodium 2,000 mg/ (Sodium Chloride) 100 mls @ 200 mls/hr IV DAILY [facility]; Protocol Last Admin: 04/21/23 16:54 Dose: 100 mls Levothyroxine Sodium (Levothyroxine Sod 0.05 Mg Tablet) 0.05 mg FT [id number] [facility] Last Admin: 04/22/23 05:35 Dose: 0.05 mg Nutritional Formula (Ensure High Protein 237 Ml Can) 237 ml PO BID [facility] Last Admin: 04/21/23 20:29 Dose: 237 ml Ondansetron HCl (Ondansetron 4 Mg/2 Ml Vial) 4 mg IV Q6HP PRN PRN Reason: NAUSEA / VOMITING Pantoprazole Sodium ([facility]op[facility]ole [facility]mg Tablet) [facility]; Protocol Last Admin: 04/22/23 05:35 Dose: 40 mg Rosuvastatin Calcium (Rosuvastatin 10 Mg Tab) 10 mg PO DAILY [facility] Last Admin: 04/21/23 09:53 Dose: 10 mg Sertraline HCl (Sertraline Hcl 100 Mg Tab) 100 mg PO DAILY [facility] Last Admin: 04/21/23 09:52 Dose: 100 mg Microbiology Results 04/15/23 01:13 Blood - Blood Aerobic Blood Culture - Final Streptococcus Agalactiae Grp B 04/15/23 01:13 Blood - Blood Anaerobic Blood Culture - Final Streptococcus Agalactiae Grp B 04/15/23 01:13 Blood - Blood Gram Stain - Final 04/15/23 01:03 Blood - Blood Aerobic Blood Culture - Final No growth in 5 days. 04/15/23 01:03 Blood - Blood Anaerobic Blood Culture - Final No growth in 5 days. 04/15/23 01:03 Nasopharnyx Influenza Type A Antigen Screen - Final 04/15/23 01:03 Nasopharnyx Influenza Type B Antigen Screen - Final Assessment/ Plan: Nephrology Feeling better. +Appetite No dyspnea No chest pain No acute events overnight General: In no apparent distress, Cooperative HEENT: Atraumatic Neck: Supple Respiratory: Clear to auscultation bilaterally (except right anterior base) Cardiovascular: No edema, Regular rate/rhythm Gastrointestinal: Soft and benign, Non-distended Musculoskeletal: No clubbing, No contractures Integumentary: No rashes, Skin lesion Neurological: Normal speech Laboratory Data (last 24 hrs) 04/15/23 04/15/23 01:03 01:03 WBC 11.30 H Hgb 7.6 L Hct 24.6 L Plt Count 235 Sodium 137 Potassium 4.2 BUN 51 H Creatinine 3.58 H Glucose 115 H Total Bilirubin 0.9 AST 38 H ALT 18 Alkaline Phosphatase 97 Imagings Data: darrenrice EXAM DESCRIPTION: CT - Chest Abd Pelvis Wo Con - 04/15/2023 10:06 am CLINICAL HISTORY: jill R/O obstruction COMPARISON: No comparisons TECHNIQUE: Thin axial CT images of the chest, abdomen, and pelvis, performed without IV contrast. Multiplanar reformats were generated and reviewed. All CT scans are performed using dose optimization technique as appropriate and may include automated exposure control or mA/KV adjustment according to patient size. FINDINGS: Moderate to large right and trace left layering pleural effusions. Underlying up to segmental airspace opacification, most pronounced in the dependent right lower lobe. Moderate to marked cardiomegaly.No pneumothorax or pericardial effusion.No intrathoracic adenopathy. The liver shows mildly nodular contour which may relate to fibrosis or early cirrhosis. Spleen, pancreas, adrenal glands and kidneys are within normal limits. No bowel obstruction, free air, or abscess. Small volume free ascites. Mild prostatomegaly. No pathologic lymphadenopathy in the abdomen or pelvis. No worrisome osseous finding. IMPRESSION: Bilateral pleural effusions, moderate to large on the right and small on the left. Underlying airspace dependent opacities, may relate to atelectasis, however superimposed infection/ pneumonia would be difficult to exclude. Small volume free ascites. Moderate to marked cardiomegaly. Mildly nodular contour of the liver which may relate to fibrosis or early cirrhosis. darrenrice EXAM DESCRIPTION: RAD - Chest Lateral Decubitus - 04/15/2023 3:00 pm CLINICAL HISTORY: R sided effusion COMPARISON: Chest Single View dated 04/15/2023; Chest Abd Pelvis Wo Con dated 04/15/2023 FINDINGS: Left-sided up decubitus view is quite limited due to patient positioning. Right-sided pleural effusion appears to measure 4-5 cm in maximum thickness. The fluid appears largely free-flowing. darrenrice LEFT VENTRICULAR WALL MOTION: NORMAL DOPPLER/COLOR FLOW: SEE BELOW COMMENTS: 1. NORMAL LEFT VENTRICULAR EJECTION FRACTION 50-55% WITH NORMAL WALL MOTION 2. SEVERE DIASTOLIC DYSFUNCTION 3. MODERATE TO SEVERE TRICUSPID REGURGITATION 4. MODERATE PULMONARY INSUFFICIENCY 5. MILD MITRAL REGURGITATION 6. LEFT ATRIAL ENLARGEMENT 7. SEVERE PULMONARY HYPERTENSION WITH RIGHT VENTRICULAR SYSTOLIC PRESSURE GREATER THAN 60 mmHg Conclusions/Impression: Stage II JILL in the setting of Sepsis with hypotension complicated by hypovolemia. CKD III with Proteinuria -No NSAIDs HTN with CKD/ CHF -Continue Doxazosin Diastolic CHF, chronic Pulmonary HTN Moderate TR & PI Right Pleural Effusion -Daily weight -Continue Bumex -S/P thoracentesis yesterday DM II with CKD -RISS prn Hypoalbuminemia -Continue Nepro Anemia in chronic illness Iron Deficiency 4.6%% -Monitor H&H -PRBC prn -Continue IV iron daily BPH with LUTS -Monitor for retention -Continue Doxazosin Suspected Sepsis with shock Unclear source -Continue abx -Follow up cultures Hospitalist note reviewed Case discussed with Dr. Atkinson
[2023-04-22] MEDS: ENSURE HIGH PROTEIN 237 ML CAN PO SCH ×2 (09:48→20:48)
--- NOTE | 2023-04-22 09:58 | P.PN ---
Date of Service: 04/22/23 Chief Complaint: Sepsis, UTI, deconditioning. Subjective: Patient seen and examined at bedside. Denies any shortness of breath or chest pain. No new or worsening complaints. In no apparent distress. Physical Examination Temp Pulse Resp BP Pulse Ox 97.1 F 81 19 125/64 99 04/22/23 08:00 04/22/23 09:46 04/22/23 08:00 04/22/23 09:46 04/22/23 08:00 Laboratory Data - Reviewed Microbiology Data - Reviewed Imagings Data: - CT Chest Abdomen Pelvis 04/15: "Bilateral pleural effusions, moderate to large on the right and small on the left. Underlying airspace dependent opacities, may relate to atelectasis, however superimposed infection/ pneumonia would be difficult to exclude. Small volume free ascites. Moderate to marked cardiomegaly. Mildly nodular contour of the liver which may relate to fibrosis or early cirrhosis." - XR Chest 04/20: "Right pleural effusion measures maximally 7 cm in thickness along inferolateral right chest wall. It appears largely loculated. No significant left-sided effusion." Assessment and Plan Problem List Septic shock secondary to suspected urinary tract infection Atrial fibrillation s/p watchman procedure Pleural effusion JILL on CKD Iron deficiency anemia / Anemia of chronic disease Chronic diastolic congestive heart failure diabetes mellitus type II BPH Hypertension Hyperlipidemia Hypothyroidism Septic Shock Strep agalactiae bacteremia - Blood cultures 04/15: Streptococcus agalactiae group B in 2 of 4 bottles - Repeat blood cultures 04/17: no growth to date - urine culture 04/15: no growth to date - Previously on Vancomycin (04/15-04/18) and Cefepime (04/15-04/20) - Currently on Rocephin (started 04/21) Pleural effusion - s/p thoracentesis 04/16 - pleural fluid culture 04/16: no growth to date -fungal culture pending. AFB pending. - pleural fluid protein 3.8, LDH 1420 pleural fluid protein to serum protein >0.5 - loculated pleural effusion s/p thoracentesis 04/21 with 1L drained. Recommendations - strep bacteremia: Due to multiple comorbidities, recommend continuing with antibiotic therapy for a total of 10 days (04/15-04/24) - Monitor WBC and fever trends - Pulm also following Case discussed with Sergey Roach.
[2023-04-22] MEDS: SOD FERRIC GLUC COMPLX/SUCROSE 125 MG in NA CHLORIDE 0.9% 100 ML IV SCH (10:24)
[2023-04-22] MEDS: VITAMIN D 5,000 UNIT CAP PO SCH (10:24)
--- NOTE | 2023-04-22 12:05 | P.PN ---
Subjective Date of Service: 04/22/23 Chief Complaint: Loculated pleural effusion Subjective: Improving (Patient is doing well he denies any chest pain fever or shortness of breath) Review of Systems Unremarkable Physical Examination - Vital Signs Temperature: 97.1 F Blood Pressure: 125/64 Pulse: 81 Respirations: 19 Pulse Ox (%): 99 - Physical Exam General: Alert, Oriented x3 Respiratory: Clear to auscultation bilaterally, Diminished (Diminished on the right side) Cardiovascular: No edema, Regular rate/rhythm, Normal S1 S2 - Studies Microbiology Data (last 24 hrs): 04/15/23 01:13 Blood - Blood Aerobic Blood Culture - Final Streptococcus Agalactiae Grp B 04/15/23 01:13 Blood - Blood Anaerobic Blood Culture - Final Streptococcus Agalactiae Grp B 04/15/23 01:13 Blood - Blood Gram Stain - Final Assessment And Plan - Current Problems (Diagnosis) (1) Microcytic anemia Current Visit: Yes Status: Acute Plan: Patient is receiving iron transfusion (2) Loculated pleural effusion Current Visit: Yes Status: Acute Plan: S/p right-sided thoracentesis doing well no pneumothorax plan for discharge
--- NOTE | 2023-04-22 14:03 | P.PN ---
Subjective Date of Service: 04/22/23 Chief Complaint: Loculated pleural effusion Status post thoracentesis yesterday, 1 L of yellow-colored fluid drained. He is stable on room air. Patient has no new complaint. He is tolerating diet. Physical Examination - Vital Signs Temperature: 97.1 F Blood Pressure: 125/64 Pulse: 81 Respirations: 19 Pulse Ox (%): 99 Assessment And Plan - Plan Physical exam GEN: Alert, oriented x2 , NAD HEENT: Sclera anicteric CV: irregular rhythm, bradycardia Pulm: Nonlabored brething, clear to auscultation bilaterally. ABD: Soft, nontender, nondistended Integumentary: No rashes Neuro: Normal speech, no focal motor deficit. Vitals reviewed Problem List Septic shock secondary to suspected urinary tract infection/pneumonia Atrial fibrillation status post Watchman procedure Large right pleural effusion Stage II JILL with underlying CKD 3 Anemia of chronic disease/iron deficiency anemia Chronic diastolic congestive heart failure Diabetes mellitus type 2 BPH-urinary retention Hypertension Hyperlipidemia Hypothyroidism Plan Septic shock secondary to suspected urinary tract infection/pneumonia Continue cefepime urine culture-no growth / blood cultures from 04/15 positive Streptococcus agalactiae group B Repeat blood cultures: no growth to date Off vasopressors as of 04/[address] chest with large pleural effusion, possible superimposed pneumonia Status post thoracentesis x 2. Infectious disease is following. IV cefepime changed to IV Rocephin. ID recommended 10 days of IV antibiotics. Patient will complete antibiotics on 04/24/23. Atrial fibrillation status post Watchman procedure with periodic bradycardia With slow ventricular response today Not on any beta-blockers Cardiology input appreciated Echo:NORMAL LEFT VENTRICULAR EJECTION FRACTION 50-55% WITH NORMAL WALL MOTION, SEVERE DIASTOLIC DYSFUNCTION, MODERATE TO SEVERE TRICUSPID REGURGITATION, MODERATE PULMONARY INSUFFICIENCY, SEVERE PULMONARY HYPERTENSION WITH RIGHT VENTRICULAR SYSTOLIC PRESSURE GREATER THAN 60 mmHg. Continue Eliquis status post thoracentesis. Large right pleural effusion CT chest showed bilateral pleural effusions, moderate to large on the right and small on the left. Family reports recent admission at the end of February to [facility] for similar-reportedly had thoracentesis at that time Thoracentesis x 2 this hospitalization. Stable on room air Right pleural effusion is loculated. Repeat chest x-ray post thoracentesis-no pneumothorax, decreased right-sided pleural effusion. Pulmonary Dr. Martinez input appreciated and he recommended follow-up with him in the office as outpatient to assess for need for CT surgery evaluation Stage II JILL with underlying CKD 3 Nephrology following Weaned off vasopressor therapy Renal function improved Resumed diuresis 04/20 with bumex 1mg po bid-home med Continue to monitor renal function. Anemia of chronic disease/Iron deficiency anemia transfused 1 unit. Monitor H&H daily MARIKA present, patient will complete IV iron therapy on 04/23. Chronic diastolic congestive heart failure/severe pulmonary hypertension/severe transglottic radiation Currently compensated for CHF. Monitor volume status closely On home dose Bumex. Diabetes mellitus type 2 ACHS Accu-Chek, sliding scale insulin BPH-urinary retention Continue home dose doxazosin Hypertension Amlodipine on hold. Continue doxazosin due to soft blood pressure. Hyperlipidemia Continue statin Hypothyroidism Continue home dose Synthroid VTE: Eliquis Code: Full
[2023-04-23 05:20] LABS: Hematocrit 27.8 % (39.6-49.0); MCV 76.4 fL (80-100); MPV 8.1 fL (7.6-11.3); Platelets 254 thou/uL (152-406); RBC Red Blood Cell Count 3.64 M/uL (4.33-5.43)
[2023-04-23 05:28] LABS: Potassium 3.5 mEq/L (3.5-5.1)
[2023-04-23] MEDS: PANTOPRAZOLE 40MG TABLET PO SCH (05:30)
[2023-04-23] MEDS: LEVOTHYROXINE SOD 0.05 MG TABLET FT SCH (05:30)
--- NOTE | 2023-04-23 08:27 | P.PN ---
Date of Service: 04/23/23 Chief Complaint: Sepsis, UTI, deconditioning. Subjective: In no apparent distress. Breathing comfortably on room air. Patient denies any new or worsening complaints. No acute events reported overnight. On day antibiotic therapy. Physical Examination Temp Pulse Resp BP Pulse Ox 97.5 F 64 18 141/70 H 97 04/23/23 04:00 04/23/23 04:00 04/23/23 04:00 04/23/23 04:00 04/23/23 04:00 Laboratory Data - Reviewed Microbiology Data - Reviewed Imagings Data: - CT Chest Abdomen Pelvis 04/15: "Bilateral pleural effusions, moderate to large on the right and small on the left. Underlying airspace dependent opacities, may relate to atelectasis, however superimposed infection/ pneumonia would be difficult to exclude. Small volume free ascites. Moderate to marked cardiomegaly. Mildly nodular contour of the liver which may relate to fibrosis or early cirrhosis." - XR Chest 04/20: "Right pleural effusion measures maximally 7 cm in thickness along inferolateral right chest wall. It appears largely loculated. No significant left-sided effusion." Medications List: Reviewed Assessment and Plan Problem List Septic shock secondary to suspected urinary tract infection Atrial fibrillation s/p watchman procedure Pleural effusion JILL on CKD Iron deficiency anemia / Anemia of chronic disease Chronic diastolic congestive heart failure diabetes mellitus type II BPH Hypertension Hyperlipidemia Hypothyroidism Septic Shock Strep agalactiae bacteremia - Blood cultures 04/15: Streptococcus agalactiae group B in 2 of 4 bottles - Repeat blood cultures 04/17: no growth to date - urine culture 04/15: no growth to date - Previously on Vancomycin (04/15-04/18) and Cefepime (04/15-04/20) - Currently on Rocephin (started 04/21) Pleural effusion - s/p thoracentesis 04/16 - pleural fluid culture 04/16: no growth to date -fungal culture pending. AFB pending. - pleural fluid protein 3.8, LDH 1420 pleural fluid protein to serum protein >0.5 - loculated pleural effusion s/p thoracentesis 04/21 with 1L drained. Recommendations - strep bacteremia: Due to multiple comorbidities, recommend continuing with antibiotic therapy for a total of 10 days (04/15-04/24). on day 9 . - Monitor WBC and fever trends - Pulm also following Case discussed with Alex Roach
[2023-04-23] MEDS: ENSURE HIGH PROTEIN 237 ML CAN PO SCH ×2 (09:00→20:28)
[2023-04-23] MEDS: SOD FERRIC GLUC COMPLX/SUCROSE 125 MG in NA CHLORIDE 0.9% 100 ML IV SCH (09:23)
[2023-04-23] MEDS: CEFTRIAXONE 2,000 MG in NA CHLORIDE 0.9% 100 ML IV SCH (09:24)
[2023-04-23] MEDS: VITAMIN D 5,000 UNIT CAP PO SCH (09:27)
[2023-04-23] MEDS: BUMETANIDE 1 MG TABLET PO SCH ×2 (09:27→20:21)
[2023-04-23] MEDS: ASCORBIC ACID 500 MG TABLET PO SCH (09:30)
[2023-04-23] MEDS: DOXAZOSIN 2 MG TAB PO SCH ×2 (09:30→20:27)
[2023-04-23] MEDS: APIXABAN 2.5 MG TABLET PO SCH ×2 (09:30→20:28)
[2023-04-23] MEDS: SERTRALINE HCL 100 MG TAB PO SCH (09:30)
[2023-04-23] MEDS: ROSUVASTATIN 10 MG TAB PO SCH (09:32)
--- NOTE | 2023-04-23 10:33 | P.PN ---
Nephrology note (S) Does not voice complaints, not on o2, renal function tests stable (O) Vitals reviewed in the EMR General: In no apparent distress, HEENT: Atraumatic, not on o2, Neck: JVD noted Respiratory: b/l air entry without rhonchi anteriorly Cardiovascular: Non tachy, no loud murmurs Gastrointestinal: Soft and benign, Non-distended Musculoskeletal: Shins non tender Neurological: Awake, responsive, Normal speech Imagings Data: darrenrice EXAM DESCRIPTION: CT - Chest Abd Pelvis Wo Con - 04/15/2023 10:06 am CLINICAL HISTORY: jill R/O obstruction COMPARISON: No comparisons TECHNIQUE: Thin axial CT images of the chest, abdomen, and pelvis, performed without IV contrast. Multiplanar reformats were generated and reviewed. All CT scans are performed using dose optimization technique as appropriate and may include automated exposure control or mA/KV adjustment according to patient size. FINDINGS: Moderate to large right and trace left layering pleural effusions. Underlying up to segmental airspace opacification, most pronounced in the dependent right lower lobe. Moderate to marked cardiomegaly.No pneumothorax or p ericardial effusion.No intrathoracic adenopathy. The liver shows mildly nodular contour which may relate to fibrosis or early cirrhosis. Spleen, pancreas, adrenal glands and kidneys are within normal limits. No bowel obstruction, free air, or abscess. Small volume free ascites. Mild prostatomegaly. No pathologic lymphadenopathy in the abdomen or pelvis. No worrisome osseous finding. IMPRESSION: Bilateral pleural effusions, moderate to large on the right and small on the left. Underlying airspace dependent opacities, may relate to atelectasis, however superimposed infection/ pneumonia would be difficult to exclude. Small volume free ascites. Moderate to marked cardiomegaly. Mildly nodular contour of the liver which may relate to fibrosis or early cirrhosis. darrenrice EXAM DESCRIPTION: RAD - Chest Lateral Decubitus - 04/15/2023 3:00 pm CLINICAL HISTORY: R sided effusion COMPARISON: Chest Single View dated 04/15/2023; Chest Abd Pelvis Wo Con dated 04/15/2023 FINDINGS: Left-sided up decubitus view is quite limited due to patient positioning. Right-sided pleural effusion appears to measure 4-5 cm in maximum thickness. The fluid appears largely free-flowing. Conclusions/Impression: Stage II JILL multifactorial but in the setting of hypotension, severe anemia, other since resolved CKD III unspecified, underlying -Cr levels stable at prior baseline range. Will place on scheduled KCL since pt on PO Bumex HTN with CKD/ CHF complicated by hypotension -BP stable now, cont to monitor Diastolic CHF, chronic Pulm HTN unspecified -Monitor clinically, maintenance diuretics restarted by primary team. Suspected Sepsis with initial presentation, unspecified organism. Rt pleural effusion, s/p thoracentesis, possibly transudative, abnormal cell count, studies pending. -Complete Abx course per IM/ID
[2023-04-23] MEDS: POTASSIUM CL SA 10 MEQ TAB PO SCH (12:29)
--- NOTE | 2023-04-23 14:03 | P.PN ---
Subjective Date of Service: 04/23/23 Chief Complaint: Loculated pleural effusion Patient denies any new complaint. He is tolerating diet. He is stable on room air. No issues overnight. No recorded fever. Physical Examination - Vital Signs Temperature: 98.2 F Blood Pressure: 114/56 Pulse: 67 Respirations: 18 Pulse Ox (%): 92 Assessment And Plan - Plan Physical exam GEN: Alert, oriented x2 , NAD HEENT: Sclera anicteric CV: irregular rhythm, bradycardia Pulm: Nonlabored brething, clear to auscultation bilaterally. ABD: Soft, nontender, nondistended Integumentary: No rashes Neuro: Normal speech, no focal motor deficit. Vitals reviewed Problem List Septic shock secondary to suspected urinary tract infection/pneumonia Atrial fibrillation status post Watchman procedure Large right pleural effusion Stage II JILL with underlying CKD 3 Anemia of chronic disease/iron deficiency anemia Chronic diastolic congestive heart failure Diabetes mellitus type 2 BPH-urinary retention Hypertension Hyperlipidemia Hypothyroidism Plan Septic shock secondary to suspected urinary tract infection/pneumonia Continue cefepime urine culture-no growth / blood cultures from 04/15 positive Streptococcus agalactiae group B Repeat blood cultures: no growth to date Off vasopressors as of 04/[address] chest with large pleural effusion, possible superimposed pneumonia Status post thoracentesis x 2. Infectious disease is following. IV cefepime changed to IV Rocephin. ID recommended 10 days of IV antibiotics. Patient slated to complete 10 days of IV antibiotics. Atrial fibrillation status post Watchman procedure with periodic bradycardia With slow ventricular response today Not on any beta-blockers Cardiology input appreciated Echo:NORMAL LEFT VENTRICULAR EJECTION FRACTION 50-55% WITH NORMAL WALL MOTION, SEVERE DIASTOLIC DYSFUNCTION, MODERATE TO SEVERE TRICUSPID REGURGITATION, MODERATE PULMONARY INSUFFICIENCY, SEVERE PULMONARY HYPERTENSION WITH RIGHT VENTRICULAR SYSTOLIC PRESSURE GREATER THAN 60 mmHg. Continue Eliquis status post thoracentesis. Large right pleural effusion CT chest showed bilateral pleural effusions, moderate to large on the right and small on the left. Family reports recent admission at the end of February to [facility] for similar-reportedly had thoracentesis at that time Thoracentesis x 2 this hospitalization. Stable on room air Right pleural effusion is loculated. Repeat chest x-ray post thoracentesis-no pneumothorax, decreased right-sided pleural effusion. Pulmonary Dr. Martinez input appreciated and he recommended follow-up with him in the office as outpatient to assess for need for CT surgery evaluation Stage II JILL with underlying CKD 3 Nephrology following Weaned off vasopressor therapy Renal function improved and stabilized. Continue diuresis with home dose bumex 1mg po bid Continue to monitor renal function. Anemia of chronic disease/Iron deficiency anemia transfused 1 unit. Monitor H&H daily MARIKA present, patient will complete IV iron therapy today. Chronic diastolic congestive heart failure/severe pulmonary hypertension/severe transglottic radiation Currently compensated for CHF. Monitor volume status closely On home dose Bumex. Diabetes mellitus type 2 ACHS Accu-Chek, sliding scale insulin BPH-urinary retention Continue home dose doxazosin Hypertension Amlodipine on hold. Continue doxazosin due to soft blood pressure. Hyperlipidemia Continue statin Hypothyroidism Continue home dose Synthroid. Impaired mobility Continue PT. Family requesting for home health for PT. VTE: Eliquis Code: Full
[2023-04-24] MEDS: PANTOPRAZOLE 40MG TABLET PO SCH (05:15)
[2023-04-24] MEDS: LEVOTHYROXINE SOD 0.05 MG TABLET FT SCH (05:15)
[2023-04-24 05:31] LABS: Hematocrit 25.7 % (39.6-49.0); MCV 76.1 fL (80-100); MPV 7.9 fL (7.6-11.3); Platelets 247 thou/uL (152-406); RBC Red Blood Cell Count 3.37 M/uL (4.33-5.43)
[2023-04-24 05:48] LABS: Potassium 3.5 mEq/L (3.5-5.1)
--- NOTE | 2023-04-24 08:51 | P.PN ---
Date of Service: 04/24/23 Chief Complaint: Sepsis, UTI, deconditioning. Subjective: Patient in bed eating breakfast. He denies any new or worsening complaints at this time. In no apparent distress, breathing comfortably on room air. No acute events overnight. Physical Examination Temp Pulse Resp BP Pulse Ox 97.9 F 54 20 136/47 L 95 04/24/23 04:00 04/24/23 04:00 04/24/23 04:00 04/24/23 04:00 04/24/23 04:00 General: In no apparent distress. Oriented x 1-2. HEENT: head normocephalic, atraumatic. Resp: Unlabored respirations on room air. Diminished at bases. CV: bradycardia. trace BLE edema. Abdomen: normoactive bowel sounds. Soft, nontender, nondistended. Skin: Ecchymosis scattered bilateral upper extremities Laboratory Data - Reviewed Microbiology Data - Reviewed Imagings Data: - CT Chest Abdomen Pelvis 04/15: "Bilateral pleural effusions, moderate to large on the right and small on the left. Underlying airspace dependent opacities, may relate to atelectasis, however superimposed infection/ pneumonia would be difficult to exclude. Small volume free ascites. Moderate to marked cardiomegaly. Mildly nodular contour of the liver which may relate to fibrosis or early cirrhosis." - XR Chest 04/20: "Right pleural effusion measures maximally 7 cm in thickness along inferolateral right chest wall. It appears largely loculated. No significant left-sided effusion." Medications List: Reviewed Assessment and Plan Problem List Septic shock secondary to suspected urinary tract infection Atrial fibrillation s/p watchman procedure Pleural effusion JILL on CKD Iron deficiency anemia / Anemia of chronic disease Chronic diastolic congestive heart failure diabetes mellitus type II BPH Hypertension Hyperlipidemia Hypothyroidism Septic Shock Strep agalactiae bacteremia - Blood cultures 04/15: Streptococcus agalactiae group B in 2 of 4 bottles - Repeat blood cultures 04/17: no growth to date - urine culture 04/15: no growth to date - Previously on Vancomycin (04/15-04/18) and Cefepime (04/15-04/20) - Currently on Rocephin (started 04/21) Pleural effusion - s/p thoracentesis 04/16 - pleural fluid culture 04/16: no growth to date -fungal culture pending. AFB pending. - pleural fluid protein 3.8, LDH 1420 pleural fluid protein to serum protein >0.5 - loculated pleural effusion s/p thoracentesis 04/21 with 1L drained. Recommendations - strep bacteremia: Continue antibiotic therapy for a total of 10 days (04/15- 04/24). - On Rocephin IV day 10 of 10. Discontinue after today's dose. - Monitor WBC and fever trends - Continue supportive care - Strict blood glucose control - Follow up with pulmonology as outpatient Case discussed with Alex Roach
[2023-04-24] MEDS: ENSURE HIGH PROTEIN 237 ML CAN PO SCH ×2 (09:00→20:07)
[2023-04-24] MEDS: VITAMIN D 5,000 UNIT CAP PO SCH (09:54)
[2023-04-24] MEDS: ASCORBIC ACID 500 MG TABLET PO SCH (09:54)
[2023-04-24] MEDS: ROSUVASTATIN 10 MG TAB PO SCH (09:54)
[2023-04-24] MEDS: SERTRALINE HCL 100 MG TAB PO SCH (09:54)
[2023-04-24] MEDS: POTASSIUM CL SA 10 MEQ TAB PO SCH (09:55)
[2023-04-24] MEDS: DOXAZOSIN 2 MG TAB PO SCH ×2 (09:55→20:06)
[2023-04-24] MEDS: BUMETANIDE 1 MG TABLET PO SCH ×2 (09:55→20:06)
[2023-04-24] MEDS: APIXABAN 2.5 MG TABLET PO SCH ×2 (09:55→20:07)
[2023-04-24] MEDS: CEFTRIAXONE 2,000 MG in NA CHLORIDE 0.9% 100 ML IV SCH (09:56)
--- NOTE | 2023-04-24 11:49 | P.PN ---
Nephrology note (S) Does not voice complaints, not on o2, renal function tests stable. Working with PT (O) Vitals reviewed in the EMR General: In no apparent distress, HEENT: Atraumatic, not on o2, Neck: JVD noted Respiratory: b/l air entry without rhonchi anteriorly Cardiovascular: Non tachy, no loud murmurs Gastrointestinal: Soft and benign, Non-distended Musculoskeletal: Shins non tender Neurological: Awake, responsive, Normal speech Imagings Data: darrenrice EXAM DESCRIPTION: CT - Chest Abd Pelvis Wo Con - 04/15/2023 10:06 am CLINICAL HISTORY: jill R/O obstruction COMPARISON: No comparisons TECHNIQUE: Thin axial CT images of the chest, abdomen, and pelvis, performed without IV contrast. Multiplanar reformats were generated and reviewed. All CT scans are performed using dose optimization technique as appropriate and may include automated exposure control or mA/KV adjustment according to patient size. FINDINGS: Moderate to large right and trace left layering pleural effusions. Underlying up to segmental airspace opacification, most pronounced in the dependent right lower lobe. Moderate to marked cardiomegaly.No pneumothorax or pericardial effusion.No intrathoracic adenopathy. The liver shows mildly nodular contour which may relate to fibrosis or early cirrhosis. Spleen, pancreas, adrenal glands and kidneys are within normal limits. No bowel obstruction, free air, or abscess. Small volume free ascites. Mild prostatomegaly. No pathologic lymphadenopathy in the abdomen or pelvis. No worrisome osseous finding. IMPRESSION: Bilateral pleural effusions, moderate to large on the right and small on the left. Underlying airspace dependent opacities, may relate to atelectasis, however superimposed infection/ pneumonia would be difficult to exclude. Small volume free ascites. Moderate to marked cardiomegaly. Mildly nodular contour of the liver which may relate to fibrosis or early cirrhosis. darrenrice EXAM DESCRIPTION: RAD - Chest Lateral Decubitus - 04/15/2023 3:00 pm CLINICAL HISTORY: R sided effusion COMPARISON: Chest Single View dated 04/15/2023; Chest Abd Pelvis Wo Con dated 04/15/2023 FINDINGS: Left-sided up decubitus view is quite limited due to patient posi tioning. Right-sided pleural effusion appears to measure 4-5 cm in maximum thickness. The fluid appears largely free-flowing. Conclusions/Impression: Stage II JILL multifactorial but in the setting of hypotension, severe anemia, other since resolved CKD III unspecified, underlying -Cr levels stable at prior baseline range. Did place on scheduled KCL since pt on PO Bumex HTN with CKD/ CHF complicated by hypotension -BP stable now, cont to monitor Diastolic CHF, chronic Pulm HTN unspecified -Monitor clinically, maintenance diuretics restarted by primary team. Cont current dose for now Suspected Sepsis with initial presentation, unspecified organism. Rt pleural effusion, s/p thoracentesis, possibly transudative, abnormal cell count, studies pending. -Complete Abx course per IM/ID
--- NOTE | 2023-04-24 13:38 | RAD REPORT ---
EXAM DESCRIPTION: MRI - Brain Wo Cont - 04/24/2023 1:27 pm CLINICAL HISTORY: AMS Headache, drowsiness COMPARISON: Head Brain Wo Cont dated 04/15/2023 TECHNIQUE: Multi-sequence, multiplanar MR imaging of the brain was performed without contrast. FINDINGS: No intracranial hemorrhage, hydrocephalus or extra-axial fluid collections.Moderate conflu ent T2/FLAIR hyperintensity in the periventricular and deep white matter is present compatible with c hronic microvascular ischemic changes. No edema or shift of midline structures. No findings to suspec t brain mass. DWI is negative for acute CVA. Midline structures are normally formed. Mastoid air cells and paranasal sinuses are clear. IMPRESSION: Negative for acute CVA or other acute intracranial process.
--- NOTE | 2023-04-24 13:58 | P.PN ---
Subjective Date of Service: 04/24/23 Chief Complaint: Loculated pleural effusion Patient has no new complain. He is stable on room air. No recorded fever. Granddaughter is concerned that patient mental status has not improved to baseline. He is needing assistance with feeding. Physical Examination - Vital Signs Temperature: 98.2 F Blood Pressure: 136/54 Pulse: 60 Respirations: 17 Pulse Ox (%): 94 Assessment And Plan - Plan Physical exam GEN: Alert, oriented x2 , NAD HEENT: Sclera anicteric CV: irregular rhythm, bradycardia Pulm: Nonlabored brething, clear to auscultation bilaterally. ABD: Soft, nontender, nondistended Integumentary: No rashes Neuro: Normal speech, no focal motor deficit. Vitals reviewed Problem List Septic shock secondary to suspected urinary tract infection/pneumonia Atrial fibrillation status post Watchman procedure Large right pleural effusion Stage II JILL with underlying CKD 3 Anemia of chronic disease/iron deficiency anemia Chronic diastolic congestive heart failure Diabetes mellitus type 2 BPH-urinary retention Hypertension Hyperlipidemia Hypothyroidism Plan Septic shock secondary to suspected urinary tract infection/pneumonia Continue cefepime urine culture-no growth 2/ blood cultures from 04/15 positive Streptococcus agalactiae group B Repeat blood cultures: no growth to date Off vasopressors as of 04/[address] chest with large pleural effusion, possible superimposed pneumonia Status post thoracentesis x 2. Infectious disease is following. IV cefepime changed to IV Rocephin. ID recommended 10 days of IV antibiotics. Patient slated to complete 10 days of IV antibiotics. Atrial fibrillation status post Watchman procedure with periodic bradycardia With slow ventricular response today Not on any beta-blockers Cardiology input appreciated Echo:NORMAL LEFT VENTRICULAR EJECTION FRACTION 50-55% WITH NORMAL WALL MOTION, SEVERE DIASTOLIC DYSFUNCTION, MODERATE TO SEVERE TRICUSPID REGURGITATION, MODERATE PULMONARY INSUFFICIENCY, SEVERE PULMONARY HYPERTENSION WITH RIGHT VENTRICULAR SYSTOLIC PRESSURE GREATER THAN 60 mmHg. Continue Eliquis status post thoracentesis. Large right pleural effusion CT chest showed bilateral pleural effusions, moderate to large on the right and small on the left. Family reports recent admission at the end of February to [facility] [place] for similar-reportedly had thoracentesis at that time Thoracentesis x 2 this hospitalization. Stable on room air Right pleural effusion is loculated. Repeat chest x-ray post thoracentesis-no pneumothorax, decreased right-sided p leural effusion and atelectasis. Pulmonary Dr. Martinez input appreciated and he recommended follow-up with him in the office as outpatient to assess for need for CT surgery evaluation Stage II JILL with underlying CKD 3 Nephrology following Weaned off vasopressor therapy Renal function improved and stabilized. Continue diuresis with home dose bumex 1mg po bid Continue to monitor renal function. Anemia of chronic disease/Iron deficiency anemia transfused 1 unit. Monitor H&H daily MARIKA present, patient will complete IV iron therapy today. Chronic diastolic congestive heart failure/severe pulmonary hypertension/severe transglottic radiation Currently compensated for CHF. Monitor volume status closely On home dose Bumex. Diabetes mellitus type 2 ACHS Accu-Chek, sliding scale insulin BPH-urinary retention Continue home dose doxazosin Hypertension Amlodipine on hold. Continue doxazosin due to soft blood pressure. Hyperlipidemia Continue statin Hypothyroidism Continue home dose Synthroid. Impaired mobility MRI of the brain: Unremarkable and suggest chronic ischemic changes. Continue PT. Family requesting for home health for PT. VTE: Eliquis Code: Full
[2023-04-25 04:18] LABS: Hematocrit 25.7 % (39.6-49.0); MCV 76.9 fL (80-100); MPV 7.9 fL (7.6-11.3); Platelets 263 thou/uL (152-406); RBC Red Blood Cell Count 3.35 M/uL (4.33-5.43)
[2023-04-25 04:31] LABS: Potassium 3.5 mEq/L (3.5-5.1)
[2023-04-25] MEDS: LEVOTHYROXINE SOD 0.05 MG TABLET FT SCH (07:09)
[2023-04-25] MEDS: PANTOPRAZOLE 40MG TABLET PO SCH (07:09)
[2023-04-25] MEDS: BUMETANIDE 1 MG TABLET PO SCH ×2 (08:43→20:37)
[2023-04-25] MEDS: ROSUVASTATIN 10 MG TAB PO SCH (08:43)
[2023-04-25] MEDS: VITAMIN D 5,000 UNIT CAP PO SCH (08:44)
[2023-04-25] MEDS: APIXABAN 2.5 MG TABLET PO SCH ×2 (08:44→20:36)
[2023-04-25] MEDS: ASCORBIC ACID 500 MG TABLET PO SCH (08:44)
[2023-04-25] MEDS: SERTRALINE HCL 100 MG TAB PO SCH (08:44)
[2023-04-25] MEDS: POTASSIUM CL SA 10 MEQ TAB PO SCH (08:44)
[2023-04-25] MEDS: CEFTRIAXONE 2,000 MG in NA CHLORIDE 0.9% 100 ML IV SCH (08:44)
[2023-04-25] MEDS: DOXAZOSIN 2 MG TAB PO SCH ×2 (08:44→20:36)
[2023-04-25] MEDS: ENSURE HIGH PROTEIN 237 ML CAN PO SCH ×2 (08:45→20:38)
[2023-04-25] MEDS ORDERED: DRISDOL (VITAMIN D=ERGOCALCIFEROL) 50000 UNIT CAP PO SCH (09:00)
--- NOTE | 2023-04-25 16:02 | P.PN ---
Subjective Date of Service: 04/25/23 Chief Complaint: Loculated pleural effusion Patient has no new complain. He denies any shortness of breath He was seen eating by himself. Physical Examination - Vital Signs Temperature: 98.3 F Blood Pressure: 115/52 Pulse: 72 Respirations: 16 Pulse Ox (%): 100 Assessment And Plan - Plan Physical exam GEN: Alert, oriented x2 , NAD CV: irregular rhythm, bradycardia Pulm: Nonlabored brething, clear to auscultation bilaterally. ABD: Soft, nontender, nondistended Integumentary: No rashes Neuro: Normal speech, no focal motor deficit. Vitals reviewed Problem List Septic shock secondary to suspected urinary tract infection/pneumonia Atrial fibrillation status post Watchman procedure Large right pleural effusion Stage II JILL with underlying CKD 3 Anemia of chronic disease/iron deficiency anemia Chronic diastolic congestive heart failure Diabetes mellitus type 2 BPH-urinary retention Hypertension Hyperlipidemia Hypothyroidism Plan Septic shock secondary to suspected urinary tract infection/pneumonia Continue cefepime urine culture-no growth / blood cultures from 04/15 positive Streptococcus agalactiae group B Repeat blood cultures: no growth to date Off vasopressors as of 04/15. CT chest with large pleural effusion, possible superimposed pneumonia Status post thoracentesis x 2. Infectious disease is following. IV cefepime changed to IV Rocephin. Patient slated to complete 10 days of IV antibiotics after negative blood culture growth. Atrial fibrillation status post Watchman procedure with periodic bradycardia With slow ventricular response today Not on any beta-blockers Cardiology input appreciated Echo:NORMAL LEFT VENTRICULAR EJECTION FRACTION 50-55% WITH NORMAL WALL MOTION, SEVERE DIASTOLIC DYSFUNCTION, MODERATE TO SEVERE TRICUSPID REGURGITATION, MODERATE PULMONARY INSUFFICIENCY, SEVERE PULMONARY HYPERTENSION WITH RIGHT VENTRICULAR SYSTOLIC PRESSURE GREATER THAN 60 mmHg. Eliquis held briefly for patient to undergo thoracentesis and then resumed. Continue Eliquis. Large right pleural effusion CT chest showed bilateral pleural effusions, moderate to large on the right and small on the left. Family reports recent admission at the end of February to [facility] for similar-reportedly had thoracentesis at that time Thoracentesis x 2 this hospitalization. Stable on room air Right pleural effusion is loculated. Repeat chest x-ray post thoracentesis-no pneumothorax, decreased right-sided pleural effusion and atelectasis. Pulmonary Dr. Martinez input appreciated and he recommended follow-up with him in the office as outpatient to assess for need for CT surgery evaluation Stage II JILL with underlying CKD 3 Nephrology following Off vasopressor therapy Renal function improved and stabilized. Continue diuresis with home dose bumex 1mg po bid Continue to monitor renal function. Anemia of chronic disease/Iron deficiency anemia transfused 1 unit. Hemoglobin has been stable MARIKA present, patient completed IV iron therapy. Chronic diastolic congestive heart failure/severe pulmonary hypertension/severe transglottic radiation Currently compensated for CHF. Monitor volume status closely On home dose Bumex. Diabetes mellitus type 2 ACHS Accu-Chek, sliding scale insulin BPH-urinary retention Continue home dose doxazosin. Hypertension Patient has been normotensive Amlodipine on hold. Continue doxazosin due to soft blood pressure. Hyperlipidemia Continue statin Hypothyroidism Continue home dose Synthroid. Impaired mobility MRI of the brain: Unremarkable and suggest chronic ischemic changes. Continue PT. Family requesting for SNF placement. VTE: Eliquis Code: Full
--- NOTE | 2023-04-25 16:14 | PN ---
Date of Progress Note: 04/25/2023 Subjective: The patient was seen and examined at bedside. He denies any complaints. No overnight e vents were noted. Physical Examination: Vital Signs: Reviewed and are stable. General: He appears in no acute distress. Lungs: Clear to auscultation. Abdomen: Soft and nontender. Lungs: Clear with diminished breath sounds at bases. Extremities: No evidence of edema. Laboratory Data: Creatinine stable at 1.57, sodium of 139, potassium 3.5, BUN of 37. CBC showing he moglobin of 8.1, hematocrit of 25.7. Current Medications: Have been reviewed. Impression: 1.Acute renal failure secondary to acute tubular necrosis with underlying cardiorenal syndrome, curr ently with stable renal function. 2.Septic shock secondary to UTI/pneumonia. The patient is currently getting antibiotics. Blood cul tures showed positive Strep agalactiae. He is off pressors and he is doing okay. 3.Atrial fibrillation. Currently remains on Eliquis. 4.Pleural effusion, status post thoracentesis, noted to be exudative, likely secondary to pneumonia. Plan: Overall the patient is doing okay. He has received IV iron for his anemia. His hemoglobin le vels are holding. He remains on Bumex for his CHF with stable compensated volume status, finishing u p course of antibiotics for his UTI as well as pneumonia and he is doing okay. The patient will be continued to be monitored from renal standpoint and his renal function remains st able. VV/MODL Voice ID: [id number] Report ID: [id number]
[2023-04-26] MEDS: LEVOTHYROXINE SOD 0.05 MG TABLET FT SCH (06:28)
[2023-04-26] MEDS: PANTOPRAZOLE 40MG TABLET PO SCH (06:28)
[2023-04-26] MEDS: ENSURE HIGH PROTEIN 237 ML CAN PO SCH ×2 (09:00→20:21)
[2023-04-26] MEDS: BUMETANIDE 1 MG TABLET PO SCH ×2 (09:31→20:19)
[2023-04-26] MEDS: VITAMIN D 5,000 UNIT CAP PO SCH (09:31)
[2023-04-26] MEDS: ROSUVASTATIN 10 MG TAB PO SCH (09:31)
[2023-04-26] MEDS: DOXAZOSIN 2 MG TAB PO SCH ×2 (09:31→20:19)
[2023-04-26] MEDS: APIXABAN 2.5 MG TABLET PO SCH ×2 (09:31→20:20)
[2023-04-26] MEDS: ASCORBIC ACID 500 MG TABLET PO SCH (09:31)
[2023-04-26] MEDS: POTASSIUM CL SA 10 MEQ TAB PO SCH (09:31)
[2023-04-26] MEDS: CEFTRIAXONE 2,000 MG in NA CHLORIDE 0.9% 100 ML IV SCH (09:31)
[2023-04-26] MEDS: SERTRALINE HCL 100 MG TAB PO SCH (09:31)
[2023-04-27] MEDS: PANTOPRAZOLE 40MG TABLET PO SCH (05:30)
[2023-04-27] MEDS: LEVOTHYROXINE SOD 0.05 MG TABLET FT SCH (05:31)
--- NOTE | 2023-04-27 08:39 | P.PN ---
Subjective Date of Service: 04/27/23 Chief Complaint: Loculated pleural effusion Subjective: Improving (Patient is improving doing well no new complaints awaiting transfer to rehab) Review of Systems Unremarkable Physical Examination - Vital Signs Temperature: 98.3 F Blood Pressure: 120/53 Pulse: 74 Respirations: 16 Pulse Ox (%): 96 - Physical Exam General: Alert, Oriented x3 Respiratory: Diminished (Diminished on the right side) Cardiovascular: No edema, Normal S1 S2 Assessment And Plan - Current Problems (Diagnosis) (1) Microcytic anemia Current Visit: Yes Status: Acute Plan: Patient's hemoglobin is stable (2) Loculated pleural effusion Current Visit: Yes Status: Acute Plan: Patient's condition is stable there is no evidence of infection in the pleural fluid however it is an exudative pleural fluid with elevated LDH has a predominance of red cells cytology is negative repeat PA and lateral chest x-ray in the department
[2023-04-27] MEDS: BUMETANIDE 1 MG TABLET PO SCH ×2 (08:40→21:27)
[2023-04-27] MEDS: ENSURE HIGH PROTEIN 237 ML CAN PO SCH ×2 (08:41→21:27)
[2023-04-27] MEDS: ASCORBIC ACID 500 MG TABLET PO SCH (08:41)
[2023-04-27] MEDS: SERTRALINE HCL 100 MG TAB PO SCH (08:41)
[2023-04-27] MEDS: VITAMIN D 5,000 UNIT CAP PO SCH (08:41)
[2023-04-27] MEDS: POTASSIUM CL SA 10 MEQ TAB PO SCH (08:41)
[2023-04-27] MEDS: ROSUVASTATIN 10 MG TAB PO SCH (08:42)
[2023-04-27] MEDS: APIXABAN 2.5 MG TABLET PO SCH ×2 (08:42→21:27)
[2023-04-27] MEDS: DOXAZOSIN 2 MG TAB PO SCH (08:42)
--- NOTE | 2023-04-27 09:44 | P.PN ---
Date of Service: 04/27/23 Chief Complaint: Sepsis, UTI, deconditioning. Subjective: Improving. No acute events overnight. Patient in bed, in no apparent distress, breathing comfortably on room air. He denies any pain. Denies any shortness of breath, chest pain, wheezing. Physical Examination Temp Pulse Resp BP Pulse Ox 98.3 F 57 16 99/57 L 96 04/27/23 08:39 04/27/23 08:42 04/27/23 08:39 04/27/23 08:42 04/27/23 08:39 General: In no apparent distress. Oriented x 1-2. HEENT: head normocephalic, atraumatic. Resp: Diminished at bases. Unlabored respirations on room air. CV: bradycardia. trace BLE edema. Abdomen: normoactive bowel sounds. Soft, nontender, nondistended. Skin: Ecchymosis scattered bilateral upper extremities. Sacrum pressure injury stage I. Laboratory Data - Reviewed Microbiology Data - Reviewed Imagings Data: - CT Chest Abdomen Pelvis 04/15: "Bilateral pleural effusions, moderate to large on the right and small on the left. Underlying airspace dependent opacities, may relate to atelectasis, however superimposed infection/ pneumonia would be difficult to exclude. Small volume free ascites. Moderate to marked cardiomegaly. Mildly nodular contour of the liver which may relate to fibrosis or early cirrhosis." - XR Chest 04/20: "Right pleural effusion measures maximally 7 cm in thickness along inferolateral right chest wall. It appears largely loculated. No significant left-sided effusion." Medications List: Reviewed Assessment and Plan Problem List Septic shock secondary to suspected urinary tract infection Atrial fibrillation s/p watchman procedure Pleural effusion JILL on CKD Iron deficiency anemia / Anemia of chronic disease Chronic diastolic congestive heart failure diabetes mellitus type II BPH Hypertension Hyperlipidemia Hypothyroidism Septic Shock Strep agalactiae bacteremia - Blood cultures 04/15: Streptococcus agalactiae group B in 2 of 4 bottles - Repeat blood cultures 04/17: no growth to date - urine culture 04/15: no growth to date - Previously on Vancomycin (04/15-04/18) and Cefepime (04/15-04/20); Rocephin 04/21- 04/26) - Completed 10 days IV antibiotic therapy Pleural effusion - s/p thoracentesis 04/16 - pleural fluid culture 04/16: no growth to date -fungal culture pending. AFB pending. - pleural fluid protein 3.8, LDH 1420 pleural fluid protein to serum protein >0.5 - loculated pleural effusion s/p thoracentesis 04/21 with 1L drained. - XR chest 04/27: "The right pleural effusion is probably moderate. Right basilar atelectasis/infiltrate. Left lung appears clear of acute infiltrate. Heart remains enlarged" Recommendations - strep bacteremia: Completed 10 days of IV antibiotic therapy. Leukocytosis resolved. afebrile. - Sacrum: Apply barrier cream BID and PRN. Pressure offloading measures; turn patient q2h, wedge pillows, low air-loss mattress. - Nutritional supplementation - Strict blood glucose control - Continue supportive care Pending SNF placement. Case discussed with Alex Roach
--- NOTE | 2023-04-27 11:54 | RAD REPORT ---
EXAM DESCRIPTION: Dorinda Pa And Lat (2 Views)04/27/2023 10:32 am CLINICAL HISTORY: Right pleural effusion COMPARISON: April 22, 2023 FINDINGS: The right pleural effusion is probably moderate. Right basilar atelectasis/infiltrate Left lung appears clear of acute infiltrate. Heart remains enlarged
--- NOTE | 2023-04-27 12:32 | P.PN ---
Subjective Date of Service: 04/27/23 Chief Complaint: Loculated pleural effusion Patient has no new complain. He denies any shortness of breath He was seen eating by himself. Patient ambulated with using a walker with minimal assistance. Physical Examination - Vital Signs Temperature: 98.3 F Blood Pressure: 99/57 Pulse: 57 Respirations: 16 Pulse Ox (%): 96 Assessment And Plan - Plan Physical exam GEN: Alert, oriented x2 , NAD CV: irregular rhythm, bradycardia Pulm: Nonlabored brething, clear to auscultation bilaterally. ABD: Soft, nontender, nondistended Integumentary: No rashes Neuro: Normal speech, no focal motor deficit. Vitals reviewed Problem List Septic shock secondary to suspected urinary tract infection/pneumonia Atrial fibrillation status post Watchman procedure Large right pleural effusion Stage II JILL with underlying CKD 3 Anemia of chronic disease/iron deficiency anemia Chronic diastolic congestive heart failure Diabetes mellitus type 2 BPH-urinary retention Hypertension Hyperlipidemia Hypothyroidism Plan Septic shock secondary to suspected urinary tract infection/pneumonia urine culture-no growth 2/ blood cultures from 04/15 positive Streptococcus agalactiae group B Repeat blood cultures: no growth to date Off vasopressors as of 04/15. CT chest with large pleural effusion, possible superimposed pneumonia Status post thoracentesis x 2. Infectious disease is following. IV cefepime changed to IV Rocephin. Patient completed at least 10 days of IV antibiotics after negative blood culture growth. Atrial fibrillation status post Watchman procedure with periodic bradycardia With slow ventricular response today Not on any beta-blockers Cardiology input appreciated Echo:NORMAL LEFT VENTRICULAR EJECTION FRACTION 50-55% WITH NORMAL WALL MOTION, S EVERE DIASTOLIC DYSFUNCTION, MODERATE TO SEVERE TRICUSPID REGURGITATION, MODERATE PULMONARY INSUFFICIENCY, SEVERE PULMONARY HYPERTENSION WITH RIGHT VENTRICULAR SYSTOLIC PRESSURE GREATER THAN 60 mmHg. Eliquis held briefly for patient to undergo thoracentesis and then resumed. Continue Eliquis. Large right pleural effusion CT chest showed bilateral pleural effusions, moderate to large on the right and small on the left. Family reports recent admission at the end of February to [facility] for similar-reportedly had thoracentesis at that time Thoracentesis x 2 this hospitalization. Stable on room air Right pleural effusion was loculated. Repeat chest x-ray post thoracentesis-no pneumothorax, decreased right-sided pleural effusion and atelectasis. Pulmonary Dr. Martinez input appreciated and he recommended follow-up with him in the office as outpatient to assess for need for CT surgery evaluation Stage II JILL with underlying CKD 3 Nephrology following Off vasopressor therapy Renal function improved and stabilized. Continue diuresis with home dose bumex 1mg po bid Continue to monitor renal function. Anemia of chronic disease/Iron deficiency anemia transfused 1 unit. Hemoglobin has been stable MARIKA present, patient completed IV iron therapy. Chronic diastolic congestive heart failure/severe pulmonary hypertension/severe transglottic radiation Currently compensated for CHF. Monitor volume status closely On home dose Bumex. Diabetes mellitus type 2 ACHS Accu-Chek, sliding scale insulin BPH-urinary retention Continue home dose doxazosin. Hypertension Amlodipine on hold due to soft blood pressure. Continue doxazosin. Hyperlipidemia Continue statin Hypothyroidism Continue home dose Synthroid. Impaired mobility MRI of the brain: Unremarkable and suggest chronic ischemic changes. Continue PT. Family requesting for SNF placement. Social service consulted to arrange for SNF placement. VTE: Eliquis Code: Full
--- NOTE | 2023-04-27 17:23 | P.PN ---
Nephrology note (S) Does not voice complaints, not on o2, awaiting discharge plans, SNF discussed (O) Vitals reviewed in the EMR General: In no apparent distress, HEENT: Atraumatic, not on o2, Neck: JVD noted Respiratory: b/l air entry without rhonchi anteriorly Cardiovascular: Non tachy, no loud murmurs Gastrointestinal: Soft and benign, Non-distended Musculoskeletal: Shins non tender Neurological: Awake, responsive, Normal speech Imagings Data: darrenrice EXAM DESCRIPTION: CT - Chest Abd Pelvis Wo Con - 04/15/2023 10:06 am CLINICAL HISTORY: jill R/O obstruction COMPARISON: No comparisons TECHNIQUE: Thin axial CT images of the chest, abdomen, and pelvis, performed without IV contrast. Multiplanar reformats were generated and reviewed. All CT scans are performed using dose optimization technique as appropriate and may include automated exposure control or mA/KV adjustment according to patient size. FINDINGS: Moderate to large right and trace left layering pleural effusions. Underlying up to segmental airspace opacification, most pronounced in the dependent right lower lobe. Moderate to marked cardiomegaly.No pneumothorax or pericardial effusion.No intrathoracic adenopathy. The liver shows mildly nodular contour which may relate to fibrosis or early cirrhosis. Spleen, pancreas, adrenal glands and kidneys are within normal limits. No bowel obstruction, free air, or abscess. Small volume free ascites. Mild prostatomegaly. No pathologic lymphadenopathy in the abdomen or pelvis. No worrisome osseous finding. IMPRESSION: Bilateral pleural effusions, moderate to large on the right and small on the left. Underlying airspace dependent opacities, may relate to atelectasis, however superimposed infection/ pneumonia would be difficult to exclude. Small volume free ascites. Moderate to marked cardiomegaly. Mildly nodular contour of the liver which may relate to fibrosis or early cirrhosis. darrenrice EXAM DESCRIPTION: RAD - Chest Lateral Decubitus - 04/15/2023 3:00 pm CLINICAL HISTORY: R sided effusion COMPARISON: Chest Single View dated 04/15/2023; Chest Abd Pelvis Wo Con dated 04/15/2023 FINDINGS: Left-sided up decubitus view is quite limited due to patient positioni ng. Right-sided pleural effusion appears to measure 4-5 cm in maximum thickness. The fluid appears largely free-flowing. Conclusions/Impression: Stage II JILL multifactorial but in the setting of hypotension, severe anemia, other since resolved CKD III unspecified, underlying -Cr levels stable at prior baseline range, last checked labs a few days ago, cont to monitor periodically. Did last week place on scheduled KCL since pt on PO Bumex HTN with CKD/ CHF complicated by hypotension -BP stable now, cont to monitor Diastolic CHF, chronic Pulm HTN unspecified -Monitor clinically, maintenance diuretics restarted by primary team. Cont current dose for now Suspected Sepsis with initial presentation, unspecified organism. Rt pleural effusion, s/p thoracentesis, possibly transudative, abnormal cell count, studies pending. -Complete Abx course per IM/ID
[2023-04-27 22:44] VITALS: O2SAT 91
[2023-04-28] MEDS: LEVOTHYROXINE SOD 0.05 MG TABLET FT SCH (05:38)
[2023-04-28] MEDS: PANTOPRAZOLE 40MG TABLET PO SCH (05:38)
[2023-04-28 06:17] LABS: Absolute Lymphocytes (CBC) 0.6 K/uL (0.7-4.9); Lymphocytes % 8.6 % (15.3-44.8); MPV 7.8 fL (7.6-11.3); Platelets 322 thou/uL (152-406); RBC Red Blood Cell Count 3.55 M/uL (4.33-5.43)
[2023-04-28 06:27] LABS: Potassium 3.3 mEq/L (3.5-5.1)
[2023-04-28] MEDS: ROSUVASTATIN 10 MG TAB PO SCH (08:12)
[2023-04-28] MEDS: BUMETANIDE 1 MG TABLET PO SCH (08:12)
[2023-04-28] MEDS: SERTRALINE HCL 100 MG TAB PO SCH (08:13)
[2023-04-28] MEDS: ASCORBIC ACID 500 MG TABLET PO SCH (08:13)
[2023-04-28] MEDS: POTASSIUM CL SA 10 MEQ TAB PO SCH (08:13)
[2023-04-28] MEDS: APIXABAN 2.5 MG TABLET PO SCH ×2 (08:13→20:53)
[2023-04-28] MEDS: VITAMIN D 5,000 UNIT CAP PO SCH (08:13)
--- NOTE | 2023-04-28 08:47 | P.PN ---
Date of Service: 04/28/23 Chief Complaint: Sepsis, UTI, deconditioning. Subjective: Improving. No acute events overnight. Patient seen and examined at bedside. In no apparent distress. Denies any new or worsening complaints at this time. Pending SNF arrangements CM/SS following. Physical Examination Temp Pulse Resp BP Pulse Ox 98.6 F 61 16 118/56 L 93 04/28/23 04:00 04/28/23 08:12 04/28/23 04:00 04/28/23 08:12 04/28/23 04:00 General: In no apparent distress. Oriented x 1-2 HEENT: head normocephalic, atraumatic. Resp: Diminished at bases. Unlabored respirations on room air. CV: irregular rate and rhythm. Trace BLE edema. Abdomen: normoactive bowel sounds. Soft, nontender, nondistended. Integumentary: Ecchymosis scattered bilateral upper extremities. Sacrum pressure injury stage I. Laboratory Data - Reviewed Microbiology Data - Reviewed Imagings Data: - CT Chest Abdomen Pelvis 04/15: "Bilateral pleural effusions, moderate to large on the right and small on the left. Underlying airspace dependent opacities, may relate to atelectasis, however superimposed infection/ pneumonia would be difficult to exclude. Small volume free ascites. Moderate to marked cardiomegaly. Mildly nodular contour of the liver which may relate to fibrosis or early cirrhosis." - XR Chest 04/20: "Right pleural effusion measures maximally 7 cm in thickness along inferolateral right chest wall. It appears largely loculated. No sig nificant left-sided effusion." - XR chest 04/27: "The right pleural effusion is probably moderate. Right basilar atelectasis/infiltrate. Left lung appears clear of acute infiltrate. Heart remains enlarged" Medications List: Acetaminophen (Acetaminophen 325 Mg Tablet) 650 mg PO Q4HP PRN PRN Reason: Pain scale 2-4 (Mild) Apixaban (Apixaban 2.5 Mg Tablet) 2.5 mg PO BID [facility] Last Admin: 04/28/23 08:13 Dose: 2.5 mg Ascorbic Acid (Ascorbic Acid 500 Mg Tablet) 500 mg PO DAILY [facility] Last Admin: 04/28/23 08:13 Dose: 500 mg Bumetanide (Bumetanide 1 Mg Tablet) 1 mg PO BID [facility] Last Admin: 04/28/23 08:12 Dose: 1 mg Cholecalciferol (Vitamin D 5,000 Unit Cap) 5,000 unit PO DAILY [facility] Last Admin: 04/28/23 08:13 Dose: 5,000 unit Doxazosin Mesylate (Doxazosin 2 Mg Tab) 1 mg PO BEDTIME [facility] Ergocalciferol (Drisdol (Vitamin D=Ergocalciferol) 13738 Unit Cap) 50,000 unit PO Q7D@0900 [facility] Last Admin: 04/25/23 08:44 Dose: 50,000 unit Levothyroxine Sodium (Levothyroxine Sod 0.05 Mg Tablet) 0.05 mg FT [id number] [facility] Last Admin: 04/28/23 05:38 Dose: 0.05 mg Nutritional Formula (Ensure High Protein 237 Ml Can) 237 ml PO BID [facility] Last Admin: 04/27/23 21:27 Dose: 237 ml Ondansetron HCl (Ondansetron 4 Mg/2 Ml Vial) 4 mg IV Q6HP PRN PRN Reason: NAUSEA / VOMITING Pantoprazole Sodium ([facility]razole 40mg Tablet) [facility] Last Admin: 04/28/23 05:38 Dose: 40 mg Potassium Chloride (Potassium Cl Sa 10 Meq Tab) 20 meq PO DAILY [facility] Last Admin: 04/28/23 08:13 Dose: 20 meq Rosuvastatin Calcium (Rosuvastatin 10 Mg Tab) 10 mg PO DAILY [facility] Last Admin: 04/28/23 08:12 Dose: 10 mg Sertraline HCl (Sertraline Hcl 100 Mg Tab) 100 mg PO DAILY [facility] Last Admin: 04/28/23 08:13 Dose: 100 mg Assessment and Plan Problem List Septic shock secondary to suspected urinary tract infection Atrial fibrillation s/p watchman procedure Pleural effusion JILL on CKD Iron deficiency anemia / Anemia of chronic disease Chronic diastolic congestive heart failure diabetes mellitus type II BPH Hypertension Hyperlipidemia Hypothyroidism Septic Shock Strep agalactiae bacteremia - Blood cultures 04/15: Streptococcus agalactiae group B in 2 of 4 bottles - Repeat blood cultures 04/17: no growth to date - urine culture 04/15: no growth to date - Previously on Vancomycin (04/15-04/18) and Cefepime (04/15-04/20); Rocephin 04/21- 04/26) - Completed 10 days IV antibiotic therapy Pleural effusion - s/p thoracentesis 04/16 - pleural fluid culture 04/16: no growth to date -fungal culture pending. AFB pending. - pleural fluid protein 3.8, LDH 1420 pleural fluid protein to serum protein >0.5 - loculated pleural effusion s/p thoracentesis 04/21 with 1L drained. - XR chest 04/27: "The right pleural effusion is probably moderate. Right basilar atelectasis/infiltrate. Left lung appears clear of acute infiltrate. Heart remains enlarged" Recommendations - strep bacteremia: Completed 10 days of IV antibiotic therapy. - Leukocytosis resolved. afebrile. Continue to monitor for new or worsening s/s of infection. - Sacrum stage1: Apply barrier cream BID and PRN. Pressure offloading measures; turn patient q2h, wedge pillows, low air-loss mattress. - Nutritional supplementation - Strict blood glucose control - Continue supportive care Case discussed with Alex Roach
[2023-04-28] MEDS: ENSURE HIGH PROTEIN 237 ML CAN PO SCH ×2 (09:00→20:53)
--- NOTE | 2023-04-28 09:17 | P.PN ---
Date of Service: 04/28/23 Subjective: Breathing comfortably on room air Working with PT. strength/endurance slowly improving. family picked [facility] as first SNF choice. pending approval no new / worsening problems per patient ROS: 10 point ROS as noted above, otherwise negative Physical Exam: GEN: Alert, oriented x2, NAD HEENT: Normal conjunctiva, sclera anicteric, CV: Regular rate and rhythm, no edema Pulm: Nonlabored respirations on room air, slightly diminished at right lung base with mild crackles ABD: soft, nontender, nondistended Neuro: Normal speech, normal affect Vitals reviewed Problem List: Septic shock secondary to suspected UTI/pneumonia; shock resolved Streptococcus agalactiae bacteremia Large right pleural effusion, s/p thoracentesis x2 (04/15, 04/21) Atrial fibrillation s/p Watchman procedure with periodic bradycardia JILL on CKD 3 Anemia of chronic disease/severe iron deficiency anemia Chronic diastolic congestive heart failure Diabetes mellitus type 2 BPH-urinary retention Hypertension Hyperlipidemia Hypothyroidism Plan Septic shock secondary to suspected UTI/pneumonia; shock resolved Streptococcus agalactiae bacteremia CT chest (04/15): bilateral pleural effusions, R > L, possible superimposed pneumonia blood cx (04/15): 2/4 grew Streptococcus agalactiae group B repeat blood cx (04/17): no growth urine cx (04/15): no growth Off vasopressors since 04/15 ID following Completed ~10 days of IV antibiotics (04/15-04/26) s/p vancomycin (04/15-04/18), Cefepime (04/15-04/20) Rocephin (04/21-04/26) afebrile, leukocytosis resolved. Large right pleural effusion, s/p thoracentesis x2 (04/15, 04/21) Family reports recent admission at the end of February to [facility] for similar episode-reportedly had thoracentesis at that time CT chest (04/15): bilateral pleural effusions, R > L, small volume free ascites, mod-marked cardiomegaly, possible superimposed pneumonia s/p thoracentesis x2 (04/15, 04/21) Pleural cultures without growth. Cytology negative Repeat CXR (04/27): moderate right pleural effusion, right basilar atelectasis/infiltrate, left lung clear of acute infiltrate Dr. Michelle - pulm is following follow up as outpatient to assess need for CT surgery evaluation Atrial fibrillation s/p Watchman procedure with periodic bradycardia Cardiology consulted Not on any beta-blockers Echo (04/16): 50-55%EF, severe diastolic dysfunction, mod-severe TR, moderate PI, mild MR, left atrial enlargement, severe pulm hypertension Eliquis held briefly for patient to undergo thoracentesis and then resumed. Continue Eliquis. JILL on CKD 3; pre-renal Nephrology following Off pressors since 04/15 Renal function improved, ~baseline continue bumex daily - decreased from BID 04/28 per nephro Anemia of chronic disease/severe iron deficiency anemia s/p 1 uPRBC (04/16). No further transfusions needed. irons studies this hospitalization consistent with severe iron deficiency anemia. s/p IV iron x1 week (04/16-04/23) Chronic diastolic congestive heart failure/severe pulmonary hypertension/severe transglottic radiation Currently compensated for CHF continue home bumex. Diabetes mellitus type 2 ACHS Accu-Chek, sliding scale insulin Hypertension Amlodipine on hold due to soft blood pressure. Continue doxazosin. BPH-urinary retention Continue home dose doxazosin. Hyperlipidemia Continue statin Hypothyroidism Continue home dose Synthroid. Impaired mobility MRI of the brain: Unremarkable and suggest chronic ischemic changes. Continue PT. Family requesting for SNF placement. Social service consulted for SNF VTE: home eliquis Code: Full Dispo: SNF - pending approval
--- NOTE | 2023-04-28 11:14 | P.PN ---
Nephrology note (S) Latest lab results discussed, Bumex dose lowered, KCL ordered, pt seen in bed, not short of breath (O) Vitals reviewed in the EMR General: In no apparent distress, HEENT: Atraumatic, not on o2, Neck: JVD noted Respiratory: b/l air entry without rhonchi anteriorly Cardiovascular: Non tachy, no loud murmurs Gastrointestinal: Soft and benign, Non-distended Musculoskeletal: Shins non tender Neurological: Awake, responsive, Normal speech Imagings Data: darrenrice EXAM DESCRIPTION: CT - Chest Abd Pelvis Wo Con - 04/15/2023 10:06 am CLINICAL HISTORY: jill R/O obstruction COMPARISON: No comparisons TECHNIQUE: Thin axial CT images of the chest, abdomen, and pelvis, performed without IV contrast. Multiplanar reformats were generated and reviewed. All CT scans are performed using dose optimization technique as appropriate and may include automated exposure control or mA/KV adjustment according to patient size. FINDINGS: Moderate to large right and trace left layering pleural effusions. Underlying up to segmental airspace opacification, most pronounced in the dependent right lower lobe. Moderate to marked cardiomegaly.No pneumothorax or pericardial effusion.No intrathoracic adenopathy. The liver shows mildly nodular contour which may relate to fibrosis or early cirrhosis. Spleen, pancreas, adrenal glands and kidneys are within normal limits. No bowel obstruction, free air, or abscess. Small volume free ascites. Mild prostatomegaly. No pathologic lymphadenopathy in the abdomen or pelvis. No worrisome osseous finding. IMPRESSION: Bilateral pleural effusions, moderate to large on the right and small on the left. Underlying airspace dependent opacities, may relate to atelectasis, however superimposed infection/ pneumonia would be difficult to exclude. Small volume free ascites. Moderate to marked cardiomegaly. Mildly nodular contour of the liver which may relate to fibrosis or early cirrhosis. darrenrice EXAM DESCRIPTION: RAD - Chest Lateral Decubitus - 04/15/2023 3:00 pm CLINICAL HISTORY: R sided effusion COMPARISON: Chest Single View dated 04/15/2023; Chest Abd Pelvis Wo Con dated 04/15/2023 FINDINGS: Left-sided up decubitus view is quite limited due to patient positioning. Right-sided pleural effusion appears to measure 4-5 cm in maximum thickness. The fluid appears largely free-flowing. Conclusions/Impression: Stage II JILL multifactorial but in the setting of hypotension, severe anemia, other since resolved although Cr level has bumped up slightly with some lower BP and continued mod dose diuretic use CKD III unspecified, underlying -Will scale back on loop diuretic dose, avoid relative hypotension, monitor for any worsening of (pre-renal) azotemia Hypokalemia -Lower Bumex dose, cont scheduled KCL. HTN with CKD/ CHF complicated by hypotension -BP soft at times, lowered ordered doxazosin dose Diastolic CHF, chronic Pulm HTN unspecified -Monitor clinically, maintenance diuretics restarted by primary team early on. Dose lowered Suspected Sepsis with initial presentation, unspecified organism. Rt pleural effusion, s/p thoracentesis, possibly transudative, abnormal cell count, studies pending. -Complete Abx course per IM/ID
[2023-04-28] MEDS ORDERED: POTASSIUM 25 MEQ EFFERV TAB PO ONE (12:00)
[2023-04-28] MEDS ORDERED: DOXAZOSIN 2 MG TAB PO SCH (21:00)
[2023-04-29] MEDS: PANTOPRAZOLE 40MG TABLET PO SCH (05:25)
[2023-04-29] MEDS: LEVOTHYROXINE SOD 0.05 MG TABLET FT SCH (05:25)
[2023-04-29 06:49] LABS: Albumin 1.9 g/dL (3.4-5.0); Phosphorus 2.4 mg/dL (2.5-4.9); Potassium 3.8 mEq/L (3.5-5.1)
[2023-04-29] MEDS: ENSURE HIGH PROTEIN 237 ML CAN PO SCH (08:21)
[2023-04-29] MEDS: ROSUVASTATIN 10 MG TAB PO SCH (08:22)
[2023-04-29] MEDS: POTASSIUM CL SA 10 MEQ TAB PO SCH (08:22)
[2023-04-29] MEDS: VITAMIN D 5,000 UNIT CAP PO SCH (08:22)
[2023-04-29] MEDS: ASCORBIC ACID 500 MG TABLET PO SCH (08:22)
[2023-04-29] MEDS: SERTRALINE HCL 100 MG TAB PO SCH (08:22)
[2023-04-29] MEDS: APIXABAN 2.5 MG TABLET PO SCH (08:22)
[2023-04-29] MEDS ORDERED: BUMETANIDE 1 MG TABLET PO SCH (09:00)
--- NOTE | 2023-04-29 09:06 | P.DS ---
Admission Date: 04/15/23 Discharge Date: 04/29/23 Disposition: TRANSFER TO SNF - REHAB Discharge Condition: GOOD Reason for Admission: Loculated pleural effusion Consultations: Cardiology - Dr. Greyson CORDERO - Dr. Navarrete Nephrology - Dr. Wise, Dr. Watts, Dr. Brock Pulmonology - Dr. Martinez Brief History of Present Illness: 81yo M, PMH: CKD 3, atrial fibrillation status post Watchman procedure, upb-[id number] diabetes, hypertension, hyperlipidemia, chronic diastolic congestive heart failure Patient presents to the emergency department for low blood sugar. He was apparently confused intermittently at home since yesterday with his blood sugar becoming very low in the 30s to 40s multiple times, he initially refused transportation to the hospital. He was evaluated in the emergency department his labs were significant for acute kidney injury with creatinine 3.52 GFR 17 BUN 61 glucose 47, baseline creatinine around 1.6-1.7 hemoglobin is 8.9 hematocrit 26.9 MCV 81.0 he denies any rectal bleeding or melena, does take iron at home for MARIKA. He was given bolus of D10 x2, also ate and was persistently hypoglycemic. When his family brought his home medications it was noted that he is on glimepiride in addition to metformin, Januvia. He was given a dose of subcu octreotide, will admit for further evaluation and management of acute kidney injury, persistent hypoglycemia with sulfonylurea use. Hospital Course: Problem List: Septic shock secondary to suspected UTI/pneumonia; shock resolved Streptococcus agalactiae bacteremia Large right pleural effusion, s/p thoracentesis x2 (04/15, 04/21) Atrial fibrillation s/p Watchman procedure with periodic bradycardia JILL on CKD 3 Anemia of chronic disease/severe iron deficiency anemia Chronic diastolic CHF Diabetes mellitus type 2 BPH-urinary retention Hypertension Hyperlipidemia Hypothyroidism Patient presented with generalized weakness, hypotension. Patient was found to be in septic shock secondary to suspected UTI / pneumonia. Patient admitted to ICU, requiring multiple IV boluses and pressors. Off pressors since 04/15 evening. Urinalysis on admission concerning for UTI. Urine culture showed no growth, blood cultures grew Streptococcus Agalactiae grp B. Patient was initially treated with cefepime / vancomycin and then eventually transitioned to IV Rocephin. He completed ~10 days total of IV antibiotics - as recommended by Infectious Disease team. Patient was feeling better however still feeling very weak. Patient was evaluated by PT who recommended SNF. Patient's BP improved, remained afebrile, leukocytosis resolved and was deemed stable for discharge to SNF where he can continue to improve strength / endurance to return to prior level of function before returning home. During his hospitalization, patient was noted to have a large right pleural effusion seen on CT chest requiring 2 separate thoracentesis (on 04/15 and 04/21). Pleural cultures and cytology were negative. Repeat chest x-rays have not shown the fluid building up and he has been stable on room air. He has also been able to ambulate using a walker with PT. Dr Martinez - Central Office Associate was consulted and recommended follow-up with him as an outpatient for repeat chest x-ray and will discuss if needs referral to CT surgery to evaluate patient for pleurodesis. Patient's required 1 unit blood transfusion during his hospitalization in order to keep his hemoglobin greater than 7 (04/16). Hemoglobin remained stable for the rest of his hospitalization. Iron studies this hospitalization consistent with severe iron deficiency anemia. (iron: 11.0 transferrin% 4.6%). Patient received 1 week of IV iron from 04/16- 04/23. In regards to JILL: Patient with history of CKD 3 noted to have creatinine of 3.58 admission. Nephrology was consulted. Likely mutlifactorial etiology in setting of hypotension / anemia / infection. Patient renal function returned to near baseline and was tolerating diuresis with bumex. Patient is to continue bumex / doxazosin on discharge. Creatinine on discharge: 1.74. Recommend repeat blood work in ~1 week to monitor CBC / renal function. Dose of bumex was decreased through hospitalization and patient has tolerated well. Continue to monitor blood pressure and renal function. He was started on 20meq daily potassium replacement on 04/23. Continue daily replacement and recheck levels in a few days. New Medications to continue at SNF: Bumex 1 mg PO daily Oral Potassium 20meq daily Doxazosin 1 mg PO daily at bedtime Iron Stop taking Amlodipine Blood pressure has been low to low-normal during patients hospitalization off his home amlodipine. Advised to stop taking amlodipine on discharge. Check blood pressure daily. Keep daily log of BP readings to take to PCP follow up appointment in case antihypertensives need further adjustments / need to be restarted. continue other home medications not listed as previously prescribed. Follow up: PCP 3-5 days Pulmonoloy - Dr. Martinez in ~1-2 weeks Nephrology - 3-4 weeks Physical Exam: GEN: Alert, oriented x2, NAD HEENT: Normal conjunctiva, sclera anicteric, CV: Regular rate and rhythm, no edema Pulm: Nonlabored respirations on room air, slightly diminished at right lung base with mild crackles ABD: soft, nontender, nondistended Neuro: Normal speech, normal affect Vital Signs/Physical Exam: Temp Pulse Resp BP Pulse Ox 97.8 F 66 16 111/60 94 04/29/23 04:00 04/29/23 04:00 04/29/23 04:00 04/29/23 04:00 04/29/23 04:00 Laboratory Data at Discharge: WBC 7.50 thou/uL (4.3-10.9) 04/28/23 05:44 Hgb 8.5 g/dL (13.6-17.9) L 04/28/23 05:44 Hct 27.0 % (39.6-49.0) L 04/28/23 05:44 Plt Count 322 thou/uL (152-406) 04/28/23 05:44 PT 16.6 SECONDS (9.5-12.5) H 04/15/23 08:25 INR 1.53 04/15/23 08:25 Sodium 139 mEq/L (136-145) 04/29/23 06:06 Potassium 3.8 mEq/L (3.5-5.1) D 04/29/23 06:06 BUN 50 mg/dL (7-18) H 04/29/23 06:06 Creatinine 1.74 mg/dL (0.70-1.30) H 04/29/23 06:06 Glucose 111 mg/dL (74-106) H 04/29/23 06:06 Uric Acid 9.7 mg/dL (3.5-7.2) H 04/16/23 05:31 Phosphorus 2.4 mg/dL (2.5-4.9) L 04/29/23 06:06 Magnesium 2.7 mg/dL (1.6-2.4) H 04/20/23 05:28 Total Bilirubin 0.9 mg/dL (0.2-1.0) 04/20/23 05:28 AST 22 U/L (15-37) 04/20/23 05:28 ALT 26 U/L (16-61) 04/20/23 05:28 Alkaline Phosphatase 229 U/L (45-117) H D 04/20/23 05:28 Home Medications: Ascorbic Acid [Vitamin C*] 500 mg PO DAILY 06/21/20 Cholecalciferol (Vitamin D3) [Vitamin D3] 1,000 unit PO DAILY 06/21/20 Multivitamin [Daily Multivitamin] 1 tab PO DAILY 06/21/20 Rosuvastatin Calcium 10 mg PO DAILY 06/21/20 Sertraline HCl 100 mg PO DAILY 06/21/20 Levothyroxine Sodium 1 tab PO DAILY 06/25/22 Mecobalamin [B12 Active] 1 tab PO DAILY 06/25/22 Pantoprazole [Protonix Tab*] 1 tab PO DAILY 06/25/22 Nepro Shake [Nepro*] 237 ml PO TID #90 can 06/30/22 Bumetanide [Bumex*] 1 mg PO DAILY tab 04/29/23 Doxazosin [Cardura*] 1 mg PO BEDTIME tab 04/29/23 Potassium Oral Tab [Klor-Con 10 mEq Tab*] 20 meq PO DAILY tab 04/29/23 Physician Discharge Instructions: Patient presented with generalized weakness, hypotension. Patient was found to be in septic shock secondary to suspected UTI / pneumonia. Patient admitted to ICU, requiring multiple IV boluses and pressors. Off pres sors since 04/15 evening. Urinalysis on admission concerning for UTI. Urine culture showed no growth, blood cultures grew Streptococcus Agalactiae grp B. Patient was initially treated with cefepime / vancomycin and then eventually transitioned to IV Rocephin. He completed ~10 days total of IV antibiotics - as recommended by Infectious Disease team. Patient was feeling better however still feeling very weak. Patient was evaluated by PT who recommended SNF. Patient's BP improved, remained afebrile, leukocytosis resolved and was deemed stable for discharge to SNF where he can continue to improve strength / endurance to return to prior level of function before returning home. During his hospitalization, patient was noted to have a large right pleural effusion seen on CT chest requiring 2 separate thoracentesis (on 04/15 and 04/21). Pleural cultures and cytology were negative. Repeat chest x-rays have not shown the fluid building up and he has been stable on room air. He has also been able to ambulate using a walker with PT. Dr Martinez - Central Office Associate was consulted and recommended follow-up with him as an outpatient for repeat chest x-ray and will discuss if needs referral to [facility] to evaluate patient for pleurodesis. Patient's required 1 unit blood transfusion during his hospitalization in order to keep his hemoglobin greater than 7 (04/16). Hemoglobin remained stable for the rest of his hospitalization. Iron studies this hospitalization consistent with severe iron deficiency anemia. (iron: 11.0 transferrin% 4.6%). Patient received 1 week of IV iron from 04/16- 04/23. In regards to JILL: Patient with history of CKD 3 noted to have creatinine of 3.58 admission. Nephrology was consulted. Likely mutlifactorial etiology in setting of hypotension / anemia / infection. Patient renal function returned to near baseline and was tolerating diuresis with bumex. Patient is to continue bumex / doxazosin on discharge. Creatinine on discharge: 1.74. Recommend repeat blood work in ~1 week to monitor CBC / renal function. Dose of bumex was decreased through hospitalization and patient has tolerated well. Continue to monitor blood pressure and renal function. He was started on 20meq daily potassium replacement on 04/23. Continue daily replacement and recheck levels in a few days. New Medications to continue at SNF: Bumex 1 mg PO daily Oral Potassium 20meq daily Doxazosin 1 mg PO daily at bedtime Iron Stop taking Amlodipine Blood pressure has been low to low-normal during patients hospitalization off his home amlodipine. Advised to stop taking amlodipine on discharge. Check blood pressure daily. Keep daily log of BP readings to take to PCP follow up appointment in case antihypertensives need further adjustments / need to be restarted. continue other home medications not listed as previously prescribed. Follow up: PCP 3-5 days Pulmonoloy - Dr. Martinez in ~1-2 weeks Nephrology - 3-4 weeks Followup: Giovany Tobias MD [Primary Care Provider] - Time spent managing pt's care (in minutes): 45
[2023-04-29 09:48] VITALS: BP 118/61; TEMP 98.2
== END 2023-04-29 11:36 | DRG 871 ==
LOC: ER 00:25 → 3RD-ICU 02:30 → 2ND 04-17 22:46
PROVIDERS: ADMIT Internal Medicine Nephrology; ATTEND Hospitalist
PROC: 06HM33Z Insertion of Infusion Device into Right Femoral Vein, Percutaneous Approach (ICD-10-PCS; principal; 2023-04-15)
PROC: 3E043XZ Introduction of Vasopressor into Central Vein, Percutaneous Approach (ICD-10-PCS; 2023-04-15)
PROC: 0W993ZX Drainage of Right Pleural Cavity, Percutaneous Approach, Diagnostic (ICD-10-PCS; 2023-04-15)
PROC: 0T9B70Z Drainage of Bladder with Drainage Device, Via Natural or Artificial Opening (ICD-10-PCS; 2023-04-15)
PROC: 30233N1 Transfusion of Nonautologous Red Blood Cells into Peripheral Vein, Percutaneous Approach (ICD-10-PCS; 2023-04-16)
DX: A40.1 Sepsis due to streptococcus, group B (principal); G93.41 Metabolic encephalopathy; N17.0 Acute kidney failure with tubular necrosis; R65.21 Severe sepsis with septic shock; J18.9 Pneumonia, unspecified organism; I13.0 Hypertensive heart and chronic kidney disease with heart failure and stage 1 through stage 4 chronic kidney disease, or unspecified chronic kidney disease; I50.32 Chronic diastolic (congestive) heart failure; J90 Pleural effusion, not elsewhere classified; N39.0 Urinary tract infection, site not specified; I27.20 Pulmonary hypertension, unspecified; D63.8 Anemia in other chronic diseases classified elsewhere; E11.22 Type 2 diabetes mellitus with diabetic chronic kidney disease; N18.30 Chronic kidney disease, stage 3 unspecified; I48.91 Unspecified atrial fibrillation; E03.9 Hypothyroidism, unspecified; F32.A Depression, unspecified; E86.0 Dehydration; E78.5 Hyperlipidemia, unspecified; K21.9 Gastro-esophageal reflux disease without esophagitis; D50.9 Iron deficiency anemia, unspecified; L89.151 Pressure ulcer of sacral region, stage 1; R53.1 Weakness; Z11.52 Encounter for screening for COVID-19; N40.1 Benign prostatic hyperplasia with lower urinary tract symptoms; R33.9 Retention of urine, unspecified; Z79.01 Long term (current) use of anticoagulants
CPT/HCPCS: 32555; 36415; 70450; 70551; 71045; 71046; 71250; 72170; 74176; 80048; 80053; 80069; 80202; 81001; 82043; 82435; 82550; 82570; 82728; 82945; 82947; 83540; 83605; 83615; 83735; 84100; 84132; 84156; 84157; 84300; 84311; 84443; 84466; 84550; 85014; 85018; 85025; 85027; 85610; 86850; 86900; 86901; 86920; 87015; 87040; 87070; 87077; 87086; 87088; 87102; 87116; 87186; 87205; 87206; 87804; 87811; 88108; 88305; 89050; 93005; 93306; 97110; 97116; 97161; 97530; 99285; J0692; J0696; J1644; J2001; J2916; J2920; J7030; J7040; J7050; J7120; P9016; Q5106

== ENCOUNTER 2024-02-20 18:58 | Emergency (ER) | payer OTHER ==
--- OUTSIDE RECORDS SUMMARY | 2024-02-20 19:02 | XMS REPORT | Continuity of Care Document ---
Author Name Unknown Address [address] [facility] [place] [address] [facility] thconnect Address [address] [facility] [place] [address] Care Team Providers Care Human Services Case Manager Name Role Phone RoblesCheyanne Morales Primary Care Physician [phone] Erica Miller Attending Clinician Unavailable Gloria Lacy Attending Clinician Unavailable Elmo Rubi Attending Clinician Unavailable Joseph Gross MD Attending Clinician [phone] [facility] Attending Clinician Rafaela vailable Doctor Unassigned, [place] Attending Clinician U Dennise Phoenix RN Attending Clinician Unavailable THELMA DONAHUE Attending Clinician Unavailable Hany Meredith DO Attending Clinician [phone] Thelma Donahue DO Attending Clinician [phone] Tan Castanon MD Attending Clinician [phone] Willam Sprague MD Attending Clinician [phone] Yan_W Attending Clinician Unavailable Radiology Attending Clinician Unavailable RADIOLOGY Attending Clinician Unavailable PACO Attending Clinician Unavailable Deann Ramos Attending Clinician [phone] Physician, No Primary or Family Admitting Clinic jevon Unavailable TAN CASTANON Admitting Clinician Unavailable Tan Castanon MD Admitting Clinician [phone] Neftali_W Admitting Clinician Unavailable CHEYANNE BULL Admitting Clinician Unavail able PACO Admitting Clinician Unavailable Elmo Rubi Admitting Clinician Unavailable Payers Payer Name Policy Type Policy Number Effective Date Expirati on Date Source [employer] [place]IC[place]AC[place]/ADVAN TAGE - HMO) [id number] 2020 00:00:00 2021 00:00:00 [employer] [place]IC[place]PLACEMENT/ADVAN TAGE - HMO) [id number] 2020 00:00:00 Problems Condition Name Condition Details Condition Category Status Onset Date Resolution Date Last Treatment Date Treating Clinician Comments Source 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 Disease Active 2022-03 00:00: 00 [facility] Pleural effusion Pleural effusion Disease Active 2022-03 00:00: 00 [facility] Anemia, unspecifie d type Anemia, unspecifie d type Disease Active 2022-03 00:00: 00 [facility] CKD (chronic kidney disease) stage 4, GFR 15-29 ml/min CKD (chronic kidney disease) stage 4, GFR 15-29 ml/min Disease Active 2022-03 00:00: 00 [facility] Troponin I above reference range Troponin I above reference range Disease Active 2022-03 00:00: 00 [facility] Chronic atrial fibrillati on Chronic atrial fibrillati on Disease Active 2022-03 00:00: 00 [facility] Presence of Watchman left atrial appendage closure device Presence of Watchman left atrial appendage closure device Disease Active 2022-03 00:00: 00 [facility] Chronic heart failure with preserved ejection fraction Chronic heart failure with preserved ejection fraction Disease Active 2022-03 00:00: 00 [facility] Primary hypertensi on Primary hypertensi on Disease Active 2022-03 00:00: 00 [facility] Chronic atrial fibrillati on Chronic Atrial Fibrillati on Problem Active 2020-03 00:00: 00 [facility] Bilateral stenosis of carotid arteries Bilateral Stenosis of Carotid Arteries Problem Active 2020-03 00:00: 00 [facility] Chronic kidney disease stage 3 Chronic Kidney Disease Stage 3 Problem Active 08-08 00:00: 00 [facility] Moderate tricuspid valve regurgitat ion Moderate Tricuspid Valve Regurgitat ion Problem Active 08-08 00:00: 00 [facility] Type 2 diabetes mellitus Type 2 Diabetes Mellitus Problem Active 06-13 00:00: 00 [facility] Mixed anxiety and depressive disorder Mixed Anxiety and Depressive Disorder Problem Active 06-13 00:00: 00 [facility] Hypertensi ve disorder Hypertensi ve Disorder Problem Active 06-13 00:00: 00 [facility] Gastroesop hageal reflux disease Gastroesop hageal Reflux Disease Problem Active 06-13 00:00: 00 [facility] Dyspnea on exertion Dyspnea on Exertion Problem Active 06-13 00:00: 00 [facility] History of asbestos exposure History of Asbestos Exposure Problem Active 06-13 00:00: 00 [facility] Mixed hyperlipid emia due to type 2 diabetes mellitus Mixed Hyperlipid emia Due to Type 2 Diabetes Mellitus Problem Active 06-13 00:00: 00 [facility] Essential hypertensi on Essential hypertensi on Diagnosis Active [facility] Uncontroll ed type 2 diabetes mellitus with hyperglyce reginald Uncontroll ed type 2 diabetes mellitus with hyperglyce reginald Diagnosis Active [facility] Obesity (BMI 30-39.9) Obesity (BMI 30-39.9) Diagnosis Active [facility] Mixed hyperlipid emia Mixed hyperlipid emia Diagnosis Active [facility] Peripheral edema Peripheral edema Diagnosis Active [facility] Diabetes Diabetes Problem Active [facility] History of asbestos exposure History of asbestos exposure Diagnosis Active [facility] Dietary surveillan ce and counseling Dietary surveillan ce and counseling Diagnosis Active [facility] Allergies, Adverse Reactions, Alerts Allergy Name Allergy Type Status Severity Reaction(s) Onset Date Inactive Date Treating Clinician Comments Source No Known Allergie s DA Active U 11-05 00:00: 00 [facility] No Known Allergie s DA Active U 11-05 00:00: 00 [facility] NO KNOWN ALLERGIE S Drug Class Active [facility] Social History Social Habit Start Date Stop Date Quantity Comments Source History of tobacco use Passive smoker [facility] to SARS-CoV-2 (event) Not sure [facility] History of Social function 2023-03-12 00:00:00 2023-03-12 00:00:00 [facility] Tobacco use and exposure 2023-03-11 00:00:00 2023-03-11 00:00:00 Smokeless tobacco non-user [facility] Education 2023-03-11 00:00:00 2023-03-11 00:00:00 13 [facility] Sex assigned at 1940 00:00:00 1940 00:00:00 [facility] Smoking Status Start Date Stop Date Source Tobacco smoking consumption unknown [facility] Never smoked tobacco [facility] Medications Ordered Medication Name Filled Medication Name Start Date Stop Date Current Medication? Ordering Clinician Indication Dosage Frequency Signature (SIG) Comments Components Source spironolact one 25 mg tablet 2022-03 00:00: 00 Yes [id number] 25mg Take 1 tablet by mouth in the morning. [facility] AMLODIPINE BESYLATE, BULK, MISC 2022-03 12:35: 28 Yes 5mg Take 5 mg by mouth in the morning. [facility] empaglifloz in (JARDIANCE) 25 mg Tab 2022-03 12:35: 28 Yes 25mg Take 1 tablet by mouth in the morning. [facility] DOXAZOSIN MESYLATE, BULK, MISC 2022-03 12:35: 28 Yes 1mg Take 1 mg by mouth in the morning and 1 mg in the evening. [facility] Levothyroxi ne 50 mcg capsule 2022-03 12:35: 28 Yes 50ug Take 1 capsule by mouth in the morning. [facility] SERTraline 100 mg tablet 2022-03 12:35: 28 Yes 100mg Take 1 tablet by mouth in the morning. [facility] pantoprazol e 40 mg EC tablet 2022-03 12:35: 28 Yes 40mg Take 1 tablet by mouth in the morning. [facility] rosuvastati n 10 mg tablet 2022-03 12:35: 28 Yes 10mg Take 1 tablet by mouth at bedtime. [facility] multivitami n, tx-minerals (COMPLETE MULTIVITAMI N) tablet 2022-03 12:35: 28 Yes 1{tbl} Take 1 tablet by mouth in the morning. [facility] aspirin 81 mg chewable tablet 2022-03 12:35: 28 Yes 81mg Take 1 tablet by mouth in the morning. [facility] SERTraline 100 mg tablet 2022-03 12:35: 28 Yes 100mg Take 1 tablet by mouth in the morning. [facility] pantoprazol e 40 mg EC tablet 2022-03 12:35: 28 Yes 40mg Take 1 tablet by mouth in the morning. [facility] rosuvastati n 10 mg tablet 2022-03 12:35: 28 Yes 10mg Take 1 tablet by mouth at bedtime. [facility] bumetanide 1 mg tablet 2022-03 11:22: 31 03-17 00:00 :00 No 1mg Take 1 tablet by mouth in the morning. [facility] bumetanide 1 mg tablet 2022-03 00:00: 00 Yes [id number] 1mg Take 1 tablet by mouth in the morning. [facility] spironolact one (ALDACTONE) tablet 25 mg 2022-03 16:30: 00 Yes 25mg 25 mg, Oral, DAILY, First dose on 03/15/23 at 1030, Until Discontinu ed, Routine [facility] rosuvastati n (CRESTOR) tablet 10 mg 2022-03 03:00: 00 Yes 10mg 10 mg, Oral, QHS, First dose on Federica 03/12/23 at 2100, Until Discontinu ed, Routine [facility] SERTraline (ZOLOFT) tablet 100 mg 2022-03 15:00: 00 Yes 100mg 100 mg, Oral, DAILY, First dose on Federica 03/12/23 at 0900, Until Discontinu ed, Routine [facility] empaglifloz in (JARDIANCE) Tab 25 mg 2022-03 15:00: 00 Yes 25mg 25 mg, Oral, DAILY, First dose on Federica 03/12/23 at 0900, Until Discontinu ed
Is this a home medication ? Yes
Has this patient brought their own medication ? No
Breana velasquez will dispense the medication from inpatient. Pharmacy will dispense the medication from inpatient.
Inpati ent ordering of this medication is not allowed unless the patient is maintained on this medication at home, and home supply is unavailabl e. Does this order meet the criteria for inpatient ordering? Yes [facility] cholecalcif tereso (vitamin D3) tablet 1,000 Units 2022-03 15:00: 00 Yes 1000U 1,000 Units, Oral, DAILY, First dose on Federica 03/12/23 at 0900, Until Discontinu ed [facility] aspirin chewable tablet 81 mg 2022-03 15:00: 00 Yes 81mg 81 mg, Oral, DAILY, First dose on Federica 03/12/23 at 0900, Until Discontinu ed, Routine [facility] ascorbic acid (vitamin C) (VITAMIN C) tablet 500 mg 2022-03 15:00: 00 Yes 500mg 500 mg, Oral, DAILY, First dose on Thu03/12/23 at 0900, Until Discontinu ed [facility] amLODIPine (NORVASC) tablet 5 mg 2022-03 15:00: 00 Yes 5mg 5 mg, Oral, DAILY, First dose on Thu03/12/23 at 0900, Until Discontinu ed [facility] furosemide (LASIX) injection 40 mg 2022-03 14:00: 00 Yes 40mg 40 mg, Slow IV Push, Q12H, First dose on Thu03/12/23 at 0800, Until Discontinu ed, Routine [facility] doxazosin (CARDURA) tablet 1 mg 2022-03 14:00: 00 Yes 1mg 1 mg, Oral, BID, First dose on Thu03/12/23 at 0800, Until Discontinu ed, Routine [facility] pantoprazol e (PROTONIX) EC tablet 40 mg 2022-03 12:00: 00 Yes 40mg 40 mg, Oral, QAM-0600, First dose on Thu03/12/23 at 0600, Until Discontinu ed, Routine [facility] levothyroxi ne (SYNTHROID) tablet 50 mcg 2022-03 12:00: 00 Yes 50ug 50 mcg, Oral, QAM-0600, First dose on Thu03/12/23 at 0600, Until Discontinu ed [facility] KCL (KLOR-CON M20) tablet 20 mEq 2022-03 11:30: 00 03-12 14:25 :00 No 20meq 20 mEq, Oral, ONCE, 1 dose, On Thu03/12/23 at 0530, Routine [facility] magnesium sulfate in water 2 gram/50 mL (4 %) infusion 2 g 2022-03 11:15: 00 03-12 15:27 :00 No 2g 2 g, IV Piggyback, Administer over 60 Minutes, ONCE, 1 dose, On Thu03/12/23 at 0515, Routine [facility] Sliding Scale Insulin - Lispro (HumaLOG) 2022-03 23:00: 00 Yes Subcutaneo us, TID MEALS+HS, First dose on Thu03/11/23 at 1700, Until Discontinu ed, Routine [facility]ODIP[facility]UL[facility] 20[facility] 21:23: 10 Yes 5mg Take 5 mg by mouth in the morning. [facility] empaglifloz in (JARDIANCE) 25 mg Tab 2022-03 21:23: 10 Yes 25mg Take 1 tablet by mouth in the morning. [facility] DOXAZOSIN MESYLATE, BULK, [facility] 20[facility]-03 21:23: 10 Yes 1mg Take 1 mg by mouth in the morning and 1 mg in the evening. [facility] Levothyroxi ne 50 mcg capsule 2022-03 21:23: 10 Yes 50ug Take 1 capsule by mouth in the morning. [facility] bumetanide 1 mg tablet 2022-03 21:23: 10 Yes 1mg Take 1 tablet by mouth in the morning. [facility] SERTraline 100 mg tablet 2022-03 21:23: 10 Yes 100mg Take 1 tablet by mouth in the morning. [facility] pantoprazol e 40 mg EC tablet 2022-03 21:23: 10 Yes 40mg Take 1 tablet by mouth in the morning. [facility] rosuvastati n 10 mg tablet 2022-03 21:23: 10 Yes 10mg Take 1 tablet by mouth at bedtime. [facility] multivitami n, tx-minerals (COMPLETE MULTIVITAMI N) tablet 2022-03 21:23: 10 Yes 1{tbl} Take 1 tablet by mouth in the morning. [facility] aspirin 81 mg chewable tablet 2022-03 21:23: 10 Yes 81mg Take 1 tablet by mouth in the morning. [facility] glucagon (GLUCAGEN DIAGNOSTIC KIT) injection 1 mg 2022-03 20:50: 38 Yes 1mg 1 mg, Intramuscu lar, PRN, Starting on Thu03/11/23 at 1450, Until Discontinu ed, BELIA, Blood Glucose < or = 70 mg/dL and patient is NPO, unable to swallow or has mental changes. [facility] dextrose 50 % in water (D50W) injection 25 mL 2022-03 20:50: 38 Yes 25mL 25 mL, Slow IV Push, PRN, Starting on Thu03/11/23 at 1450, Until Discontinu ed, BELIA, Blood Glucose < or = 70 mg/dL and patient is NPO, unable to swallow or has mental status changes. [facility] acetaminoph en (TYLENOL) tablet 650 mg 2022-03 20:50: 25 Yes 650mg 650 mg, Oral, Q6HPRN, Starting on Thu03/11/23 at 1450, Until Discontinu ed, Routine, Pain (scale 1-3) [facility] Metformin HCl Metformin HCl 05-25 00:00: 00 Yes Gloria Millender 1 tablet with a meal [facility] Blood Glucose Monitor Blood Glucose Monitor 05-25 00:00: 00 Yes Gloria Millender as directed (DISPENSE BLOOD GLUCOSE MONITOR FORMULARY TO INSURANCE) [facility] Januvia Januvia 05-25 00:00: 00 Yes Gloria Millender 1 tablet [facility] Lancets Lancets 05-25 00:00: 00 Yes Gloria Millender as directed (dispense lancets formulary to insurance) [facility] Glucose testing strips Glucose testing strips 05-25 00:00: 00 Yes Gloria Millender as directed (dispense testing strips formulary to insurance) [facility] triamcinolo ne acetonide 0.1 % topical cream triamcinolo ne acetonide 0.1 % topical cream No triamcinol one acetonide 0.1 % topical cream [facility]son Aspirin EC Low Dose Nilson Aspirin EC Low Dose Yes Gloria Millender 1 tablet [facility] Sertraline HCl Sertraline HCl Yes Gloria Millender 1 tablet [facility] Amlodipine Besylate Amlodipine Besylate Yes Gloria Millender 1 tablet [facility] Losartan Potassium-H CTZ Losartan Potassium-H CTZ Yes Gloria Millender 1 tablet [facility] Vitamin B-12 Vitamin B-12 Yes Gloria Millender 1 tablet [facility] Rosuvastati n Calcium Rosuvastati n Calcium Yes Gloria Millender 1 tablet in evening [facility] Gemfibrozil Gemfibrozil Yes Gloria Millender 1 tablet [facility] Vitamin D3 Vitamin D3 Yes Gloria Millender 1 tablet [facility] Janumet XR Janumet XR Yes Gloria Millender 1 Tablet [facility] Glimepiride Glimepiride Yes Gloria Millender 1 tablet [facility] Doxazosin Mesylate Doxazosin Mesylate Yes Gloria Millender 1 tablet [facility] Omeprazole Omeprazole Yes Gloria Millender 1 capsule [facility] Multi For Him 50+ Multi For Him 50+ Yes Gloria Millender as directed [facility] Hydrochloro thiazide Hydrochloro thiazide Yes Gloria Millender 1 tablet in the morning [facility] Vitamin C Vitamin C Yes Gloria Millender 1 tablet [facility] Accu-Chek Softclix Lancets TEST BLOOD SUGAR ONCE DAILY DIRECTED Accu-Chek Softclix Lancets TEST BLOOD SUGAR ONCE DAILY DIRECTED No Accu-Chek Softclix Lancets TEST BLOOD SUGAR ONCE DAILY DIRECTED [facility] amlodipine 10 mg tablet amlodipine 10 mg tablet No amlodipine 10 mg tablet [facility] furosemide 40 mg tablet furosemide 40 mg tablet No furosemide 40 mg tablet [facility] gemfibrozil 600 mg tablet TAKE 1 TABLET BY MOUTH TWICE A DAY BEFORE MEALS gemfibrozil 600 mg tablet TAKE 1 TABLET BY MOUTH TWICE A DAY BEFORE MEALS No gemfibrozi l 600 mg tablet TAKE 1 TABLET BY MOUTH TWICE A DAY BEFORE MEALS [facility] Klor-Con 10 mEq tablet,exte nded release Klor-Con 10 mEq tablet,exte nded release No Klor-Con 10 mEq tablet,ext ended release [facility] losartan 100 mg-hydrochl orothiazide 25 mg tablet TAKE 1 TABLET BY MOUTH EVERY DAY DIRECTED losartan 100 mg-hydrochl orothiazide 25 mg tablet TAKE 1 TABLET BY MOUTH EVERY DAY DIRECTED No losartan 100 mg-hydroch lorothiazi de 25 mg tablet TAKE 1 TABLET BY MOUTH EVERY DAY DIRECTED [facility] losartan 50 mg tablet losartan 50 mg tablet No losartan 50 mg tablet [facility] metformin 1,000 mg tablet TAKE 1 TABLET BY MOUTH TWICE A DAY BEFORE MEALS metformin 1,000 mg tablet TAKE 1 TABLET BY MOUTH TWICE A DAY BEFORE MEALS No metformin 1,000 mg tablet TAKE 1 TABLET BY MOUTH TWICE A DAY BEFORE MEALS [facility] metoprolol succinate ER 50 mg tablet,exte nded release 24 hr metoprolol succinate ER 50 mg tablet,exte nded release 24 hr No metoprolol succinate ER 50 mg tablet,ext ended release 24 hr [facility] omeprazole 40 mg capsule,del ayed release TAKE 1 CAPSULE BY MOUTH EVERY DAY omeprazole 40 mg capsule,del ayed release TAKE 1 CAPSULE BY MOUTH EVERY DAY No omeprazole 40 mg capsule,de layed release TAKE 1 CAPSULE BY MOUTH EVERY DAY [facility] sitagliptin 100 mg tablet Take 1 tablet every day by oral route in the morning for 30 days. sitagliptin 100 mg tablet Take 1 tablet every day by oral route in the morning for 30 days. No 1 Q1D sitaglipti n 100 mg tablet Take 1 tablet every day by oral route in the morning for 30 days. [facility] aspirin 81 mg tablet - take one by mouth every morning and once every evening aspirin 81 mg tablet - take one by mouth every morning and once every evening No aspirin 81 mg tablet - take one by mouth every morning and once every evening [facility] Januvia 100 mg tablet TAKE 1 TABLET BY MOUTH EVERY DAY IN THE MORNING Januvia 100 mg tablet TAKE 1 TABLET BY MOUTH EVERY DAY IN THE MORNING No Januvia 100 mg tablet TAKE 1 TABLET BY MOUTH EVERY DAY IN THE MORNING [facility] Accu-Chek Softclix Lancets TEST BLOOD SUGAR ONCE DAILY DIRECTED Accu-Chek Softclix Lancets TEST BLOOD SUGAR ONCE DAILY DIRECTED No Accu-Chek Softclix Lancets TEST BLOOD SUGAR ONCE DAILY DIRECTED [facility] amlodipine 5 mg tablet TAKE 1 TABLET BY MOUTH TWICE A DAY DIRECTED amlodipine 5 mg tablet TAKE 1 TABLET BY MOUTH TWICE A DAY DIRECTED No amlodipine 5 mg tablet TAKE 1 TABLET BY MOUTH TWICE A DAY DIRECTED [facility] aspirin 81 mg tablet - take one by mouth every morning and once every evening aspirin 81 mg tablet - take one by mouth every morning and once every evening No aspirin 81 mg tablet - take one by mouth every morning and once every evening [facility] doxazosin 1 mg tablet TAKE 1 TABLET BY MOUTH TWICE A DAY DIRECTED doxazosin 1 mg tablet TAKE 1 TABLET BY MOUTH TWICE A DAY DIRECTED No doxazosin 1 mg tablet TAKE 1 TABLET BY MOUTH TWICE A DAY DIRECTED [facility] ferrous sulfate 325 mg (65 mg iron) [...] oral route as directed for 30 days. [facility] furosemide 20 mg tablet Take 1 tablet every day by oral route in the morning for 14 days. furosemide 20 mg tablet Take 1 tablet every day by oral route in the morning for 14 days. No 1 Q1D furosemide 20 mg tablet Take 1 tablet every day by oral route in the morning for 14 days. [facility] gemfibrozil 600 mg tablet TAKE 1 TABLET BY MOUTH TWICE A DAY gemfibrozil 600 mg tablet TAKE 1 TABLET BY MOUTH TWICE A DAY No gemfibrozi l 600 mg tablet TAKE 1 TABLET BY MOUTH TWICE A DAY [facility] Januvia 100 mg tablet TAKE 1 TABLET BY MOUTH EVERY DAY IN THE MORNING Januvia 100 mg tablet TAKE 1 TABLET BY MOUTH EVERY DAY IN THE MORNING No Januvia 100 mg tablet TAKE 1 TABLET BY MOUTH EVERY DAY IN THE MORNING [facility] Klor-Con 10 mEq tablet,exte nded release Take 1 tablet every day by oral route in the morning for 90 days. Klor-Con 10 mEq tablet,exte nded release Take 1 tablet every day by oral route in the morning for 90 days. No 1 Q1D Klor-Con 10 mEq tablet,ext ended release Take 1 tablet every day by oral route in the morning for 90 days. [facility] losartan 100 mg-hydrochl orothiazide 25 mg tablet TAKE 1 TABLET BY MOUTH EVERY DAY DIRECTED losartan 100 mg-hydrochl orothiazide 25 mg tablet TAKE 1 TABLET BY MOUTH EVERY DAY DIRECTED No losartan 100 mg-hydroch lorothiazi de 25 mg tablet TAKE 1 TABLET BY MOUTH EVERY DAY DIRECTED [facility] metformin 1,000 mg tablet TAKE 1 TABLET BY MOUTH 30 MIUNTES BEFORE BREAKFAST AND DINNER metformin 1,000 mg tablet TAKE 1 TABLET BY MOUTH 30 MIUNTES BEFORE BREAKFAST AND DINNER No metformin 1,000 mg tablet TAKE 1 TABLET BY MOUTH 30 MIUNTES BEFORE BREAKFAST AND DINNER [facility] amoxicillin 875 mg-potassiu m clavulanate 125 mg tablet amoxicillin 875 mg-potassiu m clavulanate 125 mg tablet No amoxicilli n 875 mg-potassi um clavulanat e 125 mg tablet [facility] B12 1000 MCG B12 1000 MCG No B12 1000 MCG [facility] cyclobenzap rine 10 mg tablet cyclobenzap rine 10 mg tablet No cyclobenza selvin 10 mg tablet [facility] furosemide 40 mg tablet furosemide 40 mg tablet No furosemide 40 mg tablet [facility] Vitamin C 1,000 mg tablet Take by oral route. Vitamin C 1,000 mg tablet Take by oral route. No Vitamin C 1,000 mg tablet Take by oral route. [facility] Vitamin D3 2000 IU Vitamin D3 2000 IU No Vitamin D3 2000 IU [facility] glimepiride 4 mg tablet Take 1 tablet every day by oral route. glimepiride 4 mg tablet Take 1 tablet every day by oral route. No 1 Q1D glimepirid e 4 mg tablet Take 1 tablet every day by oral route. [facility] OneTouch Delica Lancets 33 gauge OneTouch Delica Lancets 33 gauge No OneTouch Delica Lancets 33 gauge [facility] OneTouch Ultra Test strips OneTouch Ultra Test strips No OneTouch Ultra Test strips [facility] OneTouch Ultra2 Meter OneTouch Ultra2 Meter No OneTouch Ultra2 Meter [facility] triamcinolo ne acetonide 0.1 % topical cream [...] BY TOPICAL ROUTE 2 TIMES PER DAY [facility] amlodipine 5 mg tablet amlodipine 5 mg tablet No amlodipine 5 mg tablet [facility] ciprofloxac in 0.3 %-dexametha sone 0.1 % [...] 2 TIMES PER DAY FOR 7 DAYS [facility] cyclobenzap rine 10 mg tablet cyclobenzap rine 10 mg tablet No cyclobenza selvin 10 mg tablet [facility] doxazosin 1 mg tablet doxazosin 1 mg tablet No doxazosin 1 mg tablet [facility] ferrous sulfate 325 mg (65 mg iron) tablet ferrous sulfate 325 mg (65 mg iron) tablet No ferrous sulfate 325 mg (65 mg iron) tablet [facility] furosemide 20 mg tablet furosemide 20 mg tablet No furosemide 20 mg tablet [facility] gemfibrozil 600 mg tablet gemfibrozil 600 mg tablet No gemfibrozi l 600 mg tablet [facility] Januvia 100 mg tablet Januvia 100 mg tablet No Januvia 100 mg tablet [facility] Klor-Con 10 mEq tablet,exte nded release Klor-Con 10 mEq tablet,exte nded release No Klor-Con 10 mEq tablet,ext ended release [facility] losartan 100 mg-hydrochl orothiazide 25 mg tablet losartan 100 mg-hydrochl orothiazide 25 mg tablet No losartan 100 mg-hydroch lorothiazi de 25 mg tablet [facility] losartan 50 mg tablet losartan 50 mg tablet No losartan 50 mg tablet [facility] metformin 1,000 mg tablet metformin 1,000 mg tablet No metformin 1,000 mg tablet [facility] metoprolol succinate ER 50 mg tablet,exte nded release 24 hr metoprolol succinate ER 50 mg tablet,exte nded release 24 hr No metoprolol succinate ER 50 mg tablet,ext ended release 24 hr [facility] omeprazole 40 mg capsule,del ayed release omeprazole 40 mg capsule,del ayed release No omeprazole 40 mg capsule,de layed release [facility] OneTouch Delica Lancets 33 gauge OneTouch Delica Lancets 33 gauge No OneTouch Delica Lancets 33 gauge [facility] OneTouch Ultra Test strips OneTouch Ultra Test strips No OneTouch Ultra Test strips [facility] OneTouch Ultra2 Meter OneTouch Ultra2 Meter No OneTouch Ultra2 Meter [facility] Vital Signs Vital Name Observation Time Observation Value Comments S ourmanisha Systolic blood pressure 2023-03-17 17:23:00 117 mm[Hg] [facility] Diastolic blood pressure 2023-03-17 17:23:00 64 mm[Hg] [facility] Heart rate 2023-03-17 17:23:00 60 /min [facility] Body temperature 2023-03-17 17:23:00 36.28 Michelle [facility] Respiratory rate 2023-03-17 17:23:00 17 /min [facility] Oxygen saturation in Arterial blood by Pulse oximetry 2023-03-17 17:23:00 100 /min [facility] Body weight 2023-03-17 09:40:00 97.478 kg [facility] BMI 2023-03-17 09:40:00 26.86 kg/m2 [facility] Body height 2023-03-11 23:41:00 190.5 cm [facility] BP Diastolic 2021-02-27 00:00:00 73 mm[Hg] [facility] Height 2021-02-27 00:00:00 75 [in_i] [facility] BMI (Body Mass Index) 2021-02-27 00:00:00 28.9 kg/m2 [facility] BP Systolic 2021-02-27 00:00:00 151 mm[Hg] [facility] Body Weight 2021-02-27 00:00:00 231 [lb_av] [facility] BP Diastolic 2021-02-18 00:00:00 68 mm[Hg] [facility] Height 2021-02-18 00:00:00 75 [in_i] [facility] BMI (Body Mass Index) 2021-02-18 00:00:00 28.9 kg/m2 [facility] BP Systolic 2021-02-18 00:00:00 128 mm[Hg] [facility] Body Weight 2021-02-18 00:00:00 3697.6 [oz_av] [facility] BP Diastolic 2021-02-13 00:00:00 67 mm[Hg] [facility] Height 2021-02-13 00:00:00 75 [in_i] [facility] BMI (Body Mass Index) 2021-02-13 00:00:00 28.8 kg/m2 [facility] BP Systolic 2021-02-13 00:00:00 130 mm[Hg] [facility] Body Weight 2021-02-13 00:00:00 230.2 [lb_av] [facility] BP Diastolic 2020-10-17 00:00:00 58 mm[Hg] [facility] Height 2020-10-17 00:00:00 75 [in_i] [facility] BP Systolic 2020-10-17 00:00:00 146 mm[Hg] [facility] BP Diastolic 2020-10-04 00:00:00 67 mm[Hg] [facility] Height 2020-10-04 00:00:00 75 [in_i] [facility] BMI (Body Mass Index) 2020-10-04 00:00:00 33.7 kg/m2 [facility] BP Systolic 2020-10-04 00:00:00 150 mm[Hg] [facility] Body Weight 2020-10-04 00:00:00 4310.4 [oz_av] [facility] BP Diastolic 2020-07-23 00:00:00 75 mm[Hg] [facility] Height 2020-07-23 00:00:00 75 [in_i] [facility] BMI (Body Mass Index) 2020-07-23 00:00:00 32.2 kg/m2 [facility] BP Systolic 2020-07-23 00:00:00 163 mm[Hg] [facility] Body Weight 2020-07-23 00:00:00 4121.6 [oz_av] [facility] BP Diastolic 2020-06-13 00:00:00 74 mm[Hg] [facility] Height 2020-06-13 00:00:00 75 [in_i] [facility] BMI (Body Mass Index) 2020-06-13 00:00:00 36.8 kg/m2 [facility] BP Systolic 2020-06-13 00:00:00 188 mm[Hg] [facility] Body Weight 2020-06-13 00:00:00 4708.8 [oz_av] [facility] Procedures Procedure Date / Time Performed Performing Clinician Source REFERRAL- REQUEST/RESPONSE 2023-04-16 06:01:00 Doctor Unassigned, [place] [facility] POCT GLUCOSE (AUTOMATED) 2023-03-17 14:01:00 Matt Donahue [facility] PROTEIN TOTAL 2023-03-17 10:25:00 Thelma Donahue [facility] LACTATE DEHYDROGENASE 2023-03-17 10:25:00 Maximiliano Donahue [facility] BASIC METABOLIC PANEL (NA, K, CL, CO2, GLUCOSE, BUN, CREATININE, CA) 2023-03-17 10:25:00 Malini Muse [facility] CBC WITH DIFF 2023-03-17 10:25:00 Malini Muse [facility] POCT GLUCOSE (AUTOMATED) 2023-03-17 04:10:00 Matt Donahue [facility] BODY FLUID DIRECT COUNT 2023-03-17 01:31:00 Marcus Donahue [facility] BODY FLUID CULTURE(AEROBIC/ANAEROBIC ) 2023-03-17 01:31:00 Thelma Donahue [facility] GLUCOSE BODY FLUID 2023-03-17 01:30:00 Thelma Donahue [facility] T.PROTEIN BODY FLUID 2023-03-17 01:30:00 Thelma Donahue [facility] PH, BODY FLUID 2023-03-17 01:29:00 Thelma Donahue [facility] LDH TOTAL BODY FLUID 2023-03-17 01:29:00 Thelma Donahue [facility] POCT GLUCOSE (AUTOMATED) 2023-03-16 22:58:00 Matt Donahue [facility] XR CHEST 1 VW 2023-03-16 21:06:05 Thelma Donahue [facility] POCT GLUCOSE (AUTOMATED) 2023-03-16 18:31:00 Matt Donahue [facility] XR CHEST 1 VW 2023-03-16 15:50:00 Thelma Donahue [facility] POCT GLUCOSE (AUTOMATED) 2023-03-16 13:41:00 Matt Donahue [facility] MAGNESIUM 2023-03-16 09:57:00 Thelma Donahue [facility] BASIC METABOLIC PANEL (NA, K, CL, CO2, GLUCOSE, BUN, CREATININE, CA) 2023-03-16 09:57:00 Thelma Donahue [facility] CBC WITH DIFF 2023-03-16 09:57:00 Thelma Donahue [facility] N-TERMINAL PRO-BNP 2023-03-16 09:57:00 Malini Muse [facility] OCCULT (GUAIAC) BLOOD 2023-03-16 05:15:00 Isaias Newell [facility] POCT GLUCOSE (AUTOMATED) 2023-03-16 02:12:00 Matt [facility] POCT GLUCOSE (AUTOMATED) 2023-03-15 22:42:00 Matt [facility] POCT GLUCOSE (AUTOMATED) 2023-03-15 19:28:00 Matt [facility] POCT GLUCOSE (AUTOMATED) 2023-03-15 17:45:00 Matt [facility] POCT GLUCOSE (AUTOMATED) 2023-03-15 13:27:00 Matt [facility] POCT GLUCOSE (AUTOMATED) 2023-03-15 02:34:00 Matt [facility] CBC WITHOUT DIFF 2023-03-15 00:30:00 Breanne Newell [facility] POCT GLUCOSE (AUTOMATED) 2023-03-14 22:44:00 Matt [facility] POCT GLUCOSE (AUTOMATED) 2023-03-14 18:37:00 [facility] XR CHEST 1 VW 2023-03-14 16:28:00 Thelma Donahue [facility] POCT GLUCOSE (AUTOMATED) 2023-03-14 13:29:00 Matt Donahue [facility] MAGNESIUM 2023-03-14 10:46:00 Breanne Newell [facility] TROPONIN I 2023-03-14 10:46:00 Breanne Newell [facility] BASIC METABOLIC PANEL (NA, K, CL, CO2, GLUCOSE, BUN, CREATININE, CA) 2023-03-14 10:46:00 Breanne Newell [facility] CBC WITHOUT DIFF 2023-03-14 10:46:00 Breanne Newell [facility] N-TERMINAL PRO-BNP 2023-03-14 10:46:00 Willam Sprague [facility] POCT GLUCOSE (AUTOMATED) 2023-03-14 03:06:00 Matt Donahue [facility] POCT GLUCOSE (AUTOMATED) 2023-03-13 22:52:00 Matt Donahue [facility] POCT GLUCOSE (AUTOMATED) 2023-03-13 17:58:00 [facility] POCT GLUCOSE (AUTOMATED) 2023-03-13 13:32:00 Matt Donahue [facility] BASIC METABOLIC PANEL (NA, K, CL, CO2, GLUCOSE, BUN, CREATININE, CA) 2023-03-13 11:00:00 Barbara Hummel [facility] IRON PANEL 2023-03-13 11:00:00 Barbara Hummel [facility] CBC WITH DIFF 2023-03-13 11:00:00 Barbara Hummel [facility] N-TERMINAL PRO-BNP 2023-03-13 11:00:00 Willam Sprague U [facility] POCT GLUCOSE (AUTOMATED) 2023-03-13 02:21:00 Matt Donahue [facility] POCT GLUCOSE (AUTOMATED) 2023-03-12 22:49:00 Matt Donahue [facility] POCT GLUCOSE (AUTOMATED) 2023-03-12 17:52:00 Matt Donahue [facility] TROPONIN I 2023-03-12 16:32:00 Tan Castanon [facility] CBC WITHOUT DIFF 2023-03-12 16:31:00 Thelma Donahue [facility] POCT GLUCOSE (AUTOMATED) 2023-03-12 13:53:00 Matt Donahue [facility] TRANSFUSE PACKED RBC 2023-03-12 11:19:00 Adalid Castanon [facility] PREPARE PACKED RBC 2023-03-12 11:10:33 [facility] PROCALCITONIN 2023-03-12 11:00:00 Becky [facility] MAGNESIUM 2023-03-12 07:46:00 Darwinelsa [facility] TROPONIN I 2023-03-12 07:46:[facility]EL (NA, K, CL, CO2, GLUCOSE, BUN, CREATININE, CA) 2023-03-12 07:46:00 [facility] CBC WITH DIFF 2023-03-12 06:20:00 [facility] 2023-03-12 02:55:00 Thelma Donahue [facility] POCT GLUCOSE (AUTOMATED) 2023-03-12 02:49:00 Matt [facility] XR CHEST 1 VW 2023-03-12 02:35:53 Willam Sprague [facility] PREPARE PACKED RBC 2023-03-12 00:09:12 Singer [facility] POCT GLUCOSE (AUTOMATED) 2023-03-11 23:25:00 Matt [facility] TRANSTHORACIC ECHO (TTE) COMPLETE 2023-03-11 21:09:00 Thelma Donahue [facility] ABORH CONFIRMATION (LAB ONLY) 2023-03-11 20:34:00 Singer [facility] HB ECG ROUTINE & RHYTHM STRIP 2023-03-11 19:14:09 Singer [facility] TROPONIN I 2023-03-11 18:38:00 Hany Meredith [facility] COMP. METABOLIC PANEL (60944) 2023-03-11 18:38:00 Singer [facility] CBC WITH DIFF 2023-03-11 18:38:00 Hany Meredith [facility] GLYCOSYLATED HEMOGLOBIN (A1C) 2023-03-11 18:38:00 Thelma Donahue [facility] HB ABO GROUPING 2023-03-11 18:38:[address] [facility] CONSENT/REFUSAL FOR DIAGNOSIS AND TREATMENT 2023-03-11 18:16:38 Doctor Unassigned, [place] EXTERNAL PROVIDER RECORDS 2021-09-18 05:01:00 Do ctor Unassigned, [place] EXTERNAL PROVIDER RECORDS 2021-08-21 05:01:00 Do ctor Unassigned, [place] REFERRAL- REQUEST/RESPONSE 2021-07-24 05:01:00 Doctor Unassigned, [place] INSURANCE CORRESPONDENCE 2021-07-05 05:01:00 Doc tor Unassigned, [facility] US SCROTUM AND CONTENTS 2021-05-29 21:41:00 Requisitio n, [place] [facility] ASSIGNMENT OF BENEFITS 2021-05-29 20:55:08 Docto r Unassigned, [place] [id number] 2020-11-07 00:00:00 [facility] XR, elbow 2020-10-17 00:00:00 [facility] XR, chest, 2 view 2020-10-17 00:00:00 [facility] XR, knee, 4 or more view 2020-10-17 00:00:00 [facility] XR, ribs, unilateral, 2 view 2020-10-17 00:00:00 [facility] electrocardiogram, routine ECG, 12 leads min 2020-10-04 00:00:00 [facility] XR, chest, 2 view 2020-07-23 00:00:00 [facility] electrocardiogram, routine ECG, 12 leads min 2020-07-23 00:00:00 [facility] XR, chest, 2 view 2020-06-13 00:00:00 [facility] electrocardiogram, routine ECG, 12 leads min 2020-06-13 00:00:00 [facility] Knee Surgery [facility] Plan of Care Planned Activity Planned Date Details Comments Source Diagnostic Test Pending 2020-10-04 00:00:00 CMP, serum or plasma [code = CMP, serum or plasma] [facility] Diagnostic Test Pending 2020-10-04 00:00:00 vitamin B12 + folate, serum or blood [code = vitamin B12 + folate, serum or blood] [facility] Diagnostic Test Pending 2020-10-04 00:00:00 vitamin D, 25-hydroxy, total, serum [code = vitamin D, 25-hydroxy, total, serum] [facility] Diagnostic Test Pending 2020-10-04 00:00:00 magnesium, serum or plasma [code = magnesium, serum or plasma] [facility] Diagnostic Test Pending 2020-10-04 00:00:00 phosphorus, serum or plasma [code = phosphorus, serum or plasma] [facility] Diagnostic Test Pending 2020-10-04 00:00:00 HbA1c (hemoglobin A1c), blood [code = HbA1c (hemoglobin A1c), blood] [facility] Diagnostic Test Pending 2020-10-04 00:00:00 lipid panel w/ direct LDL, serum [code = lipid panel w/ direct LDL, serum] [facility] Diagnostic Test Pending 2020-10-04 00:00:00 TSH + free T4, serum [code = TSH + free T4, serum] [facility] Diagnostic Test Pending 2020-10-04 00:00:00 CBC w/ manual diff [code = CBC w/ manual diff] [facility] Diagnostic Test Pending 2020-10-04 00:00:00 PSA, total, serum or plasma [code = PSA, total, serum or plasma] [facility] Instructions [facility] Encounters Start Date/Time End Date/Time Encounter Type Admission Type Attending Clinicians Care Facility Care Department Encounter ID Source 2021-04-24 12:38:[address] [facility] [id number] [facility] 2021-04-24 12:22:[address] [facility] [id number] [facility] 2021-04-24 12:17:[address] [facility] [id number] [facility] 2021-04-24 12:11:08 [facility] [id number] [facility] 2021-04-24 12:07:04 [facility] [id number] [facility] 2021-04-24 11:41:[address] [facility] [id number] [facility] 2021-04-24 11:41:[address] [facility] [id number] [facility] 2021-04-24 11:23:[address] [facility] [id number] [facility] 2021-04-24 11:09:[address] [facility] [id number] [facility] 2021-02-18 11:00:00 Inpatient Elmo Bailey [facility] OUTD [id number] [facility] 2023-09-22 00:00:00 2023-09-22 16:05:15 Telephone Joseph Gross [facility] 1.2840.114 350.1.13.10 4.2.7.2.686 [id number] [facility] 2023-06-26 00:00:00 2023-06-26 00:00:00 Letter (Out) [facility] MEDICAL OFFICE BUILDING 1.840.114 350.1.13.10 4.2.7.2.686 [id number] [facility] 2023-04-16 00:00:00 2023-04-16 00:00:00 Orders Only Doctor Unassigned, [place] [facility] 1.840.114 350.1.13.10 4.2.7.2.686 [id number] [facility] 2023-03-27 00:00:00 2023-03-27 00:00:00 Letter (Out) [facility] 1.0.114 350.1.13.10 4.2.7.2.686 [id number] [facility] 2023-03-20 00:00:00 2023-03-20 00:00:00 Letter (Out) Arsen [facility] MEDICAL OFFICE BUILDING 1..114 350.1.13.10 4.2.7.2.686 [id number] [facility] 2023-03-18 00:00:00 2023-03-18 00:00:00 Transition of Care Dennise Bella JAKE CALHOUN 1.0.114 350.1.13.10 4.2.7.2.686 [id number] [facility] 2023-03-11 12:28:00 2023-03-17 12:29:00 Inpatient X THELMA DONAHUE [facility] IMER [id number] [facility] 2023-03-11 12:28:00 2023-03-17 12:29:00 Hospital Encounter Hany Meredith David Ed[facility] 1..114 350.1.13.10 4.2.7.2.686 [id number] [facility] 2023-03-13 00:00:00 2023-03-13 00:00:00 Telephone Willam Sprague [facility]ESS[facility] 1..114 350.1.13.10 4.2.7.2.686 [id number] [facility] 2021-09-18 00:00:00 2021-09-18 00:00:00 Orders Only Doctor Unassigned, [place] [facility] 1.0.114 350.1.13.10 4.2.7.2.686 [id number] [facility] 2021-08-21 00:00:00 2021-08-21 00:00:00 Orders Only Doctor Unassigned, [place] [facility] 1.2.840.114 350.1.13.10 4.2.7.2.686 [id number] [facility] 2021-07-24 00:00:00 2021-07-24 00:00:00 Orders Only Doctor Unassigned, [place] [facility] 1.2840.114 350.1.13.10 4.2.7.2.686 [id number] [facility] 2021-07-06 01:46:00 2021-07-06 01:46:00 Outpatient Yan_W [facility] [id number] [facility] 2021-07-05 00:00:00 2021-07-05 00:00:00 Orders Only Doctor Unassigned, [place] [facility] 1.2840.114 350.1.13.10 4.2.7.2.686 [id number] [facility] 2021-06-16 05:52:00 2021-06-16 05:52:00 Outpatient Yan_W [facility] [id number] [facility] 2021-06-01 02:29:00 2021-06-01 02:29:00 Outpatient Yan_W [facility] [id number] [facility] 2021-05-29 14:57:48 2021-05-29 23:59:00 Hospital Encounter Radiology [facility] 1.2.840.114 350.1.13.10 4.2.7.2.686 [id number] [facility] 2021-05-29 14:57:48 2021-05-29 23:59:00 Outpatient R RADIOLOGY [facility] [id number] [facility] 2021-05-29 00:00:00 2021-05-29 00:00:00 Orders Only Doctor Unassigned, [place] [facility] 1.2.840.114 350.1.13.10 4.2.7.2.686 [id number] [facility] 2021-04-27 04:49:00 2021-04-27 04:49:00 Outpatient Yan_W [facility] [id number] [facility] 2021-04-06 04:34:00 2021-04-06 04:34:00 Outpatient SCH[facility]K _[facility] [id number] [facility] 2021-03-23 03:03:00 2021-03-23 03:03:00 Outpatient Yan_W [facility] [id number] [facility] 2021-03-02 05:22:00 2021-03-02 05:22:00 Outpatient [facility] [id number] [facility] 2021-02-27 00:00:00 2021-02-27 00:00:00 José Lindsay MD: [address] [place] [address], [address], [place] [address] , Ph. Yan_W [facility] [id number] [facility] 2021-02-18 10:25:00 2021-02-18 10:25:00 Outpatient [facility] [id number] [facility] 2021-02-18 00:00:00 2021-02-18 00:00:00 CHRIS Hickey-C: [address] [place] [address], [address], [place] [address] , Ph. [facility] [id number] [facility] 2021-02-18 00:00:00 2021-02-18 00:00:00 Outpatient Deann Ramos [facility] [id number] 2021-02-15 03:24:00 2021-02-15 03:24:00 Outpatient Yan_W [facility] [id number] [facility] 2021-02-13 00:00:00 2021-02-13 00:00:00 José Lindsay MD: [address] [place] [address], [address], [place] [address] , Ph. Yan_W [facility] [place] [id number] 111 [facility] 2021-01-26 03:33:00 2021-01-26 03:33:00 Outpatient [facility]K [facility] [id number] [facility] 2021-01-26 03:33:00 2021-01-26 03:33:00 Outpatient [facility] [id number] [facility] 2021-01-11 04:27:00 2021-01-11 04:27:00 Outpatient Yan_W [facility] [id number] [facility] 2021-01-09 04:22:00 2021-01-09 04:22:00 Outpatient Yan_W [facility] [id number] [facility] 2021-01-08 03:47:00 2021-01-08 03:47:00 Outpatient [facility] [id number] [facility] 2021-01-08 00:00:00 2021-01-08 00:00:00 Outpatient Deann Ramos [facility] [id number] 2021-01-08 00:00:00 2021-01-08 00:00:00 Outpatient Deann Ramos [facility] [id number] 2021-01-08 00:00:00 2021-01-08 00:00:00 CHRIS Hickey-C: [address] [place] [address], [address] [place] [address] , Ph. [facility] [id number] [facility] 2020-11-07 05:28:00 2020-11-07 19:13:00 Inpatient Elmo Bailey [facility] CARD [id number] [address] [place] [address] 2020-10-17 03:58:00 2020-10-17 03:58:00 Outpatient [facility] [id number] [facility] 2020-10-17 03:58:00 2020-10-17 03:58:00 Outpatient [facility] [id number] [facility] 2020-10-17 03:58:00 2020-10-17 03:58:00 Outpatient [facility] [id number] [facility] 2020-10-17 00:00:00 2020-10-17 00:00:00 CHRIS Hickey-C: [address] [place] [address], [address] [place] [phone] , Ph. [facility] [id number] [facility] 2020-10-17 00:00:00 2020-10-17 00:00:00 Outpatient Deann Ramos [facility] [id number] 2020-10-04 12:56:00 2020-10-04 12:56:00 Outpatient [facility]K _L [facility] 2020-10-04 00:00:00 2020-10-04 00:00:00 CHRIS Hickey-C: [address] [facility], [address] [address] , Ph. [facility] [id number] [facility] 2020-10-04 00:00:00 2020-10-04 00:00:00 Outpatient Richard Deann [facility] [id number] 04:08:00 2020-07-23 04:08:00 Outpatient [facility]K _L [facility] [facility] 2020-07-23 04:08:00 2020-07-23 04:08:00 Outpatient [facility]K _L [facility] 06[facility] 2020-07-23 00:00:00 2020-07-23 00:00:00 Outpatient Richard Deann [facility] [id number] 2020-07-23 00:00:00 2020-07-23 00:00:00 CHRIS Hickey-C: [address] [facility], [address] [address] , Ph. [facility] [id number] [facility] 2020-06-13 12:20:00 2020-06-13 12:20:00 Outpatient [facility]K _L [facility] [facility] 2020-06-13 00:00:00 2020-06-13 00:00:00 Outpatient Deann Ramos [facility] [id number] 2020-06-13 00:00:00 2020-06-13 00:00:00 Deann Harris Edmar hunter, [facility]-: [address] [place] [address], [address], [place] [address] , Ph. [facility] [id number] [facility] 2020-06-12 05:08:00 2020-06-12 05:08:00 Outpatient RICHARD Decker [facility] [facility] 2019-11-25 14:40:00 2019-11-25 14:40:00 [facility] [address] [facility] [id number] [facility] 2019-10-24 09:40:00 2019-10-24 09:40:00 [facility] [id number] [facility] 2019-09-07 13:15:00 2019-09-07 13:15:00 [facility] [address] [facility] [id number] [facility] 2019-09-07 09:19:00 2019-09-07 09:19:[address] [facility] [facility] [id number] [facility] 2019-08-26 09:40:00 2019-08-26 09:40:00 Out[facility] [id number] [facility] 2019-07-04 11:38:00 2019-07-04 11:38:00 Outpatient [facility] [address] [facility] [address] [facility] [id number] [facility] 2019-07-04 10:23:00 2019-07-04 10:23:00 Outpatient [facility] [id number] [facility] 2019-05-24 10:30:00 2019-05-24 10:30:00 Outpatient [facility] [id number] [facility] Results Test Description Test Time Test Comments Results Result Co mments [facility] [id number] 07:09:33* Test Item Value Reference Range Interpretation Comme nts PH BF (test code = 8409073224) 7.7 QUES UNSPUN BODY FLUID COLOR (test code = 0535470362) Yellow UNSPUN BODY FLUID CLARITY (test code = 1800740062) Slightly Cloudy SPUN BODY FLUID COLOR (test code = 0881045918) Yellow SPUN BODY FLUID CLARITY (test code = 0387533194) Clear Sediment (test code = 8963240018) The sediment volume is <0.1 mLs of the total fluid volume of 1.5 mLs and its color is WHITE. [facility] GLUCOSE (AUTOMATED)2023-03-17 04:11:06* Test Item Value Reference Range Interpretation Comme nts POCT GLU (test code = 3546017043) 141 mg/dL 70-110 H Lab Interpretation (test cod e = 22936-4) Abnormal [facility] GLUCOSE (AUTOMATED)2023-03-16 22:59:34* Test Item Value Reference Range Interpretation Comme nts POCT GLU (test code = 9305961018) 139 mg/dL 70-110 H Lab Interpretation (test cod e = 27593-8) Abnormal [facility] GLUCOSE (AUTOMATED)2023-03-16 18:32:18* Test Item Value Reference Range Interpretation Comme nts POCT GLU (test code = 8429614433) 155 mg/dL 70-110 H Lab Interpretation (test cod e = 52037-3) Abnormal [facility] GLUCOSE (AUTOMATED)2023-03-16 13:42:20* Test Item Value Reference Range Interpretation Comme nts POCT GLU (test code = 0397621343) 104 mg/dL 70-110 Lab Interpretation (test cod e = 45156-6) Normal [facility] GLUCOSE (AUTOMATED)2023-03-16 02:23:12* Test Item Value Reference Range Interpretation Comme nts POCT GLU (test code = 3995899296) 116 mg/dL 70-110 H Lab Interpretation (test cod e = 88044-3) Abnormal [facility] GLUCOSE (AUTOMATED)2023-03-15 22:43:15* Test Item Value Reference Range Interpretation Comme nts POCT GLU (test code = 2525097036) 88 mg/dL 70-110 Lab Interpretation (test cod e = 39695-8) Normal [facility] GLUCOSE (AUTOMATED)2023-03-15 19:29:11* Test Item Value Reference Range Interpretation Comme nts POCT GLU (test code = 9376341492) 184 mg/dL 70-110 H Lab Interpretation (test cod e = 64259-1) Abnormal [facility] GLUCOSE (AUTOMATED)2023-03-15 17:47:52* Test Item Value Reference Range Interpretation Comme nts POCT GLU (test code = 3954967224) 177 mg/dL 70-110 H Lab Interpretation (test cod e = 76748-3) Abnormal [facility] GLUCOSE (AUTOMATED)2023-03-15 13:28:47* Test Item Value Reference Range Interpretation Comme nts POCT GLU (test code = 0060781192) 106 mg/dL 70-110 Lab Interpretation (test cod e = 76128-3) Normal [facility] GLUCOSE (AUTOMATED)2023-03-15 02:35:47* Test Item Value Reference Range Interpretation Comme nts POCT GLU (test code = 5592308497) 139 mg/dL 70-110 H Lab Interpretation (test cod e = 35361-9) Abnormal [facility] GLUCOSE (AUTOMATED)2023-03-14 22:45:16* Test Item Value Reference Range Interpretation Comme nts POCT GLU (test code = 0371210293) 212 mg/dL 70-110 H Lab Interpretation (test cod e = 45227-8) Abnormal [facility] GLUCOSE (AUTOMATED)2023-03-14 18:38:13* Test Item Value Reference Range Interpretation Comme nts POCT GLU (test code = 0398905974) 147 mg/dL 70-110 H Lab Interpretation (test cod e = 59334-3) [facility] 13:31:15* Test Item Value Reference Range Interpretation Comme nts POCT GLU (test code = 6818723040) 119 mg/dL 70-110 H Lab Interpretation (test cod e = 77162-1) [facility]2023-03-14 03:07:18* Test Item Value Reference Range Interpretation Comme nts POCT GLU (test code = 3915373234) 147 mg/dL 70-110 H Lab Interpretation (test cod e = 47813-8) [facility]23-[facility]13 22:54:05* Test Item Value Reference Range Interpretation Comme nts POCT GLU (test code = 3285578463) 152 mg/dL 70-110 H Lab Interpretation (test cod e = 43711-1) Abnormal [facility] GLUCOSE (AUTOMATED)2023-03-13 18:00:12* Test Item Value Reference Range Interpretation Comme nts POCT GLU (test code = 8831220105) 164 mg/dL 70-110 H Lab Interpretation (test cod e = 93419-9) [facility]13 13:34:10* Test Item Value Reference Range Interpretation Comme nts POCT GLU (test code = 1400155862) 111 mg/dL 70-110 H Lab Interpretation (test cod e = 99013-6) [facility]23-03-13 02:25:44* Test Item Value Reference Range Interpretation Comme nts POCT GLU (test code = 7994232381) 132 mg/dL 70-110 H Lab Interpretation (test cod e = 12511-6) [facility]2023-03-12 22:50:19* Test Item Value Reference Range Interpretation Comme nts POCT GLU (test code = 0283759270) 167 mg/dL 70-110 H Lab Interpretation (test cod e = 78315-8) [facility]normal [facility] Clinic[facility]calcitonin2023-12-14 19:35:22* Test Item Value Reference Range Interpretation Comme nts Procalcitonin (test code = 5353035477) 0.05 ng/mL <=0.07 DL (test code = [...] lung abscess/empyema. For further information please refer to:[email or web address] Lab Interpretation (test code = 27770-1) Normal [facility])2023-03-12 17:52:55* Test Item Value Reference Range Interpretation Comme nts POCT GLU (test code = 1048299028) 192 mg/dL 70-110 H Lab Interpretation (test cod e = 18751-5) Abnormal [facility] ClinicTroponin [id number] 17:26:18* Test Item Value Reference Range Interpretation Comme nts TROPONIN I (test code = 5823180968) 0.074 ng/mL <=0.034 H DL (test code [...] of biotin. Lab Interpretation (test code = 06181-5) Abnormal [facility] ClinicCb without [id number] 16:58:52* Test Item Value Reference Range Interpretation [...] result as normal/abnormal. MPV (test code = 41177-9) 9.9 fL 9.8-13.0 RDW-CV (test code = 788-0) 20.0 % 12.1-15.4 H RDW-SD (test code = 47118-1) 50.8 fL 38.5-51.6 NRBC x10^3 (test code = 8878016114) See_Comment [Automated messa ge] The system which generated this result transmitted reference range: 10*3/?L. The reference range was not used to interpret this result as normal/abnormal. NRBC/100 WBC (test code = 7706809689) 0.0 See_Comment [Automated messa ge] The system which generated this result transmitted reference range: 0.0 - 10.0 /100 WBCs. The reference range was not used to interpret this result as normal/abnormal. IPF % (test code = 0635491822) Lab Interpretation (test code = 22397-8) Abnormal [facility] ClinicPOID GLUCOSE (AUTOMATED)2023-03-12 13:53:58* Test Item Value Reference Range Interpretation Comme nts POCT GLU (test code = 0945046808) 102 mg/dL 70-110 Lab Interpretation (test cod e = 32701-9) Normal [facility] ClinicPrepare Packed RBC (in units)2023-03-12 11:10:33* Test Item Value Reference Range Interpretation Comme nts Cross Match Result (test code = 4409) Compatible ISBT Blood Type Code (test code = 112658) 6200 Unit Blood Type (test code = 4410) A Pos Unit Number (test code = 4411) [id number] Blood Expiration Date & Time (test code = 906525) [id number] Status Information (test code = 4412) Issued Product Identification (test code = 4413) Red Blood Cells Product Code (test code = 4414) [id number] Performed at [facility] Laboratory Services - [facility] Blood [address] [place], [place] [address]Toll Free: [phone] No. [id number] [facility] C[facility]889-[facility]07 08:34:04* Test Item Value Reference Range Interpretation Comme nts TROPONIN I (test code = 5451593720) 0.064 ng/mL <=0.034 H DL (test code [...] of biotin. Lab Interpretation (test code = 99364-6) [facility]normal [facility] (NA, K, CL, CO2, GLUCOSE, BUN, CREATININE, CA)2023-03-12 08:23:03* Test Item Value Reference Range Interpretation Comme nts NA (test code = 9052900877) 140 mmol/L 135-145 K (test code = 5108841272) 3.4 mmol/L 3.5-5.0 L CL (test code = 5854341294) 107 mmol/L 98-108 CO2 TOTAL (test code = 9690770078) 25 mmol/L 23-31 AGAP (test code = 0682640253) 8 2-16 BUN (test code = 2693079101) 38 mg/dL 7-23 H GLUCOSE (test code = 0025370908) 108 mg/dL 70-110 CREATININE (test code = 5799262390) 2.26 mg/dL 0.60-1.25 H CALCIUM (test code = 7479069681) 8.7 mg/dL 8.6-10.6 eGFR (test code = 31288-2) 28.6 mL/min/1.73m2 CKD-EPI eGFR (2020). Assuming creatinine has been stable day-to-day for at least three months, the eGFR indicates Category G4 (15 - 29 mL/min/1.73 m2) Lab Interpretation (test code = 33575-0) Abnormal [facility] ClinicMagnesium2023-12-14 08:23:03* Test Item Value Reference Range Interpretation Comme nts MAGNESIUM (test code = 1589543961) 1.7 mg/dL 1.7-2.4 Lab Interpretation (test cod e = 49997-1) Normal [facility] with [id number] 07:33:03* Test Item Value Reference Range Interpretation [...] g/dL 31.2-35.0 L RDW-SD (test code = 88741-5) 46.5 fL 38.5-51.6 RDW-CV (test code = 788-0) 18.6 % 12.1-15.4 H PLT (test code = 777-3) 303 See_Comment [Automated messa ge] The system which generated this result transmitted reference range: 150 - 328 10*3/?L. The reference range was not used to interpret this result as normal/abnormal. MPV (test code = 66499-4) 9.8 fL 9.8-13.0 NRBC/100 WBC (test code = 6500700744) 0.0 See_Comment [Automated Hivelocity ssage] The system which generated this result transmitted reference range: 0.0 - 10.0 /100 WBCs. The reference range was not used to interpret this result as normal/abnormal. NRBC x10^3 (test code = 4854644866) See_Comment [Automated Merlina ge] The system which generated this result transmitted reference range: 10*3/?L. The reference range was not used to interpret this result as normal/abnormal. GRAN MAT (NEUT) % (test code = 770-8) 63.2 % IMM GRAN % (test code = 2238592969) 0.40 % LYMPH % (test code = 736-9) 11.8 % MONO % (test code = 5905-5) 18.1 % EOS % (test code = 713-8) 5.1 % BASO % (test code = 706-2) 1.4 % GRAN MAT x10^3(ANC) (test code = 9721726928) 3.49 10*3/uL 1.99-6.95 IMM GRAN x10^3 (test code = 0747357596) 0.00-0.06 LYMPH x10^3 (test code = 731-0) 0.65 10*3/uL 1.09-3.23 L MONO x10^3 (test code = 742-7) 1.00 10*3/uL 0.36-1.02 EOS x10^3 (test code = 711-2) 0.28 10*3/uL 0.06-0.53 BASO x10^3 (test code = 704-7) 0.08 10*3/uL 0.01-0.09 Lab Interpretation (test code = 99166-8) Abnormal [facility] ClinicTroponin [id number] 04:30:22* Test Item Value Reference Range Interpretation Comme nts TROPONIN I (test code = 8393965427) 0.076 ng/mL <=0.034 H DL (test code [...] of biotin. Lab Interpretation (test code = 56801-4) Abnormal [facility] ClinicPOCT GLUCOSE (AUTOMATED)2023-03-12 02:55:33* Test Item Value Reference Range Interpretation Comme [facility] POCT GLU (test code = 6246322130) 179 mg/dL 70-110 H Lab Interpretation (test cod e = 72293-9) Abnormal [facility] ClinicTransthoracic echo (TTE)2023-03-12 02:41:41* Test Item Value Reference Range Interpretation Comme nts Height (test code = 6646608661) 75 in Weight (test code = 7620287383) 226 lbs Systolic BP (test code = 7349999916) 147 mmHg Diastolic BP (test code = 7045929586) 65 mmHg Heart Rate (test code = 9874615810) 67 bpm BSA (test code = 5547287883) 2.31 m2 Ao root diam (test code = 6089978252) 3.30 cm Aortic root (test code = 1338834998) 3.3 cm Ao root annulus (test code = 8078623965) 3.3 cm LVOT diameter (test code = 5443219275) 1.92 cm LVOT area (test code = 9072549896) 2.90 cm2 LVIDD (test code = 3692851852) 5.20 cm Left Ventricular End Diastolic Volume by Teichholz Method (test code = 3874056) 130.7 mL IVS (test code = 9634821846) 1.22 cm Interventricular Septum Diastolic Thickness by 2D (test code = 0615195) 1.22 cm LVPWD (test code = 5061692270) 1.21 cm PW (test code = 1665409075) 1.21 cm 0.6-1.1 EF(Teich) (test code = 3931964981) 37.00 % LVIDS (test code = 1650989741) 4.30 cm Left Ventricular End Systolic Volume by Teichholz Method (test code = 7632789) 82.4 mL FS (test code = 9714233300) 18 % EF - 2D (test code = 91914277) 37.00 % LA size (test code = 0393540265) 4.5 cm TR Peak Dena (test code = 7926496462) 411.5 cm/s Triscuspid Valve Regurgitation Peak Gradient (test code = 1647315699) 67.8 mmHg Pulmonic Regurgitant End Max Velocity (test code = 7973036530) 107.5 cm/s E wave decelartion time (test code = 7262589518) 0.21 s MV Peak E Dena (test code = 0012636850) 112.7 cm/s MV stenosis pressure 1/2 time (test code = 0859620332) 63.2 ms MV Prop V (test code = 6573128130) 56.00 cm/s MV E/e' septal (test code = 5592595975) 12.8 cm/s Tapse (test code = 9681670950) 1.97 cm LVOT stroke volume (test code = 6098908359) 59.00 cm3 LVOT peak dena (test code = 2365199405) 93.3 cm/s LVOT mn grad (test code = 1649281768) 1.7 mmHg AV LVOT peak gradient (test code = 4468360427) 3.5 mmHg LVOT peak VTI (test code = 5072938804) 20.5 cm LV V1 mean (test code = 3601166967) 60.60 cm/s Aortic valve mean velocity (test code = 6160806066) 124.4 cm/s Ao peak dena (test code = 0640193185) 177.7 cm/s Ao VTI (test code = 8304012777) 36.8 cm AV area by cont VTI (test code = 4483531501) 1.6 cm2 AV area peak dena (test code = 9417256560) 1.5 cm2 Ao max PG (test code = 3293997568) 12.60 mm[Hg] AV peak gradient (test code = 5702847491) 12.6 mmHg AV valve area (test code = 9787666362) 1.60 cm2 AV mean gradient (test code = 4175832186) 6.8 mmHg LAV(MOD-sp4) (test code = 7610279677) 100.80 mL MR max PG (test code = 0911810125) 121.30 mm[Hg] MR max dena (test code = 4554436524) 550.50 cm/s Mr max dena (test code = 0493458125) 550.5 m/s AV regurgitation pressure 1/2 time (test code = 6073430613) 712.3 ms AI dec slope (test code = 5243760887) 137.20 cm/s2 AI max dena (test code = 5010395930) 333.70 cm/s AI max PG (test code = 2202525739) 44.50 mm[Hg] Radiology Study observation (narrative) (test code = 70362-0) DL (test code = DL) ?Left?Ventricle: Left [...] 2D, color flow Doppler and spectral Doppler. [facility] Clinic[facility] Packed RBC (in units), 1 Units 2023-03-12 00:09:12* Test Item Value Reference Range Interpretation Comme [facility] Cross Match Result (test code = 4409) Compatible ISBT Blood Type Code (test code = 886919) 6200 Unit Blood Type (test code = 4410) A Pos Unit Number (test code = 4411) [id number] Blood Expiration Date & Time (test code = 578690) [id number] Status Information (test code = 4412) Issued Product Identification (test code = 4413) Red Blood Cells Product Code (test code = 4414) [id number] Performed at [facility] B Laboratory Services - [facility] Blood [address] [place], [place] [address]Toll Free: [phone] No. [id number] [facility] ClinicPOCT GLUCOSE (AUTOMATED)2023-03-11 23:36:05* Test Item Value Reference Range Interpretation Comme [facility] POCT GLU (test code = 0522122228) 134 mg/dL 70-110 H Lab Interpretation (test cod e = 67333-3) Abnormal [facility] ClinicGlycosylated Hemoglobin (A1C)2023-03-11 22:11:09* Test Item Value Reference Range Interpretation Comme [facility] HGB A1C (test code = 4548-4) 6.8 % 4.0-5.7 H DL (test code = DL) Reference RangesNormal: <5.7%Prediabetes: 5.7 - 6.4%Diabetes: > 6.5% Lab Interpretation (test code = 62255-8) Abnormal [facility] ClinicABORH Confirmation (Lab Only)2023-03-11 20:52:00* Test Item Value Reference Range Interpretation Comme nts ABO & RH (test code = 20) A Positive [facility]. Metabolic Panel (40980)2023-03-11 20:03:45* Test Item Value Reference Range Interpretation Comme nts NA (test code = 4295013020) 141 mmol/L 135-145 K (test code = 1672947967) 3.8 mmol/L 3.5-5.0 CL (test code = 2041049400) 105 mmol/L 98-108 CO2 TOTAL (test code = 2366436029) 21 mmol/L 23-31 L AGAP (test code = 9128995237) 15 2-16 BUN (test code = 2070040910) 39 mg/dL 7-23 H GLUCOSE (test code = 4195941450) 143 mg/dL 70-110 H CREATININE (test code = 4208156268) 2.40 mg/dL 0.60-1.25 H TOTAL BILI (test code = 1794664280) 1.9 mg/dL 0.1-1.1 H CALCIUM (test code = 4421320651) 9.1 mg/dL 8.6-10.6 T PROTEIN (test code = 3513013583) 8.0 g/dL 6.3-8.2 ALBUMIN (test code = 5801137116) 4.1 g/dL 3.5-5.0 ALK PHOS (test code = 4768112103) 157 U/L 34-122 H ALTv (test code = 1742-6) 20 U/L 5-50 AST(SGOT) (test code = 4827079733) 32 U/L 13-40 eGFR (test code = 38786-8) 26.6 mL/min/1.73m2 CKD-EPI eGFR (2020). Assuming creatinine has been stable day-to-day for at least three months, the eGFR indicates Category G4 (15 - 29 mL/min/1.73 m2) Lab Interpretation (test code = 38586-5) Abnormal [facility] with [id number] 19:51:26* Test Item Value Reference Range Interpretation [...] g/dL 31.2-35.0 L RDW-SD (test code = 52818-8) 43.1 fL 38.5-51.6 RDW-CV (test code = 788-0) 17.8 % 12.1-15.4 H PLT (test code = 777-3) 338 See_Comment H [Automated messa ge] The system which generated this result transmitted reference range: 150 - 328 10*3/?L. The reference range was not used to interpret this result as normal/abnormal. MPV (test code = 22305-1) 10.1 fL 9.8-13.0 NRBC/100 WBC (test code = 9736338658) 0.0 See_Comment [Automated Hivelocity ssage] The system which generated this result transmitted reference range: 0.0 - 10.0 /100 WBCs. The reference range was not used to interpret this result as normal/abnormal. NRBC x10^3 (test code = 7292945000) See_Comment [Automated messa ge] The system which generated this result transmitted reference range: 10*3/?L. The reference range was not used to interpret this result as normal/abnormal. GRAN MAT (NEUT) % (test code = 770-8) 67.9 % IMM GRAN % (test code = 3136818444) 0.30 % LYMPH % (test code = 736-9) 12.5 % MONO % (test code = 5905-5) 15.4 % EOS % (test code = 713-8) 2.4 % BASO % (test code = 706-2) 1.5 % GRAN MAT x10^3(ANC) (test code = 2690443190) 4.19 10*3/uL 1.99-6.95 IMM GRAN x10^3 (test code = 8999840672) 0.00-0.06 LYMPH x10^3 (test code = 731-0) 0.77 10*3/uL 1.09-3.23 L MONO x10^3 (test code = 742-7) 0.95 10*3/uL 0.36-1.02 EOS x10^3 (test code = 711-2) 0.15 10*3/uL 0.06-0.53 BASO x10^3 (test code = 704-7) 0.09 10*3/uL 0.01-0.09 ELLIPTO/OVAL (test code = 33495-0) 2+ See_Comment A [Automated Merlina ge] The system which generated this result transmitted reference range: (none). The reference range was not used to interpret this result as normal/abnormal. SCHISTOCYTES (test code = 800-3) 1+ A TEARDROP CELLS (test code = 7791-7) 2+ See_Comment A [Automated Merlina ge] The system which generated this result transmitted reference range: (none). The reference range was not used to interpret this result as normal/abnormal. GIANT PLATELETS (test code = 5908-9) Present See_Comment A [Automated Merlina MOLOME] The system which generated this result transmitted reference range: (none). The reference range was not used to interpret this result as normal/abnormal. Lab Interpretation (test code = 52969-3) Abnormal [facility] ClinicMatthew [id number] 19:36:26* Test Item Value Reference Range Interpretation Comme nts TROPONIN I (test code = 1170878799) 0.084 ng/mL <=0.034 H DL (test code [...] of biotin. Lab Interpretation (test code = 71137-8) Abnormal [facility] ClinicType and Screen - ONCE [id number] 19:09:00 * Test Item Value Reference Range Interpretation Comme nts ABO & RH (test code = 20) A Positive IAT (test code = 1185) Negative [facility] ClinicGLUBED2021-08-11 15:08:00* Test Item Value Reference Range Interpretation Comme nts GLUBED (test code = GLUBED) 107 MG/DL 70-110 N Performed by cer tified network systems operator at [facility] PQB-[id number] 14:30:00* Test Item Value Reference Range Interpretation Comme nts ACT-ISTAT (test code = ACTI) 213 SEC 74-137 H Performed by cer tified network systems operator at [facility] [id number] 11:52:00* Test Item Value Reference Range Interpretation Comme nts GLUBED (test code = GLUBED) 82 MG/DL 70-110 N Performed by [facility] tified network systems operator at [facility] - XR CHEST 1 [id number] 00:00:00 [facility] : 1940 Sex: MFAX: Elmo Pereira MD [phone] [place]: St: ADM FAX: Jordan Araujo [facility] [phone] ------- Name: [place]IX[place] [facility] 1940 Age/S: 79/M [address] [place] [address] Unit #: [id number] Loc: [place] [address] Phys: Jordan Araujo [facility] Acct: [id number] Dis Date: Status: ADM IN PHONE #: [phone] Exam Date: 11/07/2020 1643 FAX #: [phone] Reason: WATCHMAN EXAMS: CPT CODE: [id number] XRCHEST 1 V 68744 PROCEDURE INFORMATION: Exam: XR Chest Exam date and time: 11/07/2020 3:48 PM Age: 79 years old Clinical indication: Other: Watchman TECHNIQUE: Imaging protocol: XR of the chest. Views: 1 view. Other technique: AP portable chest obtained with the patient semi upright. COMPARISON: DXXR CHEST 2 V 11/05/2020 5:40 PM FINDINGS: [...] CC: Elmo Rubi MD; Jordan DEL CID [facility] Technologist: Trang Mitchell RT(R)(M) Trnscrd Date/Time/By: 11/07/2020 (0623) : By: [email or web address] Orig Print D/T: S: 11/07/2020 (1629) PAGE 1 Signed ReportNovel Coronavirus 2019 Inhouse 2020-11-06 11:50:00* Test Item Value Reference Range Interpretation Comme nts Novel Coronavirus 2019 Inhouse (test code = COVNONPUI) Negative Negative Positive resul ts are indicative of the presence veQZBD-SfA-0 RNA, clinical correlation with patient historyand other [...] for the identification of SARS-CoV-2 RNA usingthe Traackr M2000 System under the FDA Emergency UseAuthorization. The testing is performed by personneltrained in the procedures for the Richardson M2000 moleculardiagnostic SARS-CoV-2 assay in vitro. - XR CHEST 2 [id number] 00:00:00 [facility] : 1940 Sex: MFAX: Elmo Pereira MD [phone] [place]: St: PRE Name: MALA NIXON [facility] : 1940 Age/S: 79/M [address] [place] [address] Unit #: [id number] Loc: [place] [address] Phys: Elmo Rubi MD Acct: [id number] Dis Date: Status: PRE IN PHONE #: [phone] Exam Date: 11/05/20201801 FAX #: [phone] Reason: WATCHMAN EXAMS: CPT CODE: [id number] XR CHEST 2 V 80271 PROCEDURE INFORMATION:Exam: XR Chest Exam date and time: 11/05/2020 [...] No pneumothorax identified. Heart/Mediastinum: Cardiac silhouette appears ybnf-al-zwudwjzkou enlarged. Bones/joints: Diffusely decreased bone density. Generalized bony degenerative changes. IMPRESSION: 1. Small bilateral pleural effusions. 2. Siwd-ps-uvnxpnvfdk enlarged cardiac silhouette. 3. Mild atelectasis versus interstitial infiltrates or edema in the lower chest bilaterally, Left greater than right. at 0801 Reported and signed by: Gurpreet Gill M.D. CC: Elmo Rubi MD Technologist: TIMOTHY Rocha)(Jaleel) Trnscrd Date/Time/By: 11/06/2020 (800) : By: [email or web address] Orig Print D/T: S: 11/06/2020 (800) PAGE 1 Signed ReportBASIC METABOLIC [id number] 18:45:00* Test Item Value Reference Range Interpretation [...] code = CA) 9.0 mg/dL 8.0-10.5 N [id number] 18:45:00* Test Item Value Reference Range Interpretation Comme nts PREALBUMIN (test code = PREALB) 12.6 mg/dL 16.0-40.0 L BASIC METABOLIC [id number] 18:43:00* Test Item Value Reference Range Interpretation [...] code = CA) 9.0 mg/dL 8.0-10.5 N [id number] 18:43:00* Test Item Value Reference Range Interpretation Comme nts PREALBUMIN (test code = PREALB) mg/dL 16.0-40.0 PROTHROMBIN [id number] 18:34:00* Test Item Value Reference Range Interpretation [...] Infarction (to prevent recurrent infarct). CBC W/AUTO [id number] 18:20:00* Test Item Value Reference Range Interpretation [...] c ode = MDIFF) NO CBC W/AUTO [id number] 18:18:00* Test Item Value Reference Range Interpretation [...] Iron binding capacity [Mass/volume] in Serum or [id number] 00:00:00* Test Item Value Reference Range Interpretation [...] code = 2502-3) 5 % 15-55 L [facility] ClinicsFerritin [Mass/volume] in Serum or Plasma 2020-10-12 00:00:00* Test Item Value Reference Range Interpretation Comme nts Ferritin [Mass/volume] in Se rum or Plasma (test code = 2276-4) 29 NG/mL 30-400 L [facility] Clinicswritten griemqawopphg3216-01-57 00:00:00* Test Item Value Reference Range Interpretation Comme nts written authorization (test code = written authorization) comment [facility] Snxqrcl96-Zhdhvsuoizmrml D3+25-Hydroxyvitamin D2 [Mass/volume] in Serum or [id number] 00:00:00* Test Item Value Reference Range Interpretation Comme nts 25-hydroxyvitamin D3 [Mass/v olume] in Serum or Plasma (test code = 1989-3) 46 NG/mL [facility] with direct LDL - Serum or [...] or Plasma by calculation (test code = 09913-2) 12 mg/dL 5-40 Cholesterol in LDL [Mass/vol ume] in Serum or Plasma by calculation (test code = 20853-2) 45 mg/dL 0-99 Laboratory comment [Text] in Report Narrative (test code = 55584-4) parent educator Cholesterol in LDL [Mass/vol ume] in Serum or Plasma by Direct assay (test code = 42982-5) 48 mg/dL 0-99 Cholesterol in LDL/Cholester ol in HDL [Mass Ratio] in Serum or Plasma (test code = 81032-7) 1.3 ratio 0.0-3.6 [facility] T4 and TSH panel - Serum or Plasma 2020-10-06 00:00:00* Test Item Value Reference Range Interpretation Comme nts Thyrotropin [Units/volume] i n Serum or Plasma by Detection limit <= 0.005 mIU/L (test code = 61968-2) 4.550 uIU/mL 0.450-4.500 H Thyroxine (T4) free [Mass/volume] in Serum or Plasma (test code = 3024-7) 1.08 NG/dL 0.82-1.77 [facility] W Auto Differential panel - [id number] 00:00:00* Test Item Value Reference Range Interpretation [...] immature cells (test code = immature cells) parent educator Neutrophils [#/volume] in Bl ood by Automated [...] Blood by Automated count (test code = 61185-1) 0 % not estab. Immature granulocytes [#/volume] in Blood by Automated count (test code = 38563-5) 0.0 x10e3/uL 0.0-0.1 Nucleated erythrocytes/100 leukocytes [Ratio] in Blood by Automated count (test code = 06240-1) parent educator Morphology [Interpretation] in Blood Narrative (test code = 96484-4) parent educator [facility]Com[facility] metabolic 2000 panel - Serum or [id number] 00:00:00* Test Item Value Reference Range Interpretation [...] by Creatinine-based formula (CKD-EPI) (test code = 34953-5) 51 mL/min/1.73 >59 L Glomerular filtration rate/1.73 sq M.predicted among blacks [Volume Rate/Area] in Serum, Plasma or Blood by Creatinine-based formula (CKD-EPI) (test code = 32951-7) 59 mL/min/1.73 >59 L Urea nitrogen/Creatinine [Ma ss Ratio] in Serum or Plasma (test code = 3097-3) 29 10-24 H Sodium [Moles/volume] in Ser um or Plasma (test code = 2951-2) 145 mmol/L 134-144 H Potassium [Moles/volume] in Serum or Plasma (test code = 2823-3) 4.4 mmol/L 3.5-5.2 Chloride [Moles/volume] in Serum or Plasma (test code = 2074-0) 112 mmol/L 96-106 H Carbon dioxide, total [Moles/volume] in Serum or Plasma (test code = 2027-) 18 mmol/L 20-29 L Calcium [Mass/volume] in Ser um or Plasma (test code = 77802-3) 9.2 mg/dL 8.6-10.2 Protein [Mass/volume] in Ser um or Plasma (test code = 2885-2) 7.3 g/dL 6.0-8.5 Albumin [Mass/volume] in Ser um or Plasma (test code = 1751-7) 4.3 g/dL 3.7-4.7 Globulin [Mass/volume] in Serum by calculation (test code = 08545-0) 3.0 g/dL 1.5-4.5 Albumin/Globulin [Mass Ratio ] in Serum or Plasma (test code = 1759-0) 1.4 1.2-2.2 Bilirubin.total [Mass/volume ] in Serum or Plasma (test code = 1974-) 0.6 mg/dL 0.0-1.2 Alkaline phosphatase [Enzymatic activity/volume] in Serum or Plasma (test code = 6768-6) 139 IU/L 48-121 H Aspartate aminotransferase [Enzymatic activity/volume] in Serum or Plasma (test code = 1920-8) 13 IU/L 0-40 Alanine aminotransferase [Enzymatic activity/volume] in Serum or Plasma (test code = 1742-6) 9 IU/L 0-44 [facility]olate+Cyanocobalamin [Interpretation] in Serum or [id number] 00:00:00* Test Item Value Reference Range Interpretation Comme nts Cobalamin (Vitamin B12) [Mass/volume] in Serum or Plasma (test code = 2132-9) 706 pg/mL 232-1245 Folate [Mass/volume] in Seru m or Plasma (test code = 2284-8) 15.1 NG/mL >3.0 [facility]em[facility] A1c/Hemoglobin.total in Blood 2020-10-06 00:00:00* Test Item Value Reference Range Interpretation Comme nts Hemoglobin A1c/Hemoglobin.to mariza in Blood (test code = 4548-4) 6.4 % 4.8-5.6 H Glucose mean value [Mass/vol ume] in Blood Estimated from glycated hemoglobin (test code = 31684-6) 137 mg/dL [facility]Prostate specific Ag [Mass/volume] in Serum or Lwxcfg8672-05-45 00:00:00* Test Item Value Reference Range Interpretation Comme nts Prostate specific Ag [Mass/v olume] in Serum or Plasma (test code = 2857-1) 2.3 NG/mL 0.0-4.0 [facility]osph[facility] [Mass/volume] in Serum or Plasma 2020-10-06 00:00:00* Test Item Value Reference Range Interpretation Comme nts Phosphate [Mass/volume] in S elisha or Plasma (test code = 2777-1) 3.2 mg/dL 2.8-4.1 [facility] [Mass/volume] in Serum or Plasma 2020-10-06 00:00:00* Test Item Value Reference Range Interpretation Comme nts Magnesium [Mass/volume] in S elisha or Plasma (test code = 16608-0) 1.7 mg/dL 1.6-2.3 [facility] Notes Date/Time Note Provider Source 2023-09-22 16:04:13 Received medical records request from [facility] faxed to HIM Monica Valadez [facility] 2020-11-08 09:04:00 [facility] ([facility]) Discharge Summary REPORT#:[id number] REPORT STATUS: Signed DATE:11/08/20 TIME: 903 PATIENT: MALA NIXON UNIT #: [id number] ROOM/BED: [place] [address] : [birth year] AGE: 79 SEX: M ATTEND: Elmo Rubi MD ADM AUTHOR: Jordan Araujo * ALL edits or amendments must be made on the electronic/computer document * PCP PCP Discharge to: home General Information Discharge date: 11/07/20 Hospital course: Patient with Atrial fibrillation, chads vasc score of 4 and intolerance to long- term anticoagulation due to history of stroke. Patient is s/p successful implantation of a 27mm watchman device in the left atrial appendage Patient tolerated the procedure without any postop complications No thrombus was identified in the pre-and Intra-Op GONZÁLEZ Postoperatively, chest x-ray is negative for any acute process. Postop echo did not show a pericardial effusion Patient ambulated without any difficulty and heart rate and blood pressure stable Right groin suture removed by this SHELL FREEZING MACHINE OPERATOR. no infection, bleeding, or hematoma. Dermabond applied and intact Patient was provided with post watchman discharge instructions. Patient is to follow-up with PCP and photoengraving retoucher in 1 to 2 weeks post discharge Also follow-up with photoengraving retoucher for the 45-day GONZÁLEZ and for anticoagulation [...] of breath lightheadedness or dizziness to his photoengraving retoucher. Med Rec PCP PCP: PCP: No Primary or Family Physician Med Rec Discharge meds: Continue taking these medications: amLODIPine (NORVASC) 5 MG TAB 5 MILLIGRAM ORAL [...] 100 MG TAB 100 MILLIGRAM ORAL DAILY. Objective VS/I O Last Documented: Result Date Time O2 Delivery Simple mask 11/07 1632 O2 Flow Rate 8 11/07 1632 Pulse Ox 97 11/07 1132 B/P 138/65 11/07 1132 Temp 36.3 11/07 1132 Pulse 58 11/07 1132 Resp 18 11/07 1132 24 hour I O ending at 0700: 11/08 0700 11/07 1900 Intake Total 240 Output Total Balance 240 Intake, Oral 240 PATIENT WEIGHT: Weight (lb): 249 Weight (oz): 1.96 Weight (kg): 113.000 General appearance: alert, awake, oriented, no acute distress Cardiovascular: irregular rhythm Respiratory: clear to auscultation, no distress GI: soft, non-tender Extremities: moves all Neuro/CERTIFIED TECHNICIAN SPECIALIST: alert, oriented X 3 Skin: dry Wound/incision: Location: R groin soft; no hematoma; suture removed Results Findings/Data: Laboratory Tests: 11/07 11/07 11/07 1457 1420 1140 Chemistry POC Glucose (70 - 110 MG/DL) 107 82 Coagulation Activated Coag Time (74 - 137 SEC) 213 H Radiology data: Recent Impressions: RADIOLOGY - XR CHEST 1 V 11/07 1642 Report Impression - Status: SIGNED Entered: 11/07/2020 1650 IMPRESSION: 1. Bilateral ill-defined pulmonary opacities compatible with edema. Inflammation in the differential. 2. Bilateral pleural effusions are suspected. Impression By: Natalia Galindo M.D. Treatments Procedures Treatments Procedures: Left atrial appendage closure using a 27-mm Watchman FLX closure device. Imaging: Recent Impressions: RADIOLOGY - XR CHEST 1 V 11/07 1643 Report Impression - Status: SIGNED Entered: 11/07/2020 1650 IMPRESSION: 1. Bilateral ill-defined pulmonary opacities compatible with edema. Inflammation in the differential. 2. Bilateral pleural effusions are suspected. Impression By: Natalia Galindo M.D. Discharge Instructions PCP PCP: PCP: No Primary or Family Physician )( Discharge to: Home/Self Care Discharge Instructions Additional Discharge Routines: Attending Follow-Up )( Diet: Cardiac )( Activity: As Tolerated Follow-up Appointments PCP follow up: PCP: Elmo Rubi MD PCP follow up timeframe: In 2-3 weeks Special instructions: CALL OFFICE TO SCHEDULE APPOINTMENT Attending Physician: Attending Physician: Elmo Rubi MD Attending physician follow up timeframe: In 2-3 weeks at 0909 RPT #:[id number] END OF REPORT [facility] 2020-11-08 09:04:00 [facility] ([facility]) Discharge Summary REPORT#:[id number] REPORT STATUS: Signed DATE:11/08/20 TIME: 903 PATIENT: MALA NIXON UNIT #: [id number] ROOM/BED: [place] [address] : [birth year] AGE: 80 SEX: M ATTEND: Elmo Rubi MD ADM AUTHOR: Jordan Rodriguez * ALL edits or amendments must be made on the electronic/computer document * See Addendum PCP PCP Discharge to: home General Information Discharge date: 11/07/20 Hospital course: Patient with Atrial fibrillation, chads vasc score of 4 and intolerance to long- term anticoagulation due to history of stroke. Patient is s/p successful implantation of a 27mm watchman device in the left atrial appendage Patient tolerated the procedure without any postop complications No thrombus was identified in the pre-and Intra-Op GONZÁLEZ Postoperatively, chest x-ray is negative for any acute process. Postop echo did not show a pericardial effusion Patient ambulated without any difficulty and heart rate and blood pressure stable Right groin suture removed by this SHELL FREEZING MACHINE OPERATOR. no infection, bleeding, or hematoma. Dermabond applied and intact Patient was provided with post watchman discharge instructions. Patient is to follow-up with PCP and photoengraving retoucher in 1 to 2 weeks post discharge Also follow-up with photoengraving retoucher for the 45-day GONZÁLEZ and for anticoagulation [...] of breath lightheadedness or dizziness to his photoengraving retoucher. Med Rec PCP PCP: PCP: No Primary or Family Physician Med Rec Discharge meds: Continue taking these medications: amLODIPine (NORVASC) 5 MG TAB 5 MILLIGRAM ORAL [...] 100 MG TAB 100 MILLIGRAM ORAL DAILY. Objective VS/I O Last Documented: Result Date Time O2 Delivery Simple mask 11/07 1632 O2 Flow Rate 8 11/07 1632 Pulse Ox 97 11/07 1132 B/P 138/65 11/07 1132 Temp 36.3 11/07 1132 Pulse 58 11/07 1132 Resp 18 11/07 1132 24 hour I O ending at 0700: 11/08 0700 11/07 1900 Intake Total 240 Output Total Balance 240 Intake, Oral 240 PATIENT WEIGHT: Weight (lb): 249 Weight (oz): 1.96 Weight (kg): 113.000 General appearance: alert, awake, oriented, no acute distress Cardiovascular: irregular rhythm Respiratory: clear to auscultation, no distress GI: soft, non-tender Extremities: moves all Neuro/CERTIFIED TECHNICIAN SPECIALIST: alert, oriented X 3 Skin: dry Wound/incision: Location: R groin soft; no hematoma; suture removed Results Findings/Data: Laboratory Tests: 11/07 11/07 11/07 1457 1420 1140 Chemistry POC Glucose (70 - 110 MG/DL) 107 82 Coagulation Activated Coag Time (74 - 137 SEC) 213 H Radiology data: Recent Impressions: RADIOLOGY - XR CHEST 1 V 11/07 1642 Report Impression - Status: SIGNED Entered: 11/07/2020 1650 IMPRESSION: 1. Bilateral ill-defined pulmonary opacities compatible with edema. Inflammation in the differential. 2. Bilateral pleural effusions are suspected. Impression By: Natalia Galindo M.D. Treatments Procedures Treatments Procedures: Left atrial appendage closure using a 27-mm Watchman FLX closure device. Imaging: Recent Impressions: RADIOLOGY - XR CHEST 1 V 11/07 1642 Report Impression - Status: SIGNED Entered: 11/07/20201649 IMPRESSION: 1. Bilateral ill-defined pulmonary opacities compatible with edema. Inflammation in the differential. 2. Bilateral pleural effusions are suspected. Impression By: Natalia Galindo M.D. Discharge Instructions PCP PCP: PCP: No Primary or Family Physician )( Discharge to: Home/Self Care Discharge Instructions Additional Discharge Routines: Attending Follow-Up )( Diet: Cardiac )( Activity: As Tolerated Follow-up Appointments PCP follow up: PCP: Elmo Rubi MD PCP follow up timeframe: In 2-3 weeks Special instructions: CALL OFFICE TO SCHEDULE APPOINTMENT Attending Physician: Attending Physician: Elmo Rubi MD Attending physician follow up timeframe: In 2-3 weeks at 0909 at 1607 Addendum 1: 12/13/20 1257 by Jordan Rodriguez -long-standing persistant Afib at 1300 at 1607 RPT #:[id number] END OF REPORT [facility] 2020-11-07 15:57:00 [id number] [address] PATIENT NAME: MALA NIXON ADMIT DATE: 11/07/20 ACCOUNT NO: [id number] ROOM NO: [facility] AGE: 79 REPORT TYPE: eELECTROCARDIOGRAM REPORT SEX: M ADMITTING PHYSICIAN:Elmo Rubi MD ATTENDING PHYSICIAN:Elmo Rubi MD Order: [id number] Test Reason : WATCHMANN Test Date/Time Stamp: ThuNov 07 2020 15:57:49 Blood Pressure : / mmHG Vent. Rate : 055 BPM Atrial Rate : 059 BPM P-R Int : 000 ms QRS Dur : 092 ms QT Int : 436 ms P-R-T Axes : 000 045 -43 degrees QTc Int : 417 ms Atrial fibrillation with slow ventricular response with premature ventricular or aberrantly conducted complexes Low voltage QRS Possible Anterolateral infarct (cited on or before 05-NOV-2020) Abnormal ECG When compared with ECG of 05-NOV-2020 16:44, Significant changes have occurred Confirmed by MD IBRAHIMA, AYUSH ([id number]) on 11/09/2020 6:08:25 PM Referred By: Elmo Rubi Confirmed by:AYUSH PERES MD at 1808 PATIENT NAME: MALA NIXON [facility] 2020-11-07 14:59:00 [place] [id number] PATIENT NAME: MALA NIXON ADMIT DATE: 11/07/20 ACCOUNT NO: [id number] [facility] AGE: 79 REPORT TYPE: CARDIAC CATHETERIZATION REPORT SEX: M ADMITTING PHYSICIAN:Elmo Rubi MD ATTENDING PHYSICIAN:Elmo Rubi MD PROCEDURE DATE: 11/07/2020 OPERATION PERFORMED: Left atrial appendage closure using a 27-mm Watchman FLX closure device. INDICATIONS: Atrial fibrillation with history of stroke and intolerant of anticoagulants. ACCESS: Right femoral vein, 16-Haitian closed with amelop-kz-adcdd suture. COMPLICATIONS: None. BLEEDING: Less than 10 mL. DESCRIPTION OF PROCEDURE: After risks, benefits, and alternatives were explained, the patient agreed to proceed and signed informed consent, the patient was brought into cardiac catheterization laboratory, prepped and draped in usual sterile fashion. Then, we accessed the right femoral vein using ultrasound guidance, a micropuncture kit and placed an 8-Haitian sheath, then upgraded to a 16-Haitian Cook sheath. Partial dose of heparin was given. Then, I took SL1 sheath into the SVC over the wire and then with the [place] needle inside, we descended into the interatrial septum in the low mid position. Transseptal puncture was done and LA pressure was measured at 24 mmHg. Then, I sent a ProTrack wire into the left atrium, exchanged the SL1 sheath for the Watchman double curve sheath and then I took a pigtail into the left atrium through the Watchman sheath into the left atrial appendage and navigated the Watchman sheath over it into the appendage. Appendage angiogram was done and determined 27 mm Watchman closure device will be suitable for closure. Screening GONZÁLEZ prior to the procedure did not show any thrombus in the left atrial appendage. Then, we took a 27-mm device, was prepped in usual sterile fashion and then removed the pigtail after a good bleed back and positive flush through the Watchman delivery system. Watchman delivery system was advanced into the Watchman double curve sheath and then the device was deployed in the left atrial appendage successfully without complications. All PASS criteria were evaluated and were met, and device was released, sheath was removed and Cook sheath was removed. Aoonpj-de-uduyw suture was used to close the entry site with good hemostasis. CONCLUSION: Successful left atrial appendage closure using 27 mm Watchman FLX closure device. Dictated By: Elmo Rubi MD PATIENT NAME: MALA NIXON WT: CATH:EARL/CHATO/SHANNON Conf#: [id number]/DID#: [id number] Authenticated by Elmo Rubi MD On 11/08/2020 09:10:32 AM at 0910 PATIENT NAME: MALA NIXON [facility] 2020-11-05 16:44:00 [id number] [address] PATIENT NAME: MALA NIXON ADMIT DATE: ACCOUNT NO: [id number] ROOM NO: AGE: 79 REPORT TYPE: eELECTROCARDIOGRAM REPORT SEX: M ADMITTING PHYSICIAN:Elmo Rubi MD ATTENDING PHYSICIAN:Elmo Rubi MD Order: [id number] Test Reason : PREOP Test Date/Time Stamp: ThuNov 05 2020 16:44:57 Blood Pressure : / mmHG Vent. Rate : 065 BPM Atrial Rate : 083 BPM P-R Int : 000 ms QRS Dur : 094 ms QT Int : 430 ms P-R-T Axes : 000 -59 088 degrees QTc Int : 447 ms Atrial fibrillation Left axis deviation Low voltage QRS Inferior infarct , age undetermined Cannot rule out Anterior infarct , age undetermined Abnormal ECG PRE_OP Confirmed by MARY IBRAHIM MD ([id number]) on 11/05/2020 6:07:02 PM Referred By: Elmo Rubi Confirmed by:MARY IBRAHIM MD at 2457 PATIENT NAME: MALA NIXON [facility]"
[2024-02-20] MEDS ORDERED: TDAP (DIPHTH,PERTUSS(ACELL),TET VAC) 0.5 ML VIAL IMVAC ONE (20:28)
--- NOTE | 2024-02-20 20:48 | RAD REPORT ---
EXAM: CT brain without contrast HISTORY: TRAUMA COMPARISON: None TECHNIQUE: Multiple contiguous axial images were obtained and a CT of the brain without contrast. Sag ittal and coronal reformats were performed. FINDINGS: No evidence of hydrocephalus, intracranial hemorrhage, or extra-axial fluid collection. Moderate brain atrophy with moderate periventricular and deep white matter chronic microvascular isc hemic changes present. The calvarium is intact. The visualized paranasal sinuses and mastoid air cells are essentially clear . Scalp swelling and hematoma along the right frontotemporal region. Another small scalp swelling, hematoma, and probable laceration the vertex. IMPRESSION: No evidence of acute intracranial abnormality. EXAM: CT of the cervical spine without contrast HISTORY: TRAUMA COMPARISON: None TECHNIQUE: Multiple contiguous axial images were obtained in a CT of the cervical spine without contr ast. Sagittal and coronal reformats were performed. FINDINGS: The vertebral bodies demonstrate normal height and alignment. No evidence of acute fracture or subluxation.. Multilevel degenerative changes, contributing to mild central canal stenosis most pronounced at at C6-7, and variable degrees of neural foraminal narrowing, up to severe bilaterally a t C5-6 and C6-7. No prevertebral soft tissue swelling is seen. The posterior facets are well aligned. Normal alignment of the skull base with the cervical spine is seen. Opacification at the right lung apex, with somewhat hyperdense content, suggesting a layering effusio n or hemothorax. IMPRESSION: No evidence of acute osseous abnormality of the cervical spine. Multilevel spondylotic changes as above. Opacification at the right lung apex, suggesting a layering effusion or hemothorax
--- NOTE | 2024-02-20 22:36 | RAD REPORT ---
EXAMINATION: CT Thorax Wo Con CLINICAL INDICATION: Male, 83 years old. [facility] MA[facility] trauma r/o hemothorax Bed Name: 17 Y TECHNIQUE: Axial CT scan of the chest without intravenous contrast. Multiplanar reformats were genera trip and reviewed. One or more of the following dose reduction techniques were used: Automated exposure control, adjustment of the mA and/or kV according patient size, and/or iterative reconstruct ion. Unless otherwise specified, incidental findings do not require dedicated imaging follow-up. COMPARISON: 04/15/2023 FINDINGS: LOWER NECK: Visualized thyroid gland and soft tissues are normal. LUNGS: Dependent subsegmental airspace opacities involving most of the right lower lobe, and peripher al right middle lobe, with volume loss. Mild rightward tracheal shift. No evidence of airspace or interstitial process. No worrisome nodules. PLEURA: Small to moderate right pleural effusion with fairly diffuse thickening along the margins par ticularly along the posterior parietal pleura up to 7 mm in thickness. Overall, the effusion has decreased in size compared to the prior CT No pneumothorax. . MEDIASTINUM AND LYMPH NODES: No mediastinal mass or fluid collection. Normal size mediastinal, hilar, and axillary lymph nodes. OSSEOUS STRUCTURES AND CHEST WALL: Intact. UPPER ABDOMEN: Stable fat density containing left adrenal nodule measuring 1.7 cm, may suggest a mild lipoma. Few small gallstones again seen. IMPRESSION: Overall decreased size of right pleural effusion, now with accompanying pleural thickening, which may relate to sequelae of prior superimposed infection or cellular or proteinaceous content. Right middle and lower lobe airspace opacities, favoring the atelectatic in nature. Underlying pneumo nilda would be difficult. Other stable findings as above.
--- NOTE | 2024-02-20 22:55 | ER ---
Nurse's Notes [facility] Name: Chris Pinto Age: 83 yrs Sex: Male : 1940 Arrival Date: 02/20/2024 Time: 18:58 Bed 15 Private MD: Diagnosis: Unspecified injury of head, initial encounter;Facial Laceration/ Laceration without foreign body of cheek and temporomandibular area Presentation: 02/19 19:09 Chief complaint: Patient states: Trip and fall, no LOC. Chief complaint: EMS states: A ll1 fib with PVC's rate 30-60. C collar applied. 20 R wrist. Coronavirus screen: Vaccine status: Client denies travel out of the [place] in the last 14 days. At this time, the client does not indicate any symptoms associated with coronavirus-19. Ebola Screen: Patient denies travel to an Ebola-affected area in the 21 days before illness onset. Initial Sepsis Screen: Does the patient meet any 2 criteria? No. Patient's initial sepsis screen is negative. Does the patient have a suspected source of infection? No. Patient's initial sepsis screen is negative. Risk Assessment: Do you want to hurt yourself or someone else? Patient reports no desire to harm self or others. Onset of symptoms. 19:09 Method Of Arrival: EMS ll1 19:09 Acuity: LITA 2 ll1 Triage Assessment: 19:11 General: Appears uncomfortable, Behavior is calm, cooperative, appropriate for age. ll1 Pain: Complains of pain in face Quality of pain is described as aching. Derm: Reports laceration R side of head. Musculoskeletal: Reports pain in face. Injury Description: Head injury. Historical: - Allergies: 19:11 No Known Allergies; ll1 - PMHx: 19:11 a fib; Diabetes - NIDDM; High Cholesterol; Hypertension; Dementia; ll1 - PSHx: 19:11 Stented artery; ll1 - Immunization history:: Adult Immunizations up to date. - Infectious Disease History:: Denies. - Social history:: Smoking status: Patient denies any tobacco usage or history of. Screenin:29 [facility] ED Fall Risk Assessment (Adult) History of falling in the last 3 months, dd2 including since admission Yes- single mechanical fall (1 pt) Confusion or Disorientation Yes (5 pts) Intoxicated or Sedated No (0 pts) Impaired Gait No (0 pts) Mobility Assist Device Used Yes (1 pt) Altered Elimination No (0 pt) Score/Fall Risk Level 3 or more points = High Risk Oriented to surroundings, Maintained a safe environment, Educated pt \T\ family on fall prevention, incl call for assistance when getting out of bed, Assessed \T\ reinforced patient's understanding of fall precautions, Hourly rounding (assess needs \T\ fall precautionary measures) done, Utilized family, sitter, or virtual mortgage accounting clerk as indicated. Abuse screen: Denies threats or abuse. Nutritional screening: No deficits noted. Tuberculosis screening: No symptoms or risk factors identified. Assessment: 19:05 Reassessment: BS report to BATSHEVA Barth. 1 19:29 General: Appears uncomfortable, Behavior is calm, cooperative. Pain: Complains of pain dd2 in face and forehead and right sikh Unable to use pain scale. Does not appear to understand pain scale. Neuro: Level of Consciousness is awake, alert, confused, Oriented to person. Cardiovascular: Patient's skin is warm and dry. Rhythm is atrial fibrillation With PVC's. Respiratory: Airway is patent Respiratory effort is even, unlabored, Respiratory pattern is regular, symmetrical, Breath sounds are clear bilaterally. GI: No deficits noted. No signs and/or symptoms were reported involving the gastrointestinal system. Abdomen is flat, non-distended. : No deficits noted. No signs and/or symptoms were reported regarding the genitourinary system. EENT: No deficits noted. No signs and/or symptoms were reported regarding the EENT system. Derm: Skin is thin, Wound noted forehead and right sikh Wound is hematoma, laceration. Injury Description: Laceration sustained to forehead and right sikh is 0.5 to 2.5 cm long, bleeding controlled moderate bleeding noted at this time. Vital Signs: 19:09 BP 174 / 65; Pulse 93; Resp 18; Temp 97.3; Pulse Ox 100% on R/A; Weight 77.11 kg; ll1 Height 6 ft. 3 in. ; Pain 0/10; 20:47 BP 164 / 64; Pulse 53; Resp 16; Pulse Ox 99% ; dd2 22:10 BP 152 / 67; Pulse 48; Resp 16; Pulse Ox 98% ; dd2 23:33 BP 151 / 63; Pulse 51; Resp 17; Temp 98.3; Pulse Ox 98% ; dd2 19:09 Body Mass Index 21.25 (77.11 kg, 190.5 cm) ll1 19:09 Pain Scale: Adult ll1 [place] Coma Score: 19:14 Eye Response: spontaneous(4). Motor Response: obeys commands(6). Verbal Response: sb4 confused(4). Total: 14. 19:29 Eye Response: spontaneous(4). Motor Response: obeys commands(6). Verbal Response: dd2 confused(4). Total: 14. 22:01 Eye Response: spontaneous(4). Motor Response: obeys commands(6). Verbal Response: sb4 confused(4). Total: 14. ED Course: 19:05 Patient arrived in ED. rv1 19:06 Elda Baires PA-C is PHCP. sb4 19:06 Charles Sky MD is Attending Physician. sb4 19:11 Triage completed. ll1 19:11 Arm band placed on Patient placed in an exam room, on a stretcher. ll1 19:17 MIKAELA PINTO, RN is Primary Nurse. dd2 19:29 Patient has correct armband on for positive identification. Placed in gown. Bed in low dd2 position. Call light in reach. Side rails up X2. Adult w/ patient. Provided Education on: call light, fall risks. Client placed on continuous cardiac and pulse oximetry monitoring. NIBP monitoring applied. ultrasonic seaming machine operator on. Door closed. Noise minimized. Warm blanket given. Pillow given. Verbal reassurance given. 19:29 No provider procedures requiring assistance completed. Maintain EMS IV. Dressing dd2 intact. Good blood return noted. Site clean \T\ dry. Gauge \T\ site: 20 g rt hand. Flushed with 10 mL NS IV is patent, is intact, with fluids infusing freely, with good blood return. Patient maintains SpO2 saturation greater than 95% on room air. 19:42 Head C Spine MPR Wo Con CT In Process Unspecified. EDMS 19:58 Wound care: to laceration located on forehead and right sikh was cleaned with with af3 saline solution , dressed with 4X4s. 21:[address] In Process Unspecified. EDMS 23:33 Dressings: Kerlix X 1; forehead and right sikh non-adherent dressing x 1 forehead and dd2 right sikh. Wound care: was dressed with Neosporin, Kerlix. 23:56 IV discontinued, intact, bleeding controlled, No redness/swelling at site. Pressure dd2 dressing applied. Administered Medications: 20:38 Drug: Boostrix Tdap IM 0.5 ml IM once; as a single dose Route: IM; Site: right deltoid; dd2 21:08 Follow up: Response: No adverse reaction dd2 23:35 Drug: Acetaminophen PO 1000 mg PO once Route: PO; dd2 23:55 Follow up: Response: No adverse reaction dd2 Medication: 20:48 Vaccine Information Statement (VIS) provided today. Questions and/or concerns dd2 addressed. VIS edition date: November 02, 2020. Outcome: 22:55 Discharge ordered by . sb4 23:56 Discharged to home via wheelchair, dd2 23:56 Condition: stable 23:56 Discharge instructions given to family, Instructed on discharge instructions, follow up and referral plans. wound care, Demonstrated understanding of instructions, follow-up care, wound care, 23:57 Patient left the ED. dd2 Signatures: Dispatcher [employer] EDJimy Rae, RN RN ll1 Elda Baires, PASteven PA-C [email or web address] Susan Roth Ashley af3 DAVIS, DIANA, RN RN dd2
--- NOTE | 2024-02-20 22:55 | EDPHYS ---
Physician Documentation [facility] Name: Chris Pinto Age: 83 yrs Sex: Male : 1940 Arrival Date: 02/20/2024 Time: 18:58 Bed 15 Private MD: ED Physician Charles Sky HPI: 02/19 19:14 This 83 yrs old Male presents to ER via EMS with complaints of fall, head injury. sb4 19:14 The patient or guardian reports injury, pain, swelling, tenderness. The complaints sb4 affect the right sikh. Context of injury: The problem was sustained at home, resulted from a fall, slipped. Onset: The symptoms/episode began/occurred just prior to arrival. Associated signs and symptoms: The patient has no apparent associated signs or symptoms, Loss of consciousness: This patient did not experience any loss of consciousness. Pertinent positives: headache, injury, Pertinent negatives: patient denies any alcohol consumption, double vision, nausea, neck pain. The patient has not experienced similar symptoms in the past. The patient has not recently seen a physician. Historical: - Allergies: 19:11 No Known Allergies; ll1 - PMHx: 19:11 a fib; Diabetes - NIDDM; High Cholesterol; Hypertension; Dementia; ll1 - PSHx: 19:11 Stented artery; ll1 - Immunization history:: Adult Immunizations up to date. - Infectious Disease History:: Denies. - Social history:: Smoking status: Patient denies any tobacco usage or history of. ROS: 19:15 Constitutional: Negative for fever, chills, and weight loss, sb4 19:15 Skin: Positive for hematoma, swelling, of the right sikh, 19:15 All other systems are negative, Exam: 19:15 ENT: Mucous membranes moist. Cardiovascular: Regular rate and rhythm with a normal S1 sb4 and S2. Respiratory: No increased work of breathing, no retractions or nasal flaring. Abdomen/GI: Soft, non-tender, no distension. Skin: Warm, dry with normal turgor. Normal color with no rashes, no lesions, and no evidence of cellulitis. 19:15 Constitutional: The patient appears in no acute distress, alert, awake, 19:15 Head/face: Noted is hematoma, that is moderate, of the right sikh, swelling, tenderness, bleeding. 19:15 Eyes: Pupils: no acute changes, right pupil displaced, chronic, Extraocular movements: intact throughout, 19:15 Neck: C-spine: C-collar placed ELECTRIC APPLIANCE INSTALLER, Vital Signs: 19:09 BP 174 / 65; Pulse 93; Resp 18; Temp 97.3; Pulse Ox 100% on R/A; Weight 77.11 kg; ll1 Height 6 ft. 3 in. ; Pain 0/10; 20:47 BP 164 / 64; Pulse 53; Resp 16; Pulse Ox 99% ; dd2 22:10 BP 152 / 67; Pulse 48; Resp 16; Pulse Ox 98% ; dd2 23:33 BP 151 / 63; Pulse 51; Resp 17; Temp 98.3; Pulse Ox 98% ; dd2 19:09 Body Mass Index 21.25 (77.11 kg, 190.5 cm) ll1 19:09 Pain Scale: Adult ll1 [place] Coma Score: 19:14 Eye Response: spontaneous(4). Motor Response: obeys commands(6). Verbal Response: sb4 confused(4). Total: 14. 19:29 Eye Response: spontaneous(4). Motor Response: obeys commands(6). Verbal Response: dd2 confused(4). Total: 14. 22:01 Eye Response: spontaneous(4). Motor Response: obeys commands(6). Verbal Response: sb4 confused(4). Total: 14. MDM: 19:06 Medical Screening Exam initiated sb4 22:01 Differential diagnosis: Contusion of Hematoma on Laceration of Intracranial bleed- sb4 Concussion cerebral contusion. 22:51 Data reviewed: vital signs, nurses notes, EMS record, radiologic studies, and as a sb4 result, I will discharge patient. Counseling: I had a detailed discussion with the patient and/or guardian regarding the historical points, exam findings, and any diagnostic results supporting the discharge/admit diagnosis, radiology results, the need for outpatient follow up, for definitive care, to return to the emergency department if symptoms worsen or persist or if there are any questions or concerns that arise at home. 02/19 19:14 Order name: Head C Spine MPR Wo Con CT; Complete Time: 20:51 sb4 02/19 20:57 Order name: Chest Wo Con CT; Complete Time: 22:42 sb4 02/19 19:14 Order name: Wound Care; Complete Time: 19:48 sb4 02/19 20:53 Order name: Misc. Order: remove c collar; Complete Time: 22:52 sb4 02/19 22:51 Order name: Wound dressing; Complete Time: 23:34 sb4 Administered Medications: 20:38 Drug: Boostrix Tdap IM 0.5 ml IM once; as a single dose Route: IM; Site: right deltoid; dd2 21:08 Follow up: Response: No adverse reaction dd2 23:35 Drug: Acetaminophen PO 1000 mg PO once Route: PO; dd2 23:55 Follow up: Response: No adverse reaction dd2 Disposition: 02/20 00:01 Co-signature as Attending Physician, Charles Sky MD I reviewed the patient's care rt provided by the Advanced Practice Provider and agree with the diagnosis and treatment plan. Disposition Summary: 02/20/24 22:55 Discharge Ordered Notes: Location: Home sb4 Problem: new sb4 Symptoms: have improved sb4 Condition: Stable sb4 Diagnosis - Unspecified injury of head, initial encounter sb4 - Facial Laceration/ Laceration without foreign body of cheek and temporomandibular sb4 area Followup: sb4 - With: Emergency Department - When: As needed - Reason: Trouble breathing, Worsening of condition Discharge Instructions: - Discharge Summary Sheet sb4 - Nonsutured Laceration Care sb4 - Head Injury, Adult, [id number] sb4 - Facial or Scalp Contusion, [id number] sb4 Forms: - Patient Portal Instructions sb4 - Leadership Thank You Letter sb4 Signatures: Dispatcher [employer] Jimy Nj, RN RN ll1 Elda Baires PA-C PA-C sb4 Charles Sky MD MD rt MIKAELA PINTO RN RN dd2 Corrections: (The following items were deleted from the chart) 02/19 22:02 19:14 GCS: 15, sb4 sb4
[2024-02-20] MEDS ORDERED: ACETAMINOPHEN 500 MG TAB ONE (23:23)
[2024-02-21 01:35] VITALS: O2SAT 98
[2024-02-21 01:36] VITALS: BP 151/63; TEMP 98.3
== END 2024-02-20 23:57 | disposition home or self-care (01) ==
LOC: ER 18:58
DX: S01.411A Laceration without foreign body of right cheek and temporomandibular area, initial encounter (principal); W01.0XXA Fall on same level from slipping, tripping and stumbling without subsequent striking against object, initial encounter; Y92.009 Unspecified place in unspecified non-institutional (private) residence as the place of occurrence of the external cause
CPT/HCPCS: 70450; 71250; 72125